=== PATIENT | female | born 1955 | race Caucasian/White ===

== ENCOUNTER 2019-07-09 18:27 | Emergency (ER) | payer MEDICAID, SELFPAY ==
[2019-07-09 18:42] VITALS: BP 171/84; PULSE 63; RESP 18; TEMP 36.3; O2SAT 99; BMI 20.7
[2019-07-09 19:16] LABS: Basophils % 0.7 %; Eosinophils # 0.1 10^3/uL (0.0-0.8); Eosinophils % 2.4 %; Hematocrit 43.3 % (37.0-47.0); Hemoglobin 14.3 g/dL (11.5-15.3); Lymphocytes # 2.4 10^3/uL (0.8-4.8); Lymphocytes % 40.4 %; Mean Corpuscular Hemoglobin 29.6 pg (28.0-34.0); Mean Corpuscular Volume 89.6 fL (81-99); Mean Platelet Volume 9.9 fL (7.4-10.4); Monocytes # 0.6 10^3/uL (0.2-0.9); Monocytes % 9.5 %; Neutrophils # 2.8 10^3/uL (1.8-7.7); Neutrophils % 46.8 %; Nucleated Red Blood Cells % 0 %; Platelet Count 208 10^3/cmm (130-400); Red Blood Count 4.83 10^6/uL (4.1-5.3); Red Cell Distribution Width 12.7 % (12.1-15.1); White Blood Count 5.9 10^3/uL (4.0-10.0)
[2019-07-09 19:55] LABS: Alanine Aminotransferase 28 U/L (0-33); Albumin Level 4.6 g/dL (3.5-5.2); Alkaline Phosphatase 59 IU/L (35-105); Anion Gap 16.7 (5-19); Aspartate Amino Transferase 35 U/L (0-32); Blood Urea Nitrogen 7 mg/dL (8-23); Carbon Dioxide 23 mmol/L (22-29); Chloride 100 mmol/L (98-107); Globulin 2.3 g/dL (1.3-4.6); Glomerular Filtration Rate 123.4 mL/min (90-130); Glucose 131 mg/dL (74-106); Lipase 36 U/L (13-60); Potassium 3.7 mmol/L (3.5-5.1); Sodium 136 mmol/L (136-145); Total Bilirubin 0.3 mg/dL (0.15-1.2); Total Protein 6.9 g/dL (6.6-8.7)
--- NOTE | 2019-07-09 23:20 | ED_ITS ---
Entered by Yoli Banerjee, acting as scribe for Godwin Fitch MD Jul 09, 2019 18:27 HPI - Abdominal Pain General: Chief Complaint: Abdominal Pain Stated Complaint: gallbladder attack Time Seen by Provider: 07/09/19 23:18 History of Present Illness: HPI narrative: 64 yo f came to the er for gallstones and abd pain. Onset was 1 year ago. Pt states that the pain has been really bad today but right now the pain is gone. Pt states that she is having rlq pain. Pt states that she has only been to see her pcp [facility] and has not been to see a surgeon. Pt states that she is also nauseated. MD elicited complaint: abdominal pain Pertinent past history: other (gallstones) Onset (ago): day(s) (1 year go it started, but pain is worse today) Pain Consistency: constant Location: RLQ Quality: dull Radiation: none Migration to: no migration Exacerbating factors: nothing Relieving factors: nothing Associated Symptoms: Reports nausea; Denies chills and fever(s) Related Data: Patient : No Review of Systems Const: Denies: fever or chills Eyes: Denies: change in vision ENMT: Denies: throat pain or mouth pain Card: Denies: chest pain Resp: Denies: shortness of breath GI: Reports: abdominal pain and nausea : Denies: difficulty urinating Musc: Denies: back pain or joint pain Skin/Breast: Denies: rash Neuro: Denies: headache or behavioral changes Psych: Denies: depression Endo: Denies: excessive urination Vinod/Lymph: Denies: easy bruising All/Imm: Denies: hives PFSH ED PFSH: Statuses (acute, chronic, etc) shown below reflect problem list status as previously entered and may not be historically accurate Social History Smoking and tobacco status: never smoked Physical Exam Const: COMMON NORMALS: no apparent distress and healthy appearing HENMT: COMMON NORMALS: normocephalic and external nose normal HEAD & SCALP: normocephalic NOSE: external nose normal and no nasal discharge (nasal dischage) Eye: COMMON NORMALS: PERRL PUPIL: Yes PERRL Neck/C-Spine: COMMON NORMALS: full ROM and no lymphadenopathy Chest: COMMONS NORMALS: inspection of chest normal Resp: COMMON NORMALS: normal respiratory effort and clear to auscultation bilaterally AUSCULTATION: clear to auscultation bilaterally Cardio: COMMON NORMALS: regular rate and regular rhythm RATE: regular rate RHYTHM: regular rhythm GI: COMMON NORMALS: soft to palpation PALPATION: Yes soft Extremity: COMMON NORMALS: normal to inspection, full ROM and normal capillary refill Psych: COMMON NORMALS: mental status grossly normal and cooperative Skin: COMMON NORMALS: no rashes or lesions noted GENERAL SKIN EXAM: no rashes or lesions noted Procedures Intubation Mg Given: 20 Mg Given: 200 Course Vital Signs: Vital signs: Vital Signs Temperature 98.2 F 07/10/19 00:26 Pulse Rate 74 07/10/19 00:26 Respiratory Rate 15 07/10/19 00:26 Blood Pressure 124/71 07/10/19 00:26 Pulse Oximetry 97 07/10/19 00:26 MDM - Abdominal Pain MDM Narrative: Medical decision making narrative: Patient presents here with abdominal pain that is since resolved and she has 0 pain here. Patient's lab work and CT scan is normal. Will place patient on Zofran and patient is to return if worsening. She is to follow-up with primary care doctor in 2 to 4 days. Lab Data: Labs: Lab Results 07/09/19 07/09/19 Range/Units 19:04 19:04 WBC 5.9 (4.0-10.0) 10^3/ uL RBC 4.83 (4.1-5.3) 10^6/u L Hgb 14.3 (11.5-15.3) g/dL Hct 43.3 (37.0-47.0) % MCV 89.6 (81-99) fL MCH 29.6 (28.0-34.0) pg MCHC 33.0 (30.0-36.0) g/dL RDW 12.7 (12.1-15.1) % Plt Count 208 (130-400) 10^3/c mm MPV 9.9 (7.4-10.4) fL Neut % (Auto) 46.8 % Lymph % (Auto) 40.4 % [place] % (Auto) 9.5 % Eos % (Auto) 2.4 % Baso % (Auto) 0.7 % Neut # (Auto) 2.8 (1.8-7.7) 10^3/u L Lymph # (Auto) 2.4 (0.8-4.8) 10^3/u L [place] # (Auto) 0.6 (0.2-0.9) 10^3/u L Eos # (Auto) 0.1 (0.0-0.8) 10^3/u L Baso # (Auto) 0.0 (0.0-0.1) 10^3/u L Nucleated RBC % (a uto) 0 % Nucleated RBCs # 0.0 /100WBC Sodium 136 (136-145) mmol/L Potassium 3.7 (3.5-5.1) mmol/L Chloride 100 (98-107) mmol/L Carbon Dioxide 23 (22-29) mmol/L Anion Gap 16.7 (5-19) BUN 7 L (8-23) mg/dL Creatinine 0.5 (0.5-0.9) mg/dL GFR Calculation 123.4 (90-130) mL/min Glucose 131 H (74-106) mg/dL Calcium 11.0 H (8.8-10.2) mg/Dl Total Bilirubin 0.3 (0.15-1.2) mg/dL AST 35 H (0-32) U/L ALT 28 (0-33) U/L Alkaline Phosphata se 59 (35-105) IU/L Total Protein 6.9 (6.6-8.7) g/dL Albumin 4.6 (3.5-5.2) g/dL Globulin 2.3 (1.3-4.6) g/dL Lipase 36 (13-60) U/L Imaging Data ^: CT Abd/Pel: Radiologist's impression: Ordering Provider/Ordering MD: Godwin Fitch MD Date of Service: 07/09/19 Procedure(s): CT abdomen pelvis w con* [id number] Accession Number(s): [id number] Report Number: [id number] PROCEDURE INFORMATION: Exam: CT Abdomen And Pelvis With Contrast Exam date and time: 07/09/2019 11:27 PM Age: 64 years old Clinical indication: Abdominal pain; Localized; Right upper quadrant (ruq) TECHNIQUE: Imaging protocol: Computed tomography of the abdomen and pelvis with intravenous contrast. Total DLP: 458.97 mGy-cm Radiation optimization: All CT scans at this facility use at least one of these dose optimization techniques: automated exposure control; mA and/or kV adjustment per patient size (includes targeted exams where dose is matched to clinical indication); or iterative reconstruction. Contrast material: OMNI 300; Contrast volume: 95 ml; Contrast route: IV; COMPARISON: CT abdomen pelvis wo con [id number] 10/28/2017 1:13 PM FINDINGS: Lungs: Bronchiectasis with patchy mucous plugging and volume loss in the lung bases is unchanged. Liver: Unremarkable.No mass. Gallbladder and bile ducts: Gallbladder wall appears slightly thickened but is also partially collapsed. Pancreas: Normal. No ductal dilation. Spleen: Normal. No splenomegaly. Adrenals: Normal. No mass. Kidneys and ureters: There are multiple renal hypodensities that cannot be further characterized on the current examination. There is no evidence of hydronephrosis. There is no evidence of renal calcifications. Stomach and bowel: The gastric wall appears thickened but is also almost completely collapsed in the appearance is similar to the prior exam. The duodenum is mildly distended with fluid. The duodenal wall is mildly thickened and enhancing concerning for mild duodenitis. There is mild wall thickening of the descending and sigmoid colon concerning for mild colitis. The remaining loops of bowel have an appropriate appearance. Appendix: No evidence of appendicitis. Intraperitoneal space: Unremarkable. No free air. No significant fluid collection. Vasculature: Unremarkable.No abdominal aortic aneurysm. Lymph nodes: Unremarkable.No enlarged lymph nodes. Bladder: Unremarkable as visualized. Reproductive: Unremarkable as visualized. Bones/joints: There is scoliosis with moderate degenerative changes in the spine. Soft tissues: Unremarkable. CT/CT abdomen pelvis w con* [id number] IMPRESSION: 1. There is mild wall thickening of the descending and sigmoid colon concerning for mild colitis. 2. The duodenal wall is mildly thickened and enhancing concerning for mild duodenitis. Discharge Plan Discharge Patient Disposition: Home, Self-Care Clinical Impression: Abdominal pain Qualifiers: Abdominal location: generalized Qualified Code(s): R10.84 - Generalized abdominal pain Condition: Stable Prescriptions: New Zofran 4 mg tablet 4 mg PO QID PRN (Reason: nausea and vomiting) Qty: 14 RF: 0 Discharge Orders: Discharge Order (Routine); Ordered 07/10/19 Ordered By: Godwin Fitch Referrals: Michael Phillips MD [Primary Care Provider] - 4-7 days Discharge Diet: Advance as tolerated Discharge Activity: Resume usual activity Patient Instructions: Abdominal Pain (ED) Discharge Date/Time: 07/10/19 00:27 Coding Level of Care Code ED Criminal Intelligence Specialist for Chg Fwd The documentation recorded by the Chriss villarreal Stephanie Lyn, accurately reflects the service I personally performed and the decisions made by Constantine martin Korby, MD Jul 09, 2019 18:27
[2019-07-09] MEDS: ondansetron 2 mg/ML SDV 2 mL 4 MG IVP (23:30)
[2019-07-09] MEDS: iohexol 300 mg/mL 100 mL Btl IV (23:30)
[2019-07-10 00:26] VITALS: BP 124/71; PULSE 74; RESP 15; TEMP 36.8; O2SAT 97
== END 2019-07-10 00:27 | disposition home or self-care (01) ==
PROVIDERS: Emergency Provider Emergency Medicine; Family Provider Family Medicine; PCP Family Medicine
DX: R10.84 Generalized abdominal pain (principal)
CPT/HCPCS: 36415; 74177; 80053; 83690; 85025; 96374; 96375; 99281; J2405; Q9967

== ENCOUNTER 2020-01-06 12:30 | Emergency (ER) | payer MEDICAID, SELFPAY ==
[2020-01-06 12:22] VITALS: BP 170/73; PULSE 67; RESP 18; TEMP 36.5; O2SAT 98; BMI 20.5
--- NOTE | 2020-01-06 12:38 | ED_ITS ---
HPI - Female Genitourinary General: Chief complaint: Urogenital-Female Stated complaint: ABD PAIN History of Present Illness: HPI Narrative: Patient complains of bilateral lower abdominal pain for the past few days. She also complains of frequency, hesitancy, and urgency of urination. MD elicited complaint: dysuria, UTI , back pain and flank pain Pertinent past history: hysterectomy Severity: moderate Female Urogenital Radiation: Non-Radiating Quality of pain: sharp and burning Consistency: constant and progressively worsening Review of Systems General: Reports: 10 or more systems reviewed and unremarkable except in HPI and below PFSH ED PFSH: Social History Smoking and tobacco status: never smoked Physical Exam Const: COMMON NORMALS: no acute distress, patient oriented x3, no limitations and alert HENMT: COMMON NORMALS: normocephalic, atraumatic, external ears normal and Normal external nose present HEAD & SCALP: normocephalic and atraumatic FACE & SINUS: normal facial exam NOSE: Normal external nose present EXTERNAL EAR: Yes external ears normal MOUTH: Normal oral and palatal mucosa present Neck/C-Spine: COMMON NORMALS: full ROM, no lymphadenopathy, supple, no meningeal signs and no JVD GENERAL: Yes normal visual inspection Resp: COMMON NORMALS: normal respiratory effort, No retractions, No use of acc essory muscles and clear to auscultation bilaterally AUSCULTATION: clear to auscultation bilaterally Cardio: COMMON NORMALS: no JVD, regular rate and regular rhythm RATE: regular rate RHYTHM: regular rhythm GI: COMMON NORMALS: Normal to inspection, nondistended, normoactive bowel sounds present, Soft to palpation, non-tender, No hepatosplenomegaly present and no masses INSPECTION: Yes normal to inspection AUSCULTATION: Yes normoactive bowel sounds PALPATION: Yes Soft to palpation and Yes No hepatosplenomegaly present PERCUSSION: normal to percussion : COMMON NORMALS: Yes no CVA tenderness and Yes normal external appearance BLADDER/KIDNEY EXAM: Yes no CVA tenderness Back/Pelvis: COMMON NORMALS: no CVA tenderness, thoracic and lumbar spine normal to inspection, no thoracic nor lumbar tenderness, thoraco-lumbar ROM normal and straight leg raise negative bilaterally Extremity: COMMON NORMALS: normal to inspection, full ROM, capillary refill normal, no joint enlargement, no clubbing, cyanosis or edema, no calf tenderness and no pedal edema Neuro: COMMON NORMALS: patient oriented x3, moves all extremities, no focal motor deficits and no sensory deficits noted SENSORIUM/ORIENTATION: Yes alert MENINGEAL SIGNS: Yes no meningeal signs Psych: COMMON NORMALS: mental status grossly normal, Normal thought process present, cooperative, normal affect and speech normal SPEECH: Yes normal speech THOUGHT PROCESS: Normal thought process present Skin: COMMON NORMALS: no rashes or lesions noted, no wounds, turgor normal, no jaundice, no petechiae and no mottling GENERAL SKIN EXAM: no rashes or lesions noted and turgor normal Course Vital Signs: Vital signs: Vital Signs Temperature 97.7 F 01/06/20 12:22 Pulse Rate 67 01/06/20 12:22 Respiratory Rate 18 01/06/20 12:22 Blood Pressure 170/73 01/06/20 12:22 Pulse Oximetry 98 01/06/20 12:22 MDM - Female Lab Data: Labs: Lab Results 01/06/20 01/06/20 01/06/20 Range/Units 12:45 12:45 12:45 WBC 5.9 (4.0-10.0) 10^3/ uL RBC 4.63 (4.1-5.3) 10^6/u L Hgb 13.3 (11.5-15.3) g/dL Hct 40.9 (37.0-47.0) % MCV 88.3 (81-99) fL MCH 28.7 (28.0-34.0) pg MCHC 32.5 (30.0-36.0) g/dL RDW 13.2 (12.1-15.1) % Plt Count 186 (130-400) 10^3/c mm MPV 10.6 H (7.4-10.4) fL Neut % (Auto) 69.0 % Lymph % (Auto) 21.9 % [place] % (Auto) 6.3 % Eos % (Auto) 1.9 % Baso % (Auto) 0.7 % Neut # (Auto) 4.08 (1.8-7.7) 10^3/u L Lymph # (Auto) 1.3 (0.8-4.8) 10^3/u L [place] # (Auto) 0.4 (0.2-0.9) 10^3/u L Eos # (Auto) 0.1 (0.0-0.8) 10^3/u L Baso # (Auto) 0.0 (0.0-0.1) 10^3/u L Nucleated RBC % (a uto) 0 % Nucleated RBCs # 0.0 /100WBC Sodium 137 (136-145) mmol/L Potassium 3.6 (3.5-5.1) mmol/L Chloride 101 (98-107) mmol/L Carbon Dioxide 25 (22-29) mmol/L Anion Gap 14.6 (5-19) BUN 6 L (8-23) mg/dL Creatinine 0.5 (0.5-0.9) mg/dL GFR Calculation 123.4 (90-130) mL/min Glucose 111 (65-115) mg/dL Calculated Osmolal ity 280 L (285-295) mOsm/k g Lactate 1.0 (0.5-2.2) mmol/L Calcium 10.7 H (8.5-10.5) mg/dL Total Bilirubin 0.5 (0.15-1.2) mg/dL AST 23 (0-32) U/L ALT 18 (0-33) U/L Alkaline Phosphata se 60 (35-105) IU/L Total Protein 6.7 (6.6-8.7) g/dL Albumin 4.4 (3.5-5.2) g/dL Globulin 2.3 (1.3-4.6) g/dL Urine Color (Yellow) Urine Appearance (CLEAR) Urine pH (5-7) Ur Specific Gravit y (1.005-1.030) Urine Protein (Negative) Urine Glucose (UA) (Normal) Urine Ketones (Negative) Urine Blood (Negative) Urine Nitrate (Negative) Urine Bilirubin (NEGATIVE) Urine Urobilinogen (Negative) mg/dL Ur Leukocyte Jane ase (Negative) 01/06/20 Range/Units 13:28 WBC (4.0-10.0) 10^3/ uL RBC (4.1-5.3) 10^6/u L Hgb (11.5-15.3) g/dL Hct (37.0-47.0) % MCV (81-99) fL MCH (28.0-34.0) pg MCHC (30.0-36.0) g/dL RDW (12.1-15.1) % Plt Count (130-400) 10^3/c mm MPV (7.4-10.4) fL Neut % (Auto) % Lymph % (Auto) % [place] % (Auto) % Eos % (Auto) % Baso % (Auto) % Neut # (Auto) (1.8-7.7) 10^3/u L Lymph # (Auto) (0.8-4.8) 10^3/u L [place] # (Auto) (0.2-0.9) 10^3/u L Eos # (Auto) (0.0-0.8) 10^3/u L Baso # (Auto) (0.0-0.1) 10^3/u L Nucleated RBC % (a uto) % Nucleated RBCs # /100WBC Sodium (136-145) mmol/L Potassium (3.5-5.1) mmol/L Chloride (98-107) mmol/L Carbon Dioxide (22-29) mmol/L Anion Gap (5-19) BUN (8-23) mg/dL Creatinine (0.5-0.9) mg/dL GFR Calculation (90-130) mL/min Glucose (65-115) mg/dL Calculated Osmolal ity (285-295) mOsm/k g Lactate (0.5-2.2) mmol/L Calcium (8.5-10.5) mg/dL Total Bilirubin (0.15-1.2) mg/dL AST (0-32) U/L ALT (0-33) U/L Alkaline Phosphata se (35-105) IU/L Total Protein (6.6-8.7) g/dL Albumin (3.5-5.2) g/dL Globulin (1.3-4.6) g/dL Urine Color Yellow (Yellow) Urine Appearance Clear (CLEAR) Urine pH 7 (5-7) Ur Specific Gravit y 1.010 (1.005-1.030) Urine Protein Neg (Negative) Urine Glucose (UA) Norm (Normal) Urine Ketones Negative (Negative) Urine Blood Neg (Negative) Urine Nitrate Negative (Negative) Urine Bilirubin Neg (NEGATIVE) Urine Urobilinogen Norm (Negative) mg/dL Ur Leukocyte Jane a[place] Negative (Negative) Discharge Plan Discharge Patient Disposition: Home, Self-Care Clinical Impression: Abdominal pain Qualifiers: Abdominal location: lower abdomen, unspecified Qualified Code(s): R10.30 - Lower abdominal pain, unspecified Condition: Stable Prescriptions: New dicyclomine 10 mg capsule 10 mg PO QID PRN (Reason: abdominal pain) Qty: 20 RF: 0 No Action acetaminophen 325 mg Tablet 325 mg PO QID PRN (Reason: Pain) RF: 0 metoprolol succinate 50 mg tablet extended release 24 hr 50 mg PO DAILY RF: 0 alendronate 70 mg tablet 70 mg PO Q7D RF: 0 simvastatin 20 mg tablet 20 mg PO DAILY RF: 0 nitroglycerin 0.4 mg tablet, sublingual 0.4 mg sublingual Q5M PRN (Reason: chest pains) RF: 0 ProAir HFA 90 mcg/actuation HFA aerosol inhaler 1 - 2 puff INHALATION Q4H PRN (Reason: Shortness Of Breath) RF: 0 fluticasone propionate 50 mcg/actuation spray,suspension 50 mcg INTRANASAL BID RF: 0 Discharge Orders: Discharge Order (Routine); Ordered 01/06/20 Ordered By: João Swanson Referrals: Michael Phillips MD [Primary Care Provider] - Patient Instructions: Cholecystitis (ED), Abdominal Pain (ED) Coding Level of Care Code ED Project/Production Manager Imaging for Chg Fwd Exam Comprehensive
[2020-01-06 12:53] LABS: Basophils % 0.7 %; Eosinophils # 0.1 10^3/uL (0.0-0.8); Eosinophils % 1.9 %; Hematocrit 40.9 % (37.0-47.0); Hemoglobin 13.3 g/dL (11.5-15.3); Lymphocytes # 1.3 10^3/uL (0.8-4.8); Lymphocytes % 21.9 %; Mean Corpuscular HGB Conc 32.5 g/dL (30.0-36.0); Mean Corpuscular Hemoglobin 28.7 pg (28.0-34.0); Mean Corpuscular Volume 88.3 fL (81-99); Mean Platelet Volume 10.6 fL (7.4-10.4); Monocytes # 0.4 10^3/uL (0.2-0.9); Monocytes % 6.3 %; Neutrophils # 4.08 10^3/uL (1.8-7.7); Nucleated Red Blood Cells % 0 %; Platelet Count 186 10^3/cmm (130-400); Red Blood Count 4.63 10^6/uL (4.1-5.3); Red Cell Distribution Width 13.2 % (12.1-15.1); White Blood Count 5.9 10^3/uL (4.0-10.0)
[2020-01-06 13:06] LABS: Alanine Aminotransferase 18 U/L (0-33); Albumin Level 4.4 g/dL (3.5-5.2); Alkaline Phosphatase 60 IU/L (35-105); Anion Gap 14.6 (5-19); Aspartate Amino Transferase 23 U/L (0-32); Blood Urea Nitrogen 6 mg/dL (8-23); Calcium 10.7 mg/dL (8.5-10.5); Carbon Dioxide 25 mmol/L (22-29); Chloride 101 mmol/L (98-107); Globulin 2.3 g/dL (1.3-4.6); Glomerular Filtration Rate 123.4 mL/min (90-130); Glucose 111 mg/dL (65-115); Osmolality Calculated 280 mOsm/kg (285-295); Potassium 3.6 mmol/L (3.5-5.1); Sodium 137 mmol/L (136-145); Total Bilirubin 0.5 mg/dL (0.15-1.2); Total Protein 6.7 g/dL (6.6-8.7)
[2020-01-06] MEDS: sodium chloride 0.9% 500 ML IV (13:15)
[2020-01-06 13:57] LABS: Add Urine Microscopic? NO
[2020-01-06 14:11] LABS: Bilirubin Urine Neg (NEGATIVE); Blood Urine Neg (Negative); Glucose Urine UA Norm (Normal); Ketones Urine Negative (Negative); Leukocyte Esterase Urine Negative (Negative); Nitrate Urine Negative (Negative); Protein Urine Neg (Negative); Urine Appearance Clear (CLEAR); Urine Color Yellow (Yellow); Urobilinogen Urine Norm (Negative); pH Urine 7 (5-7)
--- NOTE | 2020-01-06 14:23 | CTR_ITS ---
PROCEDURE INFORMATION: Exam: CT Abdomen And Pelvis With Contrast Exam date and time: 01/06/2020 2:27 PM Age: 64 years old Clinical indication: Abdominal pain; Localized; Lower; Additional info: Abd pain TECHNIQUE: Imaging protocol: Computed tomography of the abdomen and pelvis with intravenous contrast. Axial, coronal and sagittal reformatted images were created and reviewed. Radiation optimization: All CT scans at this facility use at least one of these dose optimization techniques: automated exposure control; mA and/or kV adjustment per patient size (includes targeted exams where dose is matched to clinical indication); or iterative reconstruction. Contrast material: OMNI 300; Contrast volume: 75 ml; Contrast route: INTRAVENOUS (IV); COMPARISON: CT abdomen pelvis w con* [id number] 07/09/2019 11:53 PM RADIATION DOSE METRICS: Total DLP (mGy-cm): 476.08 FINDINGS: Lungs: Right basilar bronchiectasis with associated peribronchial thickening and mucous plugging, similar to prior. Left lower lobe volume loss. Mediastinal space: Small hiatal hernia. Liver: Unremarkable. Gallbladder and bile ducts: No radiodense gallstones. No biliary ductal dilatation. Pancreas: Unremarkable. Spleen: Unremarkable. Adrenals: Unremarkable. Kidneys and ureters: Subcentimeter low-density right renal lesions, measuring up to 8 mm, similar to prior and too small to characterize. No radiodense calculi. No hydronephrosis. Stomach and bowel: No bowel wall thickening. No obstruction. No pneumatosis. Appendix: Normal. Intraperitoneal space: Leftward mediastinal shift. Vasculature: Mild atherosclerotic disease. No aneurysm or dissection. Lymph nodes: No pathologically enlarged lymph nodes. Bladder: Unremarkable. Reproductive: Status post hysterectomy. Bones/joints: No acute osseous abnormality. Osteopenia. Mild degenerative changes. Soft tissues: Unremarkable. CT/CT abdomen pelvis w con* [id number]: 1[address] No CT evidence of acute intra-abdominal or pelvic pathology. 2. Additional findings, as above. Radiation Dose CTDIVOL = (mGy): DLP = 476.08 (mGy-cm)
[2020-01-06] MEDS: iohexol 300 mg/mL 100 mL Btl IV (14:47)
[2020-01-06 15:45] VITALS: BP 169/99; PULSE 70; RESP 16; O2SAT 98
== END 2020-01-06 15:46 | disposition home or self-care (01) ==
PROVIDERS: Emergency Provider Family Medicine; Family Provider Family Medicine; PCP Family Medicine
DX: R10.30 Lower abdominal pain, unspecified (principal)
CPT/HCPCS: 12345; 36415; 74177; 80053; 81003; 83605; 85025; 87040; 96360; 99283; J7040; Q9967

== ENCOUNTER 2020-03-21 09:46 | Outpatient (CLI) | payer MEDICAID, SELFPAY ==
[2020-03-21 10:47] LABS: Total Volume Urine 1900 ml
[2020-03-21 10:53] LABS: Urine Creatinine 41 mg/dL (28-217)
[2020-03-21 10:56] LABS: 25 Hydroxy Vitamin D 24 ng/mL (30-100)
[2020-03-21 11:10] LABS: Calcium 24 Hour Urine 289 mg/24hr (100-300); Urine Calcium Result 15.2 mg/dL
== END 2020-03-21 09:47 | disposition home or self-care (01) ==
LOC: LAB 09:46
PROVIDERS: Family Provider Family Medicine; PCP Family Medicine; Visit Provider Internal Medicine
DX: E21.3 Hyperparathyroidism, unspecified (principal); E55.9 Vitamin D deficiency, unspecified; M81.0 Age-related osteoporosis without current pathological fracture
CPT/HCPCS: 82306; 82340; 82570; 99204

== ENCOUNTER → 2020-04-02 12:52 | Outpatient (BNVA) | payer MEDICAID, SELFPAY | PROVIDERS: Family Provider Family Medicine; PCP Family Medicine; Visit Provider Internal Medicine | DX: E21.3 Hyperparathyroidism, unspecified (principal); E55.9 Vitamin D deficiency, unspecified; M81.0 Age-related osteoporosis without current pathological fracture | CPT/HCPCS: 99213 ==

== ENCOUNTER 2020-06-24 12:43 | Outpatient (CLI) | payer MEDICAID, SELFPAY ==
[2020-06-24 14:01] LABS: 25 Hydroxy Vitamin D 21 ng/mL (30-100); Magnesium 2.1 mg/dL (1.7-2.3); Phosphorus 2.8 mg/dL (2.5-4.5)
[2020-06-24 14:13] LABS: Calcium 10.7 mg/dL (8.5-10.5); Parathyroid Hormone 107.4 pg/mL (15-65)
== END 2020-06-24 12:44 | disposition home or self-care (01) ==
LOC: LAB 12:45
PROVIDERS: PCP Family Medicine; Visit Provider Internal Medicine
DX: E21.3 Hyperparathyroidism, unspecified (principal); E55.9 Vitamin D deficiency, unspecified; M81.0 Age-related osteoporosis without current pathological fracture
CPT/HCPCS: 36415; 82306; 82310; 83735; 83970; 84100

== ENCOUNTER 2020-06-29 17:29 | Emergency (ER) | payer MEDICAID, SELFPAY ==
[2020-06-29 17:33] VITALS: BP 148/71; PULSE 67; RESP 16; TEMP 36.6; O2SAT 95; BMI 19.7
[2020-06-29 19:00] VITALS: BP 153/81; PULSE 67; RESP 19; O2SAT 99
--- NOTE | 2020-06-29 19:18 | ECG_ITS ---
[facility] Test Date: 2020-06-29 Pat Name: Amy Nguyen Department: Room: Gender: Female Management Psychologist: : 1955 Requested By: Palmira Haas I Order Number: [id number] Reading MD: Fausto Hannon M.D. Measurements Intervals [place] Rate: 60 P: 64 ME: 149 QRS: 76 QRSD: 77 T: 42 QT: 385 QTc: 387 Interpretive Statements SINUS RHYTHM POSSIBLE LEFT ATRIAL ENLARGEMENT [-0.1mV P WAVE IN V1/V2] NONSPECIFIC T-WAVE ABNORMALITY Compared to ECG 02/27/2019 23:27:39 No significant changes Electronically Signed On 06-30-2020 19:00:48 [employer] by Fausto Hannon M.D. [id number]
--- NOTE | 2020-06-29 19:18 | XRR_ITS ---
PROCEDURE INFORMATION: Exam: XR Chest, 1 View Exam date and time: 06/29/2020 8:08 PM Age: 65 years old Clinical indication: Chest pain; Radiating; Prior surgery; Surgery type: Hyst; Additional info: Cp radiating to back 2 days TECHNIQUE: Imaging protocol: XR of the chest Views: 1 view. COMPARISON: CR Chest 1 [place] [id number] 02/27/2019 4:32 PM FINDINGS: Lungs: Emphysema Airspace consolidation left lung base/retrocardiac region. Correlate regarding known history. Volume loss. Atelectasis suspected. Small pleural effusion versus pleural thickening. Apical pleural thickening on the left. Findings are stable. Pleural space: See Lungs finding. Heart/Mediastinum: Unremarkable. No cardiomegaly. Bones/joints: Unremarkable. XR/XR chest 1V portable [id number] IMPRESSION: Airspace consolidation left lung base/retrocardiac region. Correlate regarding known history. Volume loss. Atelectasis suspected. Small pleural effusion versus pleural thickening. Apical pleural thickening on the left. Findings are stable.
[2020-06-29] MEDS: nitroglycerin 1 gm/inch oint Pkt 1 INCH TOPICAL (19:30)
[2020-06-29 19:56] LABS: Basophils # 0.1 10^3/uL (0.0-0.1); Basophils % 0.8 %; Eosinophils # 0.1 10^3/uL (0.0-0.8); Eosinophils % 0.9 %; Hematocrit 42.9 % (37.0-47.0); Lymphocytes # 1.9 10^3/uL (0.8-4.8); Lymphocytes % 23.9 %; Mean Corpuscular HGB Conc 32.6 g/dL (30.0-36.0); Mean Corpuscular Hemoglobin 28.2 pg (28.0-34.0); Mean Corpuscular Volume 86.5 fL (81-99); Mean Platelet Volume 10.4 fL (7.4-10.4); Monocytes # 0.7 10^3/uL (0.2-0.9); Monocytes % 8.4 %; Neutrophils # 5.08 10^3/uL (1.8-7.7); Neutrophils % 65.7 %; Nucleated Red Blood Cells % 0 %; Platelet Count 221 10^3/cmm (130-400); Red Blood Count 4.96 10^6/uL (4.1-5.3); Red Cell Distribution Width 12.7 % (12.1-15.1); White Blood Count 7.7 10^3/uL (4.0-10.0)
[2020-06-29 20:10] VITALS: BP 140/66; PULSE 61; RESP 21; O2SAT 98
[2020-06-29 20:14] LABS: D Dimer 0.49 ug/mIFEU (0-0.59)
[2020-06-29 20:21] LABS: Troponin(5th) Baseline 6 ng/L (0-10)
[2020-06-29 20:30] LABS: Alanine Aminotransferase 17 U/L (0-33); Albumin Level 4.4 g/dL (3.5-5.2); Alkaline Phosphatase 68 IU/L (35-105); Anion Gap 13.1 (5-19); Aspartate Amino Transferase 17 U/L (0-32); Blood Urea Nitrogen 8 mg/dL (8-23); Calcium 10.9 mg/dL (8.5-10.5); Carbon Dioxide 29 mmol/L (22-29); Chloride 102 mmol/L (98-107); Creatinine Clr Calc Pharmacy 57.8328; Globulin 2.3 g/dL (1.3-4.6); Glomerular Filtration Rate 99.7 mL/min (90-130); Glucose 105 mg/dL (65-115); Lipase 31 U/L (13-60); NT Pro B Type Natriuretic Pept 122 pg/mL (0-125); Osmolality Calculated 289 mOsm/kg (285-295); Potassium 4.1 mmol/L (3.5-5.1); Sodium 140 mmol/L (136-145); Total Bilirubin 0.3 mg/dL (0.15-1.2); Total Protein 6.7 g/dL (6.6-8.7)
--- NOTE | 2020-06-29 21:15 | ED_ITS ---
HPI - Chest Pain General: Chief Complaint: Chest Pain Stated Complaint: CHEST PAIN Time Seen by Provider: 06/29/20 18:47 Source: patient Mode of arrival: ambulatory Limitations: no limitations History of Present Illness: HPI narrative: 65-year-old female patient who presents to the emergency department with substernal chest pain that started 2 days ago, has been continuous and is therefore here to be evaluated. No known aggravating or relieving factors. She has a prior history of pleurisy. She has taken aspirin and nitroglycerin but no improvement. MD complaint: chest pain Onset (ago): day(s) (2) Timing of current episode: constant Onset: during rest and during exertion Pain location: substernal Pain radiation: none Severity: moderate Quality: sharp Relieving factors: nothing Exacerbating factors: nothing Associated symptoms: Deny abdominal pain, diaphoresis, dyspnea, fever(s), leg edema, nausea, palpitations, sense of impending doom, syncope or vomiting Treatment prior to arrival: aspirin and nitroglycerin Review of Systems General: Reports: 10 or more systems reviewed and unremarkable except in HPI and below Const: Denies: fever(s) or diaphoresis Eyes: Denies: change in vision or blurry vision ENMT: Denies: throat pain, enlarged tonsils, odynophagia, hoarseness, mouth pain or swelling of lips/tongue Card: Denies: palpitations or syncope Resp: Denies: dyspnea GI: Denies: abdominal pain, nausea or vomiting : Denies: flank pain, difficulty voiding, dysuria, urinary frequency, urinary urgency or urinary hesitancy Musc: Denies: neck pain, back pain or extremity swelling Skin/Breast: Denies: rash, pruritus or erythema Neuro: Denies: headache(s), numbness in extremities or weakness in extremities Endo: Denies: polyuria, polydipsia or tired all the time PFSH ED PFSH: Medical History Chronic bronchitis Irritable bowel syndrome Myocardial infarction Surgical History H/O: hysterectomy History of lung surgery History of tonsillectomy History of tracheostomy Family History Father CAD (coronary artery disease) Mother CAD (coronary artery disease) Social History Smoking and tobacco status: never smoked Alcohol intake: never Physical Exam Const: COMMON NORMALS: no acute distress, average body habitus, patient oriented x3, no limitations, healthy appearing, alert and well nourished HENMT: COMMON NORMALS: normocephalic, atraumatic and moist oral mucous membranes HEAD & SCALP: normocephalic and atraumatic Neck/C-Spine: COMMON NORMALS: no meningeal signs and no JVD Chest: COMMONS NORMALS: normal inspection of the chest and normal palpation of entire chest wall Resp: COMMON NORMALS: normal respiratory effort, No retractions, No use of accessory muscles, clear to auscultation bilaterally and percussion normal AUSCULTATION: clear to auscultation bilaterally PERCUSSION: percussion normal Cardio: COMMON NORMALS: no JVD, regular rate, regular rhythm, S1 normal heart sound present, S2 normal heart sound present, No gallops present (Cardio), No clicks present (Cardio), No murmurs present (Cardio), No rub (Cardio) and Peripheral pulses 2+ throughout RATE: regular rate RHYTHM: regular rhythm HEART SOUNDS: S1 normal heart sound present and S2 normal heart sound present PERIPHERAL PULSES: Peripheral pulses 2+ throughout GI: COMMON NORMALS: Normal to inspection, nondistended, normoactive bowel sounds present, Soft to palpation, non-tender, No hepatosplenomegaly present, no masses and no bruits PALPATION: Yes Soft to palpation and Yes No hepatosplenomegaly present Extremity: COMMON NORMALS: normal to inspection, full ROM, capillary refill normal, no calf tenderness and no pedal edema Neuro: COMMON NORMALS: patient oriented x3 SENSORIUM/ORIENTATION: Yes alert MENINGEAL SIGNS: Yes no meningeal signs Skin: COMMON NORMALS: no rashes or lesions noted, no wounds, turgor normal, no jaundice, no petechiae and no mottling GENERAL SKIN EXAM: no rashes or lesions noted and turgor normal Course Reevaluation(s): Reevaluation #1: Discussed her lab and imaging findings with him. No acute findings. Normal high-sensitivity troponin, BNP, D-dimer. Since her symptoms have been going on for 2 days and all his labs are normal we will discharge her home with no new orders. She voiced understanding and is in agreement with the plan. Time: 21:18 Vital Signs: Vital signs: Vital Signs Temperature 97.9 F 06/29/20 17:33 Pulse Rate 68 06/29/20 21:31 Respiratory Rate 22 H 06/29/20 21:31 Blood Pressure 138/71 06/29/20 21:31 Pulse Oximetry 97 06/29/20 21:31 MDM - Chest Pain MDM Narrative: Medical decision making narrative: 65-year-old female patient with chest pain that is unlikely to be cardiac in origin. She has had constant pain for 2 days. Heart score is 4 for age and risk factors. She has a 17% risk of an adverse cardiac event in the next 6 weeks. Discussed this with her and she would like to be discharged home. She will follow-up with her primary care provider. Medical Records: Attestation: I reviewed the patient's medical records. Lab Data: Attestation: I reviewed the patient's lab results. Labs: Lab Results 06/29/20 06/29/20 06/29/20 Range/Units 19:49 19:49 19:49 WBC 7.7 (4.0-10.0) 10^3/ uL RBC 4.96 (4.1-5.3) 10^6/u L Hgb 14.0 (11.5-15.3) g/dL Hct 42.9 (37.0-47.0) % MCV 86.5 (81-99) fL MCH 28.2 (28.0-34.0) pg MCHC 32.6 (30.0-36.0) g/dL RDW 12.7 (12.1-15.1) % Plt Count 221 (130-400) 10^3/c mm MPV 10.4 (7.4-10.4) fL Neut % (Auto) 65.7 % Lymph % (Auto) 23.9 % [place] % (Auto) 8.4 % Eos % (Auto) 0.9 % Baso % (Auto) 0.8 % Neut # (Auto) 5.08 (1.8-7.7) 10^3/u L Lymph # (Auto) 1.9 (0.8-4.8) 10^3/u L [place] # (Auto) 0.7 (0.2-0.9) 10^3/u L Eos # (Auto) 0.1 (0.0-0.8) 10^3/u L Baso # (Auto) 0.1 (0.0-0.1) 10^3/u L Nucleated RBC % (a uto) 0 % Nucleated RBCs # 0.0 /100WBC D-Dimer 0.49 (0-0.59) ug/mIFE U Sodium 140 (136-145) mmol/L Potassium 4.1 (3.5-5.1) mmol/L Chloride 102 (98-107) mmol/L Carbon Dioxide 29 (22-29) mmol/L Anion Gap 13.1 (5-19) BUN 8 (8-23) mg/dL Creatinine 0.6 (0.5-0.9) mg/dL GFR Calculation 99.7 (90-130) mL/min Glucose 105 (65-115) mg/dL Calculated Osmolal ity 289 (285-295) mOsm/k g Calcium 10.9 H (8.5-10.5) mg/dL Total Bilirubin 0.3 (0.15-1.2) mg/dL AST 17 (0-32) U/L ALT 17 (0-33) U/L Alkaline Phosphata se 68 (35-105) IU/L Troponin T Baselin e (0-10) ng/L NT-Pro-B Natriuret Pep 122 (0-125) pg/mL Total Protein 6.7 (6.6-8.7) g/dL Albumin 4.4 (3.5-5.2) g/dL Globulin 2.3 (1.3-4.6) g/dL Lipase 31 (13-60) U/L 06/29/20 Range/Units 19:49 WBC (4.0-10.0) 10^3/ uL RBC (4.1-5.3) 10^6/u L Hgb (11.5-15.3) g/dL Hct (37.0-47.0) % MCV (81-99) fL MCH (28.0-34.0) pg MCHC (30.0-36.0) g/dL RDW (12.1-15.1) % Plt Count (130-400) 10^3/c mm MPV (7.4-10.4) fL Neut % (Auto) % Lymph % (Auto) % [place] % (Auto) % Eos % (Auto) % Baso % (Auto) % Neut # (Auto) (1.8-7.7) 10^3/u L Lymph # (Auto) (0.8-4.8) 10^3/u L [place] # (Auto) (0.2-0.9) 10^3/u L Eos # (Auto) (0.0-0.8) 10^3/u L Baso # (Auto) (0.0-0.1) 10^3/u L Nucleated RBC % (a uto) % Nucleated RBCs # /100WBC D-Dimer (0-0.59) ug/mIFE U Sodium (136-145) mmol/L Potassium (3.5-5.1) mmol/L Chloride (98-107) mmol/L Carbon Dioxide (22-29) mmol/L Anion Gap (5-19) BUN (8-23) mg/dL Creatinine (0.5-0.9) mg/dL GFR Calculation (90-130) mL/min Glucose (65-115) mg/dL Calculated Osmolal ity (285-295) mOsm/k g Calcium (8.5-10.5) mg/dL Total Bilirubin (0.15-1.2) mg/dL AST (0-32) U/L ALT (0-33) U/L Alkaline Phosphata se (35-105) IU/L Troponin T Baselin e 6 (0-10) ng/L NT-Pro-B Natriuret Pep (0-125) pg/mL Total Protein (6.6-8.7) g/dL Albumin (3.5-5.2) g/dL Globulin (1.3-4.6) g/dL Lipase (13-60) U/L Imaging Data^: CXR: Attestation: I personally reviewed and interpreted this imaging study as follows: My impression: Emphysematous change. No infiltrates noted. EKG Data^: EKG 1: Attestation: I personally reviewed and interpreted this EKG as follows: EKG interpretation date: 06/29/20 EKG interpretation time: 19:43 Prior EKG tracings: not available for review Interpretation: Normal sinus rhythm. Heart rate [address] changes. Normal axis. Discharge Plan Discharge Patient Disposition: Home Clinical Impression: Chest pain, non-cardiac Condition: Stable Prescriptions: Continued acetaminophen 325 mg Tablet 325 mg PO QID PRN (Reason: Pain) RF: 0 metoprolol succinate 50 mg tablet extended release 24 hr 50 mg PO DAILY RF: 0 alendronate 70 mg tablet 70 mg PO Q7D RF: 0 simvastatin 20 mg tablet 20 mg PO DAILY RF: 0 nitroglycerin 0.4 mg tablet, sublingual 0.4 mg sublingual Q5M PRN (Reason: chest pains) RF: 0 ProAir HFA 90 mcg/actuation HFA aerosol inhaler 1 - 2 puff INHALATION Q4H PRN (Reason: Shortness Of Breath) RF: 0 fluticasone propionate 50 mcg/actuation spray,suspension 50 mcg INTRANASAL BID RF: 0 dicyclomine 10 mg capsule 10 mg PO QID PRN (Reason: abdominal pain) Qty: 20 RF: 0 Discharge Orders: Discharge ED (Routine); Ordered 06/29/20 Ordered By: Palmira Haas Referrals: Michael Phillips MD [Primary Care Provider] - 1-3 days Discharge Diet: Usual diet Discharge Activity: Resume usual activity Patient Instructions: Noncardiac Chest Pain (ED) Activity Restrictions/Additional Instructions: Return for any new or worsening symptoms. Follow-up with your primary care provider within 3 days. Take Tylenol or ibuprofen as needed for pain. Continue your home medications. Coding Level of Care Code ED Director Loan for Chg Fwd Exam Comprehensive
[2020-06-29 21:31] VITALS: BP 138/71; PULSE 68; RESP 22; O2SAT 97
== END 2020-06-29 21:31 | disposition home or self-care (01) ==
PROVIDERS: Emergency Provider Family Medicine; PCP Family Medicine
DX: R07.89 Other chest pain (principal); I25.2 Old myocardial infarction
CPT/HCPCS: 12345; 71045; 80053; 83690; 83880; 84484; 85025; 85378; 93005; 99282; 99283

== ENCOUNTER → 2020-07-09 14:33 | Outpatient (BNVA) | payer MEDICAID, SELFPAY | PROVIDERS: PCP Family Medicine; Visit Provider Internal Medicine | DX: E21.3 Hyperparathyroidism, unspecified (principal); E55.9 Vitamin D deficiency, unspecified; M81.0 Age-related osteoporosis without current pathological fracture | CPT/HCPCS: 99215 ==

== ENCOUNTER 2020-07-21 08:13 | Outpatient (CLI) | payer MEDICAID, SELFPAY ==
--- NOTE | 2020-07-21 08:20 | NM_ITS ---
WS: [id number] INDICATION: Hyperparathyroidism TECHNIQUE: Nuclear medicine parathyroid sestamibi with 19.2 mCi technetium 99m FINDINGS: Normal symmetric thyroid uptake and normal salivary gland uptake. Normal thyroid washout. A symmetric focus of persistent activity involving the left inferior thyroid suspicious for parathyroid adenoma. This can be further evaluated with ultrasound and/or contrast-enhanced neck CT. NM/NM parathyroid [id number] IMPRESSION: Suspected left inferior parathyroid adenoma at the inferior aspect of the left thyroid gland. Recommend further evaluation with contrast-enhanced neck CT for better anatomic detail
== END 2020-07-21 08:14 | disposition home or self-care (01) ==
LOC: NM 08:15
PROVIDERS: PCP Family Medicine; Visit Provider Internal Medicine
DX: E21.3 Hyperparathyroidism, unspecified (principal); D36.7 Benign neoplasm of other specified sites
CPT/HCPCS: 78070; A9500

== ENCOUNTER 2020-10-02 10:03 | Outpatient (CLI) | payer MEDICAID, SELFPAY ==
[2020-10-02 10:58] LABS: 25 Hydroxy Vitamin D 28 ng/mL (30-100)
[2020-10-02 11:55] LABS: Calcium 10.8 mg/dL (8.5-10.5); Parathyroid Hormone 74.5 pg/mL (15-65)
== END 2020-10-02 10:04 | disposition home or self-care (01) ==
LOC: LAB 10:05
PROVIDERS: PCP Family Medicine; Visit Provider Internal Medicine
DX: E21.3 Hyperparathyroidism, unspecified (principal); E55.9 Vitamin D deficiency, unspecified; M81.0 Age-related osteoporosis without current pathological fracture
CPT/HCPCS: 36415; 82306; 82310; 83970

== ENCOUNTER 2020-11-18 08:54 | Emergency (ER) | payer MEDICAID, SELFPAY ==
--- NOTE | 2020-11-18 08:59 | ECG_ITS ---
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 Measurements Intervals [place] Rate: 69 P: 83 MN: 139 QRS: 87 QRSD: 86 T: 75 QT: 362 QTc: 389 Interpretive Statements SINUS RHYTHM NONSPECIFIC T-WAVE ABNORMALITY Compared to ECG 06/29/2020 19:43:45 No significant changes Electronically Signed On 11-18-2020 18:37:47 CDT by Sandy Maldonado M.D. [id number] f
--- NOTE | 2020-11-18 08:59 | XR_ITS ---
WS: [id number] Exam: XR chest 1V portable [id number] Date/Time of Exam: 11/18/2020 8:59 AM Reason For Exam: Cough Comparison 02/19/2019. There is chronic left lower lobe atelectasis. Heart size is normal. There is pulmonary hyperinflation which may indicate COPD. Left apical pleural thickening is stable. There is dextroscoliosis of the t horacic spine. Lumbar levoscoliosis noted. The mediastinum is not widened. XR/XR chest 1V portable [id number] IMPRESSION: 1. No acute cardiopulmonary finding. No change. 2. Pulmonary hyperinflation which may indicate COPD. 3. Chronic atelectasis and/or pleural thickening in the left base. Bilateral ap ical pleural thickening most marked on the left.
--- NOTE | 2020-11-18 08:59 | W.ED.CHESTPA ---
HPI - Chest Pain General: Chief Complaint: Chest Pain Stated Complaint: CHEST PAIN Time Seen by Provider: 11/18/20 08:56 Source: patient and EMS Mode of arrival: EMS History of Present Illness: HPI narrative: This patient is a 65-year-old female who presents to the emergency department with left chest pain left flank area. Patient has previous resection of lungs due to infections back when she was 6 years old and does have times musculoskeletal type chest pain. Patient with was seen last time for chest pain was told to be noncardiac. Patient states for the past 2 days she has been having this pain states when it first started she was having difficulty even rolling over in bed because of the pain in the area of the flank. At the scar site. Patient states she does take medications at home including nitro due to history of cardiac disease but has not really taken anything she does not ever really like to take Tylenol. Patient denies any shortness of breath. Will do medical evaluation treat as needed. MD complaint: chest pain Pertinent past history: coronary artery disease Onset (ago): day(s) Timing of current episode: episodic and now resolved Pain location: left chest Severity: similar to previous episodes Associated symptoms: Deny abdominal pain, dyspnea, fever(s), nausea, palpitations or vomiting Review of Systems General: Reports: 10 or more systems reviewed and unremarkable except in HPI and below Const: Denies: fever(s), chills, body aches or fatigue Eyes: Denies: change in vision or blurry vision ENMT: Denies: throat pain, hoarseness or mouth pain Card: Reports: chest pain; Denies: palpitations, irregular heart rhythm, edema, swelling of feet/ankles or lightheadedness Resp: Denies: dyspnea, productive cough, non-productive cough, wheezing or pain on inspiration GI: Denies: abdominal pain, nausea or vomiting : Denies: flank pain, difficulty voiding, dysuria, urinary frequency, urinary urgency or urinary hesitancy Musc: Reports: back pain; Denies: neck pain, extremity pain, extremity swelling, joint pain, joint swelling, joint redness, joint warmth or limited range of motion Skin/Breast: Denies: rash, pruritus, erythema or skin tenderness Neuro: Denies: headache(s), numbness in extremities or weakness in extremities Psych: Denies: anxiety or depression PFS ED PFSH: Medical History (Updated 11/18/20 @ 11:58 by Gabe Thompson MD) Chronic bronchitis Irritable bowel syndrome Myocardial infarction Surgical History H/O: hysterectomy History of lung surgery History of tonsillectomy History of tracheostomy Family History Father CAD (coronary artery disease) Mother CAD (coronary artery disease) Social History Smoking and tobacco status: never smoked Alcohol intake: never Physical Exam Const: COMMON NORMALS: no acute distress, average body habitus, patient oriented x3, no limitations, healthy appearing, alert and well nourished HENMT: COMMON NORMALS: normocephalic, atraumatic, hearing grossly normal bilaterally, external ears normal, EAC's normal, TM's normal bilaterally, Normal external nose present, Normal nasal mucous membranes and turbinates present, moist oral mucous membranes, oropharynx normal, dentition normal and gingiva normal HEAD & SCALP: normocephalic and atraumatic NOSE: Normal external nose present and Normal nasal mucous membranes and turbinates present EXTERNAL EAR: Yes external ears normal EXTERNAL AUDITORY CANAL: EAC's normal TYMPANIC MEMBRANE: TM's normal bilaterally Neck/C-Spine: COMMON NORMALS: full ROM, no lymphadenopathy, supple, no meningeal signs, no JVD, Thyroid normal and No carotid bruits THYROID: Thyroid normal Chest: COMMONS NORMALS: normal inspection of the chest, normal palpation of entire chest wall, normal inspection of the breasts and normal palpation of the breasts Breast/axilla inspection: Yes normal inspection of the breasts BREAST/AXILLA PALPATION: Yes normal palpation of the breasts Resp: COMMON NORMALS: normal respiratory effort, No retractions, No use of accessory muscles, clear to auscultation bilaterally and percussion normal AUSCULTATION: clear to auscultation bilaterally PERCUSSION: percussion normal Cardio: COMMON NORMALS: no JVD, regular rate, regular rhythm, S1 normal heart sound present, S2 normal heart sound present, No gallops present (Cardio), No clicks present (Cardio), No murmurs present (Cardio), No rub (Cardio) and Peripheral pulses 2+ throughout RATE: regular rate RHYTHM: regular rhythm HEART SOUNDS: S1 normal heart sound present and S2 normal heart sound present PERIPHERAL PULSES: Peripheral pulses 2+ throughout GI: COMMON NORMALS: Normal to inspection, nondistended, normoactive bowel sounds present, Soft to palpation, non-tender, No hepatosplenomegaly present, no masses and no bruits PALPATION: Yes Soft to palpation and Yes No hepatosplenomegaly present : COMMON NORMALS: Yes no CVA tenderness, Yes normal external appearance, Yes normal appearance of the vagina, Yes normal appearance of the cervix, Yes normal bimanual exam, Yes No adnexal tenderness and Yes no masses BLADDER/KIDNEY EXAM: Yes no CVA tenderness BIMANUAL EXAM - VAGINA & UTERUS: Yes normal bimanual exam Back/Pelvis: COMMON NORMALS: no CVA tenderness, thoracic and lumbar spine normal to inspection, no thoracic nor lumbar tenderness, thoraco-lumbar ROM normal and straight leg raise negative bilaterally Extremity: COMMON NORMALS: normal to inspection, full ROM, capillary refill normal, no joint enlargement, no clubbing, cyanosis or edema, no calf tenderness and no pedal edema Neuro: COMMON NORMALS: patient oriented x3 SENSORIUM/ORIENTATION: Yes alert MENINGEAL SIGNS: Yes no meningeal signs Course Reevaluation(s): Reevaluation #1: This patient 65-year-old female presents to the emergency department atypical chest pain. Patient has a history of the same. Patient negative evaluation in the emergency department be discharged home on Tessalon Perles for atypical chest pain. Patient is to follow-up with primary care physician in 2 to 3 days Time: 11:58 Vital Signs: Vital signs: Vital Signs Temperature 98.7 F 11/18/20 09:11 Pulse Rate 64 11/18/20 11:12 Respiratory Rate 18 11/18/20 11:12 Blood Pressure 116/56 11/18/20 11:12 Pulse Oximetry 97 11/18/20 11:12 MDM - Chest Pain MDM Narrative: Medical decision making narrative: Negative evaluation in the emergency department for any acute cardiac symptoms. Patient does have a history of low removal as a child at 6 years old and has chronic scarring. Patient has a history of atypical type chest pain in the same area of her scar. Which is where she presents today pain was presented with twisting and bending. Lab Data: Labs: Lab Results 11/18/20 11/18/20 11/18/20 Range/Units 09:20 09:20 09:20 WBC 5.7 (4.0-10.0) 10^3/ uL RBC 4.90 (4.1-5.3) 10^6/u L Hgb 14.1 (11.5-15.3) g/dL Hct 42.8 (37.0-47.0) % MCV 87.3 (81-99) fL MCH 28.8 (28.0-34.0) pg MCHC 32.9 (30.0-36.0) g/dL RDW 13.0 (12.1-15.1) % Plt Count 203 (130-400) 10^3/c mm MPV 10.1 (7.4-10.4) fL Neut % (Auto) 55.8 % Lymph % (Auto) 31.9 % [place] % (Auto) 9.3 % Eos % (Auto) 1.9 % Baso % (Auto) 0.9 % Neut # (Auto) 3.18 (1.8-7.7) 10^3/u L Lymph # (Auto) 1.8 (0.8-4.8) 10^3/u L [place] # (Auto) 0.5 (0.2-0.9) 10^3/u L Eos # (Auto) 0.1 (0.0-0.8) 10^3/u L Baso # (Auto) 0.1 (0.0-0.1) 10^3/u L Nucleated RBC % (a uto) 0 % Nucleated RBCs # 0.0 /100WBC PT 12.70 (12.1-14.9) SECO NDS INR 0.92 (0.8-1.2) APTT 25.4 (23.9-36.7) SECO NDS Sodium 138 (136-145) mmol/L Potassium 4.0 (3.5-5.1) mmol/L Chloride 103 (98-107) mmol/L Carbon Dioxide 26 (22-29) mmol/L Anion Gap 13.0 (5-19) BUN 10 (8-23) mg/dL Creatinine 0.5 (0.5-0.9) mg/dL GFR Calculation 123.1 (90-130) mL/min Glucose 113 (65-115) mg/dL Calculated Osmolal ity 286 (285-295) mOsm/k g Calcium 10.1 (8.5-10.5) mg/dL Troponin T Baselin e (0-10) ng/L Troponin T 120 Min [place] (0-10) ng/L Delta Troponin T (0-10) ABS# NT-Pro-B Natriuret Pep 144 H (0-125) pg/mL Urine Color (Yellow) Urine Appearance (CLEAR) Urine pH (5-7) Ur Specific Gravit y (1.005-1.030) Urine Protein (Negative) Urine Glucose (UA) (Normal) Urine Ketones (Negative) Urine Blood (Negative) Urine Nitrate (Negative) Urine Bilirubin (Negative) Urine Urobilinogen (Negative) mg/dL Ur Leukocyte [place] (Negative) 11/18/20 11/18/20 11/18/20 Range/Units 09:20 10:06 11:16 WBC (4.0-10.0) 10^3/ uL RBC (4.1-5.3) 10^6/u L Hgb (11.5-15.3) g/dL Hct (37.0-47.0) % MCV (81-99) fL MCH (28.0-34.0) pg MCHC (30.0-36.0) g/dL RDW (12.1-15.1) % Plt Count (130-400) 10^3/c mm MPV (7.4-10.4) fL Neut % (Auto) % Lymph % (Auto) % [place] % (Auto) % Eos % (Auto) % Baso % (Auto) % Neut # (Auto) (1.8-7.7) 10^3/u L Lymph # (Auto) (0.8-4.8) 10^3/u L [place] # (Auto) (0.2-0.9) 10^3/u L Eos # (Auto) (0.0-0.8) 10^3/u L Baso # (Auto) (0.0-0.1) 10^3/u L Nucleated RBC % (a uto) % Nucleated RBCs # /100WBC PT (12.1-14.9) SECO NDS INR (0.8-1.2) APTT (23.9-36.7) SECO NDS Sodium (136-145) mmol/L Potassium (3.5-5.1) mmol/L Chloride (98-107) mmol/L Carbon Dioxide (22-29) mmol/L Anion Gap (5-19) BUN (8-23) mg/dL Creatinine (0.5-0.9) mg/dL GFR Calculation (90-130) mL/min Glucose (65-115) mg/dL Calculated Osmolal ity (285-295) mOsm/k g Calcium (8.5-10.5) mg/dL Troponin T Baselin e 6 (0-10) ng/L Troponin T 120 Min [place] 6.00 (0-10) ng/L Delta Troponin T 0 (0-10) ABS# NT-Pro-B Natriuret Pep (0-125) pg/mL Urine Color Yellow (Yellow) Urine Appearance Clear (CLEAR) Urine pH 6 (5-7) Ur Specific Gravit y 1.015 (1.005-1.030) Urine Protein Neg (Negative) Urine Glucose (UA) Norm (Normal) Urine Ketones Negative (Negative) Urine Blood Neg (Negative) Urine Nitrate Negative (Negative) Urine Bilirubin Neg (Negative) Urine Urobilinogen Norm (Negative) mg/dL Ur Leukocyte [place] Negative (Negative) Imaging Data^: CXR: Attestation: I personally reviewed and interpreted this imaging study as follows: Radiologist's impression: There is chronic left lower lobe atelectasis. Heart size is normal. There is pulmonary hyperinflation which may indicate COPD. Left apical pleural thickening is stable. There is dextroscoliosis of the thoracic spine. Lumbar levoscoliosis noted. The mediastinum is not widened. XR/XR chest 1V portable [id number] IMPRESSION: 1. No acute cardiopulmonary finding. No change. 2. Pulmonary hyperinflation which may indicate COPD. 3. Chronic atelectasis and/or pleural thickening in the left base. Bilateral apical pleural thickening most marked on the left. EKG Data^: EKG 1: Attestation: I personally reviewed and interpreted this EKG as follows: EKG interpretation date: 11/18/20 EKG interpretation time: 09:11 Prior EKG tracings: available for review Interpretation: Sinus rhythm with nonspecific T wave changes heart rate 69 otherwise normal EKG EKG 2: Attestation: I personally reviewed and interpreted this EKG as follows: EKG interpretation date: 11/18/20 Discharge Plan Discharge Patient Disposition: Home Clinical Impression: Atypical chest pain Condition: Stable Prescriptions: New benzonatate [Tessalon Perles] 100 mg capsule 100 mg PO BID PRN (Reason: cough) Qty: 20 RF: 0 No Action acetaminophen 325 mg Tablet 325 mg PO QID PRN (Reason: Pain) RF: 0 alendronate 70 mg tablet 70 mg PO Q7D RF: 0 simvastatin 20 mg tablet 20 mg PO DAILY RF: 0 nitroglycerin 0.4 mg tablet, sublingual 0.4 mg sublingual Q5M PRN (Reason: chest pains) RF: 0 albuterol sulfate [ProAir HFA] 90 mcg/actuation HFA aerosol inhaler 1 - 2 puff INHALATION Q4H PRN (Reason: Shortness Of Breath) RF: 0 fluticasone propionate 50 mcg/actuation spray,suspension 50 mcg INTRANASAL BID RF: 0 metoprolol succinate 100 mg tablet extended release 24 hr 100 mg PO DAILY RF: 0 aspirin 81 mg Tablet,Chewable 81 mg PO DAILY RF: 0 Discharge Orders: Discharge ED (Routine); Ordered 11/18/20 Ordered By: Gabe Thompson Referrals: Michael Phillips MD [Primary Care Provider] - Discharge Diet: Usual diet Discharge Activity: Resume usual activity and Increase activity as tolerated Patient Instructions: Opioid Safety Activity Restrictions/Additional Instructions: Take medication as instructed. Encourage p.o. fluids. Continue all home medications. Follow-up with PCP in 2 to 3 days. Coding Level of Care Code ED Non Destructive Evaluation Manager for Chg Fwd Exam Comprehensive
[2020-11-18 09:00] VITALS: BP 157/71; PULSE 74; RESP 18; TEMP 37.1; O2SAT 98; BMI 20.5
[2020-11-18 09:11] VITALS: BP 157/71; PULSE 70; RESP 17; TEMP 37.1; O2SAT 98
[2020-11-18] MEDS: sodium chloride 0.9% 500 ML IV (09:25)
[2020-11-18 09:28] LABS: Basophils # 0.1 10^3/uL (0.0-0.1); Basophils % 0.9 %; Eosinophils # 0.1 10^3/uL (0.0-0.8); Eosinophils % 1.9 %; Hematocrit 42.8 % (37.0-47.0); Hemoglobin 14.1 g/dL (11.5-15.3); Lymphocytes # 1.8 10^3/uL (0.8-4.8); Lymphocytes % 31.9 %; Mean Corpuscular HGB Conc 32.9 g/dL (30.0-36.0); Mean Corpuscular Hemoglobin 28.8 pg (28.0-34.0); Mean Corpuscular Volume 87.3 fL (81-99); Mean Platelet Volume 10.1 fL (7.4-10.4); Monocytes # 0.5 10^3/uL (0.2-0.9); Monocytes % 9.3 %; Neutrophils # 3.18 10^3/uL (1.8-7.7); Neutrophils % 55.8 %; Nucleated Red Blood Cells % 0 %; Platelet Count 203 10^3/cmm (130-400); White Blood Count 5.7 10^3/uL (4.0-10.0)
[2020-11-18 09:48] LABS: INR 0.92 (0.8-1.2); Troponin(5th) Baseline 6 ng/L (0-10)
[2020-11-18 09:49] LABS: Partial Thromboplastin Time 25.4 SECONDS (23.9-36.7)
[2020-11-18 09:57] LABS: Blood Urea Nitrogen 10 mg/dL (8-23); Calcium 10.1 mg/dL (8.5-10.5); Carbon Dioxide 26 mmol/L (22-29); Chloride 103 mmol/L (98-107); Glomerular Filtration Rate 123.1 mL/min (90-130); Glucose 113 mg/dL (65-115); NT Pro B Type Natriuretic Pept 144 pg/mL (0-125); Osmolality Calculated 286 mOsm/kg (285-295); Sodium 138 mmol/L (136-145)
[2020-11-18 10:05] VITALS: BP 127/64; PULSE 74; RESP 18; O2SAT 97
[2020-11-18 10:08] LABS: Add Urine Microscopic? NO; Charge for UA Resulting for Rev
[2020-11-18 10:16] LABS: Bilirubin Urine Neg (Negative); Blood Urine Neg (Negative); Glucose Urine UA Norm (Normal); Ketones Urine Negative (Negative); Leukocyte Esterase Urine Negative (Negative); Nitrate Urine Negative (Negative); Protein Urine Neg (Negative); Specific Gravity, Urine 1.015 (1.005-1.030); Urine Appearance Clear (CLEAR); Urine Color Yellow (Yellow); Urobilinogen Urine Norm (Negative); pH Urine 6 (5-7)
--- NOTE | 2020-11-18 10:59 | ECG_ITS ---
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 Measurements Intervals [place] Rate: 61 P: 81 OR: 148 QRS: 85 QRSD: 78 T: 74 QT: 393 QTc: 396 Interpretive Statements SINUS RHYTHM NONSPECIFIC T-WAVE ABNORMALITY Compared to ECG 11/18/2020 09:11:31 No significant changes Electronically Signed On 11-18-2020 18:41:14 CDT by Sandy Maldonado M.D. [email or web address] [email or web address]/[id number] f
[2020-11-18 11:12] VITALS: BP 116/56; PULSE 64; RESP 18; O2SAT 97
[2020-11-18 11:48] LABS: Troponin 5 2HR Delta 0 ABS# (0-10)
[2020-11-18 12:31] VITALS: BP 119/65; PULSE 72; RESP 20; TEMP 36.6; O2SAT 97
[2020-11-18] MEDS: benzonatate 100 mg Capsule PO (12:34)
== END 2020-11-18 12:38 | disposition home or self-care (01) ==
PROVIDERS: Emergency Provider Emergency Medicine; PCP Family Medicine
DX: R07.89 Other chest pain (principal); Z79.82 Long term (current) use of aspirin; I25.2 Old myocardial infarction
CPT/HCPCS: 36415; 71045; 80048; 81003; 83880; 84484; 85025; 85610; 85730; 93005; 96360; 99284; J7040

== ENCOUNTER 2021-01-14 19:16 | Emergency (ER) | payer MEDICARE, MEDICAID, SELFPAY ==
[2021-01-14] VITALS (7 sets, daily range): BP systolic 134–203; BP diastolic 67–91; PULSE 19–64; RESP 16–21; TEMP 36.3–36.9; O2SAT 96–100; BMI 21.2
--- NOTE | 2021-01-14 20:34 | ECG_ITS ---
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 Measurements Intervals [place] Rate: 58 P: 80 OK: 141 QRS: 88 QRSD: 78 T: 78 QT: 391 QTc: 386 Interpretive Statements SINUS BRADYCARDIA POSSIBLE LEFT ATRIAL ENLARGEMENT [-0.1mV P WAVE IN V1/V2] Compared to ECG 11/18/2020 11:32:21 Sinus rhythm no longer present T-wave abnormality no longer present Electronically Signed On 01-16-2021 14:46:12 CDT by Kyaw Del Cid M.D. [email or web address] Local/store/[id number]
--- NOTE | 2021-01-14 20:34 | XRR_ITS ---
PROCEDURE INFORMATION: Exam: XR Chest Exam date and time: 01/14/2021 8:34 PM Age: 65 years old Clinical indication: Chest wall pain; Prior surgery; Surgery date: 6+ months; Surgery type: RT. Lung; Additional info: HTN TECHNIQUE: Imaging protocol: XR of the chest. Views: 1 view. COMPARISON: CR XR chest 1V portable [id number] 11/18/2020 8:58 AM FINDINGS: Lungs: Hyperinflated lungs. A triangular opacity along the medial left lung base. Biapical scarring again noted, most pronounced on the left. Pleural spaces: Unremarkable. No pleural effusion. No pneumothorax. Heart/Mediastinum: Unremarkable. No cardiomegaly. Bones/joints: Mild lateral curvature of the thoracolumbar spine. XR/XR chest 1V portable [id number] IMPRESSION: Triangular opacity along the medial left lung base, similar to previous exam, may relate to scarring or atelectasis. Hyperinflated lungs. No interval change from prior study.
--- NOTE | 2021-01-14 20:35 | W.ED.GENADLT ---
HPI - General Adult General: Chief complaint: General Medical Stated complaint: high bp/swelling in both legs Time Seen by Provider: 01/14/21 20:29 History of Present Illness: HPI narrative: This patient is a 65-year-old female who presents to the emergency department with complaint of that she can get her blood pressure going down. Patient does take metoprolol 100 mg daily. States her blood pressures are usually around 130 systolic. Patient states she has been consistently in the 170s today. Patient denies any other significant symptoms. Patient's blood pressure at this time is 172/80. Heart rate 67. Will do medical evaluation treat as needed Onset (ago): day(s) Radiation: non-radiation Severity: mild Pain Consistency: constant Relieving factors: none Exacerbating factors: none Associated symptoms: Deny chest pain, dyspnea, headache(s), nausea, rash, palpitations or vomiting Review of Systems General: Reports: 10 or more systems reviewed and unremarkable except in HPI and below Const: Denies: fever(s), chills, body aches or fatigue Eyes: Denies: change in vision or blurry vision ENMT: Denies: throat pain, hoarseness or mouth pain Card: Denies: chest pain, palpitations, irregular heart rhythm, edema, swelling of feet/ankles or lightheadedness Resp: Denies: dyspnea, productive cough, non-productive cough, wheezing or pain on inspiration GI: Denies: abdominal pain, nausea or vomiting : Denies: flank pain, difficulty voiding, dysuria, urinary frequency, urinary urgency or urinary hesitancy Musc: Denies: neck pain, back pain, extremity pain, extremity swelling, joint pain, joint swelling, joint redness, joint warmth or limited range of motion Skin/Breast: Denies: rash, pruritus, erythema or skin tenderness Neuro: Denies: headache(s), numbness in extremities or weakness in extremities Psych: Denies: anxiety or depression PFSH ED PFSH: Medical History (Updated 01/14/21 @ 23:34 by Gabe Thompson MD) Chronic bronchitis Irritable bowel syndrome Myocardial infarction Surgical History H/O: hysterectomy History of lung surgery History of tonsillectomy History of tracheostomy Family History Father CAD (coronary artery disease) Mother CAD (coronary artery disease) Social History Smoking and tobacco status: never smoked Alcohol intake: never Physical Exam Const: COMMON NORMALS: no acute distress, average body habitus, patient oriented x3, no limitations, healthy appearing, alert and well nourished HENMT: COMMON NORMALS: normocephalic, atraumatic, hearing grossly normal bilaterally, external ears normal, EAC's normal, TM's normal bilaterally, Normal external nose present, Normal nasal mucous membranes and turbinates present, moist oral mucous membranes, oropharynx normal, dentition normal and gingiva normal HEAD & SCALP: normocephalic and atraumatic NOSE: Normal external nose present and Normal nasal mucous membranes and turbinates present EXTERNAL EAR: Yes external ears normal EXTERNAL AUDITORY CANAL: EAC's normal TYMPANIC MEMBRANE: TM's normal bilaterally Neck/C-Spine: COMMON NORMALS: full ROM, no lymphadenopathy, supple, no meningeal signs, no JVD, Thyroid normal and No carotid bruits THYROID: Thyroid normal Chest: COMMONS NORMALS: normal inspection of the chest, normal palpation of entire chest wall, normal inspection of the breasts and normal palpation of the breasts Breast/axilla inspection: Yes normal inspection of the breasts BREAST/AXILLA PALPATION: Yes normal palpation of the breasts Resp: COMMON NORMALS: normal respiratory effort, No retractions, No use of accessory muscles, clear to auscultation bilaterally and percussion normal AUSCULTATION: clear to auscultation bilaterally PERCUSSION: percussion normal Cardio: COMMON NORMALS: no JVD, regular rate, regular rhythm, S1 normal heart sound present, S2 normal heart sound present, No gallops present (Cardio), No clicks present (Cardio), No murmurs present (Cardio), No rub (Cardio) and Peripheral pulses 2+ throughout RATE: regular rate RHYTHM: regular rhythm HEART SOUNDS: S1 normal heart sound present and S2 normal heart sound present PERIPHERAL PULSES: Peripheral pulses 2+ throughout GI: COMMON NORMALS: Normal to inspection, nondistended, normoactive bowel sounds present, Soft to palpation, non-tender, No hepatosplenomegaly present, no masses and no bruits PALPATION: Yes Soft to palpation and Yes No hepatosplenomegaly present Back/Pelvis: COMMON NORMALS: thoracic and lumbar spine normal to inspection, no thoracic nor lumbar tenderness, thoraco-lumbar ROM normal and straight leg raise negative bilaterally Extremity: COMMON NORMALS: normal to inspection, full ROM, capillary refill normal, no joint enlargement, no clubbing, cyanosis or edema, no calf tenderness and no pedal edema Neuro: COMMON NORMALS: patient oriented x3 SENSORIUM/ORIENTATION: Yes alert MENINGEAL SIGNS: Yes no meningeal signs Course Reevaluation(s): Reevaluation #1: Negative evaluation thus far in the emergency department. Blood pressure is much improved after Vasotec blood pressure 119/64 patient is resting heart rate 51. We will plan to place the patient on lisinopril 20 mg daily. To continue with her metoprolol. Patient is to follow-up with primary care physician and keep a blood pressure log. Patient is discharged home Time: 23:33 Vital Signs: Vital signs: Vital Signs Temperature 97.3 F L 01/14/21 19:35 Pulse Rate 52 L 01/14/21 22:47 Respiratory Rate 18 01/14/21 22:47 Blood Pressure 156/74 01/14/21 22:47 Pulse Oximetry 98 01/14/21 22:47 MDM - General Adult MDM Narrative: Medical decision making narrative: This patient is a 65-year-old female who presents to the emergency department with complaint of that she can get her blood pressure going down. Patient does take metoprolol 100 mg daily. States her blood pressures are usually around 130 systolic. Patient states she has been consistently in the 170s today. Patient denies any other significant symptoms. Patient's blood pressure at this time is 172/80. Heart rate 67. Negative evaluation thus far in the emergency department. Blood pressure is much improved after Vasotec blood pressure 119/64 patient is resting heart rate 51. We will plan to place the patient on lisinopril 20 mg daily. To continue with her metoprolol. Patient is to follow-up with primary care physician and keep a blood pressure log. Patient is discharged home Lab Data: Labs: Lab Results 01/14/21 01/14/21 01/14/21 Range/Units 20:52 21:10 21:10 WBC 7.4 (4.0-10.0) 10^3/ uL RBC 4.79 (4.1-5.3) 10^6/u L Hgb 14.0 (11.5-15.3) g/dL Hct 41.8 (37.0-47.0) % MCV 87.3 (81-99) fL MCH 29.2 (28.0-34.0) pg MCHC 33.5 (30.0-36.0) g/dL RDW 13.0 (12.1-15.1) % Plt Count 194 (130-400) 10^3/c mm MPV 11.0 H (7.4-10.4) fL Neut % (Auto) 58.3 % Lymph % (Auto) 29.2 % [place] % (Auto) 9.8 % Eos % (Auto) 1.6 % Baso % (Auto) 0.8 % Neut # (Auto) 4.32 (1.8-7.7) 10^3/u L Lymph # (Auto) 2.2 (0.8-4.8) 10^3/u L [place] # (Auto) 0.7 (0.2-0.9) 10^3/u L Eos # (Auto) 0.1 (0.0-0.8) 10^3/u L Baso # (Auto) 0.1 (0.0-0.1) 10^3/u L Nucleated RBC % (a uto) 0 % Nucleated RBCs # 0.0 /100WBC PT 12.60 (12.1-14.9) SECO NDS INR 0.91 (0.8-1.2) APTT 25.7 (23.9-36.7) SECO NDS Sodium (136-145) mmol/L Potassium (3.5-5.1) mmol/L Chloride (98-107) mmol/L Carbon Dioxide (22-29) mmol/L Anion Gap (5-19) BUN (8-23) mg/dL Creatinine (0.5-0.9) mg/dL GFR Calculation (90-130) mL/min Glucose (65-115) mg/dL Calculated Osmolal ity (285-295) mOsm/k g Calcium (8.5-10.5) mg/dL Total Bilirubin (0.15-1.2) mg/dL AST (0-32) U/L ALT (0-33) U/L Alkaline Phosphata se (35-105) IU/L Troponin T Gen 5 n g/L (0-10) ng/L NT-Pro-B Natriuret Pep (0-125) pg/mL Total Protein (6.6-8.7) g/dL Albumin (3.5-5.2) g/dL Globulin (1.3-4.6) g/dL Urine Color Colorless (Yellow) Urine Appearance Clear (CLEAR) Urine pH 7 (5-7) Ur Specific Gravit y 1.000 L (1.005-1.030) Urine Protein Neg (Negative) Urine Glucose (UA) Norm (Normal) Urine Ketones Negative (Negative) Urine Blood Neg (Negative) Urine Nitrate Negative (Negative) Urine Bilirubin Neg (Negative) Urine Urobilinogen Norm (Negative) mg/dL Ur Leukocyte [place] Negative (Negative) 01/14/21 01/14/21 Range/Units 21:10 21:10 WBC (4.0-10.0) 10^3/ uL RBC (4.1-5.3) 10^6/u L Hgb (11.5-15.3) g/dL Hct (37.0-47.0) % MCV (81-99) fL MCH (28.0-34.0) pg MCHC (30.0-36.0) g/dL RDW (12.1-15.1) % Plt Count (130-400) 10^3/c mm MPV (7.4-10.4) fL Neut % (Auto) % Lymph % (Auto) % [place] % (Auto) % Eos % (Auto) % Baso % (Auto) % Neut # (Auto) (1.8-7.7) 10^3/u L Lymph # (Auto) (0.8-4.8) 10^3/u L [place] # (Auto) (0.2-0.9) 10^3/u L Eos # (Auto) (0.0-0.8) 10^3/u L Baso # (Auto) (0.0-0.1) 10^3/u L Nucleated RBC % (a uto) % Nucleated RBCs # /100WBC PT (12.1-14.9) SECO NDS INR (0.8-1.2) APTT (23.9-36.7) SECO NDS Sodium 137 (136-145) mmol/L Potassium 4.0 (3.5-5.1) mmol/L Chloride 103 (98-107) mmol/L Carbon Dioxide 27 (22-29) mmol/L Anion Gap 11.0 (5-19) BUN 13 (8-23) mg/dL Creatinine 0.7 (0.5-0.9) mg/dL GFR Calculation 83.5 L (90-130) mL/min Glucose 94 (65-115) mg/dL Calculated Osmolal ity 284 L (285-295) mOsm/k g Calcium 10.1 (8.5-10.5) mg/dL Total Bilirubin 0.2 (0.15-1.2) mg/dL AST 21 (0-32) U/L ALT 20 (0-33) U/L Alkaline Phosphata se 62 (35-105) IU/L Troponin T Gen 5 n g/L 6 (0-10) ng/L NT-Pro-B Natriuret Pep 228 H (0-125) pg/mL Total Protein 6.4 L (6.6-8.7) g/dL Albumin 4.4 (3.5-5.2) g/dL Globulin 2.0 (1.3-4.6) g/dL Urine Color (Yellow) Urine Appearance (CLEAR) Urine pH (5-7) Ur Specific Gravit y (1.005-1.030) Urine Protein (Negative) Urine Glucose (UA) (Normal) Urine Ketones (Negative) Urine Blood (Negative) Urine Nitrate (Negative) Urine Bilirubin (Negative) Urine Urobilinogen (Negative) mg/dL Ur Leukocyte [place] a[place] (Negative) Imaging Data^: CXR: Attestation: I personally reviewed and interpreted this imaging study as follows: Radiologist's impression: IMPRESSION: Triangular opacity along the medial left lung base, similar to previous exam, may relate to scarring or atelectasis. Hyperinflated lungs. No interval change from prior study. EKG Data^: EKG 1: Attestation: I personally reviewed and interpreted this EKG as follows: EKG interpretation date: 01/14/21 EKG interpretation time: 20:57 Prior EKG tracings: not available for review Interpretation: Sinus bradycardia borderline left atrial enlargement. Heart rate 58. Computer generated interpretation: Chest X-Ray 01/14/21 20:34 IMPRESSION: Triangular opacity along the medial left lung base, similar to previous exam, may relate to scarring or atelectasis. Hyperinflated lungs. No interval change from prior study. Discharge Plan Discharge Patient Disposition: Home Clinical Impression: Benign essential HTN Condition: Stable Prescriptions: New lisinopril 20 mg tablet 10 mg PO DAILY Qty: 30 RF: 0 No Action acetaminophen 325 mg Tablet 325 mg PO QID PRN (Reason: Pain) RF: 0 alendronate 70 mg tablet 70 mg PO Q7D RF: 0 simvastatin 20 mg tablet 20 mg PO DAILY RF: 0 nitroglycerin 0.4 mg tablet, sublingual 0.4 mg sublingual Q5M PRN (Reason: chest pains) RF: 0 albuterol sulfate [ProAir HFA] 90 mcg/actuation HFA aerosol inhaler 1 - 2 puff INHALATION Q4H PRN (Reason: Shortness Of Breath) RF: 0 fluticasone propionate 50 mcg/actuation spray,suspension 50 mcg INTRANASAL BID RF: 0 metoprolol succinate 100 mg tablet extended release 24 hr 100 mg PO DAILY RF: 0 aspirin 81 mg Tablet,Chewable 81 mg PO DAILY RF: 0 Tessalon Perles 100 mg capsule 100 mg PO BID PRN (Reason: cough) Qty: 20 RF: 0 Discharge Orders: Discharge ED (Routine); Ordered 01/14/21 Ordered By: Gabe Thompson Referrals: Michael Phillips MD [Primary Care Provider] - Discharge Diet: Advance as tolerated Discharge Activity: Resume usual activity Patient Instructions: Opioid Safety Activity Restrictions/Additional Instructions: Take medications as instructed. Follow-up with primary care physician in discuss a blood pressure log. Coding Level of Care Code ED Step Down Specialist for Chg Fwd Exam Comprehensive
[2021-01-14 20:56] LABS: Add Urine Microscopic? NO; Charge for UA Resulting for Rev
[2021-01-14 21:04] LABS: Bilirubin Urine Neg (Negative); Blood Urine Neg (Negative); Glucose Urine UA Norm (Normal); Ketones Urine Negative (Negative); Leukocyte Esterase Urine Negative (Negative); Nitrate Urine Negative (Negative); Protein Urine Neg (Negative); Urine Appearance Clear (CLEAR); Urine Color Colorless (Yellow); Urobilinogen Urine Norm (Negative); pH Urine 7 (5-7)
[2021-01-14 21:23] LABS: Basophils # 0.1 10^3/uL (0.0-0.1); Basophils % 0.8 %; Eosinophils # 0.1 10^3/uL (0.0-0.8); Eosinophils % 1.6 %; Hematocrit 41.8 % (37.0-47.0); Lymphocytes # 2.2 10^3/uL (0.8-4.8); Lymphocytes % 29.2 %; Mean Corpuscular HGB Conc 33.5 g/dL (30.0-36.0); Mean Corpuscular Hemoglobin 29.2 pg (28.0-34.0); Mean Corpuscular Volume 87.3 fL (81-99); Monocytes # 0.7 10^3/uL (0.2-0.9); Monocytes % 9.8 %; Neutrophils # 4.32 10^3/uL (1.8-7.7); Neutrophils % 58.3 %; Nucleated Red Blood Cells % 0 %; Platelet Count 194 10^3/cmm (130-400); Red Blood Count 4.79 10^6/uL (4.1-5.3); White Blood Count 7.4 10^3/uL (4.0-10.0)
[2021-01-14 21:47] LABS: Alanine Aminotransferase 20 U/L (0-33); Albumin Level 4.4 g/dL (3.5-5.2); Alkaline Phosphatase 62 IU/L (35-105); Aspartate Amino Transferase 21 U/L (0-32); Blood Urea Nitrogen 13 mg/dL (8-23); Calcium 10.1 mg/dL (8.5-10.5); Carbon Dioxide 27 mmol/L (22-29); Chloride 103 mmol/L (98-107); Glomerular Filtration Rate 83.5 mL/min (90-130); Glucose 94 mg/dL (65-115); NT Pro B Type Natriuretic Pept 228 pg/mL (0-125); Osmolality Calculated 284 mOsm/kg (285-295); Sodium 137 mmol/L (136-145); Total Bilirubin 0.2 mg/dL (0.15-1.2); Total Protein 6.4 g/dL (6.6-8.7)
[2021-01-14 21:49] LABS: Troponin T (5th) Once 6 ng/L (0-10)
[2021-01-14 21:54] LABS: INR 0.91 (0.8-1.2)
[2021-01-14 21:55] LABS: Partial Thromboplastin Time 25.7 SECONDS (23.9-36.7)
[2021-01-14] MEDS: enalaprilat 1.25 mg/mL Inj IVP (21:58)
== END 2021-01-14 23:52 | disposition home or self-care (01) ==
PROVIDERS: Emergency Provider Emergency Medicine; PCP Family Medicine
DX: I10 Essential (primary) hypertension (principal); I25.2 Old myocardial infarction
CPT/HCPCS: 36415; 71045; 80053; 81003; 83880; 84484; 85025; 85610; 85730; 93005; 96374; 99284; J3490

== ENCOUNTER 2021-02-20 17:03 | Emergency (ER) | payer MEDICARE, MEDICAID, SELFPAY ==
--- NOTE | 2021-02-20 17:04 | XRR_ITS ---
PROCEDURE INFORMATION: Exam: XR Chest Exam date and time: 02/20/2021 5:04 PM Age: 65 years old Clinical indication: Chest wall pain; Additional info: R sided chest pain TECHNIQUE: Imaging protocol: XR of the chest. Views: 1 view. COMPARISON: CR (CHEST, ) 01/14/2021 8:34 PM FINDINGS: Lungs: Emphysematous changes. Pleural spaces: Trace left pleural effusion versus pleural scarring. Heart/Mediastinum: Unremarkable. No cardiomegaly. Bones/joints: Unremarkable. XR/XR chest 1V portable [id number] IMPRESSION: 1. Negative for infiltrate 2. Emphysematous changes. 3. Trace left pleural effusion versus pleural scarring.
--- NOTE | 2021-02-20 17:05 | ECG_ITS ---
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 Measurements Intervals [place] Rate: 56 P: 70 [place]: 147 QRS: 72 QRSD: 82 T: 53 QT: 394 QTc: 381 Interpretive Statements SINUS BRADYCARDIA Compared to ECG 01/14/2021 20:57:34 No significant changes Electronically Signed On 02-20-2021 18:56:42 CDT by Fausto Hannon M.D. [id number] f
[2021-02-20 17:13] VITALS: BP 152/72; PULSE 61; RESP 18; TEMP 36.9; O2SAT 94; BMI 20.1
[2021-02-20 18:01] LABS: Basophils # 0.1 10^3/uL (0.0-0.1); Basophils % 0.6 %; Eosinophils # 0.2 10^3/uL (0.0-0.8); Hematocrit 43.8 % (37.0-47.0); Hemoglobin 14.5 g/dL (11.5-15.3); Lymphocytes # 3.1 10^3/uL (0.8-4.8); Lymphocytes % 37.4 %; Mean Corpuscular HGB Conc 33.1 g/dL (30.0-36.0); Mean Corpuscular Hemoglobin 28.5 pg (28.0-34.0); Mean Corpuscular Volume 86.2 fl (81-99); Monocytes # 0.7 10^3/uL (0.2-0.9); Monocytes % 8.9 %; Neutrophils # 4.22 10^3/uL (1.8-7.7); Neutrophils % 50.9 %; Nucleated Red Blood Cells % 0 %; Platelet Count 252 10^3/cmm (130-400); Red Blood Count 5.08 10^6/uL (4.1-5.3); Red Cell Distribution Width 12.8 % (12.1-15.1); White Blood Count 8.3 10^3/uL (4.0-10.0)
[2021-02-20 18:33] LABS: Troponin(5th) Baseline 12 ng/L (0-10)
[2021-02-20 18:41] LABS: Anion Gap 14.1 (5-19); Blood Urea Nitrogen 6 mg/dL (8-23); Calcium 9.9 mg/dL (8.5-10.5); Carbon Dioxide 26 mmol/L (22-29); Chloride 96 mmol/L (98-107); Creatinine Clr Calc Pharmacy 62.7606; Glomerular Filtration Rate 123.1 mL/min (90-130); Glucose 90 mg/dL (65-115); NT Pro B Type Natriuretic Pept 289 pg/mL (0-125); Osmolality Calculated 271 mOsm/kg (285-295); Potassium 4.1 mmol/L (3.5-5.1); Sodium 132 mmol/L (136-145)
--- NOTE | 2021-02-20 20:37 | W.ED.CHESTPA ---
HPI - Chest Pain General: Chief Complaint: Chest Pain Stated Complaint: CP, R SIDED Time Seen by Provider: 02/20/21 20:21 History of Present Illness: HPI narrative: 65-year-old female with history of pericarditis, emphysema. She reports chest pain on and off for the last 2 weeks. Seems to be worse with cough. She has not cough with phlegm production. No fever. No headache, no GI symptoms. She says she has been wheezing some. MD complaint: chest pain Pertinent past history: other Onset (ago): week(s) (2) Timing of current episode: episodic Onset: awoke with symptoms Pain location: substernal Pain radiation: none Quality: aching and sharp Relieving factors: nothing Exacerbating factors: movement Associated symptoms: Reports dyspnea; Deny abdominal pain, diaphoresis, fever(s), leg edema, nausea, palpitations or vomiting Review of Systems Const: Denies: fever(s) or diaphoresis Card: Denies: palpitations Resp: Reports: dyspnea GI: Denies: abdominal pain, nausea or vomiting PFS ED PFSH: Medical History (Updated 02/20/21 @ 20:48 by Jaya Barton DO) Chronic bronchitis Irritable bowel syndrome Myocardial infarction Surgical History H/O: hysterectomy History of lung surgery History of tonsillectomy History of tracheostomy Family History Father CAD (coronary artery disease) Mother CAD (coronary artery disease) Social History Smoking and tobacco status: never smoked Alcohol intake: never Physical Exam Const: COMMON NORMALS: no acute distress HENMT: COMMON NORMALS: normocephalic HEAD & SCALP: normocephalic Eye: COMMON NORMALS: Equal, round and reactive pupils present and EOMs intact bilaterally PUPIL: Yes Equal, round and reactive pupils present Chest: COMMONS NORMALS: normal inspection of the chest CHEST: No tenderness Resp: COMMON NORMALS: normal respiratory effort and No use of accessory muscles EFFORT & INSPECTION: No respiratory distress and No labored AUSCULTATION: rhonchi right lower Cardio: COMMON NORMALS: regular rate and regular rhythm RATE: regular rate RHYTHM: regular rhythm GI: COMMON NORMALS: Normal to inspection, nondistended, normoactive bowel sounds present and Soft to palpation PALPATION: Yes Soft to palpation Skin: COMMON NORMALS: no rashes or lesions noted GENERAL SKIN EXAM: no rashes or lesions noted Course Vital Signs: Vital signs: Vital Signs Temperature 98.2 F 02/20/21 22:21 Pulse Rate 66 02/20/21 22:21 Respiratory Rate 20 H 02/20/21 22:21 Blood Pressure 159/77 02/20/21 22:21 Pulse Oximetry 99 02/20/21 22:21 MDM - Chest Pain MDM Narrative: Medical decision making narrative: 65-year-old lady with chest discomfort, worse with movement, and coughing. She has had some phlegm production. She has a history of emphysema. Her troponin fell by 6 at hours. And is in the normal range. Her chest x-ray shows some chronic left lung basilar scarring, no acute infiltrate. Lab Data: Labs: Lab Results 02/20/21 02/20/21 02/20/21 Range/Units 17:00 17:00 17:00 WBC 8.3 (4.0-10.0) 10^3/ uL RBC 5.08 (4.1-5.3) 10^6/u L Hgb 14.5 (11.5-15.3) g/dL Hct 43.8 (37.0-47.0) % MCV 86.2 (81-99) fl MCH 28.5 (28.0-34.0) pg MCHC 33.1 (30.0-36.0) g/dL RDW 12.8 (12.1-15.1) % Plt Count 252 (130-400) 10^3/c mm MPV 11.0 H (7.4-10.4) fL Neut % (Auto) 50.9 % Lymph % (Auto) 37.4 % [place] % (Auto) 8.9 % Eos % (Auto) 2.0 % Baso % (Auto) 0.6 % Neut # (Auto) 4.22 (1.8-7.7) 10^3/u L Lymph # (Auto) 3.1 (0.8-4.8) 10^3/u L [place] # (Auto) 0.7 (0.2-0.9) 10^3/u L Eos # (Auto) 0.2 (0.0-0.8) 10^3/u L Baso # (Auto) 0.1 (0.0-0.1) 10^3/u L Nucleated RBC % (a uto) 0 % Nucleated RBCs # 0.0 /100WBC Sodium 132 L (136-145) mmol/L Potassium 4.1 (3.5-5.1) mmol/L Chloride 96 L (98-107) mmol/L Carbon Dioxide 26 (22-29) mmol/L Anion Gap 14.1 (5-19) BUN 6 L (8-23) mg/dL Creatinine 0.5 (0.5-0.9) mg/dL GFR Calculation 123.1 (90-130) mL/min Glucose 90 (65-115) mg/dL Calculated Osmolal ity 271 L (285-295) mOsm/k g Calcium 9.9 (8.5-10.5) mg/dL Troponin T Baselin e 12 H (0-10) ng/L Troponin T 120 Min [place] (0-10) ng/L Delta Troponin T (0-10) ABS# NT-Pro-B Natriuret Pep 289 H (0-125) pg/mL SARS-CoV-2 Ag (Rap id) (Negative) 02/20/21 02/20/21 Range/Units 19:15 21:26 WBC (4.0-10.0) 10^3/ uL RBC (4.1-5.3) 10^6/u L Hgb (11.5-15.3) g/dL Hct (37.0-47.0) % MCV (81-99) fl MCH (28.0-34.0) pg MCHC (30.0-36.0) g/dL RDW (12.1-15.1) % Plt Count (130-400) 10^3/c mm MPV (7.4-10.4) fL Neut % (Auto) % Lymph % (Auto) % [place] % (Auto) % Eos % (Auto) % Baso % (Auto) % Neut # (Auto) (1.8-7.7) 10^3/u L Lymph # (Auto) (0.8-4.8) 10^3/u L [place] # (Auto) (0.2-0.9) 10^3/u L Eos # (Auto) (0.0-0.8) 10^3/u L Baso # (Auto) (0.0-0.1) 10^3/u L Nucleated RBC % (a uto) % Nucleated RBCs # /100WBC Sodium (136-145) mmol/L Potassium (3.5-5.1) mmol/L Chloride (98-107) mmol/L Carbon Dioxide (22-29) mmol/L Anion Gap (5-19) BUN (8-23) mg/dL Creatinine (0.5-0.9) mg/dL GFR Calculation (90-130) mL/min Glucose (65-115) mg/dL Calculated Osmolal ity (285-295) mOsm/k g Calcium (8.5-10.5) mg/dL Troponin T Baselin e (0-10) ng/L Troponin T 120 Min [place] 6.00 (0-10) ng/L Delta Troponin T -6.00 L (0-10) ABS# NT-Pro-B Natriuret Pep (0-125) pg/mL SARS-CoV-2 Ag (Rap id) Negative (Negative) Discharge Plan Discharge Patient Disposition: Home Clinical Impression: Atypical chest pain, Acute exacerbation of chronic bronchitis Condition: Stable Prescriptions: New dexamethasone 6 mg tablet 6 mg PO DAILY Qty: 5 RF: 0 Zithromax 250 mg tablet See Rx Instructions .ROUTE .COMPLEX Qty: 6 RF: 0 No Action acetaminophen 325 mg Tablet 325 mg PO QID PRN (Reason: Pain) RF: 0 alendronate 70 mg tablet 70 mg PO Q7D RF: 0 simvastatin 20 mg tablet 20 mg PO DAILY RF: 0 nitroglycerin 0.4 mg tablet, sublingual 0.4 mg sublingual Q5M PRN (Reason: chest pains) RF: 0 albuterol sulfate [ProAir HFA] 90 mcg/actuation HFA aerosol inhaler 1 - 2 puff INHALATION Q4H PRN (Reason: Shortness Of Breath) RF: 0 fluticasone propionate 50 mcg/actuation spray,suspension 50 mcg INTRANASAL BID RF: 0 metoprolol succinate 100 mg tablet extended release 24 hr 100 mg PO DAILY RF: 0 aspirin 81 mg Tablet,Chewable 81 mg PO DAILY RF: 0 Tessalon Perles 100 mg capsule 100 mg PO BID PRN (Reason: cough) Qty: 20 RF: 0 lisinopril 20 mg tablet 10 mg PO DAILY Qty: 30 RF: 0 Discharge Orders: Discharge ED (Routine); Ordered 02/20/21 Ordered By: Jaya Barton Referrals: Michael Phillips MD [Primary Care Provider] - 1-3 days Patient Instructions: Acute Bronchitis (ED) Activity Restrictions/Additional Instructions: Return for worsening breathing, worsening chest pain despite treatment, fever greater than 100 despite 2 doses of antibiotics, other concerning symptoms. Coding Level of Care Code ED Multi Spindle Operator for Chg Fwd Exam Comprehensive
[2021-02-20] MEDS: azithromycin 250 mg Tablet 500 MG PO (21:07)
[2021-02-20] MEDS: ketorolac 30 mg/mL INJ 15 MG IVP (21:08)
[2021-02-20] MEDS: dexamethasone 4 mg/mL INJ 8 MG IVP (21:09)
[2021-02-20 21:33] VITALS: BP 176/82; PULSE 68; RESP 18; TEMP 36.8; O2SAT 100
[2021-02-20 21:49] LABS: SARS Covid-2 Antigen Negative (Negative)
[2021-02-20 22:21] VITALS: BP 159/77; PULSE 66; RESP 20; TEMP 36.8; O2SAT 99
[2021-02-23 02:17] LABS: Quest SARS-CoV-2 RNA NOT DETECTED (NOT DETECTED)
== END 2021-02-20 22:10 | disposition home or self-care (01) ==
PROVIDERS: Emergency Medicine; Emergency Provider Emergency Medicine; PCP Family Medicine
DX: J20.9 Acute bronchitis, unspecified (principal); J42 Unspecified chronic bronchitis; J43.9 Emphysema, unspecified; I25.2 Old myocardial infarction
CPT/HCPCS: 36415; 71045; 80048; 83880; 84484; 85025; 87426; 87635; 93005; 96374; 96375; 99284; J1100; J1885; Q0144

== ENCOUNTER 2021-04-17 11:21 | Outpatient (CLI) | payer MEDICARE, MEDICAID, SELFPAY ==
[2021-04-17 12:34] LABS: 25 Hydroxy Vitamin D 35 ng/mL (30-100)
== END 2021-04-17 11:22 | disposition home or self-care (01) ==
LOC: LAB 11:27
PROVIDERS: PCP Family Medicine; Visit Provider Internal Medicine
DX: E21.3 Hyperparathyroidism, unspecified (principal); E55.9 Vitamin D deficiency, unspecified; M81.0 Age-related osteoporosis without current pathological fracture
CPT/HCPCS: 36415; 82306; 82310; 83970

== ENCOUNTER → 2021-04-28 13:45 | Outpatient (BNVA) | payer MEDICARE, MEDICAID, SELFPAY | PROVIDERS: PCP Family Medicine; Visit Provider Internal Medicine | DX: E21.3 Hyperparathyroidism, unspecified (principal); M81.0 Age-related osteoporosis without current pathological fracture; E55.9 Vitamin D deficiency, unspecified | CPT/HCPCS: 99214 ==

== ENCOUNTER 2021-08-24 13:30 | Emergency (ER) | payer MEDICARE, MEDICAID, SELFPAY ==
[2021-08-24 13:58] VITALS: BP 193/75; PULSE 61; RESP 16; TEMP 36.5; O2SAT 95; BMI 19.3
--- NOTE | 2021-08-24 14:56 | CT_ITS ---
WS: [id number] CT ABDOMEN PELVIS TECHNIQUE: Contrast-enhanced CT of the abdomen and pelvis with coronal and sagittal reformatted image s. CLINICAL INFORMATION: abd pain COMPARISON: CT January 06, 2020 DLP: 801.[address] scans at [facility] use at least one of these dose optimization techniques: automated e xposure control; mA and/or kV adjustment per patient size (includes targeted exams where dose is matc hed to clinical indication); or iterative reconstruction. FINDINGS: Mild hepatomegaly. Diffuse fatty infiltration of the liver. Enlarged RIGHT hepatic lobe. Normal tayler l vein and splenic vein. Cholelithiasis. Mild fluid distention of the gallbladder. This can be furthe r evaluated with ultrasound. Normal GE junction. Mild thickening of the duodenum with mucosal enhance ment can be seen with duodenitis. Mild gastric wall thickening with mucosal enhancement can be seen w ith gastritis. No evidence of high-grade small or large bowel obstruction. Normal spleen. Adrenal glands are normal. Normal renal parenchymal enhancement. No hydronephrosis. Small bilateral renal cysts. Proximal trent c and SMA are patent. 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 Mild stenosis at the celiac origin. Normal caliber abdominal aorta. Aortic calcification. No periaortic or traversing lymphadenopathy. No rmal sigmoid colon. Normal appendix in the RIGHT lower quadrant. Lung bases are well aerated. Bronchi ectasis RIGHT lower lobe. CT/CT abdomen pelvis w con* [id number] IMPRESSION: 1. Cholelithiasis with fluid distended gallbladder. This can be further evalua jhonny with ultrasound. 2. Diffuse fatty infiltration of the liver. No intrahepatic biliary ductal dil atation. Mild hepatomegaly. 3. No hydronephrosis in either kidney. Incidental renal cysts. 4. Normal caliber abdominal aorta. Aortic calcification. 5. Evidence of mild gastritis and duodenitis described above.
--- NOTE | 2021-08-24 15:01 | ED_ITS ---
HPI - General Adult General: Chief complaint: Abdominal Pain Stated complaint: Gallbladder, generalized area pain Time Seen by Provider: 08/24/21 14:37 History of Present Illness: Patient is a 66-year-old female with a history of gallbladder disease, renal colic, prior pneumonectomy presenting to the emergency room for evaluation of acute on chronic RUQ pain worsening in the last 3 days and RLQ pain x 3 days.Patient went to see her primary care provider was told to come to the emergency room to get her gallbladder checked. In addition, patient reports 2 to 3 days of right lower quadrant abdominal pain. No associated nausea/vomiting, fever/chills, melena hematochezia or diarrhea. Patient denies any chest pain, shortness breath, palpitation, lightheadedness, nausea/vomiting fever/chills cough, runny nose, sore throat. Onset: abdominal pain x 3 days, dysuria x 2 days Duration:ongoing Location:home Severity:moderate Associated symptoms: Deny chest pain, dyspnea, nausea, rash, palpitations or vomiting Review of Systems Const: Denies: fever(s) or chills Eyes: Denies: change in vision ENMT: Denies: mouth pain Card: Denies: chest pain or palpitations Resp: Denies: dyspnea or non-productive cough GI: Reports: abdominal pain; Denies: nausea, vomiting or diarrhea : Denies: dysuria Musc: Denies: extremity pain Skin/Breast: Denies: rash or new lesions Neuro: Denies: weakness in extremities Psych: Reports: other (Normal mood) Vinod/Lymph: Denies: easy bruising PFSH ED PFSH: Medical History Chronic bronchitis Irritable bowel syndrome Myocardial infarction Surgical History H/O: hysterectomy History of lung surgery History of tonsillectomy History of tracheostomy Family History Father CAD (coronary artery disease) Mother CAD (coronary artery disease) Social History Smoking and tobacco status: never smoked Alcohol intake: never Physical Exam Const: COMMON NORMALS: alert HENMT: COMMON NORMALS: atraumatic HEAD & SCALP: atraumatic MOUTH: moist mucous membranes not abnormal Eye: COMMON NORMALS: EOMs intact bilaterally and conjunctivae normal CONJUNCTIVA: Yes conjunctivae normal Neck/C-Spine: COMMON NORMALS: full ROM and supple Resp: COMMON NORMALS: normal respiratory effort and clear to auscultation bilaterally AUSCULTATION: clear to auscultation bilaterally Cardio: COMMON NORMALS: regular rate RATE: regular rate GI: COMMON NORMALS: Soft to palpation PALPATION: Yes Soft to palpation OTHER: +RLQ and RUQ focal TTP. No Jha's sign/ No guarding rebound, guarding, rigidity. +b/l CVA tenderness to percussion. Neg Jha/Neg McBurney's point tenderness, no suprabupic tenderness to palpation. Extremity: COMMON NORMALS: full ROM Neuro: SENSORIUM/ORIENTATION: Yes alert MOTOR EXAM: No Abnormal motor strength present and Other motor observations present (no focal motor deficits) Psych: COMMON NORMALS: speech normal SPEECH: Yes normal speech MOOD & AFFECT: Yes euthymic mood Course Vital Signs: Vital signs: Vital Signs Temperature 97.7 F 08/24/21 13:58 Pulse Rate 58 L 08/24/21 18:09 Respiratory Rate 16 08/24/21 18:09 Blood Pressure 149/87 08/24/21 18:09 Pulse Oximetry 99 08/24/21 18:09 [facility] - General Adult Medical Decision Making 66-year-old female with a history of gallbladder disease, renal colic, prior pneumonectomy presenting to the emergency room with complaints of acute on chronic right upper quadrant pain with new right lower quadrant pain x3 days. Plus dysuria x2 days. On exam, patient has no Jha sign 5+ right upper quadrant and right lower quadrant tenderness to palpation plus bilateral CVA tenderness palpation It is entirely unclear whether patient is having gallbladder disease at the present time or anther intraabdominal pathologies as patient had RUQ and RLQ abd pain. Will evaluate for other intra-abdominal pathologies. Work-up: CBC, CMP, lipase, UA, CT abdomen pelvis Ct consistent with duodenitis with gastritis. Gallbladder appears to be distended on CT. Ultrasound showed biliary stone with gallbladder diameter less than 3 mm w/p pericholecystic fluids. Patient is afebrile, no leukocytosis with reassuring findings on ultrasound, do not suspect acute cholecystitis. Patient is given close follow-up with general surgery for biliary colic. I have given patient follow up with our rehabilitation case coordinator to be seen by our outpatient general surgery for worsening biliary colic. Patient aware of a call from our rehabilitation case coordinator to schedule for appointment(s) and verbalizes understanding of the importance of following up. Rx tylenol PRN abd pain, maalox/pepcid PRN dyspepsia, and zofran PRN nausea/vomiting, cephalexin BID for UTI symptoms Disposition: Discharge. Patient counseled regarding diagnostic impression, treatment plan. Patient given ED strict return precautions to return for continuation, worsening, or development of new symptoms. Instructed to f/u w/ PCP and general surgery regarding symptoms today. Patient verbalized understa nding. Lab Data : 08/24/21 15:12 08/24/21 15:12 Radiology Impressions Abdomen/Pelvis CT 08/24/21 14:56 IMPRESSION: 1. Cholelithiasis with fluid distended gallbladder. This can be further evaluated with ultrasound. 2. Diffuse fatty infiltration of the liver. No intrahepatic biliary ductal dilatation. Mild hepatomegaly. 3. No hydronephrosis in either kidney. Incidental renal cysts. 4. Normal caliber abdominal aorta. Aortic calcification. 5. Evidence of mild gastritis and duodenitis described above. Gallbladder Ultrasound 08/24/21 16:43 IMPRESSION: Cholelithiasis, negative for cholecystitis. Laboratory Results WBC 7.9 10^3/uL (4.0-10.0) 08/24/21 15:12 RBC 5.01 10^6/uL (4.1-5.3) 08/24/21 15:12 Hgb 14.3 g/dL (11.5-15.3) 08/24/21 15:12 Hct 43.8 % (37.0-47.0) 08/24/21 15:12 MCV 87.4 fl (81-99) 08/24/21 15:12 MCH 28.5 pg (28.0-34.0) 08/24/21 15:12 MCHC 32.6 g/dL (30.0-36.0) 08/24/21 15:12 RDW 12.9 % (12.1-15.1) 08/24/21 15:12 Plt Count 221 10^3/cmm (130-400) 08/24/21 15:12 MPV 10.9 fL (7.4-10.4) H 08/24/21 15:12 Neut % (Auto) 63.5 % 08/24/21 15:12 Lymph % (Auto) 26.2 % 08/24/21 15:12 [place] % (Auto) 8.3 % 08/24/21 15:12 Eos % (Auto) 1.1 % 08/24/21 15:12 Baso % (Auto) 0.6 % 08/24/21 15:12 Neut # (Auto) 4.98 10^3/uL (1.8-7.7) 08/24/21 15:12 Lymph # (Auto) 2.1 10^3/uL (0.8-4.8) 08/24/21 15:12 [place] # (Auto) 0.7 10^3/uL (0.2-0.9) 08/24/21 15:12 Eos # (Auto) 0.1 10^3/uL (0.0-0.8) 08/24/21 15:12 Baso # (Auto) 0.1 10^3/uL (0.0-0.1) 08/24/21 15:12 Nucleated RBC % (auto) 0 % 08/24/21 15:12 Nucleated RBCs # 0.0 /100WBC 08/24/21 15:12 Sodium 139 mmol/L (136-145) 08/24/21 15:12 Potassium 5.1 mmol/L (3.5-5.1) 08/24/21 15:12 Chloride 101 mmol/L (98-107) 08/24/21 15:12 Carbon Dioxide 27 mmol/L (22-29) 08/24/21 15:12 Anion Gap 16.1 (5-19) 08/24/21 15:12 BUN 9 mg/dL (8-23) 08/24/21 15:12 Creatinine 0.6 mg/dL (0.5-0.9) 08/24/21 15:12 GFR Calculation 99.4 mL/min (90-130) 08/24/21 15:12 Glucose 105 mg/dL (65-115) 08/24/21 15:12 Calculated Osmolality 287 mOsm/kg (285-295) 08/24/21 15:12 Calcium 11.4 mg/dL (8.5-10.5) H 08/24/21 15:12 Total Bilirubin 0.5 mg/dL (0.15-1.2) 08/24/21 15:12 AST 29 U/L (0-32) 08/24/21 15:12 ALT 23 U/L (0-33) 08/24/21 15:12 Alkaline Phosphatase 64 IU/L (35-105) 08/24/21 15:12 Total Protein 7.3 g/dL (6.6-8.7) 08/24/21 15:12 Albumin 4.9 g/dL (3.5-5.2) 08/24/21 15:12 Globulin 2.4 g/dL (1.3-4.6) 08/24/21 15:12 Lipase 27 U/L (13-60) 08/24/21 15:12 Urine Color Yellow (Yellow) 08/24/21 18:12 Urine Appearance Clear (CLEAR) 08/24/21 18:12 Urine pH 5 (5-7) 08/24/21 18:12 Ur Specific Plato 1.005 (1.005-1.030) 08/24/21 18:12 Urine Protein Neg (Negative) 08/24/21 18:12 Urine Glucose (UA) Norm (Normal) 08/24/21 18:12 Urine Ketones Negative (Negative) 08/24/21 18:12 Urine Blood Neg (Negative) 08/24/21 18:12 Urine Nitrate Negative (Negative) 08/24/21 18:12 Urine Bilirubin Neg (Negative) 08/24/21 18:12 Urine Urobilinogen Norm mg/dL (Negative) 08/24/21 18:12 Ur Leukocyte Esterase Negative (Negative) 08/24/21 18:12 Imaging Data Other Imaging: Radiologist's impression: [address] [place] [address] Ultrasound Report Signed Patient: Amy Nguyen Unit #: [id number] : 1955 Age/Sex: 66 / F ADM Date: 08/24/21 Loc: ER Room/Bed: Attending Dr: Ordering Provider/Ordering MD: Nichole Denton MD Date of Service: 08/24/21 Procedure(s): US gall bladder [id number] Accession Number(s): [id number] Report Number: [id number] PROCEDURE INFORMATION: Exam: US Abdomen, Limited; Right Upper Quadrant Exam date and time: 08/24/2021 4:43 PM Age: 66 years old Clinical indication: Abnormal findings; Abnormal radiologic finding of the abdomen; Radiologic exam and body structure: CT; Additional info: Gall bladder distension TECHNIQUE: Imaging protocol: US abdomen. Real time ultrasound with image documentation. Limited exam focused on the right upper quadrant. COMPARISON: CT abdomen pelvis w con* [id number] 08/24/2021 4:14 PM FINDINGS: Liver: Normal. No masses. Gallbladder: Cholelithiasis. Common bile duct: Normal. No stones. No dilation. Pancreas: Visualized pancreas is unremarkable. Right kidney: Normal. No mass. No hydronephrosis. US/US gall bladder [id number] IMPRESSION: Cholelithiasis, negative for cholecystitis. ? Dictated By: Ricky Negrete MD Signed By: Ricky Negrete MD Signed Date/Time: 08/24/211741 DD/ [address] [place] [address] CT Scan Report Signed Patient: Amy Nguyen Unit #: [id number] : 1955 Age/Sex: 66 / F ADM Date: 08/24/21 Loc: ER Room/Bed: Attending Dr: Ordering Provider/Ordering MD: Nichole Denton MD Date of Service: 08/24/21 Procedure(s): CT abdomen pelvis w con* [id number] Accession Number(s): [id number] Report Number: [id number] WS: [id number] CT ABDOMEN PELVIS TECHNIQUE: Contrast-enhanced CT of the abdomen and pelvis with coronal and sagittal reformatted images. CLINICAL INFORMATION: abd pain COMPARISON: CT January 06, 2020 DLP: 801.[address] scans at [facility] use at least one of these dose optimization techniques: automated exposure control; mA and/or kV adjustment per patient size (includes targeted exams where dose is matched to clinical indication); or iterative reconstruction. FINDINGS: Mild hepatomegaly. Diffuse fatty infiltration of the liver. Enlarged RIGHT hepatic lobe. Normal portal vein and splenic vein. Cholelithiasis. Mild fluid distention of the gallbladder. This can be further evaluated with ultrasound. Normal GE junction. Mild thickening of the duodenum with mucosal enhancement can be seen with duodenitis. Mild gastric wall thickening with mucosal enhancement can be seen with gastritis. No evidence of high-grade small or large bowel obstruction. Normal spleen. Adrenal glands are normal. Normal renal parenchymal enhancement. No hydronephrosis. Small bilateral renal cysts. Proximal celiac and SMA are patent. 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 Mild stenosis at the celiac origin. Normal caliber abdominal aorta. Aortic calcification. No periaortic or traversing lymphadenopathy. Normal sigmoid colon. Normal appendix in the RIGHT lower quadrant. Lung bases are well aerated. Bronchiectasis RIGHT lower lobe. CT/CT abdomen pelvis w con* [id number] IMPRESSION: ? 1.? Cholelithiasis with fluid distended gallbladder. This can be further evaluated with ultrasound. 2.? Diffuse fatty infiltration of the liver. No intrahepatic biliary ductal dilatation. Mild hepatomegaly. 3.? No hydronephrosis in either kidney. Incidental renal cysts. 4.? Normal caliber abdominal aorta. Aortic calcification. 5.? Evidence of mild gastritis and duodenitis described above. ? ? Dictated By: Armand Amezcua MD Signed By: Armand Amezcua MD Signed Date/Time: 08/24/211637 DD/ 25 Discharge Plan Discharge Patient Disposition: Home Clinical Impression: Abdominal pain, Biliary colic Condition: Stable Prescriptions: New Zofran 4 mg tablet 4 mg PO TID PRN (Reason: nausea and vomiting) 4 Days Qty: 12 0RF acetaminophen 500 mg tablet 500 mg PO Q6H PRN (Reason: pain) 5 Days Qty: 20 0RF Pepcid 20 mg tablet 20 mg PO BID PRN (Reason: abdominal pain) 10 Days Qty: 20 0RF Maalox Advanced 1,000-60 mg tablet,chewable 1 tab PO TID PRN (Reason: abdominal pain) 7 Days Qty: 21 0RF No Action cholecalciferol (vitamin D3) 25 mcg (1,000 unit) capsule 25 mcg PO DAILY 0RF alendronate 70 mg tablet 70 mg PO Q7D 0RF Rx Instructions: on Tuesdays simvastatin 20 mg tablet 20 mg PO DAILY 0RF nitroglycerin 0.4 mg tablet, sublingual 0.4 mg sublingual Q5M PRN (Reason: chest pains) 0RF albuterol sulfate [ProAir HFA] 90 mcg/actuation HFA aerosol inhaler 1 - 2 puff INHALATION Q4H PRN (Reason: Shortness Of Breath) 0RF fluticasone propionate 50 mcg/actuation spray,suspension 50 mcg INTRANASAL BID 0RF Rx Instructions: spray 1 spray into each nostril bid metoprolol succinate 100 mg tablet extended release 24 hr 100 mg PO DAILY 0RF aspirin 81 mg Tablet,Chewable 81 mg PO BID 0RF lisinopril 20 mg tablet 10 mg PO DAILY Qty: 30 0RF Discharge Orders: Discharge ED (Routine); Ordered 08/24/21 Ordered By: Nichole Denton Referrals: Michael Phillips MD [Primary Care Provider] - Discharge Diet: Advance as tolerated Discharge Activity: Increase activity as tolerated Activity Restrictions/Additional Instructions: Our rehabilitation case coordinator will have you follow-up with a general surgeon in the next few days. You would be expected to have a phone call with our rehabilitation case coordinator who will put you on the schedule. You can expect a call from us in the next 2-3 days. If you don't hear from us, call us back in the emergency room at [phone]. Please come back if you have any worsening abdominal pain, fever or chills, nausea or vomiting, diarrhea, blood in the stool, inability hold down liquid or solids, or any new concerning complaints. Coding Level of Care Code ED Director Of Sustainability Programs for [facility] Exam Comprehensive
[2021-08-24 15:10] VITALS: BP 184/72; PULSE 61; RESP 16; O2SAT 98
[2021-08-24 15:23] LABS: Basophils # 0.1 10^3/uL (0.0-0.1); Basophils % 0.6 %; Eosinophils # 0.1 10^3/uL (0.0-0.8); Eosinophils % 1.1 %; Hematocrit 43.8 % (37.0-47.0); Hemoglobin 14.3 g/dL (11.5-15.3); Lymphocytes # 2.1 10^3/uL (0.8-4.8); Lymphocytes % 26.2 %; Mean Corpuscular HGB Conc 32.6 g/dL (30.0-36.0); Mean Corpuscular Hemoglobin 28.5 pg (28.0-34.0); Mean Corpuscular Volume 87.4 fl (81-99); Mean Platelet Volume 10.9 fL (7.4-10.4); Monocytes # 0.7 10^3/uL (0.2-0.9); Monocytes % 8.3 %; Neutrophils # 4.98 10^3/uL (1.8-7.7); Neutrophils % 63.5 %; Nucleated Red Blood Cells % 0 %; Platelet Count 221 10^3/cmm (130-400); Red Blood Count 5.01 10^6/uL (4.1-5.3); Red Cell Distribution Width 12.9 % (12.1-15.1); White Blood Count 7.9 10^3/uL (4.0-10.0)
[2021-08-24 15:51] LABS: Alanine Aminotransferase 23 U/L (0-33); Albumin Level 4.9 g/dL (3.5-5.2); Alkaline Phosphatase 64 IU/L (35-105); Anion Gap 16.1 (5-19); Aspartate Amino Transferase 29 U/L (0-32); Blood Urea Nitrogen 9 mg/dL (8-23); Calcium 11.4 mg/dL (8.5-10.5); Carbon Dioxide 27 mmol/L (22-29); Chloride 101 mmol/L (98-107); Globulin 2.4 g/dL (1.3-4.6); Glomerular Filtration Rate 99.4 mL/min (90-130); Glucose 105 mg/dL (65-115); Lipase 27 U/L (13-60); Osmolality Calculated 287 mOsm/kg (285-295); Potassium 5.1 mmol/L (3.5-5.1); Sodium 139 mmol/L (136-145); Total Bilirubin 0.5 mg/dL (0.15-1.2); Total Protein 7.3 g/dL (6.6-8.7)
[2021-08-24 16:01] VITALS: BP 156/70; PULSE 57; RESP 16; O2SAT 99
[2021-08-24] MEDS: iohexol 300 mg/mL 100 mL Btl IV (16:15)
--- NOTE | 2021-08-24 16:43 | USR_ITS ---
PROCEDURE INFORMATION: Exam: US Abdomen, Limited; Right Upper Quadrant Exam date and time: 08/24/2021 4:43 PM Age: 66 years old Clinical indication: Abnormal findings; Abnormal radiologic finding of the abdomen; Radiologic exam and body structure: CT; Additional info: Gall bladder distension TECHNIQUE: Imaging protocol: US abdomen. Real time ultrasound with image documentation. Limited exam focused on the right upper quadrant. COMPARISON: CT abdomen pelvis w con* [id number] 08/24/2021 4:14 PM FINDINGS: Liver: Normal. No masses. Gallbladder: Cholelithiasis. Common bile duct: Normal. No stones. No dilation. Pancreas: Visualized pancreas is unremarkable. Right kidney: Normal. No mass. No hydronephrosis. US/US gall bladder [id number] IMPRESSION: Cholelithiasis, negative for cholecystitis.
[2021-08-24] MEDS: ketorolac 30 mg/mL INJ IVP (17:56)
[2021-08-24] MEDS: lidocaine 2% viscous 15 ML, aluminum-mag hydrox-simethicon 30 ML, sucralfate oral liq 1 GM PO (17:56)
[2021-08-24 18:09] VITALS: BP 149/87; PULSE 58; RESP 16; O2SAT 99
[2021-08-24 18:25] LABS: Add Urine Microscopic? NO; Charge for UA Resulting for Rev
[2021-08-24 18:27] LABS: Bilirubin Urine Neg (Negative); Blood Urine Neg (Negative); Glucose Urine UA Norm (Normal); Ketones Urine Negative (Negative); Leukocyte Esterase Urine Negative (Negative); Nitrate Urine Negative (Negative); Protein Urine Neg (Negative); Specific Gravity, Urine 1.005 (1.005-1.030); Urine Appearance Clear (CLEAR); Urine Color Yellow (Yellow); Urobilinogen Urine Norm (Negative); pH Urine 5 (5-7)
--- NOTE | 2021-08-25 09:24 | DCPLANNER ---
Addendum entered by Aysha Lazcano 08/28/21 12:26: Patient had a follow up appointment scheduled for 08.27.21 with general surgery - patient did attend appointment. Original Note: software development project manager had message to schedule a follow up appointment for patient with general surgery. software development project manager emailed patients information to Marcia Cannon and Faviola at [facility] General Surgery / ENT clinic. Patients information will be printed and reviewed. Clinic will call patient with appointment information.
== END 2021-08-24 18:13 | disposition home or self-care (01) ==
PROVIDERS: Emergency Provider Emergency Medicine; PCP Family Medicine
DX: R10.9 Unspecified abdominal pain (principal); K80.50 Calculus of bile duct without cholangitis or cholecystitis without obstruction; Z79.82 Long term (current) use of aspirin; I25.2 Old myocardial infarction
CPT/HCPCS: 74177; 76705; 80053; 81003; 83690; 85025; 96374; 96375; 99284; J1885; Q9967

== ENCOUNTER 2021-09-06 09:22 | Emergency (ER) | payer MEDICARE, MEDICAID, SELFPAY ==
[2021-09-06 09:19] VITALS: BP 148/76; PULSE 77; RESP 16; TEMP 36.4; O2SAT 98; BMI 19.3
--- NOTE | 2021-09-06 09:19 | ECG_ITS ---
[facility] Test Date: 2021-09-06 Pat Name: Amy Nguyen Department: Room: Gender: Female [employer]: : 1955 Requested By: Godwin Fitch Order Number: [id number] Alejandra MD: Fausto Hannon M.D. Measurements Intervals [place] Rate: P: SC: QRS: QRSD: T: QT: QTc: Interpretive Statements SINUS RHYTHM NON SPECIFIC ST-T WAVE CHANGES Compared to ECG 02/20/2021 17:25:38 Sinus bradycardia no longer present Electronically Signed On 09-06-2021 15:40:35 CDT by Fausto Hannon M.D. [id number]
--- NOTE | 2021-09-06 09:19 | XRR_ITS ---
PROCEDURE INFORMATION: Exam: XR Chest Exam date and time: 09/06/2021 9:19 AM Age: 66 years old Clinical indication: Other: Near syncope TECHNIQUE: Imaging protocol: XR of the chest. Views: 1 view. COMPARISON: CR XR chest 1V portable [id number] 01/14/2021 8:34 PM FINDINGS: Lungs: Background of emphysema. No focal airspace consolidation. Pleural spaces: Similar pleural thickening at the left apex. No pneumothorax. Heart/Mediastinum: Unremarkable. No cardiomegaly. Bones/joints: Unremarkable. XR/XR chest 1V portable [id number] IMPRESSION: No acute cardiopulmonary abnormality.
--- NOTE | 2021-09-06 09:27 | W.ED.DIZZY ---
HPI - Dizziness General: Chief Complaint: Weakness Stated Complaint: near syncope Source: patient and EMS Mode of arrival: EMS Limitations: no limitations History of Present Illness: HPI Narrative: 66-year-old female states that this morning when she got up she felt like she was going to pass out. Should she did stood up and felt lightheaded and sat back down. States she has had a decrease in diet as she is getting her gallbladder taken out in a little over a week. She denies any chest pain or headache or abdominal pain. She denies any worsening proving factors she states her symptoms have improved currently. Associated symptoms: Denies chills, headache(s), nausea or vomiting Review of Systems Const: Denies: fever(s), chills, body aches or change in appetite Eyes: Denies: blurry vision or eye discomfort ENMT: Denies: throat pain or dental pain Card: Reports: pre-syncope Resp: Denies: dyspnea GI: Denies: abdominal pain, nausea, vomiting or diarrhea : Denies: dysuria Musc: Denies: neck pain or back pain Skin/Breast: Denies: rash Neuro: Denies: headache(s) Psych: Denies: depression Vinod/Lymph: Denies: easy bruising All/Imm: Denies: urticaria PFSH ED PFSH: Medical History Chronic bronchitis Irritable bowel syndrome Myocardial infarction Surgical History H/O: hysterectomy History of lung surgery History of tonsillectomy History of tracheostomy Family History Father CAD (coronary artery disease) Mother CAD (coronary artery disease) Social History Smoking and tobacco status: never smoked Alcohol intake: never Physical Exam Const: COMMON NORMALS: no acute distress, patient oriented x3 and healthy appearing HENMT: COMMON NORMALS: normocephalic and atraumatic HEAD & SCALP: normocephalic and atraumatic Eye: COMMON NORMALS: Equal, round and reactive pupils present and EOMs intact bilaterally PUPIL: Yes Equal, round and reactive pupils present Neck/C-Spine: COMMON NORMALS: full ROM and supple Chest: COMMONS NORMALS: normal inspection of the chest and normal palpation of entire chest wall Resp: COMMON NORMALS: normal respiratory effort, No retractions, No use of accessory muscles and clear to auscultation bilaterally AUSCULTATION: clear to auscultation bilaterally Cardio: COMMON NORMALS: regular rate, regular rhythm and No murmurs present (Cardio) RATE: regular rate RHYTHM: regular rhythm GI: COMMON NORMALS: Normal to inspection, nondistended, normoactive bowel sounds present, Soft to palpation, non-tender and no masses PALPATION: Yes Soft to palpation Extremity: COMMON NORMALS: normal to inspection and full ROM Neuro: COMMON NORMALS: patient oriented x3, moves all extremities and no focal motor deficits Psych: COMMON NORMALS: mental status grossly normal, Normal thought process present and cooperative THOUGHT PROCESS: Normal thought process present Skin: COMMON NORMALS: no rashes or lesions noted and no wounds GENERAL SKIN EXAM: no rashes or lesions noted Course Vital Signs: Vital signs: Vital Signs Temperature 97.6 F 09/06/21 09:19 Pulse Rate 87 09/06/21 10:56 Respiratory Rate 18 09/06/21 10:56 Blood Pressure 108/67 09/06/21 10:56 Pulse Oximetry 99 09/06/21 10:56 MDM - Dizziness Medical Decision Making Patient presents here with a near syncopal event she is well-appearing here blood pressures here been normal blood work is all normal and she had no chest pain or headache she is stable for discharge is to follow-up PCP and return if worsening. Lab Data : 09/06/21 09:38 09/06/21 09:38 Radiology Impressions Chest X-Ray 09/06/21 09:19 IMPRESSION: No acute cardiopulmonary abnormality. Laboratory Results WBC 8.1 10^3/uL (4.0-10.0) 09/06/21 09:38 RBC 5.21 10^6/uL (4.1-5.3) 09/06/21 09:38 Hgb 14.8 g/dL (11.5-15.3) 09/06/21 09:38 Hct 44.3 % (37.0-47.0) 09/06/21 09:38 MCV 85.0 fl (81-99) 09/06/21 09:38 MCH 28.4 pg (28.0-34.0) 09/06/21 09:38 MCHC 33.4 g/dL (30.0-36.0) 09/06/21 09:38 RDW 13.0 % (12.1-15.1) 09/06/21 09:38 Plt Count 240 10^3/cmm (130-400) 09/06/21 09:38 MPV 10.6 fL (7.4-10.4) H 09/06/21 09:38 Neut % (Auto) 60.3 % 09/06/21 09:38 Lymph % (Auto) 26.9 % 09/06/21 09:38 [place] % (Auto) 10.3 % 09/06/21 09:38 Eos % (Auto) 1.4 % 09/06/21 09:38 Baso % (Auto) 0.7 % 09/06/21 09:38 Neut # (Auto) 4.86 10^3/uL (1.8-7.7) 09/06/21 09:38 Lymph # (Auto) 2.2 10^3/uL (0.8-4.8) 09/06/21 09:38 [place] # (Auto) 0.8 10^3/uL (0.2-0.9) 09/06/21 09:38 Eos # (Auto) 0.1 10^3/uL (0.0-0.8) 09/06/21 09:38 Baso # (Auto) 0.1 10^3/uL (0.0-0.1) 09/06/21 09:38 Nucleated RBC % (auto) 0 % 09/06/21 09: Nucleated RBCs # 0.0 /100WBC 09/06/21 09:38 Sodium 132 mmol/L (136-145) L 09/06/21 09:38 Potassium 4.8 mmol/L (3.5-5.1) 09/06/21 09:38 Chloride 95 mmol/L (98-107) L 09/06/21 09:38 Carbon Dioxide 24 mmol/L (22-29) 09/06/21 09:38 Anion Gap 17.8 (5-19) 09/06/21 09:38 BUN 16 mg/dL (8-23) 09/06/21 09:38 Creatinine 0.6 mg/dL (0.5-0.9) 09/06/21 09:38 GFR Calculation 99.4 mL/min (90-130) 09/06/21 09:38 Glucose 123 mg/dL (65-115) H 09/06/21 09:38 Calculated Osmolality 277 mOsm/kg (285-295) L 09/06/21 09:38 Calcium 10.9 mg/dL (8.5-10.5) H 09/06/21 09:38 Total Bilirubin 0.6 mg/dL (0.15-1.2) 09/06/21 09:38 AST 33 U/L (0-32) H 09/06/21 09:38 ALT 35 U/L (0-33) H 09/06/21 09:38 Alkaline Phosphatase 53 IU/L (35-105) 09/06/21 09:38 Troponin T Baseline 6 ng/L (0-10) 09/06/21 09:38 Total Protein 7.2 g/dL (6.6-8.7) 09/06/21 09:38 Albumin 4.7 g/dL (3.5-5.2) 09/06/21 09:38 Globulin 2.5 g/dL (1.3-4.6) 09/06/21 09:38 Discharge Plan Discharge Patient Disposition: Home Clinical Impression: Near syncope Condition: Stable Prescriptions: No Action cholecalciferol (vitamin D3) 25 mcg (1,000 unit) capsule 25 mcg PO DAILY 0RF alendronate 70 mg tablet 70 mg PO Q7D 0RF Rx Instructions: on Tuesdays simvastatin 20 mg tablet 20 mg PO DAILY 0RF nitroglycerin 0.4 mg tablet, sublingual 0.4 mg sublingual Q5M PRN (Reason: chest pains) 0RF albuterol sulfate [ProAir HFA] 90 mcg/actuation HFA aerosol inhaler 1 - 2 puff INHALATION Q4H PRN (Reason: Shortness Of Breath) 0RF fluticasone propionate 50 mcg/actuation spray,suspension 50 mcg INTRANASAL BID 0RF Rx Instructions: spray 1 spray into each nostril bid metoprolol succinate 100 mg tablet extended release 24 hr 100 mg PO DAILY 0RF aspirin 81 mg Tablet,Chewable 81 mg PO BID 0RF lisinopril 20 mg tablet 10 mg PO DAILY Qty: 30 0RF Discharge Orders: Discharge ED (Routine); Ordered 09/06/21 Ordered By: Godwin Fitch Referrals: Michael Phillips MD [Primary Care Provider] - 1-3 days Discharge Diet: Advance as tolerated Discharge Activity: Resume usual activity Patient Instructions: Near Syncope (ED) Coding Level of Care Code ED Safe And Vault Installer for Chg Fwd Exam Comprehensive
[2021-09-06] MEDS: sodium chloride 0.9% 1,000 ML 999 ML IV (09:31)
[2021-09-06 09:42] VITALS: BP 117/61; PULSE 86; RESP 18; O2SAT 94
--- NOTE | 2021-09-06 09:45 | PC.NURSE ---
PT PLACED ON CONTINUOUS BEDSIDE [employer]OCIATE.
[2021-09-06 09:55] LABS: Basophils # 0.1 10^3/uL (0.0-0.1); Basophils % 0.7 %; Eosinophils # 0.1 10^3/uL (0.0-0.8); Eosinophils % 1.4 %; Hematocrit 44.3 % (37.0-47.0); Hemoglobin 14.8 g/dL (11.5-15.3); Lymphocytes # 2.2 10^3/uL (0.8-4.8); Lymphocytes % 26.9 %; Mean Corpuscular HGB Conc 33.4 g/dL (30.0-36.0); Mean Corpuscular Hemoglobin 28.4 pg (28.0-34.0); Mean Platelet Volume 10.6 fL (7.4-10.4); Monocytes # 0.8 10^3/uL (0.2-0.9); Monocytes % 10.3 %; Neutrophils # 4.86 10^3/uL (1.8-7.7); Neutrophils % 60.3 %; Nucleated Red Blood Cells % 0 %; Platelet Count 240 10^3/cmm (130-400); Red Blood Count 5.21 10^6/uL (4.1-5.3); White Blood Count 8.1 10^3/uL (4.0-10.0)
[2021-09-06 10:11] LABS: Alanine Aminotransferase 35 U/L (0-33); Albumin Level 4.7 g/dL (3.5-5.2); Alkaline Phosphatase 53 IU/L (35-105); Blood Urea Nitrogen 16 mg/dL (8-23); Calcium 10.9 mg/dL (8.5-10.5); Carbon Dioxide 24 mmol/L (22-29); Chloride 95 mmol/L (98-107); Globulin 2.5 g/dL (1.3-4.6); Glomerular Filtration Rate 99.4 mL/min (90-130); Glucose 123 mg/dL (65-115); Osmolality Calculated 277 mOsm/kg (285-295); Sodium 132 mmol/L (136-145); Total Bilirubin 0.6 mg/dL (0.15-1.2); Total Protein 7.2 g/dL (6.6-8.7)
[2021-09-06 10:12] LABS: Troponin(5th) Baseline 6 ng/L (0-10)
[2021-09-06 10:36] LABS: Anion Gap 17.8 (5-19); Aspartate Amino Transferase 33 U/L (0-32); Potassium 4.8 mmol/L (3.5-5.1)
[2021-09-06 10:47] VITALS: BP 108/68; PULSE 86; RESP 18; O2SAT 98
--- NOTE | 2021-09-06 10:48 | PC.NURSE ---
PT AMBULATROY TO RESTROOM WITH NO SYMPTOMS OR COMPLAINTS.
[2021-09-06 10:56] VITALS: BP 108/67; PULSE 87; RESP 18; O2SAT 99
== END 2021-09-06 10:57 | disposition home or self-care (01) ==
PROVIDERS: Emergency Provider Emergency Medicine; PCP Family Medicine
DX: R55 Syncope and collapse (principal); Z79.82 Long term (current) use of aspirin; I25.2 Old myocardial infarction
CPT/HCPCS: 71045; 80053; 84484; 85025; 93005; 96360; 99283; J7030

== ENCOUNTER → 2021-09-10 12:43 | Outpatient (BNVA) | payer MEDICARE, MEDICAID, SELFPAY | PROVIDERS: PCP Family Medicine; Visit Provider Surgery | DX: Z20.822 Contact with and (suspected) exposure to COVID-19 (principal); Z11.52 Encounter for screening for COVID-19 | CPT/HCPCS: 87635 ==

== ENCOUNTER 2021-09-15 05:36 | Day surgery (SDC) | payer MEDICARE, MEDICAID, SELFPAY ==
[2021-09-11 12:59] VITALS: BMI 19.3
[2021-09-15] VITALS (7 sets, daily range): BP systolic 148–179; BP diastolic 75–91; PULSE 67–81; RESP 16–21; TEMP 36.1–36.8; O2SAT 96–98
--- NOTE | 2021-09-15 06:14 | W.PM.OPSUD ---
Surgery/Procedure H&P Update DATE OF PROCEDURE: September 15, 2021 DATE H&P PERFORMED: 08/27/21 PREOP DIAGNOSIS: Symptomatic cholelithiasis PRIMARY INDICATION FOR PROCEDURE: The same PLANNED PROCEDURE: Operation Date: 09/15/21 07:00 Proposed Procedures p Laparoscopic Cholecystectomy 41586/k80.50(Not Applicable) - Mariano Paredes MD
[2021-09-15] MEDS: sodium chloride 0.9% 1,000 ML 30 ML IV (06:18)
[2021-09-15] MEDS: acetaminophen 1,000 MG/100 ML PIGGYBACK 400 MG IV (06:19)
--- NOTE | 2021-09-15 06:46 | ANES.PREANE2 ---
Pre-Anesthetic Assessment Height/Weight: Height 1.68 m Weight 54.431 kg Temp Pulse Resp BP Pulse Ox 97 F L 70 16 165/87 98 09/15/21 05:59 09/15/21 05:59 09/15/21 05:59 09/15/21 05:59 09/15/21 05:59 Preop Diagnosis: Symptomatic cholelithiasis Operation Date: 09/15/21 07:00 Proposed Procedures p Laparoscopic Cholecystectomy 06801/k80.50(Not Applicable) - Mariano Paredes MD Familial anesthetic complications: NOne Was Beta Wu taken within 24 hours: Yes Was Clonidine taken within 24 hours: N/A Last intake: Intake Last Liquid Date 09/14/21 Last Liquid Time 00:00 Last Solid Date 09/01/21 Last Solid Time 00:00 Social No alcohol and No tobacco Exam alert, oriented x 3, clear to auscultation bilaterally and regular rate & rhythm Airway Mallampati: Class I Dentition: other (missing) Comments: Comments: hyx tracheostomy as child 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 No functional limitations since. Was told she couldn't have gas anesthesia though. Informed patient general anesthesia would be required for this procedure. Hx tracheostomy CV/HEM Myocardial Infarction Anesthetic Plan ASA status: 3 Anesthesia: General Risk of > 500 ml blood loss (7ml/kg in children): No Medications/Allergies Home Medications Medication Instructions Recorded Confirmed Last Taken Type albuterol sulfate 90 mcg/actuation 1 - 2 puff INHALATION Q4H PRN 01/06/20 09/15/21 09/15/21 History aerosol inhaler (ProAir HFA) alendronate 70 mg tablet 70 mg PO Q7D 01/06/20 09/15/21 09/01/21 History fluticasone propionate 50 50 mcg INTRANASAL BID 01/06/20 09/15/21 09/15/21 History mcg/actuation nasal spray,suspension nitroglycerin 0.4 mg sublingual 0.4 mg SUBLINGUAL Q5M PRN 01/06/20 09/15/21 08/24/21 History tablet simvastatin 20 mg tablet 20 mg PO DAILY 01/06/20 09/15/21 09/01/21 History aspirin 81 mg chewable tablet 81 mg PO BID 11/18/20 09/15/21 09/01/21 History metoprolol succinate 100 mg 100 mg PO DAILY 11/18/20 09/15/21 09/15/21 History tablet,extended release 24 hr lisinopril 20 mg tablet 10 mg PO DAILY #30 tab 01/14/21 09/15/21 09/01/21 Rx cholecalciferol (vitamin D3) 25 25 mcg PO DAILY 04/28/21 09/15/21 09/01/21 History mcg (1,000 unit) capsule Allergies Allergy/AdvReac Type Severity Reaction Status Date / Time doxycycline Allergy Unknown Unknown Verified 08/28/21 16:35 Current Medications Generic Name Dose Route Start Last Admin Trade Name Freq PRN Reason Stop Dose Admin Sodium Chloride 1,000 mls @ 30 mls/hr 09/15/21 06:00 09/15/21 06:18 Sodium Chloride 0.9% IV 09/16/21 05:59 30 mls/hr .Q24H MORIS Administration PFSH Anesthesia Medical History Chronic bronchitis Irritable bowel syndrome Myocardial infarction Surgical History H/O: hysterectomy History of lung surgery History of tonsillectomy History of tracheostomy Family History Father CAD (coronary artery disease) Mother CAD (coronary artery disease) Social History Smoking and tobacco status: never smoked Alcohol intake: never Data Anesthesia Cardiac Studies: No Data to Display
[2021-09-15] MEDS: ampicillin-sulbactam 3 GM in sodium chloride 0.9% (plus) 50 ML IV (06:57)
[2021-09-15] MEDS: lidocaine 2% INJ 20 mL INJECTION (07:20)
--- NOTE | 2021-09-15 08:10 | PM.OP ---
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 Time-out was done verifying the patient's name/date of /planned procedure and destination after the procedure, all were in agreement. SCDs confirmed to be functioning, preoperative antibiotics administered per protocol, and beta marlon protocol was confirmed. Patient was appropriately secured to the table, footboard was applied to the OR table, before prep and drape anesthesia was asked to tilt the table back and forth to make sure that the patient is appropriately secured and she was. Prep and drape of the abdomen was done under the usual sterile technique, followed by that supraumbilical skin incision,skin incision was done by a 15 blade knife, and stay sutures were applied to the fascia and Rubio trocar technique was used to enter the abdominal without injuring any abdominal viscera, started by low flow gas insufflation followed by a high flow, started with a 10 mm laparoscope and under direct vision there was no evidence of any injuries, the scope then switched to a 30? ,10 millimeter scope and under direct visualization 5 millimeter trocar was inserted in the epigastric region followed by two 5 mm trocars were inserted in the right upper quadrant that was done after injection of local lidocaine 2% at all incision sites. Gallbladder showed chronic calculus cholecystitis and ptosis of the liver, stomach was pretty distended so I asked anesthesia to drop an OG tube to decompress the stomach and that was done. Patient was then positioned in the head up and tilted to the left. Ratcheted forceps were introduced into the lateral most 5mm port and was applied unto the fundus of the gallbladder cephalad and using Bullet forceps the infundibulum of the gallbladder was retracted laterally. Using [place] forceps then L-hook cautery to dissect the peritoneum overlying the Calot's triangle which was then opened medially and laterally until the cystic duct and the cystic artery were skeletonized. Dissection was carried along the body of the gallbladder and after ensuring critical view of safety was identfied. Cystic duct and cystic artery where seen connected to the gallbladder. Clips were applied on the cystic duct towards the common bile duct 1 towards the gallbladder then divided is in sharp scissors, 2 clips were then applied onto the cystic artery and 1 towards the gallbladder and divided by sharp scissors. Additional traversing vessel was identified and clips were applied and divided. Dissection was then carried along of the gallbladder from the gallbladder fossa using cautery as well as sharp dissection with heat energy. The gallbladder then was dissected out from the gallbladder fossa totally , cholecystectomy was then achieved and was placed in an Endo Catch bag and then retrieved from the Rubio trocar site under direct visualization using a 5 mm 30? scope through the epigastric trocar, specimen was then passed to the circulating nurse to go for permanent pathology,irrigation and hemostasis was done to the gallbladder fossa after hemostasis was secured, final survey laparoscopy was done that showed no injuries. Suction irrigation was obtained. The supraumbilical fascial defect was then closed using interrupted number one PDS sutures using a fascial closure device ;Niraj Islas under direct visualization following that Gas was allowed to deflate,Trocars were then taken out under direct vision there was no evidence of bleeding. Specimen was passed to the circulating nurse for permanent pathology. No drains were placed and the supraumbilical incision as well as all trocar sites were closed by 3/0 Vicryl followed by 4-0 Monocryl to approximate the skin edges of the incisions , dressing was applied in the form of surical glue and the patient patient got extubated and was taken to recovery area in a stable condition. Count of sponges,needles and instruments were completed at the end of the procedure I was present for the whole entire procedure.
[2021-09-15] MEDS: ondansetron 2 mg/ML SDV 2 mL 4 MG IVP (08:38)
[2021-09-15] MEDS: HYDROcodone-acetaminophen 5-325 mg Tablet 1 TAB PO (09:06)
[2021-09-15] MEDS: ibuprofen 200 mg Tablet PO (09:50)
--- NOTE | 2021-09-15 13:52 | ANE.PACU2 ---
Inpatient post-anesthesia follow up: Airway intact: Yes Vital signs: Temperature 97.3 F Pulse Rate 67 Respiratory Rate 16 Blood Pressure 148/77 Pulse Oximetry 96 Oxygen Delivery Me thod Room Air Oxygen Flow Rate Fraction of Inspir ed Oxygen Hydration adequate: Yes Nausea and vomiting: No Pain level: 2 Mental status: Baseline
== END 2021-09-15 10:27 | disposition home or self-care (01) ==
PROVIDERS: PCP Family Medicine; Visit Provider Surgery
PROC: 0FT44ZZ Resection of Gallbladder, Percutaneous Endoscopic Approach (ICD-10-PCS; CPT 47562; principal; 2021-09-15 07:00)
DX: K80.10 Calculus of gallbladder with chronic cholecystitis without obstruction (principal); I25.2 Old myocardial infarction; Z79.82 Long term (current) use of aspirin
CPT/HCPCS: 47562; 88304; J0295; J1100; J1200; J2405; J2704; J2710; J3010; J3490; J7030

== ENCOUNTER 2021-09-21 15:27 | Emergency (ER) | payer MEDICARE, MEDICAID, SELFPAY ==
[2021-09-21] VITALS (7 sets, daily range): BP systolic 121–166; BP diastolic 64–77; PULSE 68–92; RESP 14–18; TEMP 36.7; O2SAT 95–96; BMI 19.3
--- NOTE | 2021-09-21 15:42 | XR_ITS ---
WS: [id number] Exam: XR chest 1V portable [id number] Date/Time of Exam: 09/21/2021 3:42 PM Reason For Exam: chest pain Comparison 09/06/2021. The lungs are fully expanded. Chronic atelectatic change in the left lower lobe. Pulmonary hyperinfla tion which may indicate COPD. Bilateral apical pleural thickening most marked on the left. Heart size is normal. The mediastinum is normal in contour for technique. Bony structures are intact. S-shaped thoracolumbar scoliosis. No change. XR/XR chest 1V portable [id number] IMPRESSION: 1. No acute cardiopulmonary finding. 2. Chronic left lower lobe atelectasis and probable COPD. Additional chronic fi ndings as above.
--- NOTE | 2021-09-21 15:43 | ECG_ITS ---
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 Measurements Intervals [place] Rate: 67 P: 69 OR: 127 QRS: 89 QRSD: 85 T: 62 QT: 368 QTc: 390 Interpretive Statements SINUS RHYTHM NONSPECIFIC T-WAVE ABNORMALITY Compared to ECG 09/06/2021 08:32:33 T-wave abnormality now present Electronically Signed On 09-21-2021 22:01:07 CDT by Fausto Hannon M.D. [email or web address]
--- NOTE | 2021-09-21 15:52 | PC.PHAR ---
PT STATES SHE HAS STOPPED TAKING LISINOPRIL AND IS ONLY TAKING METOPROLOL AT THIS TIME.
[2021-09-21 15:55] LABS: Basophils % 0.4 %; Eosinophils # 0.2 10^3/uL (0.0-0.8); Hematocrit 40.4 % (37.0-47.0); Hemoglobin 13.4 g/dL (11.5-15.3); Lymphocytes # 1.1 10^3/uL (0.8-4.8); Lymphocytes % 15.1 %; Mean Corpuscular HGB Conc 33.2 g/dL (30.0-36.0); Mean Corpuscular Hemoglobin 28.6 pg (28.0-34.0); Mean Corpuscular Volume 86.1 fl (81-99); Mean Platelet Volume 11.3 fL (7.4-10.4); Monocytes # 0.9 10^3/uL (0.2-0.9); Monocytes % 11.7 %; Neutrophils # 5.17 10^3/uL (1.8-7.7); Neutrophils % 70.4 %; Nucleated Red Blood Cells % 0 %; Platelet Count 232 10^3/cmm (130-400); Red Blood Count 4.69 10^6/uL (4.1-5.3); Red Cell Distribution Width 13.8 % (12.1-15.1); White Blood Count 7.4 10^3/uL (4.0-10.0)
[2021-09-21] MEDS: aspirin 81 mg Chew Tablet 324 MG PO (16:09)
[2021-09-21] MEDS: ondansetron 2 mg/ML SDV 2 mL 4 MG IVP (16:09)
[2021-09-21 16:19] LABS: Troponin(5th) Baseline 7 ng/L (0-10)
--- NOTE | 2021-09-21 16:19 | W.ED.CHESTPA ---
Documented by User: Aman Stevenson DO 09/22/21 09:25 HPI - Chest Pain General: Chief Complaint: Chest Pain Stated Complaint: CHEST PAIN RADIATING TO R/L SHOULDER Time Seen by Provider: 09/21/21 15:42 Source: patient Mode of arrival: EMS Limitations: no limitations History of Present Illness: 66-year-old female presents emergency room complaining of left-sided chest pain. States she has a history of previous ID although reviewing her records there is pretty significant question is whether or not she does she said in 2007 she had pericarditis and was told she had an ID but she had no angiography and no bypass no other sort of procedures. 6 days ago she had a laparoscopic cholecystectomy now she is having left-sided chest discomfort minimally productive cough low-grade subjective fever denies dysuria urgency or frequency no medication melena hematemesis coffee-ground emesis. No radiation of pain. She has not noticed anything that exacerbates or relieves it. MD complaint: chest pain Onset (ago): day(s) Timing of current episode: episodic Onset: during rest Pain location: left chest Pain radiation: none Severity: mild Quality: sharp Relieving factors: nothing Exacerbating factors: nothing Context: recent surgery Associated symptoms: Reports dyspnea; Deny abdominal pain, diaphoresis, fever(s), leg edema, nausea, palpitations, sense of impending doom, syncope or vomiting Treatment prior to arrival: none Review of Systems Const: Denies: fever(s) or diaphoresis ENMT: Denies: throat pain, ear or mastoid pain, nasal discharge or nasal congestion Card: Reports: chest pain; Denies: palpitations, edema, swelling of feet/ankles or syncope Resp: Reports: dyspnea and productive cough GI: Denies: abdominal pain, nausea or vomiting : Denies: flank pain, difficulty voiding, dysuria, urinary frequency or urinary urgency Skin/Breast: Denies: rash or pruritus PFSH ED PFSH: Medical History Chronic bronchitis Chronic cholecystitis with calculus Irritable bowel syndrome Myocardial infarction Surgical History H/O: hysterectomy History of lung surgery History of tonsillectomy History of tracheostomy Family History Father CAD (coronary artery disease) Mother CAD (coronary artery disease) Social History Smoking and tobacco status: never smoked Alcohol intake: never Physical Exam Const: GENERAL APPEARANCE: cooperative and comfortable ORIENTATION/CONSCIOUSNESS: Yes awake, Yes oriented to person, Yes oriented to place and Yes oriented to time HENMT: COMMON NORMALS: normocephalic, atraumatic and hearing grossly normal bilaterally HEAD & SCALP: normocephalic and atraumatic Neck/C-Spine: COMMON NORMALS: no JVD Resp: COMMON NORMALS: normal respiratory effort, No retractions, No use of accessory muscles and clear to auscultation bilaterally AUSCULTATION: clear to auscultation bilaterally Cardio: COMMON NORMALS: no JVD, regular rate, regular rhythm and No murmurs present (Cardio) RATE: regular rate RHYTHM: regular rhythm GI: COMMON NORMALS: No hepatosplenomegaly present AUSCULTATION: Yes normoactive bowel sounds PALPATION: Yes Tenderness to palpation present (GI) (Right upper quadrant tenderness), No Guarding due to palpation present (GI) and Yes No hepatosplenomegaly present Extremity: COMMON NORMALS: normal to inspection, capillary refill normal, no clubbing, cyanosis or edema, no calf tenderness and no pedal edema Neuro: SENSORIUM/ORIENTATION: Yes oriented to person, Yes oriented to place and Yes oriented to time Skin: COMMON NORMALS: no rashes or lesions noted GENERAL SKIN EXAM: no rashes or lesions noted Course Vital Signs: Vital signs: Vital Signs Temperature 98.1 F 09/21/21 15:28 Pulse Rate 68 09/21/21 23:49 Respiratory Rate 16 09/21/21 23:49 Blood Pressure 121/76 09/21/21 23:49 Pulse Oximetry 96 09/21/21 19:43 MDM - Chest Pain Medical Decision Making Care signed out to Dr. Fitch at change of shift. See final notes for diagnosis and disposition. Patient presents here with elevated liver enzymes along with some abdominal pain and elevated bilirubin CT shows elevated common bile duct patient likely has a stone in her common bile duct spoke to GI at [facility] will transfer there for higher level of care for ERCP patient has been stable while here. Medical Records I reviewed the patient's medical records. Lab Data I reviewed the patient's lab results. : 09/21/21 15:15 09/21/21 19:15 Radiology Impressions Chest X-Ray 09/21/21 15:42 IMPRESSION: 1. No acute cardiopulmonary finding. 2. Chronic left lower lobe atelectasis and probable COPD. Additional chronic findings as above. Abdomen/Pelvis CT 09/21/21 17:20 IMPRESSION: 1. Negative for acute inflammatory process in the abdomen or pelvis. 2. Cardiomegaly. 3. Emphysematous changes. 4. Intrahepatic biliary dilation with dilation of the common bile duct to 8.9 mm without focal obstructing lesion, MRCP could further evaluate this. 5. Cholecystectomy. 6. Bilateral renal cysts, negative for follow-up advised. 7. Small amount of nonspecific fluid in the pelvis. 8. Left abdominal subcutaneous emphysema likely postsurgical in nature. Laboratory Results WBC 7.4 10^3/uL (4.0-10.0) 09/21/21 15:15 RBC 4.69 10^6/uL (4.1-5.3) 09/21/21 15:15 Hgb 13.4 g/dL (11.5-15.3) 09/21/21 15:15 Hct 40.4 % (37.0-47.0) 09/21/21 15:15 MCV 86.1 fl (81-99) 09/21/21 15:15 MCH 28.6 pg (28.0-34.0) 09/21/21 15:15 MCHC 33.2 g/dL (30.0-36.0) 09/21/21 15:15 RDW 13.8 % (12.1-15.1) 09/21/21 15:15 Plt Count 232 10^3/cmm (130-400) 09/21/21 15:15 MPV 11.3 fL (7.4-10.4) H 09/21/21 15:15 Neut % (Auto) 70.4 % 09/21/21 15:15 Lymph % (Auto) 15.1 % 09/21/21 15:15 [place] % (Auto) 11.7 % 09/21/21 15:15 Eos % (Auto) 2.0 % 09/21/21 15:15 Baso % (Auto) 0.4 % 09/21/21 15:15 Neut # (Auto) 5.17 10^3/uL (1.8-7.7) 09/21/21 15:15 Lymph # (Auto) 1.1 10^3/uL (0.8-4.8) 09/21/21 15:15 [place] # (Auto) 0.9 10^3/uL (0.2-0.9) 09/21/21 15:15 Eos # (Auto) 0.2 10^3/uL (0.0-0.8) 09/21/21 15:15 Baso # (Auto) 0.0 10^3/uL (0.0-0.1) 09/21/21 15:15 Nucleated RBC % (auto) 0 % 09/21/21 15:15 Nucleated RBCs # 0.0 /100WBC 09/21/21 15:15 Sodium 136 mmol/L (136-145) 09/21/21 19:15 Potassium 3.9 mmol/L (3.5-5.1) 09/21/21 19:15 Chloride 103 mmol/L (98-107) 09/21/21 19:15 Carbon Dioxide 23 mmol/L (22-29) 09/21/21 19:15 Anion Gap 13.9 (5-19) 09/21/21 19:15 BUN 6 mg/dL (8-23) L 09/21/21 19:15 Creatinine 0.4 mg/dL (0.5-0.9) L 09/21/21 19:15 GFR Calculation 158.7 mL/min (90-130) H 09/21/21 19:15 Glucose 107 mg/dL (65-115) 09/21/21 19:15 Calculated Osmolality 280 mOsm/kg (285-295) L 09/21/21 19:15 Calcium 10.1 mg/dL (8.5-10.5) 09/21/21 19:15 Total Bilirubin 4.1 mg/dL (0.15-1.2) H 09/21/21 19:15 AST 425 U/L (0-32) H 09/21/21 19:15 ALT 607 U/L (0-33) H 09/21/21 19:15 Alkaline Phosphatase 441 IU/L (35-105) H 09/21/21 19:15 Troponin T Baseline 7 ng/L (0-10) 09/21/21 15:15 Troponin T 120 Minute 7.15 ng/L (0-10) 09/21/21 17:15 Delta Troponin T 0.15 ABS# (0-10) 09/21/21 17:15 Total Protein 6.4 g/dL (6.6-8.7) L 09/21/21 19:15 Albumin 3.4 g/dL (3.5-5.2) L 09/21/21 19:15 Globulin 3.0 g/dL (1.3-4.6) 09/21/21 19:15 Urine Color Yellow (Yellow) 09/21/21 16:25 Urine Appearance Clear (CLEAR) 09/21/21 16:25 Urine pH 6 (5-7) 09/21/21 16:25 Ur Specific [place] 1.015 (1.005-1.030) 09/21/21 16:25 Urine Protein Neg (Negative) 09/21/21 16:25 Urine Glucose (UA) Norm (Normal) 09/21/21 16:25 Urine Ketones 1+ (Negative) H 09/21/21 16:25 Urine Blood Neg (Negative) 09/21/21 16:25 Urine Nitrate Negative (Negative) 09/21/21 16:25 Urine Bilirubin 1+ (Negative) H 09/21/21 16:25 Urine Urobilinogen Norm mg/dL (Negative) 09/21/21 16:25 Ur Leukocyte Esterase Negative (Negative) 09/21/21 16:25 Discharge Plan Discharge Patient Disposition: Xfer Short-Term Hosp Clinical Impression: Choledocholithiasis Condition: Stable Referrals: Michael Phillips MD [Primary Care Provider] - Coding Level of Care Code ED Estate Planning Paralegal for Chg Fwd Exam Comprehensive Documented by User: Godwin Fitch MD 09/21/21 20:43 HPI - Chest Pain General: Chief Complaint: Chest Pain Stated Complaint: CHEST PAIN RADIATING TO R/L SHOULDER Time Seen by Provider: 09/21/21 15:42 [facility] ED PFSH: Medical History Chronic bronchitis Chronic cholecystitis with calculus Irritable bowel syndrome Myocardial infarction Surgical History H/O: hysterectomy History of lung surgery History of tonsillectomy History of tracheostomy Family History Father CAD (coronary artery disease) Mother CAD (coronary artery disease) Social History Smoking and tobacco status: never smoked Alcohol intake: never Course Vital Signs: Vital signs: Vital Signs Temperature 98.1 F 09/21/21 15:28 Pulse Rate 68 09/21/21 23:49 Respiratory Rate 16 09/21/21 23:49 Blood Pressure 121/76 09/21/21 23:49 Pulse Oximetry 96 09/21/21 19:43 MDM - Chest Pain Medical Decision Making Patient presents here with elevated liver enzymes along with some abdominal pain and elevated bilirubin CT shows elevated common bile duct patient likely has a stone in her common bile duct spoke to GI at [facility] will transfer there for higher level of care for ERCP patient has been stable while here. Lab Data : 09/21/21 15:15 09/21/21 19:15 Radiology Impressions Chest X-Ray 09/21/21 15:42 IMPRESSION: 1. No acute cardiopulmonary finding. 2. Chronic left lower lobe atelectasis and probable COPD. Additional chronic findings as above. Abdomen/Pelvis CT 09/21/21 17:20 IMPRESSION: 1. Negative for acute inflammatory process in the abdomen or pelvis. 2. Cardiomegaly. 3. Emphysematous changes. 4. Intrahepatic biliary dilation with dilation of the common bile duct to 8.9 mm without focal obstructing lesion, MRCP could further evaluate this. 5. Cholecystectomy. 6. Bilateral renal cysts, negative for follow-up advised. 7. Small amount of nonspecific fluid in the pelvis. 8. Left abdominal subcutaneous emphysema likely postsurgical in nature. Laboratory Results WBC 7.4 10^3/uL (4.0-10.0) 09/21/21 15:15 RBC 4.69 10^6/uL (4.1-5.3) 09/21/21 15:15 Hgb 13.4 g/dL (11.5-15.3) 09/21/21 15:15 Hct 40.4 % (37.0-47.0) 09/21/21 15:15 MCV 86.1 fl (81-99) 09/21/21 15:15 MCH 28.6 pg (28.0-34.0) 09/21/21 15:15 MCHC 33.2 g/dL (30.0-36.0) 09/21/21 15:15 RDW 13.8 % (12.1-15.1) 09/21/21 15:15 Plt Count 232 10^3/cmm (130-400) 09/21/21 15:15 MPV 11.3 fL (7.4-10.4) H 09/21/21 15:15 Neut % (Auto) 70.4 % 09/21/21 15:15 Lymph % (Auto) 15.1 % 09/21/21 15:15 [place] % (Auto) 11.7 % 09/21/21 15:15 Eos % (Auto) 2.0 % 09/21/21 15:15 Baso % (Auto) 0.4 % 09/21/21 15:15 Neut # (Auto) 5.17 10^3/uL (1.8-7.7) 09/21/21 15:15 Lymph # (Auto) 1.1 10^3/uL (0.8-4.8) 09/21/21 15:15 [place] # (Auto) 0.9 10^3/uL (0.2-0.9) 09/21/21 15:15 Eos # (Auto) 0.2 10^3/uL (0.0-0.8) 09/21/21 15:15 Baso # (Auto) 0.0 10^3/uL (0.0-0.1) 09/21/21 15:15 Nucleated RBC % (auto) 0 % 09/21/21 15:15 Nucleated RBCs # 0.0 /100WBC 09/21/21 15:15 Sodium 136 mmol/L (136-145) 09/21/21 19:15 Potassium 3.9 mmol/L (3.5-5.1) 09/21/21 19:15 Chloride 103 mmol/L (98-107) 09/21/21 19:15 Carbon Dioxide 23 mmol/L (22-29) 09/21/21 19:15 Anion Gap 13.9 (5-19) 09/21/21 19:15 BUN 6 mg/dL (8-23) L 09/21/21 19:15 Creatinine 0.4 mg/dL (0.5-0.9) L 09/21/21 19:15 GFR Calculation 158.7 mL/min (90-130) H 09/21/21 19:15 Glucose 107 mg/dL (65-115) 09/21/21 19:15 Calculated Osmolality 280 mOsm/kg (285-295) L 09/21/21 19:15 Calcium 10.1 mg/dL (8.5-10.5) 09/21/21 19:15 Total Bilirubin 4.1 mg/dL (0.15-1.2) H 09/21/21 19:15 AST 425 U/L (0-32) H 09/21/21 19:15 ALT 607 U/L (0-33) H 09/21/21 19:15 Alkaline Phosphatase 441 IU/L (35-105) H 09/21/21 19:15 Troponin T Baseline 7 ng/L (0-10) 09/21/21 15:15 Troponin T 120 Minute 7.15 ng/L (0-10) 09/21/21 17:15 Delta Troponin T 0.15 ABS# (0-10) 09/21/21 17:15 Total Protein 6.4 g/dL (6.6-8.7) L 09/21/21 19:15 Albumin 3.4 g/dL (3.5-5.2) L 09/21/21 19:15 Globulin 3.0 g/dL (1.3-4.6) 09/21/21 19:15 Urine Color Yellow (Yellow) 09/21/21 16:25 Urine Appearance Clear (CLEAR) 09/21/21 16:25 Urine pH 6 (5-7) 09/21/21 16:25 Ur Specific [place] 1.015 (1.005-1.030) 09/21/21 16:25 Urine Protein Neg (Negative) 09/21/21 16:25 Urine Glucose (UA) Norm (Normal) 09/21/21 16:25 Urine Ketones 1+ (Negative) H 09/21/21 16:25 Urine Blood Neg (Negative) 09/21/21 16:25 Urine Nitrate Negative (Negative) 09/21/21 16:25 Urine Bilirubin 1+ (Negative) H 09/21/21 16:25 Urine Urobilinogen Norm mg/dL (Negative) 09/21/21 16:25 Ur Leukocyte Esterase Negative (Negative) 09/21/21 16:25 Critical Care Time Critical Care Time: Critical Care Time: Yes Total Critical Care Time: 40 Attestation: The high probability of a clinically significant, sudden or life threatening deterioration of the patient's gi system(s) required my full and direct attention, intervention and personal management. The critical care time is as shown. This time is in addition to time spent performing any reported procedures but includes the following: [x] Data and vital sign review and interpretation [x] Patient assessment, examination and intervention [x] Documentation [x] Medication orders and management Discharge Plan Discharge Patient Disposition: Xfer Short-Term Hosp Clinical Impression: Choledocholithiasis Condition: Stable Referrals: Michael Phillips MD [Primary Care Provider] - Coding Level of Care Code ED Estate Planning Paralegal for Chg Fwd Exam Comprehensive
[2021-09-21 16:20] LABS: Albumin Level 4.2 g/dL (3.5-5.2); Alkaline Phosphatase 483 IU/L (35-105); Anion Gap 15.7 (5-19); Aspartate Amino Transferase 567 U/L (0-32); Blood Urea Nitrogen 6 mg/dL (8-23); Calcium 10.8 mg/dL (8.5-10.5); Carbon Dioxide 24 mmol/L (22-29); Chloride 100 mmol/L (98-107); Globulin 1.9 g/dL (1.3-4.6); Glomerular Filtration Rate 122.7 mL/min (90-130); Glucose 116 mg/dL (65-115); Osmolality Calculated 281 mOsm/kg (285-295); Potassium 3.7 mmol/L (3.5-5.1); Sodium 136 mmol/L (136-145); Total Bilirubin 4.8 mg/dL (0.15-1.2); Total Protein 6.1 g/dL (6.6-8.7)
[2021-09-21 16:33] LABS: Alanine Aminotransferase 781 U/L (0-33)
[2021-09-21 16:36] LABS: Add Urine Microscopic? NO; Charge for UA Resulting for Rev
[2021-09-21 16:57] LABS: Bilirubin Urine 1+ (Negative); Blood Urine Neg (Negative); Glucose Urine UA Norm (Normal); Ketones Urine 1+ (Negative); Nitrate Urine Negative (Negative); Protein Urine Neg (Negative); Specific Gravity, Urine 1.015 (1.005-1.030); Urine Appearance Clear (CLEAR); Urine Color Yellow (Yellow); pH Urine 6 (5-7)
[2021-09-21 16:58] LABS: Leukocyte Esterase Urine Negative (Negative); Urobilinogen Urine Norm (Negative)
--- NOTE | 2021-09-21 17:20 | CTR_ITS ---
PROCEDURE INFORMATION: Exam: CT Abdomen And Pelvis With Contrast Exam date and time: 09/21/2021 6:34 PM Age: 66 years old Clinical indication: Abdominal pain; Epigastric; Prior surgery; Surgery date: 3-7 days post-operative; Surgery type: Gb surgery 6 days ago. Pain in upper abdomen; Additional info: Abd pain TECHNIQUE: Imaging protocol: Computed tomography of the abdomen and pelvis with contrast. Radiation optimization: All CT scans at this facility use at least one of these dose optimization techniques: automated exposure control; mA and/or kV adjustment per patient size (includes targeted exams where dose is matched to clinical indication); or iterative reconstruction. Contrast material: OMNI 300; Contrast volume: 95 ml; Contrast route: INTRAVENOUS (IV); COMPARISON: CT abdomen pelvis w con* [id number] 08/24/2021 4:14 PM RADIATION DOSE METRICS: Total DLP (mGy-cm): 705.8 FINDINGS: Lungs: Emphysematous changes. Heart: Cardiomegaly. Liver: Normal. No mass. Gallbladder and bile ducts: Intrahepatic biliary dilation with dilation of the common bile duct to 8.9 mm without focal obstructing lesion, MRCP could further evaluate this. Cholecystectomy. Pancreas: Normal. No ductal dilation. Spleen: Normal. No splenomegaly. Adrenal glands: Normal. No mass. Kidneys and ureters: Bilateral renal cysts, negative for follow-up advised. Stomach and bowel: Unremarkable. No obstruction. No mucosal thickening. Appendix: No evidence of appendicitis. Intraperitoneal space: Unremarkable. No free air. No significant fluid collection. Vasculature: Unremarkable. No abdominal aortic aneurysm. Lymph nodes: Unremarkable. No enlarged lymph nodes. Urinary bladder: Unremarkable as visualized. Reproductive: Unremarkable as visualized. Bones/joints: Unremarkable. No acute fracture. Soft tissues: Left abdominal subcutaneous emphysema likely postsurgical in nature. Other findings: Small amount of nonspecific fluid in the pelvis. CT/CT abdomen pelvis w con* [id number] IMPRESSION: 1. Negative for acute inflammatory process in the abdomen or pelvis. 2. Cardiomegaly. 3. Emphysematous changes. 4. Intrahepatic biliary dilation with dilation of the common bile duct to 8.9 mm without focal obstructing lesion, MRCP could further evaluate this. 5. Cholecystectomy. 6. Bilateral renal cysts, negative for follow-up advised. 7. Small amount of nonspecific fluid in the pelvis. 8. Left abdominal subcutaneous emphysema likely postsurgical in nature.
--- NOTE | 2021-09-21 17:43 | ECG_ITS ---
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 Measurements Intervals [place] Rate: 68 P: 57 VT: 109 QRS: 88 QRSD: 84 T: 62 QT: 360 QTc: 384 Interpretive Statements SINUS RHYTHM WITH SHORT VT INTERVAL NONSPECIFIC T-WAVE ABNORMALITY Compared to ECG 09/21/2021 16:00:54 Short VT interval now present T-wave abnormality still present Electronically Signed On 09-21-2021 22:04:23 CDT by Fausto Hannon M.D. [id number]
[2021-09-21 18:07] LABS: Troponin 5 2HR 7.15 ng/L (0-10)
[2021-09-21] MEDS: iohexol 300 mg/mL 100 mL Btl IV (18:38)
[2021-09-21 18:50] LABS: Troponin 5 2HR Delta 0.15 ABS# (0-10)
[2021-09-21] MEDS: piperacillin-tazobactam 3.375 GM in sodium chloride 0.9% (plus) 50 ML IV (19:23)
[2021-09-21 19:39] LABS: Alanine Aminotransferase 607 U/L (0-33); Albumin Level 3.4 g/dL (3.5-5.2); Alkaline Phosphatase 441 IU/L (35-105); Anion Gap 13.9 (5-19); Aspartate Amino Transferase 425 U/L (0-32); Blood Urea Nitrogen 6 mg/dL (8-23); Calcium 10.1 mg/dL (8.5-10.5); Carbon Dioxide 23 mmol/L (22-29); Chloride 103 mmol/L (98-107); Glomerular Filtration Rate 158.7 mL/min (90-130); Glucose 107 mg/dL (65-115); Osmolality Calculated 280 mOsm/kg (285-295); Potassium 3.9 mmol/L (3.5-5.1); Sodium 136 mmol/L (136-145); Total Bilirubin 4.1 mg/dL (0.15-1.2); Total Protein 6.4 g/dL (6.6-8.7)
[2021-09-21] MEDS: HYDROmorphone 1 mg/mL INJ 1 mL IVP ×2 (20:31→23:46)
== END 2021-09-21 23:52 | disposition short-term general hospital (02) ==
PROVIDERS: Family Medicine; Emergency Provider Emergency Medicine; PCP Family Medicine
DX: K80.50 Calculus of bile duct without cholangitis or cholecystitis without obstruction (principal); Z98.890 Other specified postprocedural states
CPT/HCPCS: 71045; 74177; 80053; 81003; 84484; 85025; 93005; 96365; 96375; 96376; 99285; J1170; J2405; J2543; Q9967

== ENCOUNTER → 2021-09-30 10:15 | Outpatient (BNVA) | payer MEDICARE, MEDICAID, SELFPAY | PROVIDERS: PCP Family Medicine; Visit Provider Surgery | DX: Z98.890 Other specified postprocedural states (principal); K80.50 Calculus of bile duct without cholangitis or cholecystitis without obstruction; I10 Essential (primary) hypertension ==

== ENCOUNTER 2021-10-03 18:11 | Emergency (ER) | payer MEDICARE, MEDICAID, SELFPAY ==
--- NOTE | 2021-10-03 18:13 | XRR_ITS ---
PROCEDURE INFORMATION: Exam: XR Chest Exam date and time: 10/03/2021 6:42 PM Age: 66 years old Clinical indication: Sternal or substernal pain; Additional info: Cp TECHNIQUE: Imaging protocol: XR of the chest. Views: 1 view. COMPARISON: CR XR chest 1V portable [id number] 09/21/2021 3:54 PM, CT abdomen pelvis dated September 21, 2021. FINDINGS: Lungs: Stable COPD . Pleural spaces: Unremarkable. No pleural effusion. No pneumothorax. Heart/Mediastinum: Stable loss of volume in the left hemithorax with shift of the heart to the left. Bones/joints: Idiopathic S-shaped scoliosis. XR/XR chest 1V portable [id number] IMPRESSION: 1. Idiopathic S-shaped scoliosis. 2. Stable COPD . 3. Stable loss of volume in the left hemithorax with shift of the heart to the left.
--- NOTE | 2021-10-03 18:14 | ECG_ITS ---
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 Measurements Intervals [place] Rate: 66 P: 65 LA: 126 QRS: 93 QRSD: 82 T: 42 QT: 373 QTc: 391 Interpretive Statements SINUS RHYTHM BORDERLINE RIGHT AXIS DEVIATION [QRS AXIS > 90] NONSPECIFIC T-WAVE ABNORMALITY Compared to ECG 09/21/2021 17:36:38 Short LA interval no longer present T-wave abnormality still present Electronically Signed On 10-03-2021 19:07:15 CDT by Kyaw Del Cid M.D. [id number]
[2021-10-03 18:22] VITALS: BP 174/98; PULSE 66; RESP 15; O2SAT 97
--- NOTE | 2021-10-03 18:30 | ED_ITS ---
HPI - Chest Pain General: Chief Complaint: Chest Pain Stated Complaint: cp Time Seen by Provider: 10/03/21 18:21 Source: patient Mode of arrival: ambulatory Limitations: no limitations History of Present Illness: Patient presents here with chest pain states been going off and on for last 2 days. States she has had a slight cough and gets pleuritic pain and this feels the same as that but went to make sure her heart was okay. States that sharp pain that is worse with her cough. She denies any shortness of breath she did have a cholecystectomy done recently and then had a stone in her gallbladder duct and had a stent placed roughly 2 weeks ago. She denies any abdominal pain no nausea or vomiting. She denies any fevers. Associated symptoms: Deny abdominal pain, fever(s), nausea or vomiting Review of Systems Const: Denies: fever(s), chills, body aches or change in appetite Eyes: Denies: blurry vision or eye discomfort ENMT: Denies: throat pain or dental pain Card: Reports: chest pain Resp: Reports: non-productive cough GI: Denies: abdominal pain, nausea, vomiting or diarrhea : Denies: dysuria Musc: Denies: neck pain or back pain Skin/Breast: Denies: rash Neuro: Denies: headache(s) Psych: Denies: depression Vinod/Lymph: Denies: easy bruising All/Imm: Denies: urticaria PFSH ED PFSH: Medical History Chronic bronchitis Chronic cholecystitis with calculus Irritable bowel syndrome Myocardial infarction Surgical History H/O: hysterectomy History of lung surgery History of tonsillectomy History of tracheostomy Family History Father CAD (coronary artery disease) Mother CAD (coronary artery disease) Social History Smoking and tobacco status: never smoked Alcohol intake: never Physical Exam Const: COMMON NORMALS: no acute distress, patient oriented x3 and healthy appearing HENMT: COMMON NORMALS: normocephalic and atraumatic HEAD & SCALP: normocephalic and atraumatic Eye: COMMON NORMALS: Equal, round and reactive pupils present and EOMs intact bilaterally PUPIL: Yes Equal, round and reactive pupils present Neck/C-Spine: COMMON NORMALS: full ROM and supple Chest: COMMONS NORMALS: normal inspection of the chest and normal palpation of entire chest wall Resp: COMMON NORMALS: normal respiratory effort, No retractions, No use of accessory muscles and clear to auscultation bilaterally AUSCULTATION: clear to auscultation bilaterally Cardio: COMMON NORMALS: regular rate, regular rhythm and No murmurs present (Cardio) RATE: regular rate RHYTHM: regular rhythm GI: COMMON NORMALS: Normal to inspection, nondistended, normoactive bowel sounds present, Soft to palpation, non-tender and no masses PALPATION: Yes Soft to palpation Extremity: COMMON NORMALS: normal to inspection and full ROM Neuro: COMMON NORMALS: patient oriented x3, moves all extremities and no focal motor deficits Psych: COMMON NORMALS: mental status grossly normal, Normal thought process present and cooperative THOUGHT PROCESS: Normal thought process present Skin: COMMON NORMALS: no rashes or lesions noted and no wounds GENERAL SKIN EXAM: no rashes or lesions noted Course Vital Signs: Vital signs: Vital Signs Pulse Rate 80 10/03/21 20:42 Respiratory Rate 18 10/03/21 20:42 Blood Pressure 125/60 10/03/21 20:42 Pulse Oximetry 96 10/03/21 20:42 MDM - Chest Pain Medical Decision Making Patient presents here with chest pain is atypical in nature initial repeat troponins are negative she has no signs of acute coronary syndrome she has no signs of pulmonary embolism. Her abdominal exam here is benign as well. She is stable for discharge is to follow-up with her PCP and return if worsening she understands agrees to plan. Lab Data : 10/03/21 18:40 10/03/21 18:40 Radiology Impressions Chest X-Ray 10/03/21 18:13 IMPRESSION: 1. Idiopathic S-shaped scoliosis. 2. Stable COPD . 3. Stable loss of volume in the left hemithorax with shift of the heart to the left. Laboratory Results WBC 6.8 10^3/uL (4.0-10.0) 10/03/21 18:40 RBC 4.39 10^6/uL (4.1-5.3) 10/03/21 18:40 Hgb 12.9 g/dL (11.5-15.3) 10/03/21 18:40 Hct 39.6 % (37.0-47.0) 10/03/21 18:40 MCV 90.2 fl (81-99) 10/03/21 18:40 MCH 29.4 pg (28.0-34.0) 10/03/21 18:40 MCHC 32.6 g/dL (30.0-36.0) 10/03/21 18:40 RDW 14.6 % (12.1-15.1) 10/03/21 18:40 Plt Count 364 10^3/cmm (130-400) 10/03/21 18:40 MPV 10.2 fL (7.4-10.4) 10/03/21 18:40 Neut % (Auto) 57.4 % 10/03/21 18:40 Lymph % (Auto) 29.6 % 10/03/21 18:40 [place] % (Auto) 10.1 % 10/03/21 18:40 Eos % (Auto) 1.8 % 10/03/21 18:40 Baso % (Auto) 0.7 % 10/03/21 18:40 Neut # (Auto) 3.88 10^3/uL (1.8-7.7) 10/03/21 18:40 Lymph # (Auto) 2.0 10^3/uL (0.8-4.8) 10/03/21 18:40 [place] # (Auto) 0.7 10^3/uL (0.2-0.9) 10/03/21 18:40 Eos # (Auto) 0.1 10^3/uL (0.0-0.8) 10/03/21 18:40 Baso # (Auto) 0.1 10^3/uL (0.0-0.1) 10/03/21 18:40 Nucleated RBC % (auto) 0 % 10/03/21 18: Nucleated RBCs # 0.0 /100WBC 10/03/21 18:40 Sodium 136 mmol/L (136-145) 10/03/21 18:40 Potassium 3.8 mmol/L (3.5-5.1) 10/03/21 18:40 Chloride 100 mmol/L (98-107) 10/03/21 18:40 Carbon Dioxide 25 mmol/L (22-29) 10/03/21 18:40 Anion Gap 14.8 (5-19) 10/03/21 18:40 BUN 7 mg/dL (8-23) L 10/03/21 18:40 Creatinine 0.5 mg/dL (0.5-0.9) 10/03/21 18:40 GFR Calculation 122.7 mL/min (90-130) 10/03/21 18:40 Glucose 112 mg/dL (65-115) 10/03/21 18:40 Calculated Osmolality 281 mOsm/kg (285-295) L 10/03/21 18:40 Calcium 11.4 mg/dL (8.5-10.5) H 10/03/21 18:40 Total Bilirubin 0.8 mg/dL (0.15-1.2) 10/03/21 18:40 AST 25 U/L (0-32) 10/03/21 18:40 ALT 49 U/L (0-33) H 10/03/21 18:40 Alkaline Phosphatase 182 IU/L (35-105) H 10/03/21 18:40 Troponin T Baseline 6 ng/L (0-10) 10/03/21 18:40 Troponin T 120 Minute 6.00 ng/L (0-10) 10/03/21 20:15 Delta Troponin T Not Reportable 10/03/21 20:15 Total Protein 7.7 g/dL (6.6-8.7) 10/03/21 18:40 Albumin 4.5 g/dL (3.5-5.2) 10/03/21 18:40 Globulin 3.2 g/dL (1.3-4.6) 10/03/21 18:40 Lipase 98 U/L (13-60) H 10/03/21 18:40 EKG Data EKG 1: I personally reviewed and interpreted this EKG as follows: EKG interpretation date: 10/03/21 EKG interpretation time: 18:25 Interpretation: nsr hr [address] or t wave abnormalities qrs 82 qtc 386 EKG 2: I personally reviewed and interpreted this EKG as follows: EKG interpretation date: 10/03/21 EKG interpretation time: 20:14 Interpretation: sinus amanda hr [address] or t wave abnormalities qrs 78 qtc 398 Discharge Plan Discharge Patient Disposition: Home Clinical Impression: Chest pain Qualifiers: Chest pain type: unspecified Qualified Code(s): R07.9 - Chest pain, unspecified Condition: Stable Prescriptions: No Action cholecalciferol (vitamin D3) 25 mcg (1,000 unit) capsule 25 mcg PO DAILY 0RF alendronate 70 mg tablet 70 mg PO Q7D 0RF Rx Instructions: on Tuesdays simvastatin 20 mg tablet 20 mg PO DAILY 0RF nitroglycerin 0.4 mg tablet, sublingual 0.4 mg sublingual Q5M PRN (Reason: chest pains) 0RF albuterol sulfate [ProAir HFA] 90 mcg/actuation HFA aerosol inhaler 1 - 2 puff INHALATION Q4H PRN (Reason: Shortness Of Breath) 0RF fluticasone propionate 50 mcg/actuation spray,suspension 50 mcg INTRANASAL BID 0RF Rx Instructions: spray 1 spray into each nostril bid metoprolol succinate 100 mg tablet extended release 24 hr 100 mg PO DAILY 0RF aspirin 81 mg Tablet,Chewable 81 mg PO BID 0RF Hold Instructions: Resume on 09/19/21. hydrocodone-acetaminophen 5-325 mg tablet 1 tab PO Q6H PRN (Reason: pain) Qty: 28 0RF montelukast 10 mg tablet 10 mg PO DAILY PRN (Reason: Allergy Symptoms) 0RF Discharge Orders: Discharge ED (Routine); Ordered 10/03/21 Ordered By: Godwin Fitch Referrals: Michael Phillips MD [Primary Care Provider] - Discharge Diet: Advance as tolerated Discharge Activity: Resume usual activity Patient Instructions: Chest Pain (ED) Coding Level of Care Code ED Staffing Recruiter for Chg Fwd Exam Comprehensive
[2021-10-03] MEDS: ondansetron 2 mg/ML SDV 2 mL 4 MG IVP (18:44)
[2021-10-03 18:46] LABS: Basophils # 0.1 10^3/uL (0.0-0.1); Basophils % 0.7 %; Eosinophils # 0.1 10^3/uL (0.0-0.8); Eosinophils % 1.8 %; Hematocrit 39.6 % (37.0-47.0); Hemoglobin 12.9 g/dL (11.5-15.3); Lymphocytes % 29.6 %; Mean Corpuscular HGB Conc 32.6 g/dL (30.0-36.0); Mean Corpuscular Hemoglobin 29.4 pg (28.0-34.0); Mean Corpuscular Volume 90.2 fl (81-99); Mean Platelet Volume 10.2 fL (7.4-10.4); Monocytes # 0.7 10^3/uL (0.2-0.9); Monocytes % 10.1 %; Neutrophils # 3.88 10^3/uL (1.8-7.7); Neutrophils % 57.4 %; Nucleated Red Blood Cells % 0 %; Platelet Count 364 10^3/cmm (130-400); Red Blood Count 4.39 10^6/uL (4.1-5.3); Red Cell Distribution Width 14.6 % (12.1-15.1); White Blood Count 6.8 10^3/uL (4.0-10.0)
[2021-10-03 19:11] VITALS: BP 125/60; PULSE 59; RESP 16; O2SAT 97
[2021-10-03 19:12] LABS: Alanine Aminotransferase 49 U/L (0-33); Albumin Level 4.5 g/dL (3.5-5.2); Alkaline Phosphatase 182 IU/L (35-105); Anion Gap 14.8 (5-19); Aspartate Amino Transferase 25 U/L (0-32); Blood Urea Nitrogen 7 mg/dL (8-23); Calcium 11.4 mg/dL (8.5-10.5); Carbon Dioxide 25 mmol/L (22-29); Chloride 100 mmol/L (98-107); Globulin 3.2 g/dL (1.3-4.6); Glomerular Filtration Rate 122.7 mL/min (90-130); Glucose 112 mg/dL (65-115); Lipase 98 U/L (13-60); Osmolality Calculated 281 mOsm/kg (285-295); Potassium 3.8 mmol/L (3.5-5.1); Sodium 136 mmol/L (136-145); Total Bilirubin 0.8 mg/dL (0.15-1.2); Total Protein 7.7 g/dL (6.6-8.7)
[2021-10-03 19:13] LABS: Troponin(5th) Baseline 6 ng/L (0-10)
[2021-10-03] MEDS: ketorolac 30 mg/mL INJ 15 MG IVP (19:18)
--- NOTE | 2021-10-03 20:14 | ECG_ITS ---
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 Measurements Intervals [place] Rate: 56 P: 71 MS: 141 QRS: 79 QRSD: 78 T: 33 QT: 407 QTc: 394 Interpretive Statements SINUS BRADYCARDIA Compared to ECG 10/03/2021 18:25:35 Sinus rhythm no longer present T-wave abnormality no longer present Electronically Signed On 10-04-2021 22:02:13 CDT by Kyaw Del Cid M.D. [id number]
[2021-10-03 20:42] VITALS: BP 125/60; PULSE 80; RESP 18; O2SAT 96
[2021-10-03 21:07] VITALS: BP 125/60; PULSE 82; RESP 20; O2SAT 96
== END 2021-10-03 21:11 | disposition home or self-care (01) ==
PROVIDERS: Emergency Provider Emergency Medicine; PCP Family Medicine
DX: R07.9 Chest pain, unspecified (principal); Z79.82 Long term (current) use of aspirin; Z79.891 Long term (current) use of opiate analgesic; Z82.49 Family history of ischemic heart disease and other diseases of the circulatory system
CPT/HCPCS: 71045; 80053; 83690; 84484; 85025; 93005; 96374; 96375; 99284; J1885; J2405

== ENCOUNTER → 2021-12-14 10:39 | Outpatient (BNVA) | payer MEDICARE, MEDICAID, SELFPAY | PROVIDERS: PCP Family Medicine; Visit Provider Surgery | DX: Z09 Encounter for follow-up examination after completed treatment for conditions other than malignant neoplasm (principal) | CPT/HCPCS: 99024 ==

== ENCOUNTER 2022-03-25 20:09 | Emergency (ER) | payer MEDICARE, MEDICAID, SELFPAY ==
[2022-03-25 20:10] VITALS: BP 193/96; PULSE 71; RESP 18; TEMP 36.2; O2SAT 99; BMI 17.7
--- NOTE | 2022-03-25 20:18 | ED_ITS ---
HPI - General Adult General: Chief complaint: General Medical Stated complaint: HIGH BLOOD PRESSURE Time Seen by Provider: 03/25/22 20:16 History of Present Illness: Patient is a 67-year-old female with a history of hypertension, prior SD, prior left-sided pneumonectomy, prior pericar ditis/pleural effusion presenting to the emergency room for concerns of left- sided chest pain and elevated blood pressure. Patient tells me that earlier today she has noticed elevated blood pressure despite taking her lisinopril. In addition for the last week, patient has noted left-sided lateral chest pain. Patient is concerned that there may be pneumonia in her lungs. Patient having that the pain is worse with positions and sometimes worse when she exerts herself. Patient describes an achy pressure-like pain. Patient denies any pleuritic chest pain, or stabbing chest pain with radiation to the back. Patient denies any history of aneurysms. Patient had a prior heart attack in 2017. Patient denies any fever/chills, cough, runny nose, sore throat, palpitation, abdominal complaints, diarrhea melena hematochezia. Patient denies any recent immobilization or surgery, or prior history of VTE. Onset:1 week of chest pain, 1 day of uncontrolled blood pressure Duration:ongoing Location:home Severity:moderate Associated symptoms: Reports chest pain (+L sided chest pain); Deny dyspnea, nausea, rash, palpitations or vomiting Review of Systems Const: Denies: fever(s) or chills Eyes: Denies: change in vision ENMT: Denies: mouth pain Card: Reports: chest pain (+L sided chest pain); Denies: palpitations Resp: Denies: dyspnea or non-productive cough GI: Denies: abdominal pain, nausea, vomiting or diarrhea : Denies: dysuria Musc: Denies: extremity pain Skin/Breast: Denies: rash or new lesions Neuro: Denies: weakness in extremities Psych: Reports: other (Normal mood) Vinod/Lymph: Denies: easy bruising PFSH ED PFSH: Medical History Choledocholithiasis Chronic bronchitis Chronic cholecystitis with calculus Irritable bowel syndrome Myocardial infarction Surgical History H/O: hysterectomy History of lung surgery History of tonsillectomy History of tracheostomy Family History Father CAD (coronary artery disease) Mother CAD (coronary artery disease) Social History Smoking and tobacco status: never smoked Alcohol intake: never Physical Exam Const: COMMON NORMALS: alert HENMT: COMMON NORMALS: atraumatic HEAD & SCALP: atraumatic MOUTH: moist mucous membranes not abnormal Eye: COMMON NORMALS: EOMs intact bilaterally and conjunctivae normal CONJUNCTIVA: Yes conjunctivae normal Neck/C-Spine: COMMON NORMALS: full ROM and supple Resp: COMMON NORMALS: normal respiratory effort and clear to auscultation bilaterally AUSCULTATION: clear to auscultation bilaterally Cardio: COMMON NORMALS: regular rate RATE: regular rate OTHER: 2+ radial pulses b/l GI: COMMON NORMALS: Soft to palpation and non-tender PALPATION: Yes Soft to palpation OTHER: No focal TTP. NO guarding rebound, guarding, rigidity. No CVA tenderness to percussion. Neg Jha/Neg McBurney's point tenderness, no suprabupic tenderness to palpation. Extremity: COMMON NORMALS: full ROM Neuro: SENSORIUM/ORIENTATION: Yes alert MOTOR EXAM: No Abnormal motor strength present and Other motor observations present (no focal motor deficits) Psych: COMMON NORMALS: speech normal SPEECH: Yes normal speech MOOD & AFFECT: Yes euthymic mood Course Vital Signs: Vital signs: Vital Signs Temperature 97.2 F L 03/25/22 20:10 Pulse Rate 62 03/25/22 21:00 Respiratory Rate 16 03/25/22 21:00 Blood Pressure 152/75 03/25/22 21:00 Pulse Oximetry 99 03/25/22 21:00 Oxygen Delivery Me thod 03/25/22 20:42 MDM - General Adult Medical Decision Making Patient is a 67-year-old female with a history of hypertension, prior SD, prior left-sided pneumonectomy, prior pericarditis/pleural effusion presenting to the emergency room for concerns of left-sided chest pain and elevated blood pressure. Troponin x1 within normal. EKG showed LVH with strain pattern. X- ray chest did not show any focal pathology. This point time, I have offered her patient admission given hx of prior SD and heart strain. However patient declined the admission today. Patient states that she would like to go home at this time. Patient understands the risk of leaving the hospital today which include sudden decompensation, heart failure and possibly . Patient reass ures me she will follow-up closely with her tailer off. In addition, patient tells me that if she has any significant chest pain in the next few days that she is to come back to the emergency room for further evaluation. Patient is given strict return precaution for any signs of chest pain, shortness breath, palpitation, nausea/vomiting, diaphoresis, arm pain, back pain or jaw pain. Patient's blood pressure improved without any intervention in the ER. I have instructed patient to double the dose of her usual lisinopril should she have any uncontrolled blood pressure. Disposition: Discharge. Patient counseled regarding diagnostic impression, treatment plan. Patient given ED strict return precautions to return for continuation, worsening, or development of new symptoms. Instructed to f/u w/ PCP regarding symptoms today. Patient verbalized understanding. Lab Data : 03/25/22 20:38 03/25/22 20:38 Laboratory Results WBC 6.5 10^3/uL (4.0-10.0) 03/25/22 20:38 RBC 4.94 10^6/uL (4.1-5.3) 03/25/22 20:38 Hgb 14.3 g/dL (11.5-15.3) 03/25/22 20:38 Hct 43.1 % (37.0-47.0) 03/25/22 20:38 MCV 87.2 fl (81-99) 03/25/22 20:38 MCH 28.9 pg (28.0-34.0) 03/25/22 20:38 MCHC 33.2 g/dL (30.0-36.0) 03/25/22 20:38 RDW 13.3 % (12.1-15.1) 03/25/22 20:38 Plt Count 182 10^3/cmm (130-400) 03/25/22 20:38 MPV 10.7 fL (7.4-10.4) H 03/25/22 20:38 Neut % (Auto) 53.9 % 03/25/22 20:38 Lymph % (Auto) 33.1 % 03/25/22 20:38 [place] % (Auto) 10.2 % 03/25/22 20:38 Eos % (Auto) 2.0 % 03/25/22 20:38 Baso % (Auto) 0.6 % 03/25/22 20:38 Neut # (Auto) 3.49 10^3/uL (1.8-7.7) 03/25/22 20:38 Lymph # (Auto) 2.1 10^3/uL (0.8-4.8) 03/25/22 20:38 [place] # (Auto) 0.7 10^3/uL (0.2-0.9) 03/25/22 20:38 Eos # (Auto) 0.1 10^3/uL (0.0-0.8) 03/25/22 20:38 Baso # (Auto) 0.0 10^3/uL (0.0-0.1) 03/25/22 20:38 Nucleated RBC % (auto) 0 % 03/25/22 20:38 Nucleated RBCs # 0.0 /100WBC 03/25/22 20:38 Sodium 135 mmol/L (136-145) L 03/25/22 20:38 Potassium 3.8 mmol/L (3.5-5.1) 03/25/22 20:38 Chloride 99 mmol/L (98-107) 03/25/22 20:38 Carbon Dioxide 26 mmol/L (22-29) 03/25/22 20:38 Anion Gap 13.8 (5-19) 03/25/22 20:38 BUN 12 mg/dL (8-23) 03/25/22 20:38 Creatinine 0.6 mg/dL (0.5-0.9) 03/25/22 20:38 GFR Calculation 99.1 mL/min (90-130) 03/25/22 20:38 Glucose 106 mg/dL (65-115) 03/25/22 20:38 Calculated Osmolality 280 mOsm/kg (285-295) L 03/25/22 20:38 Calcium 11.2 mg/dL (8.5-10.5) H 03/25/22 20:38 Total Bilirubin 0.4 mg/dL (0.15-1.2) 03/25/22 20:38 AST 26 U/L (0-32) 03/25/22 20:38 ALT 32 U/L (0-33) 03/25/22 20:38 Alkaline Phosphatase 82 U/L (35-105) 03/25/22 20:38 Troponin T Baseline 6 ng/L (0-10) 03/25/22 20:38 Total Protein 7.3 g/dL (6.6-8.7) 03/25/22 20:38 Albumin 4.2 g/dL (3.5-5.2) 03/25/22 20:38 Globulin 3.1 g/dL (1.3-4.6) 03/25/22 20:38 Lipase 72 U/L (13-60) H 03/25/22 20:38 Discharge Plan Discharge Patient Disposition: Home Clinical Impression: Hypertension, Chest pain Condition: Stable Prescriptions: No Action cholecalciferol (vitamin D3) 25 mcg (1,000 unit) capsule 25 mcg PO DAILY alendronate 70 mg tablet 70 mg PO Q7D Rx Instructions: on Tuesdays simvastatin 20 mg tablet 20 mg PO DAILY nitroglycerin 0.4 mg tablet, sublingual 0.4 mg sublingual Q5M PRN (Reason: chest pains) albuterol sulfate [ProAir HFA] 90 mcg/actuation HFA aerosol inhaler 1 - 2 puff INHALATION Q4H PRN (Reason: Shortness Of Breath) fluticasone propionate 50 mcg/actuation spray,suspension 50 mcg INTRANASAL BID Rx Instructions: spray 1 spray into each nostril bid metoprolol succinate 100 mg tablet extended release 24 hr 100 mg PO DAILY aspirin 81 mg Tablet,Chewable 81 mg PO BID Hold Instructions: Resume on 09/19/21. hydrocodone-acetaminophen 5-325 mg tablet 1 tab PO Q6H PRN (Reason: pain) Qty: 28 0RF montelukast 10 mg tablet 10 mg PO DAILY PRN (Reason: Allergy Symptoms) Discharge Orders: Discharge ED (Routine); Ordered 03/25/22 Ordered By: Nichole Denton Referrals: Michael Phillips MD [Primary Care Provider] - Discharge Diet: Advance as tolerated Discharge Activity: Increase activity as tolerated Patient Instructions: Hypertension (ED) Activity Restrictions/Additional Instructions: You need to follow-up with your primary care provider for further adjustment of your blood pressure. Your blood pressure puts you at risk for developing strokes and heart attack. Therefore it is very important for you to follow-up with this number to see if the numbers improve gradually. Please double your lisinopril doses if your blood pressure is not controlled. Our disease case manager rn will have you follow-up with Dr. Maldonado for your heart in the next few days. You would be expected to have a phone call with our disease case manager rn who will put you on the schedule. You can expect a call from us in the next 2-3 days. If you don't hear from us, call us back in the emergency room at [phone]. Come back to the emergency room if your chest pain worsens, have any fever or chills, worsening shortness of breath, worsening exertional lightheadedness, or any new or concerning complaints. Coding Level of Care Code ED Control Systems Designer for Julian Andrews Exam Comprehensive
--- NOTE | 2022-03-25 20:20 | ECG_ITS ---
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 Measurements Intervals [place] Rate: 70 P: 42 CT: 123 QRS: 78 QRSD: 89 T: -20 QT: 371 QTc: 401 Interpretive Statements SINUS RHYTHM ST DEVIATION AND MODERATE T-WAVE ABNORMALITY, CONSIDER INFERIOR ISCHEMIA [-0.1+ mV T-WAVE IN II/aVF] Compared to ECG 10/03/2021 20:14:35 T-wave abnormality now present Possible ischemia now present Sinus bradycardia no longer present Electronically Signed On 03-25-2022 20:39:29 CDT by Kyaw Del Cid M.D. [email or web address]store/[id number] f
[2022-03-25 20:42] VITALS: BP 183/102; PULSE 64; RESP 16; O2SAT 99
[2022-03-25 20:43] LABS: Basophils % 0.6 %; Eosinophils # 0.1 10^3/uL (0.0-0.8); Hematocrit 43.1 % (37.0-47.0); Hemoglobin 14.3 g/dL (11.5-15.3); Lymphocytes # 2.1 10^3/uL (0.8-4.8); Lymphocytes % 33.1 %; Mean Corpuscular HGB Conc 33.2 g/dL (30.0-36.0); Mean Corpuscular Hemoglobin 28.9 pg (28.0-34.0); Mean Corpuscular Volume 87.2 fl (81-99); Mean Platelet Volume 10.7 fL (7.4-10.4); Monocytes # 0.7 10^3/uL (0.2-0.9); Monocytes % 10.2 %; Neutrophils # 3.49 10^3/uL (1.8-7.7); Neutrophils % 53.9 %; Nucleated Red Blood Cells % 0 %; Platelet Count 182 10^3/cmm (130-400); Red Blood Count 4.94 10^6/uL (4.1-5.3); Red Cell Distribution Width 13.3 % (12.1-15.1); White Blood Count 6.5 10^3/uL (4.0-10.0)
[2022-03-25 21:00] VITALS: BP 152/75; PULSE 62; RESP 16; O2SAT 99
[2022-03-25 21:22] LABS: Alanine Aminotransferase 32 U/L (0-33); Albumin Level 4.2 g/dL (3.5-5.2); Alkaline Phosphatase 82 U/L (35-105); Anion Gap 13.8 (5-19); Aspartate Amino Transferase 26 U/L (0-32); Blood Urea Nitrogen 12 mg/dL (8-23); Calcium 11.2 mg/dL (8.5-10.5); Carbon Dioxide 26 mmol/L (22-29); Chloride 99 mmol/L (98-107); Globulin 3.1 g/dL (1.3-4.6); Glomerular Filtration Rate 99.1 mL/min (90-130); Glucose 106 mg/dL (65-115); Lipase 72 U/L (13-60); Osmolality Calculated 280 mOsm/kg (285-295); Potassium 3.8 mmol/L (3.5-5.1); Sodium 135 mmol/L (136-145); Total Bilirubin 0.4 mg/dL (0.15-1.2); Total Protein 7.3 g/dL (6.6-8.7)
[2022-03-25 21:23] LABS: Troponin(5th) Baseline 6 ng/L (0-10)
--- NOTE | 2022-03-25 21:29 | XRR_ITS ---
PROCEDURE INFORMATION: Exam: XR Chest Exam date and time: 03/25/2022 9:41 PM Age: 67 years old Clinical indication: Chest pressure and chest wall pain; Prior surgery; Surgery date: 6+ months; Surgery type: Lung surgery; Additional info: Chest pain TECHNIQUE: Imaging protocol: Radiologic exam of the chest. Views: 1 view. COMPARISON: CR XR chest 1V portable [id number] 10/03/2021 6:42 PM FINDINGS: Lungs: Hyperinflated lungs. No consolidation. Pleural spaces: No pleural effusion. No pneumothorax. Heart/Mediastinum: No cardiomegaly. Bones/joints: Visualized osseous structures are intact. XR/XR chest 1V portable [id number] IMPRESSION: Sequela of COPD. No acute findings.
[2022-03-25 21:53] VITALS: BP 152/76; PULSE 70; RESP 16; O2SAT 99
--- NOTE | 2022-03-26 12:23 | DCPLANNER ---
Addendum entered by Aysha Lazcano 03/30/22 06:15: youth manager received the following message from heart care regarding follow up appointment: Patient stated this is nothing to do with her heart and needs no more stress tests and does not want to see a 3rd mate she said she will see her PCP Dr. Phillips Original Note: youth manager had message to schedule an outpatient stress test for patient. Case manger faxed signed order to centralized scheduling, who will call patient with appointment information. youth manager also sent patients primary care physician notification that that a test was ordered by the ER physician and that the order was sent to centralized scheduling to be scheduled with results going to the primary care physician.
--- NOTE | 2022-03-26 12:30 | DCPLANNER ---
Addendum entered by Aysha Lazcano 03/30/22 06:14: intake manager received the following message from heart [facility] regarding follow up appointment: Patient stated this is nothing to do with her heart and needs no more stress tests and does not want to see a watch leader she said she will see her PCP Dr. Phillips Original Note: intake manager had message to schedule a follow up appointment for patient with cardiology. intake manager sent patients information to the front office staff at [facility]. Patients information will be printed and reviewed. Clinic will call patient with appointment information.
== END 2022-03-25 22:08 | disposition home or self-care (01) ==
PROVIDERS: Emergency Provider Emergency Medicine; PCP Family Medicine
DX: I10 Essential (primary) hypertension (principal); R07.9 Chest pain, unspecified; Z79.82 Long term (current) use of aspirin; I25.2 Old myocardial infarction
CPT/HCPCS: 71045; 80053; 83690; 84484; 85025; 93005; 99285

== ENCOUNTER 2022-05-21 15:20 | Emergency (ER) | payer MEDICARE, MEDICAID, SELFPAY ==
[2022-05-21 15:26] VITALS: BP 157/115; PULSE 74; RESP 14; TEMP 36.6; O2SAT 96; BMI 18.1
--- NOTE | 2022-05-21 15:29 | ECG_ITS ---
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 Measurements Intervals [place] Rate: 66 P: 82 [place]: 140 QRS: 86 QRSD: 89 T: 63 QT: 354 QTc: 373 Interpretive Statements SINUS RHYTHM POSSIBLE LEFT ATRIAL ENLARGEMENT [-0.1mV P-WAVE IN V1/V2] Compared to ECG 03/25/2022 20:14:32 T-wave abnormality no longer present Possible ischemia no longer present Electronically Signed On 05-22-2022 11:01:55 PROPELLER MECHANIC by Fausto Hannon M.D. [email or web address].[employer]/store/[id number] f
--- NOTE | 2022-05-21 15:29 | XR_ITS ---
WS: [id number] PORTABLE CHEST HISTORY: cp COMPARISON: 03/25/2022, 08/11/2018 and 10/03/2021 Hyperinflated lungs. Blunting of the LEFT costophrenic angle secondary to elevated diaphragm. Asymmet judy LEFT apical thickening is stable over multiple prior studies. No consolidation or pneumonia. No p leural effusion or pneumothorax. Cardiac size: Normal. Mediastinum/Aorta: Mild atherosclerosis aorta. Osteopenia. XR/XR chest 1V portable [id number] IMPRESSION: Chronic emphysema. No pneumonia. LEFT apical capping is stable over several prior examinations.
--- NOTE | 2022-05-21 15:35 | ED_ITS ---
HPI - Chest Pain General: Chief Complaint: Chest Pain Stated Complaint: Irregular heart rate Time Seen by Provider: 05/21/22 15:21 Source: patient and EMS Mode of arrival: EMS Limitations: no limitations History of Present Illness: 67-year-old female states that roughly an hour ago she started to have some palpitation she felt like her heart was skipping. States she has no history of SVT or A. fib states she currently feels much improved she is asymptomatic her heart rate here is normal. She denies any chest pain denies any shortness of breath denies any worsening improving factors. Associated symptoms: Reports palpitations; Deny abdominal pain, dyspnea, fever(s), nausea or vomiting Review of Systems Const: Denies: fever(s), chills, body aches or change in appetite Eyes: Denies: blurry vision or eye discomfort ENMT: Denies: throat pain or dental pain Card: Reports: palpitations Resp: Denies: dyspnea GI: Denies: abdominal pain, nausea, vomiting or diarrhea : Denies: dysuria Musc: Denies: neck pain or back pain Skin/Breast: Denies: rash Neuro: Denies: headache(s) Psych: Denies: depression Vinod/Lymph: Denies: easy bruising All/Imm: Denies: urticaria PFSH ED PFSH: Medical History Choledocholithiasis Chronic bronchitis Chronic cholecystitis with calculus Irritable bowel syndrome Myocardial infarction Surgical History H/O: hysterectomy History of lung surgery History of tonsillectomy History of tracheostomy Family History Father CAD (coronary artery disease) Mother CAD (coronary artery disease) Social History Smoking and tobacco status: never smoked Alcohol intake: never Physical Exam Const: COMMON NORMALS: no acute distress, patient oriented x3 and healthy ap pearing HENMT: COMMON NORMALS: normocephalic and atraumatic HEAD & SCALP: normocephalic and atraumatic Eye: COMMON NORMALS: Equal, round and reactive pupils present and EOMs intact bilaterally PUPIL: Yes Equal, round and reactive pupils present Neck/C-Spine: COMMON NORMALS: full ROM and supple Chest: COMMONS NORMALS: normal inspection of the chest and normal palpation of entire chest wall Resp: COMMON NORMALS: normal respiratory effort, No retractions, No use of accessory muscles and clear to auscultation bilaterally AUSCULTATION: clear to auscultation bilaterally Cardio: COMMON NORMALS: regular rate, regular rhythm and No murmurs present (Cardio) RATE: regular rate RHYTHM: regular rhythm GI: COMMON NORMALS: Normal to inspection, nondistended, normoactive bowel sounds present, Soft to palpation, non-tender and no masses PALPATION: Yes Soft to palpation Extremity: COMMON NORMALS: normal to inspection and full ROM Neuro: COMMON NORMALS: patient oriented x3, moves all extremities and no focal motor deficits Psych: COMMON NORMALS: mental status grossly normal, Normal thought process pr esent and cooperative THOUGHT PROCESS: Normal thought process present Skin: COMMON NORMALS: no rashes or lesions noted and no wounds GENERAL SKIN EXAM: no rashes or lesions noted Course Vital Signs: Vital signs: Vital Signs Temperature 97.8 F 05/21/22 15:26 Pulse Rate 60 05/21/22 17:57 Respiratory Rate 14 05/21/22 17:57 Blood Pressure 128/75 05/21/22 17:57 Pulse Oximetry 100 05/21/22 17:57 Oxygen Delivery Me thod 05/21/22 17:57 MDM - Chest Pain Medical Decision Making Patient presents here with palpitations her symptoms are resolved here troponin EKG are normal she stable for discharge she is to follow-up with her PCP in 2 to 4 days and return if worsening. Lab Data 05/21/22 16:34 05/21/22 16:34 Radiology Impressions Chest X-Ray 05/21/22 15:29 IMPRESSION: Chronic emphysema. No pneumonia. LEFT apical capping is stable over several prior examinations. Laboratory Results WBC 5.8 10^3/uL (4.0-10.0) 05/21/22 16:34 RBC 4.67 10^6/uL (4.1-5.3) 05/21/22 16:34 Hgb 13.4 g/dL (11.5-15.3) 05/21/22 16:34 Hct 41.0 % (37.0-47.0) 05/21/22 16:34 MCV 87.8 fl (81-99) 05/21/22 16:34 MCH 28.7 pg (28.0-34.0) 05/21/22 16:34 MCHC 32.7 g/dL (30.0-36.0) 05/21/22 16:34 RDW 13.0 % (12.1-15.1) 05/21/22 16:34 Plt Count 182 10^3/cmm (130-400) 05/21/22 16:34 MPV 10.3 fL (7.4-10.4) 05/21/22 16:34 Neut % (Auto) 67.7 % 05/21/22 16:34 Lymph % (Auto) 21.7 % 05/21/22 16:34 [place] % (Auto) 8.9 % 05/21/22 16:34 Eos % (Auto) 1.2 % 05/21/22 16:34 Baso % (Auto) 0.3 % 05/21/22 16:34 Neut # (Auto) 3.90 10^3/uL (1.8-7.7) 05/21/22 16:34 Lymph # (Auto) 1.3 10^3/uL (0.8-4.8) 05/21/22 16:34 [place] # (Auto) 0.5 10^3/uL (0.2-0.9) 05/21/22 16:34 Eos # (Auto) 0.1 10^3/uL (0.0-0.8) 05/21/22 16:34 Baso # (Auto) 0.0 10^3/uL (0.0-0.1) 05/21/22 16:34 Nucleated RBC % (auto) 0 % 05/21/22 16:34 Nucleated RBCs # 0.0 /100WBC 05/21/22 16:34 Sodium 138 mmol/L (136-145) 05/21/22 16:34 Potassium 3.9 mmol/L (3.5-5.1) 05/21/22 16:34 Chloride 103 mmol/L (98-107) 05/21/22 16:34 Carbon Dioxide 24 mmol/L (22-29) 05/21/22 16:34 Anion Gap 14.9 (5-19) 05/21/22 16:34 BUN 9 mg/dL (8-23) 05/21/22 16:34 Creatinine 0.5 mg/dL (0.5-0.9) 05/21/22 16:34 GFR Calculation 122.3 mL/min (90-130) 05/21/22 16:34 Glucose 103 mg/dL (65-115) 05/21/22 16:34 Calculated Osmolality 285 mOsm/kg (285-295) 05/21/22 16:34 Calcium 10.2 mg/dL (8.5-10.5) 05/21/22 16:34 Total Bilirubin 0.2 mg/dL (0.15-1.2) 05/21/22 16:34 AST 23 U/L (0-32) 05/21/22 16:34 ALT 18 U/L (0-33) 05/21/22 16:34 Alkaline Phosphatase 58 U/L (35-105) 05/21/22 16:34 Troponin T Baseline 6 ng/L (0-10) 05/21/22 16:34 Total Protein 6.0 g/dL (6.6-8.7) L 05/21/22 16:34 Albumin 3.9 g/dL (3.5-5.2) 05/21/22 16:34 Globulin 2.1 g/dL (1.3-4.6) 05/21/22 16:34 EKG Data EKG 1: I personally reviewed and interpreted this EKG as follows: EKG interpretation date: 05/21/22 EKG interpretation time: 15:27 Interpretation: NSR HR [address] OR T WAVE ABNORMALITIES QRS 89 QTC 368 Discharge Plan Discharge Patient Disposition: Home Clinical Impression: Palpitations Condition: Stable Prescriptions: No Action cholecalciferol (vitamin D3) 25 mcg (1,000 unit) capsule 25 mcg PO DAILY alendronate 70 mg tablet 70 mg PO Q7D Rx Instructions: on Tuesdays nitroglycerin 0.4 mg tablet, sublingual 0.4 mg sublingual Q5M PRN (Reason: chest pains) albuterol sulfate [ProAir HFA] 90 mcg/actuation HFA aerosol inhaler 1 - 2 puff INHALATION Q4H PRN (Reason: Shortness Of Breath) fluticasone propionate 50 mcg/actuation spray,suspension 50 mcg INTRANASAL BID Rx Instructions: spray 1 spray into each nostril bid metoprolol succinate 100 mg tablet extended release 24 hr 100 mg PO DAILY celecoxib 200 mg capsule 200 mg PO DAILY atorvastatin 20 mg tablet 20 mg PO QPM lisinopril 20 mg tablet 20 mg PO DAILY gabapentin 100 mg capsule 100 mg PO TID Discharge Orders: Discharge ED (Routine); Ordered 05/21/22 Ordered By: Godwin Fitch Referrals: Michael Phillips MD [Primary Care Provider] - 1-3 days Discharge Diet: Advance as tolerated Discharge Activity: Resume usual activity Patient Instructions: Heart Palpitations (ED) Coding Level of Care Code ED Director Industrial Nursing for Chg Fwd Exam Comprehensive
[2022-05-21 16:40] LABS: Basophils % 0.3 %; Eosinophils # 0.1 10^3/uL (0.0-0.8); Eosinophils % 1.2 %; Hemoglobin 13.4 g/dL (11.5-15.3); Lymphocytes # 1.3 10^3/uL (0.8-4.8); Lymphocytes % 21.7 %; Mean Corpuscular HGB Conc 32.7 g/dL (30.0-36.0); Mean Corpuscular Hemoglobin 28.7 pg (28.0-34.0); Mean Corpuscular Volume 87.8 fl (81-99); Mean Platelet Volume 10.3 fL (7.4-10.4); Monocytes # 0.5 10^3/uL (0.2-0.9); Monocytes % 8.9 %; Neutrophils % 67.7 %; Nucleated Red Blood Cells % 0 %; Platelet Count 182 10^3/cmm (130-400); Red Blood Count 4.67 10^6/uL (4.1-5.3); White Blood Count 5.8 10^3/uL (4.0-10.0)
[2022-05-21 16:55] VITALS: BP 134/109; PULSE 61; RESP 16; O2SAT 100
[2022-05-21 16:59] LABS: Alanine Aminotransferase 18 U/L (0-33); Albumin Level 3.9 g/dL (3.5-5.2); Alkaline Phosphatase 58 U/L (35-105); Aspartate Amino Transferase 23 U/L (0-32); Blood Urea Nitrogen 9 mg/dL (8-23); Calcium 10.2 mg/dL (8.5-10.5); Carbon Dioxide 24 mmol/L (22-29); Chloride 103 mmol/L (98-107); Globulin 2.1 g/dL (1.3-4.6); Glomerular Filtration Rate 122.3 mL/min (90-130); Glucose 103 mg/dL (65-115); Osmolality Calculated 285 mOsm/kg (285-295); Sodium 138 mmol/L (136-145); Total Bilirubin 0.2 mg/dL (0.15-1.2)
[2022-05-21 17:00] LABS: Troponin(5th) Baseline 6 ng/L (0-10)
[2022-05-21 17:02] LABS: Anion Gap 14.9 (5-19); Potassium 3.9 mmol/L (3.5-5.1)
--- NOTE | 2022-05-21 17:39 | ECG_ITS ---
[facility] Test Date: 2022-05-21 Pat Name: Amy Nguyen Department: Room: Gender: Female International Guest Coordinator: : 1955 Requested By: Godwin Fitch Order Number: [id number] Alejandra MD: Fausto Hannon M.D. Measurements Intervals [place] Rate: 59 P: 84 [place]: 148 QRS: 87 QRSD: 89 T: 66 QT: 383 QTc: 380 Interpretive Statements SINUS BRADYCARDIA POSSIBLE LEFT ATRIAL ENLARGEMENT [-0.1mV P-WAVE IN V1/V2] Compared to ECG 05/21/2022 15:27:52 Sinus rhythm no longer present Electronically Signed On 05-22-2022 11:10:06 LABORATORY INSPECTOR by Fausto Hannon M.D. [id number]
[2022-05-21 17:57] VITALS: BP 128/75; PULSE 60; RESP 14; O2SAT 100
== END 2022-05-21 18:06 | disposition home or self-care (01) ==
PROVIDERS: Emergency Provider Emergency Medicine; PCP Family Medicine
DX: R00.2 Palpitations (principal); J43.9 Emphysema, unspecified; I25.2 Old myocardial infarction
CPT/HCPCS: 71045; 80053; 84484; 85025; 93005; 99285

== ENCOUNTER 2022-06-03 09:25 | Emergency (ER) | payer MEDICARE, MEDICAID, SELFPAY ==
[2022-06-03] VITALS (44 sets, daily range): BP systolic 93–169; BP diastolic 35–82; PULSE 52–85; RESP 12–26; O2SAT 83–100; BMI 18.1
--- NOTE | 2022-06-03 09:29 | ECG_ITS ---
[facility] Test Date: 2022-06-03 Pat Name: Amy Nguyen Department: Room: Gender: Female Electrical Engineering Teacher: : 1955 Requested By: Aman Leal Order Number: [id number] Alejandra MD: Fausto Hannon M.D. Measurements Intervals [place] Rate: 59 P: 79 [place]: 147 QRS: 85 QRSD: 90 T: 48 QT: 380 QTc: 377 Interpretive Statements SINUS BRADYCARDIA POSSIBLE LEFT ATRIAL ENLARGEMENT [-0.1mV P-WAVE IN V1/V2] Compared to ECG 05/21/2022 17:39:28 No significant changes Electronically Signed On 06-03-2022 10:14:56 DENTAL SERVICE CHIEF by Fausto Hannon M.D. [email or web address] [id number]
--- NOTE | 2022-06-03 09:29 | XR_ITS ---
WS: [id number] EXAMINATION: XR chest 1V portable [id number] REASON FOR EXAM: chest pain COMPARISON: 05/21/2022 and 02/20/2021 ORDER DATE: 06/03/2022 9:33 AM TECHNIQUE: A single, portable frontal chest x-ray was obtained. X-RAY FINDINGS: There are diffuse changes of COPD with hyperinflation. Biapical pleural thickening, greater on the le ft. Wedge-shaped area of left lower lobe opacity suggesting chronic left lower lobe collapse and/or p ossible coexisting small left effusion or chronic pleural thickening. Prominent generalized dextrosco liosis of the dorsal spine. XR/XR chest 1V portable [id number] IMPRESSION: Asymmetrically increased left apical pleural changes stable since 02/20/2021. Stable left lower lobe opacity as noted above.
--- NOTE | 2022-06-03 09:42 | ED_ITS ---
HPI - Chest Pain General: Chief Complaint: Chest Pain Stated Complaint: cp Time Seen by Provider: 06/03/22 09:27 Source: patient Mode of arrival: ambulatory History of Present Illness: 67-year-old female who presents to the emergency room with complaints of chest pains been going on for a week. She had left- sided chest pain that radiates up into her back and into the right shoulder. Has a child that she had some sort of lung resection feels shaky with the pneumonia she cannot really tell me exactly what happened sounds like she may have had an empyema. No recent lung surgery she does not smoke. She has no known history of coronary artery disease. Chronic baseline productive cough that remains unchanged subjective low-grade fever. MD complaint: chest pain Onset (ago): week(s) Timing of current episode: episodic Onset: during rest Pain location: left chest Pain radiation: back and other (Right chest) Severity: mild Quality: aching and heaviness Relieving factors: nothing Exacerbating factors: nothing Associated symptoms: Deny abdominal pain, diaphoresis, dyspnea, fever(s), leg edema, nausea, palpitations, sense of impending doom, syncope or vomiting Review of Systems Const: Denies: fever(s) or diaphoresis ENMT: Denies: throat pain, ear or mastoid pain, nasal discharge or nasal congestion Card: Denies: palpitations or syncope Resp: Denies: dyspnea GI: Denies: abdominal pain, nausea or vomiting : Denies: flank pain, difficulty voiding, dysuria, urinary frequency or urinary urgency Skin/Breast: Denies: rash or pruritus PFSH ED PFSH: Medical History Choledocholithiasis Chronic bronchitis Chronic cholecystitis with calculus Irritable bowel syndrome Myocardial infarction Surgical History H/O: hysterectomy History of lung surgery History of tonsillectomy History of tracheostomy Family History Father CAD (coronary artery disease) Mother CAD (coronary artery disease) Social History Smoking and tobacco status: never smoked Alcohol intake: never Physical Exam Const: GENERAL APPEARANCE: cooperative and comfortable ORIENTATION/CONSCIOUSNESS: Yes awake, Yes oriented to person, Yes oriented to place and Yes oriented to time HENMT: COMMON NORMALS: normocephalic, atraumatic and hearing grossly normal bilaterally HEAD & SCALP: normocephalic and atraumatic Resp: COMMON NORMALS: normal respiratory effort, No retractions, No use of accessory muscles and clear to auscultation bilaterally AUSCULTATION: clear to auscultation bilaterally Cardio: COMMON NORMALS: regular rate, regular rhythm and No murmurs present (Cardio) RATE: regular rate RHYTHM: regular rhythm GI: COMMON NORMALS: Soft to palpation and No hepatosplenomegaly present AUSCULTATION: Yes normoactive bowel sounds PALPATION: Yes Soft to palpation, No Tenderness to palpation present (GI), No Guarding due to palpation present (GI) and Yes No hepatosplenomegaly present Extremity: COMMON NORMALS: normal to inspection, capillary refill normal, no clubbing, cyanosis or edema, no calf tenderness and no pedal edema Neuro: SENSORIUM/ORIENTATION: Yes oriented to person, Yes oriented to place and Yes oriented to time Skin: COMMON NORMALS: no rashes or lesions noted GENERAL SKIN EXAM: no rashes or lesions noted Course Vital Signs: Vital signs: Vital Signs Pulse Rate 60 06/03/22 16:30 Respiratory Rate 12 06/03/22 16:30 Blood Pressure 104/46 06/03/22 16:30 Pulse Oximetry 98 06/03/22 16:30 Oxygen Delivery Me thod 06/03/22 13:15 MDM - Chest Pain Medical Decision Making Pneumonia with mucous plugging. Discussed with on-call pulmonology at [facility]. They do not recommend hospitalization or immediate bronchoscopy to recommend CT follow-up to resolution if not resolving may need bronchoscopy but can be done as an outpatient. Patient started on oral antibiotics recheck with your primary care doctor within the next 2 weeks Medical Records I reviewed the patient's medical records. Lab Data I reviewed the patient's lab results. 06/03/22 09:56 06/03/22 09:56 Radiology Impressions Chest X-Ray 06/03/22 09:29 IMPRESSION: Asymmetrically increased left apical pleural changes stable since 02/20/2021. Stable left lower lobe opacity as noted above. Chest CTA 06/03/22 13:32 IMPRESSION: 1. No pulmonary emboli. 2. RIGHT lower lobe bronchial secretions obstructing the airway. 3. New scattered bilateral opacities probably due to pneumonitis. 4. Mild volume loss LEFT thorax. 5. Cardiomegaly. Laboratory Results WBC 7.4 10^3/uL (4.0-10.0) 06/03/22 09:56 RBC 5.31 10^6/uL (4.1-5.3) H 06/03/22 09:56 Hgb 15.1 g/dL (11.5-15.3) 06/03/22 09:56 Hct 46.2 % (37.0-47.0) 06/03/22 09:56 MCV 87.0 fl (81-99) 06/03/22 09:56 MCH 28.4 pg (28.0-34.0) 06/03/22 09:56 MCHC 32.7 g/dL (30.0-36.0) 06/03/22 09:56 RDW 13.2 % (12.1-15.1) 06/03/22 09:56 Plt Count 242 10^3/cmm (130-400) 06/03/22 09:56 MPV 11.2 fL (7.4-10.4) H 06/03/22 09:56 Neut % (Auto) 58.7 % 06/03/22 09:56 Lymph % (Auto) 29.7 % 06/03/22 09:56 [place] % (Auto) 8.8 % 06/03/22 09:56 Eos % (Auto) 1.8 % 06/03/22 09:56 Baso % (Auto) 0.7 % 06/03/22 09:56 Neut # (Auto) 4.32 10^3/uL (1.8-7.7) 06/03/22 09:56 Lymph # (Auto) 2.2 10^3/uL (0.8-4.8) 06/03/22 09:56 [place] # (Auto) 0.7 10^3/uL (0.2-0.9) 06/03/22 09:56 Eos # (Auto) 0.1 10^3/uL (0.0-0.8) 06/03/22 09:56 Baso # (Auto) 0.1 10^3/uL (0.0-0.1) 06/03/22 09:56 Nucleated RBC % (auto) 0 % 06/03/22 09:56 Nucleated RBCs # 0.0 /100WBC 06/03/22 09:56 Sodium 136 mmol/L (136-145) 06/03/22 09:56 Potassium 4.4 mmol/L (3.5-5.1) 06/03/22 09:56 Chloride 98 mmol/L (98-107) 06/03/22 09:56 Carbon Dioxide 28 mmol/L (22-29) 06/03/22 09:56 Anion Gap 14.4 (5-19) 06/03/22 09:56 BUN 8 mg/dL (8-23) 06/03/22 09:56 Creatinine 0.6 mg/dL (0.5-0.9) 06/03/22 09:56 GFR Calculation 99.1 mL/min (90-130) 06/03/22 09:56 Glucose 105 mg/dL (65-115) 06/03/22 09:56 Calculated Osmolality 281 mOsm/kg (285-295) L 06/03/22 09:56 Calcium 11.1 mg/dL (8.5-10.5) H 06/03/22 09:56 Total Bilirubin 0.8 mg/dL (0.15-1.2) 06/03/22 09:56 AST 31 U/L (0-32) 06/03/22 09:56 ALT 24 U/L (0-33) 06/03/22 09:56 Alkaline Phosphatase 71 U/L (35-105) 06/03/22 09:56 Troponin T Baseline 6 ng/L (0-10) 06/03/22 09:56 Troponin T 120 Minute 6.00 ng/L (0-10) 06/03/22 11:22 Delta Troponin T 0 ABS# (0-10) 06/03/22 11:22 Total Protein 7.1 g/dL (6.6-8.7) 06/03/22 09:56 Albumin 4.7 g/dL (3.5-5.2) 06/03/22 09:56 Globulin 2.4 g/dL (1.3-4.6) 06/03/22 09:56 Nasal Influ A H1 2008 PCR Not detected (NOT DETECT) 06/03/22 16:18 Coronavirus 229E (PCR) Not detected (NOT DETECT) 06/03/22 16:18 Influenza A (H1) PCR Not detected (NOT DETECT) 06/03/22 16:18 Influenza A (H3) PCR Not detected (NOT DETECT) 06/03/22 16:18 Influenza Type A (PCR) Not detected (NOT DETECT) 06/03/22 16:18 Influenza Type B (PCR) Not detected (NOT DETECT) 06/03/22 16:18 SARS-CoV-2 (PCR) Not detected (NOT DETECT) 06/03/22 16:18 Discharge Plan Discharge Patient Disposition: Home Clinical Impression: Pneumonia, Mucus plugging of bronchi Condition: Stable Prescriptions: New albuterol sulfate 90 mcg/actuation HFA aerosol inhaler 2 inh INHALATION Q4H PRN (Reason: shortness of breath or wheezing) Qty: 18 0RF prednisone 20 mg tablet 20 mg PO TID Qty: 15 0RF Rx Instructions: 1 p.o. 3 times daily x3 days, 1 p.o. twice daily x2 days, 1 p.o. daily x2 days No Action cholecalciferol (vitamin D3) 25 mcg (1,000 unit) capsule 25 mcg PO DAILY PRN (Reason: unknown) alendronate 70 mg tablet 70 mg PO Q7D Rx Instructions: on Tuesdays albuterol sulfate [ProAir HFA] 90 mcg/actuation HFA aerosol inhaler 1 - 2 puff INHALATION Q4H PRN (Reason: Shortness Of Breath) fluticasone propionate 50 mcg/actuation spray,suspension 1 spray INTRANASAL BID PRN (Reason: Allergy Symptoms) metoprolol succinate 100 mg tablet extended release 24 hr 50 mg PO BID Nitrostat 0.4 mg Tablet, Sublingual 0.4 mg SUBLINGUAL Q5M PRN (Reason: Chest Pain) Rx Instructions: do not exceed 3 doses per episode celecoxib 200 mg capsule 200 mg PO DAILY PRN (Reason: Pain) atorvastatin 20 mg tablet 20 mg PO QPM lisinopril 20 mg tablet 10 mg PO QAM gabapentin 100 mg capsule 100 mg PO TID Discharge Orders: Discharge ED (Routine); Ordered 06/03/22 Ordered By: Aman Stevenson Referrals: Michael Phillips MD [Primary Care Provider] - Discharge Diet: Usual diet Discharge Activity: Increase activity as tolerated Patient Instructions: Opioid Safety, Pain Management Activity Restrictions/Additional Instructions: You were seen today for frenetic like chest pain and shortness of breath. CTA of your chest was normal but did show some mucous plugging in the right lower lobe we contacted one of the academic department chair they recommended that you have a repeat CT in 1 month. He also had slight changes of pneumonia on the CT we recommend that you start Levaquin 750 daily for 1 week. Use albuterol as needed we will also have you on a steroid taper follow-up with your primary care doctor to set up a repeat CT of the chest in 4 weeks. Coding Level of Care Code ED Frame Runner for Julian Fwd Exam Detailed
[2022-06-03 10:12] LABS: Basophils # 0.1 10^3/uL (0.0-0.1); Basophils % 0.7 %; Eosinophils # 0.1 10^3/uL (0.0-0.8); Eosinophils % 1.8 %; Hematocrit 46.2 % (37.0-47.0); Hemoglobin 15.1 g/dL (11.5-15.3); Lymphocytes # 2.2 10^3/uL (0.8-4.8); Lymphocytes % 29.7 %; Mean Corpuscular HGB Conc 32.7 g/dL (30.0-36.0); Mean Corpuscular Hemoglobin 28.4 pg (28.0-34.0); Mean Platelet Volume 11.2 fL (7.4-10.4); Monocytes # 0.7 10^3/uL (0.2-0.9); Monocytes % 8.8 %; Neutrophils # 4.32 10^3/uL (1.8-7.7); Neutrophils % 58.7 %; Nucleated Red Blood Cells % 0 %; Platelet Count 242 10^3/cmm (130-400); Red Blood Count 5.31 10^6/uL (4.1-5.3); Red Cell Distribution Width 13.2 % (12.1-15.1); White Blood Count 7.4 10^3/uL (4.0-10.0)
[2022-06-03 10:30] LABS: Troponin(5th) Baseline 6 ng/L (0-10)
[2022-06-03 10:34] LABS: Alanine Aminotransferase 24 U/L (0-33); Albumin Level 4.7 g/dL (3.5-5.2); Alkaline Phosphatase 71 U/L (35-105); Aspartate Amino Transferase 31 U/L (0-32); Blood Urea Nitrogen 8 mg/dL (8-23); Calcium 11.1 mg/dL (8.5-10.5); Carbon Dioxide 28 mmol/L (22-29); Chloride 98 mmol/L (98-107); Globulin 2.4 g/dL (1.3-4.6); Glomerular Filtration Rate 99.1 mL/min (90-130); Glucose 105 mg/dL (65-115); Osmolality Calculated 281 mOsm/kg (285-295); Sodium 136 mmol/L (136-145); Total Bilirubin 0.8 mg/dL (0.15-1.2); Total Protein 7.1 g/dL (6.6-8.7)
[2022-06-03 10:35] LABS: Anion Gap 14.4 (5-19); Potassium 4.4 mmol/L (3.5-5.1)
--- NOTE | 2022-06-03 10:35 | PC.PHAR ---
pt states she takes care of her own medications-pt states she takes metoprolol succinate er 50mg bid rx filled 05/25/22 45d/s for 100mg bid-pt states she takes lisinopril 20mg qam states sometimes she will take more if her bp is high-notes are made in the pharmacy comments
--- NOTE | 2022-06-03 11:29 | ECG_ITS ---
[facility] Test Date: 2022-06-03 Pat Name: Amy Nguyen Department: Room: Gender: Female Snaker: : 1955 Requested By: Aman Leal Order Number: [id number] Alejandra MD: Fausto Hannon M.D. Measurements Intervals [place] Rate: 56 P: 74 [place]: 144 QRS: 75 QRSD: 81 T: 56 QT: 408 QTc: 396 Interpretive Statements SINUS BRADYCARDIA POSSIBLE RIGHT VENTRICULAR CONDUCTION DELAY [RSR (QR) IN V1/V2] Compared to ECG 06/03/2022 09:38:25 No significant changes Electronically Signed On 06-03-2022 13:47:39 COUNTER SUPERVISOR by Fausto Hannon M.D. [id number]
[2022-06-03 12:13] LABS: Troponin 5 2HR Delta 0 ABS# (0-10)
[2022-06-03] MEDS: ondansetron 2 mg/ML SDV 2 mL 4 MG IVP (13:11)
[2022-06-03] MEDS: morphine 4 mg/mL SDV 1 mL IVP (13:11)
--- NOTE | 2022-06-03 13:32 | CT_ITS ---
WS: [id number] CT CHEST ANGIOGRAPHY WITH REFORMATS HISTORY: Chest pain TECHNIQUE: Contiguous axial images are obtained through the chest during arterial injection of intrav enous contrast. Images are reconstructed to evaluate the pulmonary arteries. MIP imaging also reviewe d. All CT scans at [facility] use at least one of these dose optimization techniques: automat ed exposure control; mA and/or kV adjustment per patient size (includes targeted exams where dose is matched to clinical indication); or iterative reconstruction. CONTRAST: Omnipaque 350; 65 mL IV. DLP: 193.98 mGy.cm COMPARISON: 02/28/2019 Good opacification of the pulmonary arteries. No filling defects are identified. No large central pul monary embolism. Paucity of vessels in the LEFT lower lobe. Mild volume loss in the LEFT thorax with shift of the mediastinal structures to the LEFT. Partial atelectasis LEFT lower lobe. Scattered opaci fications predominantly throughout the RIGHT lung probably due to areas of pneumonitis. Some of these are new since the prior study. No pericardial or pleural effusion. Heart is moderately enlarged. No mediastinal or hilar adenopathy. Prior cholecystectomy. Atherosclerosis aorta. Lower lobe bronchial obstruction due to secretions which are new since the prior study. CT/CT angio chest PE protcl [id number] IMPRESSION: 1. No pulmonary emboli. 2. RIGHT lower lobe bronchial secretions obstructing the airway. 3. New scattered bilateral opacities probably due to pneumonitis. 4. Mild volume loss LEFT thorax. 5. Cardiomegaly.
[2022-06-03] MEDS: iohexol 350 mg/mL 500 mL Btl (per mL) IV (14:28)
--- NOTE | 2022-06-03 15:29 | ECG_ITS ---
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 Measurements Intervals [place] Rate: 51 P: 75 [place]: 150 QRS: 78 QRSD: 81 T: 38 QT: 424 QTc: 392 Interpretive Statements SINUS BRADYCARDIA POSSIBLE RIGHT VENTRICULAR CONDUCTION DELAY [RSR (QR) IN V1/V2] Compared to ECG 06/03/2022 11:29:28 No significant changes Electronically Signed On 06-04-2022 13:16:08 INCIDENT RESPONSE ENGINEER by Sandy Maldonado M.D. [id number]
[2022-06-03 18:12] LABS: Adenovirus Not Detected (NOT DETECT); Chlamydia Pneumoniae Not Detected (NOT DETECT); Coronavirus 229E,HKU1,NL63,OC4 Not Detected (NOT DETECT); Human Metapneumovirus Not Detected (NOT DETECT); Human Rhinovirus/Enterovirus Not Detected (NOT DETECT); Influenza A Not Detected (NOT DETECT); Influenza A H1 Not Detected (NOT DETECT); Influenza A H1-2009 Not Detected (NOT DETECT); Influenza A H3 Not Detected (NOT DETECT); Influenza B Not Detected (NOT DETECT); Mycoplasma Pneumoniae Not Detected (NOT DETECT); Parainfluenza Virus Type 1 Not Detected (NOT DETECT); Parainfluenza Virus Type 2 Not Detected (NOT DETECT); Parainfluenza Virus Type 3 Not Detected (NOT DETECT); Parainfluenza Virus Type 4 Not Detected (NOT DETECT); Respiratory Syncytial Virus A Not Detected (NOT DETECT); Respiratory Syncytial Virus B Not Detected (NOT DETECT); SARS-COV-2 Not Detected (NOT DETECT)
[2022-06-03 18:14] LABS: Results from GENMARK
== END 2022-06-03 16:32 | disposition home or self-care (01) ==
PROVIDERS: Emergency Provider Family Medicine; PCP Family Medicine
DX: J18.9 Pneumonia, unspecified organism (principal); T17.590A Other foreign object in bronchus causing asphyxiation, initial encounter; X58.XXXA Exposure to other specified factors, initial encounter; Z20.822 Contact with and (suspected) exposure to COVID-19; I25.2 Old myocardial infarction
CPT/HCPCS: 36415; 71045; 71275; 80053; 84484; 85025; 87631; 87635; 93005; 96374; 96375; 99285; J2270; J2405; Q9967

== ENCOUNTER 2022-07-25 16:43 | Emergency (ER) | payer MEDICARE, MEDICAID, SELFPAY ==
[2022-07-25 16:48] VITALS: BP 144/68; PULSE 59; RESP 13; TEMP 37.1; O2SAT 98; BMI 19.1
--- NOTE | 2022-07-25 17:00 | ECG_ITS ---
[facility] Test Date: 2022-07-25 Pat Name: Amy Nguyen Department: Room: Gender: Female Park Guide: : 1955 Requested By: José Miguel Ferguson Order Number: [id number] Alejandra MD: Fausto Hannon M.D. Measurements Intervals [place] Rate: 58 P: 72 [place]: 147 QRS: 86 QRSD: 82 T: 61 QT: 393 QTc: 389 Interpretive Statements SINUS BRADYCARDIA MODERATE ST DEPRESSION [0.05+ mV ST DEPRESSION] Compared to ECG 06/03/2022 15:42:09 ST (T wave) deviation now present Electronically Signed On 07-25-2022 21:41:16 PLATE FILLER by Fausto Hannon M.D. [id number]
--- NOTE | 2022-07-25 17:18 | XRR_ITS ---
PROCEDURE INFORMATION: Exam: XR Chest Exam date and time: 07/25/2022 5:31 PM Age: 67 years old Clinical indication: Pain; Chest pressure; Prior surgery; Surgery date: 6+ months; Surgery type: Lung; Additional info: Chest pain TECHNIQUE: Imaging protocol: Radiologic exam of the chest. Views: 1 view. COMPARISON: CR XR chest 1V portable [id number] 06/03/2022 9:40 AM FINDINGS: Lungs: Lungs are clear. Pleural spaces: There is no pleural effusion or pneumothorax. Heart/Mediastinum: Cardiomediastinal contours are unremarkable. Bones/joints: Bones are unremarkable. XR/XR chest 1V portable [id number] IMPRESSION: No acute findings.
--- NOTE | 2022-07-25 17:20 | ED_ITS ---
Documented by User: ASHLEY Reyes 07/25/22 18:47 HPI - Chest Pain General: Chief Complaint: Chest Pain Stated Complaint: CHEST PAIN Time Seen by Provider: 07/25/22 17:18 History of Present Illness: 67-year-old female comes in today with complaints of left anterior chest wall pain at the clavicle radiating up into her neck. Patient reports that the pain is recurrent but was worse today causing her to come in to be seen in the emergency department. Patient appears nontoxic. Patient reports that she is to have a CT scan done tomorrow to evaluate abnormalities in her chest. Patient does have a history of pericarditis, hypertension, osteoporosis, and hyperparathyroidism. Associated symptoms: Deny fever(s) Review of Systems Const: Denies: fever(s) Card: Reports: chest pain [facility] ED PFSH: Medical History Choledocholithiasis Chronic bronchitis Chronic cholecystitis with calculus Irritable bowel syndrome Myocardial infarction Surgical History H/O: hysterectomy History of lung surgery History of tonsillectomy History of tracheostomy Family History Father CAD (coronary artery disease) Mother CAD (coronary artery disease) Social History Smoking and tobacco status: never smoked Alcohol intake: never Physical Exam Const: COMMON NORMALS: alert HENMT: COMMON NORMALS: normocephalic HEAD & SCALP: normocephalic Neck/C-Spine: CERVICAL SPINE: Yes Paracervical muscle tenderness left Chest: CHEST: Yes tenderness (Sternoclavicular border left side) Resp: COMMON NORMALS: normal respiratory effort and clear to auscultation bilaterally AUSCULTATION: clear to auscultation bilaterally Cardio: COMMON NORMALS: regular rate and regular rhythm RATE: regular rate RHYTHM: regular rhythm GI: PALPATION: No Tenderness to palpation present (GI) Back/Pelvis: COMMON NORMALS: thoracic and lumbar spine normal to inspection Extremity: COMMON NORMALS: full ROM Neuro: SENSORIUM/ORIENTATION: Yes alert Skin: COMMON NORMALS: turgor normal GENERAL SKIN EXAM: turgor normal Course Vital Signs: Vital signs: Vital Signs Temperature 98.7 F 07/25/22 16:48 Pulse Rate 55 L 07/25/22 18:58 Respiratory Rate 16 07/25/22 18:58 Blood Pressure 143/75 07/25/22 18:58 Pulse Oximetry 99 07/25/22 18:58 Oxygen Delivery Me thod 07/25/22 16:48 MDM - Chest Pain Medical Decision Making 67-year-old female comes in today with complaints of recurrent chest wall pain and neck pain that was worse today. Patient's routine medications of gabapentin and Celebrex did not control her pain. Respirations were even lungs were clear to auscultation. Abdomen soft nontender. No edema was noted in the extremities. Patient had some tenderness along the sternoclavicular border. Differential diagnosis includes but not limited to arthritis, angina, ACS, intervertebral disc disease, facet arthropathy. EKG showed a sinus rhythm with no ectopy or ST elevation. Laboratory values noted a troponin in normal range, CBC was unremarkable, CRP was normal, and CMP was unremarkable. Patient had reproducible chest wall pain on palpation. Patient also had some tenderness in the neck. Believe patient's pain is related to musculoskeletal issues. Patient had improvement in pain after 1 hydrocodone. Recommended patient continue for routine medications. Patient was given a short prescription for tramadol to use as needed for severe pain. Patient reported understanding of care plan and need for follow-up with primary care or return to ER for worsening symptoms. Lab Data 07/25/22 17:30 07/25/22 17:30 Radiology Impressions Chest X-Ray 07/25/22 17:18 IMPRESSION: No acute findings. Laboratory Results WBC 6.4 10^3/uL (4.0-10.0) 07/25/22 17:30 RBC 4.79 10^6/uL (4.1-5.3) 07/25/22 17:30 Hgb 13.6 g/dL (11.5-15.3) 07/25/22 17:30 Hct 41.8 % (37.0-47.0) 07/25/22 17:30 MCV 87.3 fl (81-99) 07/25/22 17: MCH 28.4 pg (28.0-34.0) 07/25/22 17:30 MCHC 32.5 g/dL (30.0-36.0) 07/25/22 17: RDW 13.2 % (12.1-15.1) 07/25/22 17: Plt Count 181 10^3/cmm (130-400) 07/25/22 17:30 MPV 10.5 fL (7.4-10.4) H 07/25/22 17:30 Neut % (Auto) 56.6 % 07/25/22 17:30 Lymph % (Auto) 32.6 % 07/25/22 17:30 [place] % (Auto) 8.6 % 07/25/22 17:30 Eos % (Auto) 1.4 % 07/25/22 17:30 Baso % (Auto) 0.6 % 07/25/22 17:30 Neut # (Auto) 3.63 10^3/uL (1.8-7.7) 07/25/22 17:30 Lymph # (Auto) 2.1 10^3/uL (0.8-4.8) 07/25/22 17:30 [place] # (Auto) 0.6 10^3/uL (0.2-0.9) 07/25/22 17:30 Eos # (Auto) 0.1 10^3/uL (0.0-0.8) 07/25/22 17:30 Baso # (Auto) 0.0 10^3/uL (0.0-0.1) 07/25/22 17: Nucleated RBC % (auto) 0 % 07/25/22 17: Nucleated RBCs # 0.0 /100WBC 07/25/22 17:30 PT 12.70 SECONDS (12.1-14.9) 07/25/22 17:30 INR 0.92 (0.8-1.2) 07/25/22 17: APTT 23.6 SECONDS (23.9-36.7) L 07/25/22 17:30 Sodium 135 mmol/L (136-145) L 07/25/22 17:30 Potassium 3.9 mmol/L (3.5-5.1) 07/25/22 17: Chloride 99 mmol/L (98-107) 07/25/22 17:30 Carbon Dioxide 26 mmol/L (22-29) 07/25/22 17:30 Anion Gap 13.9 (5-19) 07/25/22 17:30 BUN 7 mg/dL (8-23) L 07/25/22 17:30 Creatinine 0.6 mg/dL (0.5-0.9) 07/25/22 17:30 GFR Calculation 99.1 mL/min (90-130) 07/25/22 17: Glucose 109 mg/dL (65-115) 07/25/22 17:30 Calculated Osmolality 279 mOsm/kg (285-295) L 07/25/22 17:30 Calcium 10.3 mg/dL (8.5-10.5) 07/25/22 17:30 Total Bilirubin 0.4 mg/dL (0.15-1.2) 07/25/22 17:30 AST 21 U/L (0-32) 07/25/22 17:30 ALT 15 U/L (0-33) 07/25/22 17:30 Alkaline Phosphatase 60 U/L (35-105) 07/25/22 17:30 Troponin T Baseline 6 ng/L (0-10) 07/25/22 17:30 C-Reactive Protein 3.0 mg/L (0.0-4.9) 07/25/22 17:30 NT-Pro-B Natriuret Pep 338 pg/mL (0-125) H 07/25/22 17:30 Total Protein 6.7 g/dL (6.6-8.7) 07/25/22 17:30 Albumin 4.4 g/dL (3.5-5.2) 07/25/22 17:30 Globulin 2.3 g/dL (1.3-4.6) 07/25/22 17:30 Imaging Data CXR: My impression: No acute abnormality was noted on x-ray. EKG Data EKG 1: EKG interpretation date: 07/25/22 EKG interpretation time: 17:18 Interpretation: EKG shows a sinus rhythm with a regular rate at [address] elevation or ectopy was noted. No prior exam was available for comparison. Discharge Plan Discharge Patient Disposition: Home Clinical Impression: Anterior chest wall pain Condition: Stable Prescriptions: New tramadol 50 mg tablet 50 mg PO BID PRN (Reason: pain (scale score 7-10)) Qty: 14 0RF No Action cholecalciferol (vitamin D3) 25 mcg (1,000 unit) capsule 25 mcg PO DAILY PRN (Reason: unknown) alendronate 70 mg tablet 70 mg PO Q7D Rx Instructions: on Tuesdays albuterol sulfate [ProAir HFA] 90 mcg/actuation HFA aerosol inhaler 1 - 2 puff INHALATION Q4H PRN (Reason: Shortness Of Breath) fluticasone propionate 50 mcg/actuation spray,suspension 1 spray INTRANASAL BID PRN (Reason: Allergy Symptoms) metoprolol succinate 100 mg tablet extended release 24 hr 50 mg PO BID Nitrostat 0.4 mg Tablet, Sublingual 0.4 mg SUBLINGUAL Q5M PRN (Reason: Chest Pain) Rx Instructions: do not exceed 3 doses per episode albuterol sulfate 90 mcg/actuation HFA aerosol inhaler 2 inh INHALATION Q4H PRN (Reason: shortness of breath or wheezing) Qty: 18 0RF prednisone 20 mg tablet 20 mg PO TID Qty: 15 0RF Rx Instructions: 1 p.o. 3 times daily x3 days, 1 p.o. twice daily x2 days, 1 p.o. daily x2 days celecoxib 200 mg capsule 200 mg PO DAILY PRN (Reason: Pain) atorvastatin 20 mg tablet 20 mg PO QPM lisinopril 20 mg tablet 10 mg PO QAM gabapentin 100 mg capsule 100 mg PO TID Discharge Orders: Discharge ED (Routine); Ordered 07/25/22 Ordered By: José Miguel Sol Referrals: Michael Phillips MD [Primary Care Provider] - Discharge Diet: Usual diet Discharge Activity: Increase activity as tolerated Patient Instructions: Musculoskeletal Pain (ED) Activity Restrictions/Additional Instructions: Drink plenty of water with medications. Continue with routine medications as directed. Use [id number] acetaminophen as needed for pain. Use tramadol 50 mg 1 tablet 2 times a day as needed for severe pain. Follow-up with primary care in 1 week for recheck. Return to ED for new concerns or worsening symptoms. Coding Level of Care Code ED Inspector Final Assembly Conveyor Line for Chg Fwd Exam Comprehensive Documented by User: Jaya Barton DO 07/25/22 19:36 HPI - Chest Pain General: Chief Complaint: Chest Pain Stated Complaint: CHEST PAIN Time Seen by Provider: 07/25/22 17:18 PFSH ED PFSH: Medical History Choledocholithiasis Chronic bronchitis Chronic cholecystitis with calculus Irritable bowel syndrome Myocardial infarction Surgical History H/O: hysterectomy History of lung surgery History of tonsillectomy History of tracheostomy Family History Father CAD (coronary artery disease) Mother CAD (coronary artery disease) Social History Smoking and tobacco status: never smoked Alcohol intake: never Course Vital Signs: Vital signs: Vital Signs Temperature 98.7 F 07/25/22 16:48 Pulse Rate 55 L 07/25/22 18:58 Respiratory Rate 16 07/25/22 18:58 Blood Pressure 143/75 07/25/22 18:58 Pulse Oximetry 99 07/25/22 18:58 Oxygen Delivery Me thod 07/25/22 16:48 MDM - Chest Pain Medical Decision Making 67-year-old female comes in today with complaints of recurrent chest wall pain and neck pain that was worse today. Patient's routine medications of gabapentin and Celebrex did not control her pain. Respirations were even lungs were clear to auscultation. Abdomen soft nontender. No edema was noted in the extremities. Patient had some tenderness along the sternoclavicular border. Differential diagnosis includes but not limited to arthritis, angina, ACS, intervertebral disc disease, facet arthropathy. EKG showed a sinus rhythm with no ectopy or ST elevation. Laboratory values noted a troponin in normal range, CBC was unremarkable, CRP was normal, and CMP was unremarkable. Patient had reproducible chest wall pain on palpation. Patient also had some tenderness in the neck. Believe patient's pain is related to musculoskeletal issues. Patient had improvement in pain after 1 hydrocodone. Recommended patient continue for routine medications. Patient was given a short prescription for tramadol to use as needed for severe pain. Patient reported understanding of care plan and need for follow-up with primary care or return to ER for worsening symptoms. This patient was originally seen by ASHLEY Li.? I agree with his history, evaluation, and treatment. Lab Data 07/25/22 17:30 07/25/22 17:30 Radiology Impressions Chest X-Ray 07/25/22 17:18 IMPRESSION: No acute findings. Laboratory Results WBC 6.4 10^3/uL (4.0-10.0) 07/25/22 17: RBC 4.79 10^6/uL (4.1-5.3) 07/25/22 17: Hgb 13.6 g/dL (11.5-15.3) 07/25/22 17: Hct 41.8 % (37.0-47.0) 07/25/22 17: MCV 87.3 fl (81-99) 07/25/22 17: MCH 28.4 pg (28.0-34.0) 07/25/22 17: MCHC 32.5 g/dL (30.0-36.0) 07/25/22 17: RDW 13.2 % (12.1-15.1) 07/25/22 17: Plt Count 181 10^3/cmm (130-400) 07/25/22 17: MPV 10.5 fL (7.4-10.4) H 07/25/22 17:30 Neut % (Auto) 56.6 % 07/25/22 17:30 Lymph % (Auto) 32.6 % 07/25/22 17:30 [place] % (Auto) 8.6 % 07/25/22 17:30 Eos % (Auto) 1.4 % 07/25/22 17: Baso % (Auto) 0.6 % 07/25/22 17:30 Neut # (Auto) 3.63 10^3/uL (1.8-7.7) 07/25/22 17:30 Lymph # (Auto) 2.1 10^3/uL (0.8-4.8) 07/25/22 17:30 [place] # (Auto) 0.6 10^3/uL (0.2-0.9) 07/25/22 17:30 Eos # (Auto) 0.1 10^3/uL (0.0-0.8) 07/25/22 17:30 Baso # (Auto) 0.0 10^3/uL (0.0-0.1) 07/25/22 17:30 Nucleated RBC % (auto) 0 % 07/25/22 17: Nucleated RBCs # 0.0 /100WBC 07/25/22 17:30 PT 12.70 SECONDS (12.1-14.9) 07/25/22 17: INR 0.92 (0.8-1.2) 07/25/22 17: APTT 23.6 SECONDS (23.9-36.7) L 07/25/22 17:30 Sodium 135 mmol/L (136-145) L 07/25/22 17:30 Potassium 3.9 mmol/L (3.5-5.1) 07/25/22 17: Chloride 99 mmol/L (98-107) 07/25/22 17: Carbon Dioxide 26 mmol/L (22-29) 07/25/22 17:30 Anion Gap 13.9 (5-19) 07/25/22 17:30 BUN 7 mg/dL (8-23) L 07/25/22 17:30 Creatinine 0.6 mg/dL (0.5-0.9) 07/25/22 17:30 GFR Calculation 99.1 mL/min (90-130) 07/25/22 17: Glucose 109 mg/dL (65-115) 07/25/22 17:30 Calculated Osmolality 279 mOsm/kg (285-295) L 07/25/22 17:30 Calcium 10.3 mg/dL (8.5-10.5) 07/25/22 17:30 Total Bilirubin 0.4 mg/dL (0.15-1.2) 07/25/22 17:30 AST 21 U/L (0-32) 07/25/22 17:30 ALT 15 U/L (0-33) 07/25/22 17:30 Alkaline Phosphatase 60 U/L (35-105) 07/25/22 17:30 Troponin T Baseline 6 ng/L (0-10) 07/25/22 17:30 C-Reactive Protein 3.0 mg/L (0.0-4.9) 07/25/22 17:30 NT-Pro-B Natriuret Pep 338 pg/mL (0-125) H 07/25/22 17:30 Total Protein 6.7 g/dL (6.6-8.7) 07/25/22 17:30 Albumin 4.4 g/dL (3.5-5.2) 07/25/22 17:30 Globulin 2.3 g/dL (1.3-4.6) 07/25/22 17:30 Discharge Plan Discharge Patient Disposition: Home Clinical Impression: Anterior chest wall pain Condition: Stable Prescriptions: New tramadol 50 mg tablet 50 mg PO BID PRN (Reason: pain (scale score 7-10)) Qty: 14 0RF No Action cholecalciferol (vitamin D3) 25 mcg (1,000 unit) capsule 25 mcg PO DAILY PRN (Reason: unknown) alendronate 70 mg tablet 70 mg PO Q7D Rx Instructions: on Tuesdays albuterol sulfate [ProAir HFA] 90 mcg/actuation HFA aerosol inhaler 1 - 2 puff INHALATION Q4H PRN (Reason: Shortness Of Breath) fluticasone propionate 50 mcg/actuation spray,suspension 1 spray INTRANASAL BID PRN (Reason: Allergy Symptoms) metoprolol succinate 100 mg tablet extended release 24 hr 50 mg PO BID Nitrostat 0.4 mg Tablet, Sublingual 0.4 mg SUBLINGUAL Q5M PRN (Reason: Chest Pain) Rx Instructions: do not exceed 3 doses per episode albuterol sulfate 90 mcg/actuation HFA aerosol inhaler 2 inh INHALATION Q4H PRN (Reason: shortness of breath or wheezing) Qty: 18 0RF prednisone 20 mg tablet 20 mg PO TID Qty: 15 0RF Rx Instructions: 1 p.o. 3 times daily x3 days, 1 p.o. twice daily x2 days, 1 p.o. daily x2 days celecoxib 200 mg capsule 200 mg PO DAILY PRN (Reason: Pain) atorvastatin 20 mg tablet 20 mg PO QPM lisinopril 20 mg tablet 10 mg PO QAM gabapentin 100 mg capsule 100 mg PO TID Discharge Orders: Discharge ED (Routine); Ordered 07/25/22 Ordered By: José Miguel Sol Referrals: Michael Phillips MD [Primary Care Provider] - Discharge Diet: Usual diet Discharge Activity: Increase activity as tolerated Patient Instructions: Musculoskeletal Pain (ED) Activity Restrictions/Additional Instructions: Drink plenty of water with medications. Continue with routine medications as directed. Use [id number] acetaminophen as needed for pain. Use tramadol 50 mg 1 tablet 2 times a day as needed for severe pain. Follow-up with primary care in 1 week for recheck. Return to ED for new concerns or worsening symptoms. Coding Level of Care Code ED Inspector Final Assembly Conveyor Line for Chg Fwd Exam Comprehensive
[2022-07-25] MEDS: HYDROcodone-acetaminophen 5-325 mg Tablet 1 TAB PO (17:39)
[2022-07-25 17:41] LABS: Basophils % 0.6 %; Eosinophils # 0.1 10^3/uL (0.0-0.8); Eosinophils % 1.4 %; Hematocrit 41.8 % (37.0-47.0); Hemoglobin 13.6 g/dL (11.5-15.3); Lymphocytes # 2.1 10^3/uL (0.8-4.8); Lymphocytes % 32.6 %; Mean Corpuscular HGB Conc 32.5 g/dL (30.0-36.0); Mean Corpuscular Hemoglobin 28.4 pg (28.0-34.0); Mean Corpuscular Volume 87.3 fl (81-99); Mean Platelet Volume 10.5 fL (7.4-10.4); Monocytes # 0.6 10^3/uL (0.2-0.9); Monocytes % 8.6 %; Neutrophils # 3.63 10^3/uL (1.8-7.7); Neutrophils % 56.6 %; Nucleated Red Blood Cells % 0 %; Platelet Count 181 10^3/cmm (130-400); Red Blood Count 4.79 10^6/uL (4.1-5.3); Red Cell Distribution Width 13.2 % (12.1-15.1); White Blood Count 6.4 10^3/uL (4.0-10.0)
[2022-07-25 17:57] LABS: INR 0.92 (0.8-1.2)
[2022-07-25 17:58] LABS: Partial Thromboplastin Time 23.6 SECONDS (23.9-36.7)
[2022-07-25 18:11] LABS: Troponin(5th) Baseline 6 ng/L (0-10)
[2022-07-25 18:14] LABS: Alanine Aminotransferase 15 U/L (0-33); Albumin Level 4.4 g/dL (3.5-5.2); Alkaline Phosphatase 60 U/L (35-105); Anion Gap 13.9 (5-19); Aspartate Amino Transferase 21 U/L (0-32); Blood Urea Nitrogen 7 mg/dL (8-23); Calcium 10.3 mg/dL (8.5-10.5); Carbon Dioxide 26 mmol/L (22-29); Chloride 99 mmol/L (98-107); Globulin 2.3 g/dL (1.3-4.6); Glomerular Filtration Rate 99.1 mL/min (90-130); Glucose 109 mg/dL (65-115); NT Pro B Type Natriuretic Pept 338 pg/mL (0-125); Osmolality Calculated 279 mOsm/kg (285-295); Potassium 3.9 mmol/L (3.5-5.1); Sodium 135 mmol/L (136-145); Total Bilirubin 0.4 mg/dL (0.15-1.2); Total Protein 6.7 g/dL (6.6-8.7)
[2022-07-25 18:58] VITALS: BP 143/75; PULSE 55; RESP 16; O2SAT 99
== END 2022-07-25 18:59 | disposition home or self-care (01) ==
PROVIDERS: Emergency Provider Nurse Practitioner Family; PCP Family Medicine
DX: R07.89 Other chest pain (principal); I25.2 Old myocardial infarction
CPT/HCPCS: 36415; 71045; 80053; 83880; 84484; 85025; 85610; 85730; 86140; 93005; 99285

== ENCOUNTER 2022-08-11 07:43 | Outpatient (CLI) | payer MEDICARE, MEDICAID, SELFPAY ==
--- NOTE | 2022-08-11 | CT_ITS ---
WS: [id number] CT CHEST WITH INTRAVENOUS CONTRAST HISTORY: Abnormal chest radiograph. TECHNIQUE: Contiguous 5 mm axial imaging performed on the thorax. Coronal and sagittal reformats are submitted. All CT scans at [facility] use at least one of these dose optimization techniques: automated exposure control; mA and/or kV adjustment per patient size (includes targeted exams where dose is matched to clinical indication); or iterative reconstruction. CONTRAST: Omnipaque 350; 100 mL IV. DLP: 222.68 mGy.cm COMPARISON: 07/25/2022, 06/03/2022, CT 06/03/2022 Lungs and central airway: Volume loss in the LEFT thorax due to LEFT lower lobectomy. LEFT apical ple ural thickening with fibrosis and scarring is unchanged. Nodularity in the central LEFT remaining elliot g similar to prior studies dating back to 02/28/2019 and probably chronic atelectasis or fibrotic tissu e. No recurrent mass is identified. RIGHT lung is hyperexpanded. RIGHT lower lobe bronchial wall thic kening. Endobronchial mucus in the RIGHT lower lobe. Similar to prior studies. Mild endobronchial thi ckening in the RIGHT lower lobe. Pleura: Normal. No pleural effusion. Heart and pericardium: Heart is markedly enlarged and shifted to the LEFT due to volume loss. Mediastinum and roderick: No mediastinum or hilar adenopathy. Vessels: Mildly ectatic thoracic aorta. Normal size pulmonary artery. Chest wall and lower neck: No soft tissue masses. Upper abdomen: No adrenal mass. Visualized liver is negative. Osseous structures: Osteopenia with thoracolumbar scoliosis. CT/CT chest w con* [id number] IMPRESSION: 1. Status post LEFT lower lobectomy. 2. Fibrotic scar tissue at the LEFT lung apex. 3. LEFT lung is very similar in appearance to prior studies dating back to . 4. Enlarged heart. 5. Mild endobronchial mucus RIGHT lower lobe. Similar to prior study from 06/03. Very minimal endobronchial thickening in the RIGHT lower lobe is unchang ed.
== END 2022-08-11 07:44 | disposition home or self-care (01) ==
LOC: RAD 07:44
PROVIDERS: PCP Family Medicine; Visit Provider Family Medicine
DX: R93.89 Abnormal findings on diagnostic imaging of other specified body structures (principal)
CPT/HCPCS: 71260; Q9967

== ENCOUNTER 2022-10-04 12:49 | Emergency (ER) | payer MEDICARE, MEDICAID, SELFPAY ==
--- NOTE | 2022-10-04 12:55 | XR_ITS ---
WS: [id number] EXAMINATION: XR chest 1V portable [id number] REASON FOR EXAM: dyspnea/cough COMPARISON: 07/25/2022 ORDER DATE: 10/04/2022 12:55 PM TECHNIQUE: A single, portable frontal chest x-ray was obtained. FINDINGS: Lungs: Triangular-shaped opacity in the medial left lung base contributing to opacification of the le ft costophrenic angle. Possible atelectasis and/or pleural effusion. There is left apical pleural thi ckening. Pleural spaces: No pneumothorax. Heart/Mediastinum: Cardiomediastinal contours are unremarkable. Bones/joints: Prominent dextroscoliosis midthoracic region with compensatory curvature in the lumbar area. XR/XR chest 1V portable [id number] IMPRESSION: Left lower lobe consolidation or partial collapse perhaps slightly more promine nt compared with the previous study. A lateral view would be beneficial to further evaluate the opacity
[2022-10-04 12:58] VITALS: PULSE 57; RESP 27; BMI 18.6
--- NOTE | 2022-10-04 13:04 | ECG_ITS ---
[facility] Test Date: 2022-10-04 Pat Name: Amy Nguyen Department: Room: Gender: Female Check Weigher: : 1955 Requested By: Aman Leal Order Number: [id number] Alejandra MD: Kyaw Del Cid M.D. Measurements Intervals [place] Rate: 49 P: 75 HI: 145 QRS: 79 QRSD: 85 T: 60 QT: 414 QTc: 375 Interpretive Statements SINUS BRADYCARDIA LEFT ATRIAL ENLARGEMENT [-0.15mV P-WAVE IN V1/V2] POSSIBLE RIGHT VENTRICULAR CONDUCTION DELAY [RSR (QR) IN V1/V2] Compared to ECG 07/25/2022 17:00:30 Atrial abnormality now present ST (T wave) deviation no longer present Electronically Signed On 10-04-2022 23:41:08 CDT by Kyaw Del Cid M.D. [email or web address]
--- NOTE | 2022-10-04 13:12 | ED_ITS ---
HPI - Chest Pain General: Chief Complaint: Chest Pain Stated Complaint: CHEST PAIN Time Seen by Provider: 10/04/22 12:54 Source: patient Mode of arrival: ambulatory History of Present Illness: 67-year-old female presents emergency room planing of chest pain intermittently for the last week. At times it will radiate to the left arm. She states she has been taking nitro daily for the last month. She increased her metoprolol on her own over the last month. She was given aspirin in route. She has a history of pericarditis. She tells me that several decades ago she had a heart attack when I delve further into what this was told her after bronchoscopy and questioning if it may have not been an EKG change she has not had bypass or angiogram in the past. MD complaint: chest pain Pertinent past history: coronary artery disease Onset (ago): minute(s) Timing of current episode: episodic Prior episodes: Yes Onset: during rest Pain location: substernal Pain radiation: none Relieving factors: nothing Exacerbating factors: nothing Associated symptoms: Deny abdominal pain, diaphoresis, dyspnea, fever(s), leg edema, nausea, palpitations, sense of impending doom, syncope or vomiting Treatment prior to arrival: none Review of Systems Const: Denies: fever(s), chills, fatigue, malaise or diaphoresis ENMT: Denies: throat pain, ear or mastoid pain, nasal discharge or nasal congestion Card: Reports: chest pain; Denies: palpitations, irregular heart rhythm, edema, swelling of feet/ankles or syncope Resp: Denies: dyspnea or productive cough GI: Denies: abdominal pain, nausea or vomiting : Denies: flank pain, difficulty voiding, dysuria, urinary frequency or urinary urgency Musc: Reports: neck pain Skin/Breast: Denies: rash or pruritus PFSH ED PFSH: Medical History Choledocholithiasis Chronic bronchitis Chronic cholecystitis with calculus Irritable bowel syndrome Myocardial infarction Surgical History H/O: hysterectomy History of lung surgery History of tonsillectomy History of tracheostomy Family History Father CAD (coronary artery disease) Mother CAD (coronary artery disease) Social History Smoking and tobacco status: never smoked Alcohol intake: never Physical Exam Const: GENERAL APPEARANCE: cooperative and comfortable ORIENTATION/CONSCIOUSNESS: Yes awake, Yes oriented to person, Yes oriented to place and Yes oriented to time HENMT: COMMON NORMALS: normocephalic, atraumatic and hearing grossly normal bilaterally HEAD & SCALP: normocephalic and atraumatic Resp: COMMON NORMALS: normal respiratory effort, No retractions, No use of accessory muscles and clear to auscultation bilaterally AUSCULTATION: clear to auscultation bilaterally Cardio: COMMON NORMALS: regular rate, regular rhythm and No murmurs present (Cardio) RATE: regular rate RHYTHM: regular rhythm GI: COMMON NORMALS: Soft to palpation and No hepatosplenomegaly present AUSCULTATION: Yes normoactive bowel sounds PALPATION: Yes Soft to palpation, No Tenderness to palpation present (GI), No Guarding due to palpation present (GI) and Yes No hepatosplenomegaly present Extremity: COMMON NORMALS: normal to inspection, capillary refill normal, no clubbing, cyanosis or edema, no calf tenderness and no pedal edema Neuro: SENSORIUM/ORIENTATION: Yes oriented to person, Yes oriented to place and Yes oriented to time Skin: COMMON NORMALS: no rashes or lesions noted GENERAL SKIN EXAM: no rashes or lesions noted Course Vital Signs: Vital signs: Vital Signs Pulse Rate 46 L 10/04/22 14:58 Respiratory Rate 18 10/04/22 14:58 Blood Pressure 154/67 10/04/22 14:58 MDM - Chest Pain Medical Decision Making Labs imaging and EKG reviewed. White count normal. Patient has a left lower lobe pneumonia. She had a previous injury to her left arm and has some chronic pain there I think that may be part of it as well. We will discharge patient home on oral antibiotics there is no pneumothorax no acute coronary syndrome at this time. Have her return to the emergency room she has any further problems. Reviewing her old records she had problems with mucous plugging in her bronchi in the past as well. She should follow-up with pulmonology to her primary care doctor. Medical Records I reviewed the patient's medical records. Lab Data I reviewed the patient's lab results. 10/04/22 13:10 10/04/22 13:10 Radiology Impressions Chest X-Ray 10/04/22 12:55 IMPRESSION: Left lower lobe consolidation or partial collapse perhaps slightly more prominent compared with the previous study. A lateral view would be beneficial to further evaluate the opacity Laboratory Results WBC 8.0 10^3/uL (4.0-10.0) 10/04/22 13:10 RBC 4.68 10^6/uL (4.1-5.3) 10/04/22 13:10 Hgb 13.2 g/dL (11.5-15.3) 10/04/22 13:10 Hct 40.8 % (37.0-47.0) 10/04/22 13:10 MCV 87.2 fl (81-99) 10/04/22 13:10 MCH 28.2 pg (28.0-34.0) 10/04/22 13:10 MCHC 32.4 g/dL (30.0-36.0) 10/04/22 13:10 RDW 13.2 % (12.1-15.1) 10/04/22 13:10 Plt Count 176 10^3/cmm (130-400) 10/04/22 13:10 MPV 10.4 fL (7.4-10.4) 10/04/22 13:10 Neut % (Auto) 62.1 % 10/04/22 13:10 Lymph % (Auto) 26.9 % 10/04/22 13:10 [place] % (Auto) 8.0 % 10/04/22 13:10 Eos % (Auto) 2.1 % 10/04/22 13:10 Baso % (Auto) 0.6 % 10/04/22 13:10 Neut # (Auto) 4.94 10^3/uL (1.8-7.7) 10/04/22 13:10 Lymph # (Auto) 2.1 10^3/uL (0.8-4.8) 10/04/22 13:10 [place] # (Auto) 0.6 10^3/uL (0.2-0.9) 10/04/22 13:10 Eos # (Auto) 0.2 10^3/uL (0.0-0.8) 10/04/22 13:10 Baso # (Auto) 0.1 10^3/uL (0.0-0.1) 10/04/22 13:10 Nucleated RBC % (auto) 0 % 10/04/22 13:10 Nucleated RBCs # 0.0 /100WBC 10/04/22 13:10 Sodium 133 mmol/L (136-145) L 10/04/22 13:10 Potassium 5.0 mmol/L (3.5-5.1) 10/04/22 13:10 Chloride 98 mmol/L (98-107) 10/04/22 13:10 Carbon Dioxide 26 mmol/L (22-29) 10/04/22 13:10 Anion Gap 14.0 (5-19) 10/04/22 13:10 BUN 8 mg/dL (8-23) 10/04/22 13:10 Creatinine 0.6 mg/dL (0.5-0.9) 10/04/22 13:10 GFR Calculation 99.1 mL/min (90-130) 10/04/22 13:10 Glucose 88 mg/dL (65-115) 10/04/22 13:10 Calculated Osmolality 274 mOsm/kg (285-295) L 10/04/22 13:10 Calcium 10.3 mg/dL (8.5-10.5) 10/04/22 13:10 Total Bilirubin 0.4 mg/dL (0.15-1.2) 10/04/22 13:10 AST 23 U/L (0-32) 10/04/22 13:10 ALT 17 U/L (0-33) 10/04/22 13:10 Alkaline Phosphatase 59 U/L (35-105) 10/04/22 13:10 Troponin T Baseline 6 ng/L (0-10) 10/04/22 13:10 Troponin T 120 Minute 6.00 ng/L (0-10) 10/04/22 15:06 Delta Troponin T 0 ABS# (0-10) 10/04/22 15:06 Total Protein 6.4 g/dL (6.6-8.7) L 10/04/22 13:10 Albumin 4.0 g/dL (3.5-5.2) 10/04/22 13:10 Globulin 2.4 g/dL (1.3-4.6) 10/04/22 13:10 Discharge Plan Discharge Patient Disposition: Home Clinical Impression: Pneumonia Condition: Stable Prescriptions: New levofloxacin 750 mg tablet 750 mg PO DAILY 7 Days Qty: 7 0RF No Action cholecalciferol (vitamin D3) 25 mcg (1,000 unit) capsule 25 mcg PO DAILY PRN (Reason: unknown) alendronate 70 mg tablet 70 mg PO Q7D Rx Instructions: on Tuesdays albuterol sulfate [ProAir HFA] 90 mcg/actuation HFA aerosol inhaler 1 - 2 puff INHALATION Q4H PRN (Reason: Shortness Of Breath) fluticasone propionate 50 mcg/actuation spray,suspension 1 spray INTRANASAL BID PRN (Reason: Allergy Symptoms) metoprolol succinate 100 mg tablet extended release 24 hr 50 mg PO BID Nitrostat 0.4 mg Tablet, Sublingual 0.4 mg SUBLINGUAL Q5M PRN (Reason: Chest Pain) Rx Instructions: do not exceed 3 doses per episode albuterol sulfate 90 mcg/actuation HFA aerosol inhaler 2 inh INHALATION Q4H PRN (Reason: shortness of breath or wheezing) Qty: 18 0RF prednisone 20 mg tablet 20 mg PO TID Qty: 15 0RF Rx Instructions: 1 p.o. 3 times daily x3 days, 1 p.o. twice daily x2 days, 1 p.o. daily x2 days tramadol 50 mg tablet 50 mg PO BID PRN (Reason: pain (scale score 7-10)) Qty: 14 0RF celecoxib 200 mg capsule 200 mg PO DAILY PRN (Reason: Pain) atorvastatin 20 mg tablet 20 mg PO QPM lisinopril 20 mg tablet 10 mg PO QAM gabapentin 100 mg capsule 100 mg PO TID Discharge Orders: Discharge ED (Routine); Ordered 10/04/22 Ordered By: Aman Stevenson Referrals: Michael Phillips MD [Primary Care Provider] - Discharge Diet: Usual diet Discharge Activity: Increase activity as tolerated Patient Instructions: Opioid Safety, Pain Management Activity Restrictions/Additional Instructions: You were seen today with complaints of chest discomfort. Your EKG and cardiac enzymes were negative your chest x-ray showed a potential lower lobe pneumonia recommend that you take a course of antibiotics and follow-up with your primary care doctor if symptoms are persisting you may need further evaluation. Coding Level of Care Code ED Telephone Switchboard Operator for Julian Andrews
[2022-10-04 13:20] LABS: Basophils # 0.1 10^3/uL (0.0-0.1); Basophils % 0.6 %; Eosinophils # 0.2 10^3/uL (0.0-0.8); Eosinophils % 2.1 %; Hematocrit 40.8 % (37.0-47.0); Hemoglobin 13.2 g/dL (11.5-15.3); Lymphocytes # 2.1 10^3/uL (0.8-4.8); Lymphocytes % 26.9 %; Mean Corpuscular HGB Conc 32.4 g/dL (30.0-36.0); Mean Corpuscular Hemoglobin 28.2 pg (28.0-34.0); Mean Corpuscular Volume 87.2 fl (81-99); Mean Platelet Volume 10.4 fL (7.4-10.4); Monocytes # 0.6 10^3/uL (0.2-0.9); Neutrophils # 4.94 10^3/uL (1.8-7.7); Neutrophils % 62.1 %; Nucleated Red Blood Cells % 0 %; Platelet Count 176 10^3/cmm (130-400); Red Blood Count 4.68 10^6/uL (4.1-5.3); Red Cell Distribution Width 13.2 % (12.1-15.1)
[2022-10-04 13:37] LABS: Troponin(5th) Baseline 6 ng/L (0-10)
[2022-10-04 13:38] LABS: Alanine Aminotransferase 17 U/L (0-33); Alkaline Phosphatase 59 U/L (35-105); Aspartate Amino Transferase 23 U/L (0-32); Blood Urea Nitrogen 8 mg/dL (8-23); Calcium 10.3 mg/dL (8.5-10.5); Carbon Dioxide 26 mmol/L (22-29); Chloride 98 mmol/L (98-107); Globulin 2.4 g/dL (1.3-4.6); Glomerular Filtration Rate 99.1 mL/min (90-130); Glucose 88 mg/dL (65-115); Osmolality Calculated 274 mOsm/kg (285-295); Sodium 133 mmol/L (136-145); Total Bilirubin 0.4 mg/dL (0.15-1.2); Total Protein 6.4 g/dL (6.6-8.7)
--- NOTE | 2022-10-04 14:57 | ECG_ITS ---
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 Measurements Intervals [place] Rate: 48 P: 59 NC: 147 QRS: 85 QRSD: 87 T: 47 QT: 440 QTc: 394 Interpretive Statements SINUS BRADYCARDIA POSSIBLE LEFT ATRIAL ENLARGEMENT [-0.1mV P-WAVE IN V1/V2] Compared to ECG 10/04/2022 13:04:29 No significant changes Electronically Signed On 10-04-2022 23:50:17 CDT by Kyaw Del Cid M.D. [id number]
[2022-10-04 14:58] VITALS: BP 154/67; PULSE 46; RESP 18
[2022-10-04 15:36] LABS: Troponin 5 2HR Delta 0 ABS# (0-10)
== END 2022-10-04 17:02 | disposition home or self-care (01) ==
PROVIDERS: Emergency Provider Family Medicine; PCP Family Medicine
DX: J18.9 Pneumonia, unspecified organism (principal); I25.2 Old myocardial infarction
CPT/HCPCS: 36415; 71045; 80053; 84484; 85025; 93005; 99285

== ENCOUNTER 2022-12-08 10:06 | Emergency (ER) | payer MEDICARE, MEDICAID, SELFPAY ==
[2022-12-08] VITALS (7 sets, daily range): BP systolic 99–126; BP diastolic 53–96; PULSE 47–57; RESP 17–18; TEMP 36.6; O2SAT 97–100; BMI 20.5
--- NOTE | 2022-12-08 | CT_ITS ---
WS: [id number] CT ABDOMEN AND PELVIS WITH CONTRAST HISTORY: R Side abdominal pain, nausea TECHNIQUE: Imaging performed of the abdomen and pelvis with IV contrast. Single phase imaging of the abdomen. Coronal and sagittal reformats are submitted. All CT scans at [facility] use at [address] one of these dose optimization techniques: automated exposure control; mA and/or kV adjustment per patient size (includes targeted exams where dose is matched to clinical indication); or iterative re construction. IV CONTRAST: Omnipaque 350; 100 mL IV. Oral contrast: No DLP: 329.08 mGy.cm COMPARISON: 09/21/2021 and 08/11/2022 Lower thorax: Low-attenuation in the RIGHT lower lobe. Favor this is fluid within the bronchial tree as also seen on 08/11/2022. Moderate cardiac enlargement. No hiatal hernia. Liver/biliary system: Normal size liver. Very mild central bile duct dilatation is probably related t o postcholecystectomy state. Gallbladder: Status post cholecystectomy. Pancreas: Atrophied. Spleen: Normal size spleen. No mass or infarct. Adrenal glands: Normal. Right kidney: Normal size kidney. Too small to characterize hypodensities in the cortex. No obstructi on. Left kidney: Normal size kidney. No solid mass. Several too small to characterize hypodensities in th e cortex. Aorta: Moderate atherosclerotic plaque within the aorta. Calcified plaque at the origins of the trent c axis and SMA. Lymphadenopathy: None. Free fluid: None. GI tract: Stomach is moderately distended with fluid. No small bowel obstruction. Increase fluid in t he cecum and RIGHT colon. Distal small bowel loops are also very mildly distended with fluid. There i s no obstructive pattern at this time. The appendix is normal. Abdominal wall: Unremarkable abdominal wall. No hernia. Pelvis: No free fluid or adenopathy within the pelvis. Bones: Unremarkable. CT/CT abdomen pelvis w con* [id number] IMPRESSION: 1. No acute abdominal or pelvic abnormalities are identified. 2. Mild increase fluid in the ascending colon and distal small bowel. Probably gastroenteritis. Very early small bowel obstruction may appear similar. At thi s time no significantly dilated loops of GI tract. 3. Normal appendix. 4. Prior cholecystectomy.
--- NOTE | 2022-12-08 10:31 | W.ED.ABDPA2 ---
HPI - Abdominal Pain General: Chief Complaint: Abdominal Pain Stated Complaint: abd pain Time Seen by Provider: 12/08/22 10:14 History of Present Illness: Pt is a 67 y/o female that comes to the ED with Abdominal pain and nausea. Pt has been having these symptoms for the past 3 weeks. Last night the abdominal pain got worse and woke her up from sleep. she rates her abdominal pain a 8 out of 10. She states the pain is constant aching and sharp pain in the right side of her abdomen that occasionally radiates to the left side of her abdomen. Eating food seems to improve pain for a couple hours. Denies any other worsening or improving factors.Deines any fevers, chest pain, sob, bladder or bowel symptoms. Past surgical history of left lung lobectomy and cholecystectomy. Associated Symptoms: Reports nausea; Denies chills, constipation, diarrhea, dysuria, fever(s), hematochezia, hematuria and vomiting Review of Systems Const: Denies: fever(s), chills or fatigue Eyes: Denies: change in vision or eye discomfort ENMT: Denies: throat pain, odynophagia, nasal discharge or nasal congestion Card: Denies: chest pain, palpitations, edema, swelling of feet/ankles, dyspnea on exertion or orthopnea Resp: Denies: dyspnea, productive cough or non-productive cough GI: Reports: abdominal pain and nausea; Denies: vomiting, diarrhea, constipation or hematochezia : Denies: flank pain, dysuria or hematuria Musc: Denies: neck pain, back pain or extremity swelling Skin/Breast: Denies: rash or new lesions Neuro: Denies: headache(s), numbness in extremities or weakness in extremities PFSH ED PFSH: Medical History Choledocholithiasis Chronic bronchitis Chronic cholecystitis with calculus Irritable bowel syndrome Myocardial infarction Surgical History H/O: hysterectomy History of lung surgery History of tonsillectomy History of tracheostomy Family History Father CAD (coronary artery disease) Mother CAD (coronary artery disease) Social History (Reviewed 10/04/22 @ 13:33 by FIFI Roger Smoking and tobacco status: never smoked Alcohol intake: never Substance/Drug Use: never Physical Exam Const: COMMON NORMALS: no acute distress, patient oriented x3, healthy appearing and alert GENERAL APPEARANCE: cooperative and comfortable HENMT: COMMON NORMALS: normocephalic HEAD & SCALP: normocephalic MOUTH: Normal oral and palatal mucosa present THROAT: posterior oropharynx normal and uvula midline Neck/C-Spine: COMMON NORMALS: supple GENERAL: Yes normal visual inspection Resp: COMMON NORMALS: normal respiratory effort, No retractions, No use of accessory muscles and clear to auscultation bilaterally AUSCULTATION: clear to auscultation bilaterally Cardio: COMMON NORMALS: regular rate, regular rhythm, S1 normal heart sound present, S2 normal heart sound present, No gallops present (Cardio), No clicks present (Cardio), No murmurs present (Cardio) and Peripheral pulses 2+ throughout RATE: regular rate RHYTHM: regular rhythm HEART SOUNDS: S1 normal heart sound present and S2 normal heart sound present PERIPHERAL PULSES: Peripheral pulses 2+ throughout GI: COMMON NORMALS: Normal to inspection, nondistended, normoactive bowel sounds present, Soft to palpation and no masses PALPATION: Yes Soft to palpation and Yes Tenderness to palpation present (GI) Details: RLQ and RUQ : COMMON NORMALS: Yes no CVA tenderness BLADDER/KIDNEY EXAM: Yes no CVA tenderness Back/Pelvis: COMMON NORMALS: no CVA tenderness Extremity: COMMON NORMALS: normal to inspection Neuro: COMMON NORMALS: patient oriented x3 SENSORIUM/ORIENTATION: Yes alert GAIT: Yes Normal gait present Skin: GENERAL SKIN EXAM: dry skin Course Vital Signs: Vital signs: Vital Signs Temperature 97.9 F 12/08/22 10:21 Pulse Rate 47 L 12/08/22 14:28 Respiratory Rate 18 12/08/22 14:28 Blood Pressure 125/53 12/08/22 14:28 Pulse Oximetry 99 12/08/22 14:28 Oxygen Delivery Me thod Room Air 12/08/22 14:28 MDM - Abdominal Pain Medical Decision Making Pt is a 67 y/o female that comes to the ED with Abdominal pain and nausea. Pt has been having these symptoms for the past 3 weeks. Last night the abdominal pain got worse and woke her up from sleep. she rates her abdominal pain a 8 out of 10. She states the pain is constant aching and sharp pain in the right side of her abdomen that occasionally radiates to the left side of her abdomen. Eating food seems to improve pain for a couple hours. Denies any other worsening or improving factors.Deines any fevers, chest pain, sob, bladder or bowel symptoms. Past surgical history of left lung lobectomy and cholecystectomy. Vitals are stable. Patient appears nontoxic in no acute distress or pain. Right-sided abdominal tenderness but no localized tenderness noted. Rest of exam is benign. CBC is unremarkable. Patient's potassium was 5.2 and the rest of CMP is unremarkable. Lipase and UA were unremarkable as well. EKG showed no acute findings and no changes to T waves. CT abdomen pelvis shows no acute findings but noted a little bit of small bowel bowel inflammation suggestive of gastroenteritis. Patient was given IV nausea and pain meds and her symptoms resolved. She was stable for discharge home and diagnosed with abdominal pain and hyperkalemia. She was told to follow-up with her PCP in the next 3 to 5 days for reevaluation and to have her potassium levels rechecked. She was sent home with a prescription for pain and nausea meds. Return ED precautions given. Patient understood and agreed with plan. Lab Data I reviewed the patient's lab results. 12/08/22 11:00 12/08/22 12:00 Labs/Radiology: Radiology Impressions Abdomen/Pelvis CT 12/08/22 00:00 IMPRESSION: 1. No acute abdominal or pelvic abnormalities are identified. 2. Mild increase fluid in the ascending colon and distal small bowel. Probably gastroenteritis. Very early small bowel obstruction may appear similar. At this time no significantly dilated loops of GI tract. 3. Normal appendix. 4. Prior cholecystectomy. Laboratory Results WBC 6.0 10^3/uL (4.0-10.0) 12/08/22 11:00 RBC 5.47 10^6/uL (4.1-5.3) H 12/08/22 11:00 Hgb 15.2 g/dL (11.5-15.3) 12/08/22 11:00 Hct 47.5 % (37.0-47.0) H 12/08/22 11:00 MCV 86.8 fl (81-99) 12/08/22 11:00 MCH 27.8 pg (28.0-34.0) L 12/08/22 11:00 MCHC 32.0 g/dL (30.0-36.0) 12/08/22 11:00 RDW 13.2 % (12.1-15.1) 12/08/22 11:00 Plt Count 215 10^3/cmm (130-400) 12/08/22 11:00 MPV 10.5 fL (7.4-10.4) H 12/08/22 11:00 Neut % (Auto) 57.0 % 12/08/22 11:00 Lymph % (Auto) 31.0 % 12/08/22 11:00 [place] % (Auto) 9.3 % 12/08/22 11:00 Eos % (Auto) 1.7 % 12/08/22 11:00 Baso % (Auto) 0.8 % 12/08/22 11:00 Neut # (Auto) 3.42 10^3/uL (1.8-7.7) 12/08/22 11:00 Lymph # (Auto) 1.9 10^3/uL (0.8-4.8) 12/08/22 11:00 [place] # (Auto) 0.6 10^3/uL (0.2-0.9) 12/08/22 11:00 Eos # (Auto) 0.1 10^3/uL (0.0-0.8) 12/08/22 11:00 Baso # (Auto) 0.1 10^3/uL (0.0-0.1) 12/08/22 11:00 Nucleated RBC % (auto) 0 % 12/08/22 11:00 Nucleated RBCs # 0.0 /100WBC 12/08/22 11:00 Sodium 139 mmol/L (136-145) 12/08/22 12:00 Potassium 5.2 mmol/L (3.5-5.1) H 12/08/22 12:00 Chloride 104 mmol/L (98-107) 12/08/22 12:00 Carbon Dioxide 26 mmol/L (22-29) 12/08/22 12:00 Anion Gap 14.2 (5-19) 12/08/22 12:00 BUN 10 mg/dL (8-23) 12/08/22 12:00 Creatinine 0.5 mg/dL (0.5-0.9) 12/08/22 12:00 GFR Calculation 122.3 mL/min (90-130) 12/08/22 12:00 Glucose 89 mg/dL (65-115) 12/08/22 12:00 Calculated Osmolality 287 mOsm/kg (285-295) 12/08/22 12:00 Calcium 10.3 mg/dL (8.5-10.5) 12/08/22 12:00 Total Bilirubin 0.6 mg/dL (0.15-1.2) 12/08/22 12:00 AST 60 U/L (0-32) H 12/08/22 12:00 ALT 27 U/L (0-33) 12/08/22 12:00 Alkaline Phosphatase 66 U/L (35-105) 12/08/22 12:00 Total Protein 6.6 g/dL (6.6-8.7) 12/08/22 12:00 Albumin 4.1 g/dL (3.5-5.2) 12/08/22 12:00 Globulin 2.5 g/dL (1.3-4.6) 12/08/22 12:00 Lipase Cancelled 12/08/22 11:00 Urine Color Light yellow (Yellow) 12/08/22 13:49 Urine Appearance Clear (CLEAR) 12/08/22 13:49 Urine pH 5 (5-7) 12/08/22 13:49 Ur Specific [place] 1.015 (1.005-1.030) 12/08/22 13:49 Urine Protein Neg (Negative) 12/08/22 13:49 Urine Glucose (UA) Norm (Normal) 12/08/22 13:49 Urine Ketones Negative (Negative) 12/08/22 13:49 Urine Blood Neg (Negative) 12/08/22 13:49 Urine Nitrate Negative (Negative) 12/08/22 13:49 Urine Bilirubin Neg (Negative) 12/08/22 13:49 Urine Urobilinogen Norm mg/dL (Negative) 12/08/22 13:49 Ur Leukocyte Esterase Negative (Negative) 12/08/22 13:49 EKG Data EKG 1: EKG interpretation date: 12/09/22 Interpretation: Sinus bradycardia, 48 bpm, no ST segment elevation or depression seen. No spike T waves noted. Discharge Plan Discharge Patient Disposition: Home Clinical Impression: Hyperkalemia Abdominal pain Qualifiers: Abdominal location: unspecified location Qualified Code(s): R10.9 - Unspecified abdominal pain Condition: Stable Prescriptions: New ondansetron 4 mg tablet,disintegrating 4 mg PO Q8H PRN (Reason: nausea and vomiting) Qty: 15 0RF No Action alendronate 70 mg tablet 70 mg PO Q7D Rx Instructions: on Tuesdays fluticasone propionate 50 mcg/actuation spray,suspension 1 spray INTRANASAL BID PRN (Reason: Allergy Symptoms) metoprolol succinate 100 mg tablet extended release 24 hr 100 mg PO BID nitroglycerin [Nitrostat] 0.4 mg Tablet, Sublingual 0.4 mg SUBLINGUAL Q5M PRN (Reason: Chest Pain) Rx Instructions: do not exceed 3 doses per episode albuterol sulfate 90 mcg/actuation HFA aerosol inhaler 2 inh INHALATION Q4H PRN (Reason: shortness of breath or wheezing) Qty: 18 0RF lisinopril 20 mg tablet 10 mg PO QAM gabapentin 100 mg capsule 100 mg PO TID Discharge Orders: Discharge ED (Routine); Ordered 12/08/22 Ordered By: Miles Tellez Referrals: Michael Phillips MD [Primary Care Provider] - Discharge Diet: Advance as tolerated and Clear Liquid Discharge Activity: Increase activity as tolerated Patient Instructions: Abdominal Pain (ED), Opioid Safety Activity Restrictions/Additional Instructions: Follow-up with medical provider as directed in the next 3 to 5 days for reevaluation and have your potassium levels rechecked at primary care's office. Take medications as prescribed. Return to the ER or your medical provider if condition worsens. Please read and understand discharge instructions. Thank you for choosing [facility] for your healthcare needs today. Please realize this is an emergency room and that we are providing you with a medical screening exam and this may not be complete and all inclusive of all the testing and or work up that you may need to determine your ailment or severity of your illness. It is very important that you follow up as instructed or that you return to the Emergency Department should you have concerns or if your condition changes or worsens in any way. Coding Level of Care Code ED Cruller Maker for Julian Andrews
[2022-12-08] MEDS: morphine 4 mg/mL SDV 1 mL IVP (11:05)
[2022-12-08] MEDS: sodium chloride 0.9% 1,000 ML 999 ML IV (11:06)
[2022-12-08] MEDS: ondansetron 2 mg/ML SDV 2 mL 4 MG IVP (11:06)
[2022-12-08 11:12] LABS: Basophils # 0.1 10^3/uL (0.0-0.1); Basophils % 0.8 %; Eosinophils # 0.1 10^3/uL (0.0-0.8); Eosinophils % 1.7 %; Hematocrit 47.5 % (37.0-47.0); Hemoglobin 15.2 g/dL (11.5-15.3); Lymphocytes # 1.9 10^3/uL (0.8-4.8); Mean Corpuscular Hemoglobin 27.8 pg (28.0-34.0); Mean Corpuscular Volume 86.8 fl (81-99); Mean Platelet Volume 10.5 fL (7.4-10.4); Monocytes # 0.6 10^3/uL (0.2-0.9); Monocytes % 9.3 %; Neutrophils # 3.42 10^3/uL (1.8-7.7); Nucleated Red Blood Cells % 0 %; Platelet Count 215 10^3/cmm (130-400); Red Blood Count 5.47 10^6/uL (4.1-5.3); Red Cell Distribution Width 13.2 % (12.1-15.1)
[2022-12-08 12:24] LABS: Alanine Aminotransferase 27 U/L (0-33); Albumin Level 4.1 g/dL (3.5-5.2); Alkaline Phosphatase 66 U/L (35-105); Blood Urea Nitrogen 10 mg/dL (8-23); Calcium 10.3 mg/dL (8.5-10.5); Carbon Dioxide 26 mmol/L (22-29); Chloride 104 mmol/L (98-107); Creatinine Clr Calc Pharmacy 57.1988; Globulin 2.5 g/dL (1.3-4.6); Glomerular Filtration Rate 122.3 mL/min (90-130); Glucose 89 mg/dL (65-115); Osmolality Calculated 287 mOsm/kg (285-295); Sodium 139 mmol/L (136-145); Total Bilirubin 0.6 mg/dL (0.15-1.2); Total Protein 6.6 g/dL (6.6-8.7)
[2022-12-08] MEDS: iohexol 350 mg/mL 500 mL Btl (per mL) IV (12:32)
[2022-12-08 13:12] LABS: Anion Gap 14.2 (5-19); Aspartate Amino Transferase 60 U/L (0-32); Potassium 5.2 mmol/L (3.5-5.1)
--- NOTE | 2022-12-08 13:25 | ECG_ITS ---
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 Measurements Intervals [place] Rate: 48 P: 80 NC: 150 QRS: 89 QRSD: 93 T: 66 QT: 453 QTc: 408 Interpretive Statements SINUS BRADYCARDIA POSSIBLE LEFT ATRIAL ENLARGEMENT [-0.1mV P-WAVE IN V1/V2] Compared to ECG 10/04/2022 15:22:51 No significant changes Electronically Signed On 12-08-2022 13:54:57 CDT by Fausto Hannon M.D. [id number]
--- NOTE | 2022-12-08 13:34 | PC.NURSE ---
bladder scanner showed 270mL in bladder
[2022-12-08 13:57] LABS: Add Urine Microscopic? NO; Charge for UA Resulting for Rev
[2022-12-08 13:59] LABS: Specific Gravity, Urine 1.015 (1.005-1.030); Urine Appearance Clear (CLEAR); Urine Color Light yellow (Yellow); pH Urine 5 (5-7)
[2022-12-08 14:00] LABS: Bilirubin Urine Neg (Negative); Blood Urine Neg (Negative); Glucose Urine UA Norm (Normal); Ketones Urine Negative (Negative); Leukocyte Esterase Urine Negative (Negative); Nitrate Urine Negative (Negative); Protein Urine Neg (Negative); Urobilinogen Urine Norm (Negative)
== END 2022-12-08 15:03 | disposition home or self-care (01) ==
PROVIDERS: Emergency Provider Physician Assistant; PCP Family Medicine
DX: R10.31 Right lower quadrant pain (principal); R10.32 Left lower quadrant pain; E87.5 Hyperkalemia
CPT/HCPCS: 51798; 74177; 80053; 81003; 85025; 93005; 96374; 96375; 99285; J2270; J2405; J7030; Q9967

== ENCOUNTER 2023-02-07 16:43 | Emergency (ER) | payer MEDICARE, MEDICAID, SELFPAY ==
[2023-02-07 16:56] VITALS: BP 168/80; PULSE 67; RESP 16; TEMP 36.7; O2SAT 97; BMI 19.7
--- NOTE | 2023-02-07 17:20 | ECG_ITS ---
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 Measurements Intervals [place] Rate: 69 P: 68 [place]: 152 QRS: 81 QRSD: 87 T: 44 QT: 351 QTc: 378 Interpretive Statements SINUS RHYTHM POSSIBLE LEFT ATRIAL ENLARGEMENT [-0.1mV P-WAVE IN V1/V2] NONSPECIFIC T-WAVE ABNORMALITY Compared to ECG 12/08/2022 13:40:43 T-wave abnormality now present Sinus bradycardia no longer present Electronically Signed On 02-08-2023 3:50:05 CDT by Sandy Maldonado M.D. [id number]
--- NOTE | 2023-02-07 17:20 | XRR_ITS ---
PROCEDURE INFORMATION: Exam: XR Chest Exam date and time: 02/07/2023 5:27 PM Age: 67 years old Clinical indication: Pain; Chest pressure; Prior surgery; Surgery date: 6+ months; Surgery type: Lobectomy; Additional info: Chest pain TECHNIQUE: Imaging protocol: Radiologic exam of the chest. Views: 1 view. COMPARISON: CR XR chest 1V portable [id number] 10/04/2022 1:25 PM FINDINGS: Lungs: The lungs are hyperinflated but free of acute disease. Pleural spaces: Unremarkable. No pleural effusion. No pneumothorax. Heart/Mediastinum: Unremarkable. No cardiomegaly. Bones/joints: Stable dextroscoliosis of the thoracic spine. No acute findings. XR/XR chest 1V portable [id number] IMPRESSION: Stable nonacute findings. COPD.
--- NOTE | 2023-02-07 17:21 | W.ED.CHESTPA ---
HPI - Chest Pain General: Chief Complaint: Chest Pain Stated Complaint: chest pain Time Seen by Provider: 02/07/23 17:02 History of Present Illness: 67-year-old female presents emergency room with a complaint of chest pain within the past 2 days. Patient described the pain as tightness across his chest with severity of 7 out of 10. She also reveals some productive cough denies coughing up blood or vomiting blood. No leg swelling or calf tenderness. Presents emergency room today because of her cardiac history. She denies any history of coronary disease but had pericarditis when she was younger. Associated symptoms: Reports dyspnea; Deny syncope Review of Systems General: Reports: 10 or more systems reviewed and unremarkable except in HPI and below Card: Reports: chest pain; Denies: swelling of feet/ankles, lightheadedness, syncope, dyspnea on exertion, orthopnea, leg pain with exertion or acrocyanosis Resp: Reports: dyspnea, productive cough and chest congestion; Denies: non-productive cough, wheezing, stridor, pain on inspiration or hemoptysis PFSH ED PFSH: Medical History Choledocholithiasis Chronic bronchitis Chronic cholecystitis with calculus Irritable bowel syndrome Myocardial infarction Surgical History H/O: hysterectomy History of lung surgery History of tonsillectomy History of tracheostomy Family History Father CAD (coronary artery disease) Mother CAD (coronary artery disease) Social History Smoking and tobacco status: never smoked Alcohol intake: never Substance/Drug Use: never Physical Exam Const: COMMON NORMALS: no acute distress, average body habitus, patient oriented x3, no limitations, healthy appearing, alert and well nourished Neck/C-Spine: COMMON NORMALS: no JVD Chest: COMMONS NORMALS: normal inspection of the chest, normal palpation of entire chest wall, normal inspection of the breasts and normal palpation of the breasts Breast/axilla inspection: Yes normal inspection of the breasts BREAST/AXILLA PALPATION: Yes normal palpation of the breasts Resp: COMMON NORMALS: normal respiratory effort, No retractions, No use of accessory muscles, clear to auscultation bilaterally and percussion normal AUSCULTATION: clear to auscultation bilaterally PERCUSSION: percussion normal Cardio: COMMON NORMALS: no JVD, regular rate, regular rhythm, S1 normal heart sound present, S2 normal heart sound present, No gallops present (Cardio), No clicks present (Cardio), No murmurs present (Cardio), No rub (Cardio) and Peripheral pulses 2+ throughout RATE: regular rate RHYTHM: regular rhythm HEART SOUNDS: S1 normal heart sound present and S2 normal heart sound present PERIPHERAL PULSES: Peripheral pulses 2+ throughout Extremity: COMMON NORMALS: normal to inspection, full ROM, capillary refill normal, no joint enlargement, no clubbing, cyanosis or edema, no calf tenderness and no pedal edema Neuro: COMMON NORMALS: patient oriented x3 SENSORIUM/ORIENTATION: Yes alert Skin: COMMON NORMALS: no rashes or lesions noted, no wounds, turgor normal, no jaundice, no petechiae and no mottling GENERAL SKIN EXAM: no rashes or lesions noted and turgor normal Course Reevaluation(s): Reevaluation #1: Upon reassessment patient reveals diminished pain at this time I discussed the x-ray, EKG and blood work with the patient. Vital Signs: Vital signs: Vital Signs Temperature 98.1 F 02/07/23 16:56 Pulse Rate 52 L 02/07/23 20:00 Respiratory Rate 16 02/07/23 20:00 Blood Pressure 170/79 02/07/23 20:00 Pulse Oximetry 99 02/07/23 20:00 Oxygen Delivery Me thod Room Air 02/07/23 16:56 MDM - Chest Pain Medical Decision Making Patient was made comfortable emergency room. Patient had extensive work-up done including. I personally reviewed past medical history and medication list. Patient had extensive work-up and serial cardiac enzymes done with EKG. Signs of acute injury to the heart. Given for the patient was coughing and has some congestion patient be treated for bronchitis. Follow-up cardiology recommended. Lab Data 02/07/23 17:29 02/07/23 17:29 Radiology Impressions Chest X-Ray 02/07/23 17:20 IMPRESSION: Stable nonacute findings. COPD. Laboratory Results WBC 6.6 10^3/uL (4.0-10.0) 02/07/23: RBC 5.25 10^6/uL (4.1-5.3) 02/07/23: Hgb 14.8 g/dL (11.5-15.3) 02/07/23: Hct 44.9 % (37.0-47.0) 02/07/23: MCV 85.5 fl (81-99) 02/07/23: MCH 28.2 pg (28.0-34.0) 02/07/23 MCHC 33.0 g/dL (30.0-36.0) 02/07/23 RDW 13.2 % (12.1-15.1) 02/07/23 Plt Count 211 10^3/cmm (130-400) 02/07/23: MPV 11.5 fL (7.4-10.4) H 02/07/23 Neut % (Auto) 53.5 % 02/07/23: Lymph % (Auto) 35.3 % 02/07/23: [place] % (Auto) 8.4 % 02/07/23 Eos % (Auto) 1.7 % 02/07/23 Baso % (Auto) 0.8 % 02/07/23 Neut # (Auto) 3.51 10^3/uL (1.8-7.7) 02/07/23: Lymph # (Auto) 2.3 10^3/uL (0.8-4.8) 02/07/23: [place] # (Auto) 0.6 10^3/uL (0.2-0.9) 02/07/23 Eos # (Auto) 0.1 10^3/uL (0.0-0.8) 02/07/23 Baso # (Auto) 0.1 10^3/uL (0.0-0.1) 02/07/23: Nucleated RBC % (auto) 0 % 02/07/23 Nucleated RBCs # 0.0 /100WBC 08/14/23 17:29 D-Dimer 0.32 ug/mIFEU (0-0.59) 02/07/23 17:29 Sodium 135 mmol/L (136-145) L 02/07/23 17:29 Potassium 4.0 mmol/L (3.5-5.1) 02/07/23 17:29 Chloride 101 mmol/L (98-107) 02/07/23 17:29 Carbon Dioxide 23 mmol/L (22-29) 02/07/23 17:29 Anion Gap 15.0 (5-19) 02/07/23 17:29 BUN 9 mg/dL (8-23) 02/07/23 17:29 Creatinine 0.5 mg/dL (0.5-0.9) 02/07/23 17:29 GFR Calculation 122.3 mL/min (90-130) 02/07/23 17:29 Glucose 107 mg/dL (65-115) 02/07/23 17:29 Calculated Osmolality 279 mOsm/kg (285-295) L 02/07/23 17:29 Calcium 10.4 mg/dL (8.5-10.5) 02/07/23 17:29 Total Bilirubin 0.4 mg/dL (0.15-1.2) 02/07/23 17:29 AST 28 U/L (0-32) 02/07/23 17:29 ALT 20 U/L (0-33) 02/07/23 17:29 Alkaline Phosphatase 62 U/L (35-105) 02/07/23 17:29 Troponin T Baseline 6 ng/L (0-10) 02/07/23 17:29 Troponin T 120 Minute 6.00 ng/L (0-10) 02/07/23 19:15 Delta Troponin T 0 ABS# (0-10) 02/07/23 19:15 NT-Pro-B Natriuret Pep 140 pg/mL (0-125) H 02/07/23 17:29 Total Protein 7.1 g/dL (6.6-8.7) 02/07/23 17:29 Albumin 4.4 g/dL (3.5-5.2) 02/07/23 17:29 Globulin 2.7 g/dL (1.3-4.6) 02/07/23 17:29 EKG Data EKG 1: Computer generated interpretation: Sinus rhythm without any ST elevation ST changes. Rate of 67. OH interval 149 QT interval 396 Discharge Plan Discharge Patient Disposition: Home Clinical Impression: Atypical chest pain, Bronchitis Condition: Stable Prescriptions: New Medrol (Francisco Javier) 4 mg tablets,dose pack 4 mg PO DAILY Qty: 21 0RF Zithromax Z-Francisco Javier 250 mg tablet 250 mg PO DAILY 6 Days Qty: 6 0RF Rx Instructions: start on day 2 of therapy No Action alendronate 70 mg tablet 70 mg PO Q7D Rx Instructions: on Tuesdays fluticasone propionate 50 mcg/actuation spray,suspension 1 spray INTRANASAL BID PRN (Reason: Allergy Symptoms) metoprolol succinate 100 mg tablet extended release 24 hr 100 mg PO BID nitroglycerin [Nitrostat] 0.4 mg Tablet, Sublingual 0.4 mg SUBLINGUAL Q5M PRN (Reason: Chest Pain) Rx Instructions: do not exceed 3 doses per episode albuterol sulfate 90 mcg/actuation HFA aerosol inhaler 2 inh INHALATION Q4H PRN (Reason: shortness of breath or wheezing) Qty: 18 0RF lisinopril 20 mg tablet 10 mg PO QAM gabapentin 100 mg capsule 100 mg PO TID ondansetron 4 mg tablet,disintegrating 4 mg PO Q8H PRN (Reason: nausea and vomiting) Qty: 15 0RF Discharge Orders: Discharge ED (Routine); Ordered 02/07/23 Ordered By: Baltazar Avila Referrals: Michael Phillips MD [Primary Care Provider] - Discharge Diet: Advance as tolerated Discharge Activity: Resume usual activity Patient Instructions: Opioid Safety, Pain Management Coding Level of Care Code ED Produce Weigher for Julian Andrews
[2023-02-07] MEDS: aspirin 81 mg Chew Tablet 324 MG PO (17:30)
[2023-02-07] MEDS: nitroglycerin 1 gm/inch oint Pkt 0.5 INCH TOPICAL (17:31)
[2023-02-07 17:34] VITALS: BP 156/68; PULSE 59; RESP 16; O2SAT 99
[2023-02-07 17:51] LABS: D Dimer 0.32 ug/mIFEU (0-0.59)
[2023-02-07 18:00] VITALS: BP 161/73; PULSE 55; RESP 16; O2SAT 99
[2023-02-07 18:09] LABS: Troponin(5th) Baseline 6 ng/L (0-10)
[2023-02-07 18:16] LABS: Alanine Aminotransferase 20 U/L (0-33); Albumin Level 4.4 g/dL (3.5-5.2); Alkaline Phosphatase 62 U/L (35-105); Blood Urea Nitrogen 9 mg/dL (8-23); Calcium 10.4 mg/dL (8.5-10.5); Carbon Dioxide 23 mmol/L (22-29); Chloride 101 mmol/L (98-107); Creatinine Clr Calc Pharmacy 56.2483; Globulin 2.7 g/dL (1.3-4.6); Glomerular Filtration Rate 122.3 mL/min (90-130); Glucose 107 mg/dL (65-115); NT Pro B Type Natriuretic Pept 140 pg/mL (0-125); Osmolality Calculated 279 mOsm/kg (285-295); Sodium 135 mmol/L (136-145); Total Bilirubin 0.4 mg/dL (0.15-1.2); Total Protein 7.1 g/dL (6.6-8.7)
[2023-02-07 18:18] LABS: Aspartate Amino Transferase 28 U/L (0-32)
[2023-02-07 19:00] VITALS: BP 158/71; PULSE 52; RESP 16; O2SAT 99
--- NOTE | 2023-02-07 19:23 | ECG_ITS ---
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 Measurements Intervals [place] Rate: 56 P: 73 NC: 149 QRS: 81 QRSD: 85 T: 55 QT: 396 QTc: 385 Interpretive Statements SINUS BRADYCARDIA POSSIBLE LEFT ATRIAL ENLARGEMENT [-0.1mV P-WAVE IN V1/V2] Compared to ECG 02/07/2023 17:00:43 Sinus rhythm no longer present T-wave abnormality no longer present Electronically Signed On 02-08-2023 3:51:04 CDT by Sandy Maldonado M.D. [id number]
[2023-02-07 19:44] LABS: Basophils # 0.1 10^3/uL (0.0-0.1); Basophils % 0.8 %; Eosinophils # 0.1 10^3/uL (0.0-0.8); Eosinophils % 1.7 %; Hematocrit 44.9 % (37.0-47.0); Hemoglobin 14.8 g/dL (11.5-15.3); Lymphocytes # 2.3 10^3/uL (0.8-4.8); Lymphocytes % 35.3 %; Mean Corpuscular Hemoglobin 28.2 pg (28.0-34.0); Mean Corpuscular Volume 85.5 fl (81-99); Mean Platelet Volume 11.5 fL (7.4-10.4); Monocytes # 0.6 10^3/uL (0.2-0.9); Monocytes % 8.4 %; Neutrophils # 3.51 10^3/uL (1.8-7.7); Neutrophils % 53.5 %; Nucleated Red Blood Cells % 0 %; Platelet Count 211 10^3/cmm (130-400); Red Blood Count 5.25 10^6/uL (4.1-5.3); Red Cell Distribution Width 13.2 % (12.1-15.1); White Blood Count 6.6 10^3/uL (4.0-10.0)
[2023-02-07 19:50] LABS: Troponin 5 2HR Delta 0 ABS# (0-10)
[2023-02-07 20:00] VITALS: BP 170/79; PULSE 52; RESP 16; O2SAT 99
== END 2023-02-07 20:32 | disposition home or self-care (01) ==
PROVIDERS: Emergency Provider Family Medicine; PCP Family Medicine
DX: R07.89 Other chest pain (principal); J40 Bronchitis, not specified as acute or chronic; I25.2 Old myocardial infarction
CPT/HCPCS: 71045; 80053; 83880; 84484; 85025; 85378; 93005; 99285

== ENCOUNTER 2023-04-22 10:30 | Emergency (ER) | payer MEDICARE, MEDICAID, SELFPAY ==
[2023-04-22 10:32] VITALS: BP 208/84; PULSE 71; RESP 18; TEMP 36.6; O2SAT 97; BMI 19.1
--- NOTE | 2023-04-22 10:32 | ECG_ITS ---
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 Measurements Intervals [place] Rate: 64 P: 72 CO: 143 QRS: 86 QRSD: 81 T: 59 QT: 360 QTc: 373 Interpretive Statements SINUS RHYTHM POSSIBLE LEFT ATRIAL ENLARGEMENT [-0.1mV P-WAVE IN V1/V2] Compared to ECG 02/07/2023 19:23:37 Sinus bradycardia no longer present Electronically Signed On 04-22-2023 16:26:21 CDT by Sandy Maldonado M.D. [id number] f
--- NOTE | 2023-04-22 10:38 | XR_ITS ---
WS: [id number] Exam: XR chest 1V portable [id number] Date/Time of Exam: 04/22/2023 10:48 AM Reason For Exam: chest pain Comparison 02/07/2023. The lungs are hyperinflated. No consolidating infiltrates are noted. Chronic pleural thickening at th e LEFT costophrenic angle. Bilateral apical pleural thickening. Dextroscoliosis of the T-spine. Cardi omediastinal silhouette is unremarkable. Remaining bony structures are intact. IMPRESSION: 1. Pulmonary hyperinflation which may indicate obstructive lung disease. No acute process. 2. Chronic findings as above.
--- NOTE | 2023-04-22 11:07 | ED_ITS ---
Documented by User: Bibiana Farrar PA-C 04/22/23 13:41 HPI - Chest Pain General: Chief Complaint: Chest Pain Stated Complaint: chest pain Time Seen by Provider: 04/22/23 10:38 Source: patient Mode of arrival: ambulatory Limitations: no limitations History of Present Illness: 68 yr old female with a hx of hypertension, chronic bronchitis and prior OR presents to the ER today for chest pain for the last 3-4 days. Pt reports no recent illness. She denies any fever or body aches. Pt reports this pain is intermittent. Usually seems worse in the am and in the evening. Pt reports it is worse with movement but not with exertion or deep breaths. Pain does radiate to the L shoulder. She reports some nausea but no vomiting or increased SOB. Pt reports a hx of atelectasis but does not know any specifics on that diagnosis. She reports she has gabapentin which she takes at home when the chest pain starts. She reports usually with rest and the gabapentin the chest pain improv es. Pt does not see a analytical technician. She reports hypertension and takes Metorpolol. Pt reports she did take that this morning and usually her BP is okay. Review of Systems General: Reports: 10 or more systems reviewed and unremarkable except in HPI and below PFSH ED PFSH: Medical History Choledocholithiasis Chronic bronchitis Chronic cholecystitis with calculus Irritable bowel syndrome Myocardial infarction Surgical History H/O: hysterectomy History of lung surgery History of tonsillectomy History of tracheostomy Family History Father CAD (coronary artery disease) Mother CAD (coronary artery disease) Social History Smoking and tobacco/nicotine status: never used tobacco/nicotine Alcohol intake: never Substance/Drug Use: never Physical Exam Const: COMMON NORMALS: no acute distress, patient oriented x3, no limitations and alert OTHER: thin and cachectic appearing HENMT: COMMON NORMALS: normocephalic, atraumatic, external ears normal, Normal external nose present and moist oral mucous membranes HEAD & SCALP: normocephalic and atraumatic NOSE: Normal external nose present EXTERNAL EAR: Yes external ears normal Eye: COMMON NORMALS: conjunctivae normal CONJUNCTIVA: Yes conjunctivae normal Neck/C-Spine: COMMON NORMALS: full ROM and no lymphadenopathy Chest: COMMONS NORMALS: normal inspection of the chest and normal palpation of entire chest wall Resp: COMMON NORMALS: normal respiratory effort and No retractions OTHER: chronically prolonged expirations Cardio: COMMON NORMALS: regular rate, regular rhythm and No murmurs present (Cardio) RATE: regular rate RHYTHM: regular rhythm GI: COMMON NORMALS: Normal to inspection, nondistended, normoactive bowel soun ds present, Soft to palpation and non-tender PALPATION: Yes Soft to palpation OTHER: thin Extremity: COMMON NORMALS: normal to inspection, full ROM and no pedal edema Neuro: COMMON NORMALS: patient oriented x3 SENSORIUM/ORIENTATION: Yes alert Psych: COMMON NORMALS: mental status grossly normal, Normal thought process present and cooperative THOUGHT PROCESS: Normal thought process present Skin: COMMON NORMALS: no rashes or lesions noted and no wounds GENERAL SKIN EXAM: no rashes or lesions noted Course ED course: Pt presents to the ER for several days of chest pain. Pt in no acute distress at this time. Will do full cardiac work up including chest xray, EKG, labs. No current pain at this time. Vital Signs: Vital signs: Vital Signs Temperature 97.8 F 04/22/23 10:32 Pulse Rate 71 04/22/23 10:32 Respiratory Rate 18 04/22/23 10:32 Blood Pressure 160/74 04/22/23 12:42 Pulse Oximetry 97 04/22/23 10:32 Oxygen Delivery Me thod Room Air 04/22/23 10:32 MDM - Chest Pain Medical Decision Making Patient's lab work is all unremarkable. Her pain did present some in the ER however with Toradol the pain resolved. EKG has some minor ST depression noted. Discussed with patient that she needs to follow-up with her primary care doctor and discuss cardiology referral. Patient reports she does not want any further cardiac testing done given her history of lung surgeries. Patient feels like this pain is associated with the shoulder pain she is experiencing due to muscle weakness from previous surgeries. We discussed a possible muscle relaxer to see if that helps the pain. Will also send pt home with toradol for pain as needed for a few days. Pts BP was elevated in the ER however after some time it did improve. We did give 0.1 of clonidine which helped some. Pt does have BP meds at home to take and denies any hx of elevated BP while on her medications regularly. Return to the ER with any new or worsening symptoms or if chest pain begins and does not improve with medications. Pt verbalized understanding and was in agreement with this treatment plan. Lab Data 04/22/23 11:21 04/22/23 11:21 Laboratory Results WBC 4.47 10^3/uL (3.29-11.43) 04/22/23 11:21 Corrected WBC Cancelled 04/22/23 10:43 RBC 4.55 10^6/uL (3.85-5.65) 04/22/23 11:21 Hgb 13.20 g/dL (11.27-16.99) 04/22/23 11:21 Hct 40.0 % (36-47) 04/22/23 11:21 MCV 87.9 fl (85-98) 04/22/23 11:21 MCH 29.0 pg (27-33) 04/22/23 11:21 MCHC 33.0 g/dL (30-55) 04/22/23 11:21 RDW 13.2 % (12.1-15.1) 04/22/23 11:21 Plt Count 173 10^3/cmm (157-399) 04/22/23 11:21 MPV 10.4 fL (7.4-10.4) 04/22/23 11:21 Gran % Cancelled 04/22/23 10:43 Neut % (Auto) 52.4 % 04/22/23 11:21 Lymph % (Auto) 32.4 % 04/22/23 11:21 [place] % (Auto) 11.4 % 04/22/23 11:21 Eos % (Auto) 2.7 % 04/22/23 11:21 Baso % (Auto) 0.7 % 04/22/23 11:21 Neut # (Auto) 2.34 10^3/uL (1.8-7.7) 04/22/23 11:21 Lymph # (Auto) 1.5 10^3/uL (0.8-4.8) 04/22/23 11:21 [place] # (Auto) 0.5 10^3/uL (0.2-0.9) 04/22/23 11:21 Eos # (Auto) 0.1 10^3/uL (0.0-0.8) 04/22/23 11:21 Baso # (Auto) 0.0 10^3/uL (0.0-0.1) 04/22/23 11:21 Absolute Gran (auto) Cancelled 04/22/23 10:43 Nucleated RBC % (auto) 0 % 04/22/23 11:21 Nucleated RBCs # 0.0 /100WBC 04/22/23 11:21 PT 12.70 SECONDS (12.1-14.9) 04/22/23 11:21 INR 0.93 (0.8-1.2) 04/22/23 11:21 APTT 24.4 SECONDS (23.9-36.7) 04/22/23 11:21 D-Dimer 0.47 ug/mLFEU (0-0.59) 04/22/23 11:21 Sodium 138 mmol/L (136-145) 04/22/23 11:21 Potassium 4.0 mmol/L (3.5-5.1) 04/22/23 11:21 Chloride 103 mmol/L (98-107) 04/22/23 11:21 Carbon Dioxide 27 mmol/L (22-29) 04/22/23 11:21 Anion Gap 12.0 (5-19) 04/22/23 11:21 BUN 8 mg/dL (8-23) 04/22/23 11:21 Creatinine 0.5 mg/dL (0.5-0.9) 04/22/23 11:21 GFR Calculation 122.0 mL/min (90-130) 04/22/23 11:21 Glucose 105 mg/dL (65-115) 04/22/23 11:21 Calculated Osmolality 285 mOsm/kg (285-295) 04/22/23 11:21 Calcium 10.2 mg/dL (8.5-10.5) 04/22/23 11:21 Total Bilirubin 0.5 mg/dL (0.15-1.2) 04/22/23 11:21 AST 20 U/L (0-32) 04/22/23 11:21 ALT 12 U/L (0-33) 04/22/23 11:21 Alkaline Phosphatase 62 U/L (35-105) 04/22/23 11:21 Creatine Kinase 29 U/L (26-192) 04/22/23 11:21 Troponin T Baseline < 6 ng/L (0-10) 04/22/23 11:21 NT-Pro-B Natriuret Pep 244 pg/mL (0-125) H 04/22/23 11:21 Total Protein 5.8 g/dL (6.6-8.7) L 04/22/23 11:21 Albumin 4.2 g/dL (3.5-5.2) 04/22/23 11:21 Globulin 1.6 g/dL (1.3-4.6) 04/22/23 11:21 Lipase 60 U/L (13-60) 04/22/23 11:21 Urine Color Yellow (Yellow) 04/22/23 12:50 Urine Appearance Clear (CLEAR) 04/22/23 12:50 Urine pH 7 (5-7) 04/22/23 12:50 Ur Specific [place] 1.010 (1.005-1.030) 04/22/23 12:50 Urine Protein Neg (Negative) 04/22/23 12:50 Urine Glucose (UA) Norm (Normal) 04/22/23 12:50 Urine Ketones Negative (Negative) 04/22/23 12:50 Urine Blood Neg (Negative) 04/22/23 12:50 Urine Nitrate Negative (Negative) 04/22/23 12:50 Urine Bilirubin Neg (Negative) 04/22/23 12:50 Urine Urobilinogen Norm mg/dL (Negative) 04/22/23 12:50 Ur Leukocyte Esterase Negative (Negative) 04/22/23 12:50 All radiology interpretation(s) finalized by discharge Critical Care Time Critical Care Time: Critical Care Time: No Discharge Plan Discharge Patient Disposition: Home Clinical Impression: Anterior chest wall pain Hypertension Qualifiers: Hypertension type: unspecified Qualified Code(s): I10 - Essential (primary) hypertension Condition: Stable Prescriptions: New methocarbamol 750 mg tablet 750 mg PO Q8H Qty: 21 0RF No Action alendronate 70 mg tablet 70 mg PO Q7D Rx Instructions: on Tuesdays fluticasone propionate 50 mcg/actuation spray,suspension 1 spray INTRANASAL BID PRN (Reason: Allergy Symptoms) metoprolol succinate 100 mg tablet extended release 24 hr 100 mg PO BID nitroglycerin [Nitrostat] 0.4 mg Tablet, Sublingual 0.4 mg SUBLINGUAL Q5M PRN (Reason: Chest Pain) Rx Instructions: do not exceed 3 doses per episode albuterol sulfate 90 mcg/actuation HFA aerosol inhaler 2 inh INHALATION Q4H PRN (Reason: shortness of breath or wheezing) Qty: 18 0RF pravastatin 10 mg tablet 5 mg PO QAM Aspir-81 81 mg Tablet,Delayed Release (Dr/Ec) 81 mg PO DAILY PRN (Reason: CHEST PAIN) lisinopril 20 mg tablet 10 mg PO QAM gabapentin 100 mg capsule 100 mg PO TID Discharge Orders: Discharge ED (Routine); Ordered 04/22/23 Ordered By: Bibiana Farrar Referrals: Michael Phillips MD [Primary Care Provider] - Discharge Diet: Usual diet Discharge Activity: Increase activity as tolerated Patient Instructions: Opioid Safety, Pain Management Activity Restrictions/Additional Instructions: Continue to take home medications. We will try methocarbamol for the left-sided shoulder pain so take as prescribed. Warm, moist heat recommended on the left shoulder. Prescription for ketorolac sent home with patient. She can use this as needed for pain. Recommend follow-up with PCP in 5 to 7 days. Return to the ER with new or worsening symptoms. Coding Level of Care Code ED Operations And Maintenance Specialist for [facility] Documented by User: Aman Stevenson DO 04/26/23 10:35 HPI - Chest Pain General: Chief Complaint: Chest Pain Stated Complaint: chest pain Time Seen by Provider: 04/22/23 10:38 PFSH ED PFSH: Medical History Choledocholithiasis Chronic bronchitis Chronic cholecystitis with calculus Irritable bowel syndrome Myocardial infarction Surgical History H/O: hysterectomy History of lung surgery History of tonsillectomy History of tracheostomy Family History Father CAD (coronary artery disease) Mother CAD (coronary artery disease) Social History Smoking and tobacco/nicotine status: never used tobacco/nicotine Alcohol intake: never Substance/Drug Use: never Course Vital Signs: Vital signs: Vital Signs Temperature 97.8 F 04/22/23 10:32 Pulse Rate 71 04/22/23 10:32 Respiratory Rate 18 04/22/23 10:32 Blood Pressure 160/74 04/22/23 12:42 Pulse Oximetry 97 04/22/23 10:32 Oxygen Delivery Me thod Room Air 04/22/23 10:32 MDM - Chest Pain Medical Decision Making Patient's lab work is all unremarkable. Her pain did present some in the ER however with Toradol the pain resolved. EKG has some minor ST depression noted. Discussed with patient that she needs to follow-up with her primary care doctor and discuss cardiology referral. Patient reports she does not want any further cardiac testing done given her history of lung surgeries. Patient feels like this pain is associated with the shoulder pain she is experiencing due to muscle weakness from previous surgeries. We discussed a possible muscle relaxer to see if that helps the pain. Will also send pt home with toradol for pain as needed for a few days. Pts BP was elevated in the ER however after some time it did improve. We did give 0.1 of clonidine which helped some. Pt does have BP meds at home to take and denies any hx of elevated BP while on her medications regularly. Return to the ER with any new or worsening symptoms or if chest pain begins and does not improve with medications. Pt verbalized understanding and was in agreement with this treatment plan. Chart reviewed and patient discussed with midlevel. Agree with assessment and plan. Lab Data 04/22/23 11:21 04/22/23 11:21 Laboratory Results WBC 4.47 10^3/uL (3.29-11.43) 04/22/23 11:21 Corrected WBC Cancelled 04/22/23 10:43 RBC 4.55 10^6/uL (3.85-5.65) 04/22/23 11:21 Hgb 13.20 g/dL (11.27-16.99) 04/22/23 11:21 Hct 40.0 % (36-47) 04/22/23 11:21 MCV 87.9 fl (85-98) 04/22/23 11:21 MCH 29.0 pg (27-33) 04/22/23 11:21 MCHC 33.0 g/dL (30-55) 04/22/23 11:21 RDW 13.2 % (12.1-15.1) 04/22/23 11:21 Plt Count 173 10^3/cmm (157-399) 04/22/23 11:21 MPV 10.4 fL (7.4-10.4) 04/22/23 11:21 Gran % Cancelled 04/22/23 10:43 Neut % (Auto) 52.4 % 04/22/23 11:21 Lymph % (Auto) 32.4 % 04/22/23 11:21 [place] % (Auto) 11.4 % 04/22/23 11:21 Eos % (Auto) 2.7 % 04/22/23 11:21 Baso % (Auto) 0.7 % 04/22/23 11:21 Neut # (Auto) 2.34 10^3/uL (1.8-7.7) 04/22/23 11:21 Lymph # (Auto) 1.5 10^3/uL (0.8-4.8) 04/22/23 11:21 [place] # (Auto) 0.5 10^3/uL (0.2-0.9) 04/22/23 11:21 Eos # (Auto) 0.1 10^3/uL (0.0-0.8) 04/22/23 11:21 Baso # (Auto) 0.0 10^3/uL (0.0-0.1) 04/22/23 11:21 Absolute Gran (auto) Cancelled 04/22/23 10:43 Nucleated RBC % (auto) 0 % 04/22/23 11:21 Nucleated RBCs # 0.0 /100WBC 04/22/23 11:21 PT 12.70 SECONDS (12.1-14.9) 04/22/23 11:21 INR 0.93 (0.8-1.2) 04/22/23 11:21 APTT 24.4 SECONDS (23.9-36.7) 04/22/23 11:21 D-Dimer 0.47 ug/mLFEU (0-0.59) 04/22/23 11:21 Sodium 138 mmol/L (136-145) 04/22/23 11:21 Potassium 4.0 mmol/L (3.5-5.1) 04/22/23 11:21 Chloride 103 mmol/L (98-107) 04/22/23 11:21 Carbon Dioxide 27 mmol/L (22-29) 04/22/23 11:21 Anion Gap 12.0 (5-19) 04/22/23 11:21 BUN 8 mg/dL (8-23) 04/22/23 11:21 Creatinine 0.5 mg/dL (0.5-0.9) 04/22/23 11:21 GFR Calculation 122.0 mL/min (90-130) 04/22/23 11:21 Glucose 105 mg/dL (65-115) 04/22/23 11:21 Calculated Osmolality 285 mOsm/kg (285-295) 04/22/23 11:21 Calcium 10.2 mg/dL (8.5-10.5) 04/22/23 11:21 Total Bilirubin 0.5 mg/dL (0.15-1.2) 04/22/23 11:21 AST 20 U/L (0-32) 04/22/23 11:21 ALT 12 U/L (0-33) 04/22/23 11:21 Alkaline Phosphatase 62 U/L (35-105) 04/22/23 11:21 Creatine Kinase 29 U/L (26-192) 04/22/23 11:21 Troponin T Baseline < 6 ng/L (0-10) 04/22/23 11:21 NT-Pro-B Natriuret Pep 244 pg/mL (0-125) H 04/22/23 11:21 Total Protein 5.8 g/dL (6.6-8.7) L 04/22/23 11:21 Albumin 4.2 g/dL (3.5-5.2) 04/22/23 11:21 Globulin 1.6 g/dL (1.3-4.6) 04/22/23 11:21 Lipase 60 U/L (13-60) 04/22/23 11:21 Urine Color Yellow (Yellow) 04/22/23 12:50 Urine Appearance Clear (CLEAR) 04/22/23 12:50 Urine pH 7 (5-7) 04/22/23 12:50 Ur Specific [place] 1.010 (1.005-1.030) 04/22/23 12:50 Urine Protein Neg (Negative) 04/22/23 12:50 Urine Glucose (UA) Norm (Normal) 04/22/23 12:50 Urine Ketones Negative (Negative) 04/22/23 12:50 Urine Blood Neg (Negative) 04/22/23 12:50 Urine Nitrate Negative (Negative) 04/22/23 12:50 Urine Bilirubin Neg (Negative) 04/22/23 12:50 Urine Urobilinogen Norm mg/dL (Negative) 04/22/23 12:50 Ur Leukocyte Esterase Negative (Negative) 04/22/23 12:50 Discharge Plan Discharge Patient Disposition: Home Clinical Impression: Anterior chest wall pain Hypertension Qualifiers: Hypertension type: unspecified Qualified Code(s): I10 - Essential (primary) hypertension Condition: Stable Prescriptions: New methocarbamol 750 mg tablet 750 mg PO Q8H Qty: 21 0RF No Action alendronate 70 mg tablet 70 mg PO Q7D Rx Instructions: on Tuesdays fluticasone propionate 50 mcg/actuation spray,suspension 1 spray INTRANASAL BID PRN (Reason: Allergy Symptoms) metoprolol succinate 100 mg tablet extended release 24 hr 100 mg PO BID nitroglycerin [Nitrostat] 0.4 mg Tablet, Sublingual 0.4 mg SUBLINGUAL Q5M PRN (Reason: Chest Pain) Rx Instructions: do not exceed 3 doses per episode albuterol sulfate 90 mcg/actuation HFA aerosol inhaler 2 inh INHALATION Q4H PRN (Reason: shortness of breath or wheezing) Qty: 18 0RF pravastatin 10 mg tablet 5 mg PO QAM Aspir-81 81 mg Tablet,Delayed Release (Dr/Ec) 81 mg PO DAILY PRN (Reason: CHEST PAIN) lisinopril 20 mg tablet 10 mg PO QAM gabapentin 100 mg capsule 100 mg PO TID Discharge Orders: Discharge ED (Routine); Ordered 04/22/23 Ordered By: Bibiana Farrar Referrals: Michael Phillips MD [Primary Care Provider] - Discharge Diet: Usual diet Discharge Activity: Increase activity as tolerated Patient Instructions: Opioid Safety, Pain Management Activity Restrictions/Additional Instructions: Continue to take home medications. We will try methocarbamol for the left-sided shoulder pain so take as prescribed. Warm, moist heat recommended on the left shoulder. Prescription for ketorolac sent home with patient. She can use this as needed for pain. Recommend follow-up with PCP in 5 to 7 days. Return to the ER with new or worsening symptoms. Coding Level of Care Code ED Operations And Maintenance Specialist for [facility] Andrews
[2023-04-22 11:35] LABS: Basophils % 0.7 %; Eosinophils # 0.1 10^3/uL (0.0-0.8); Eosinophils % 2.7 %; Lymphocytes # 1.5 10^3/uL (0.8-4.8); Lymphocytes % 32.4 %; Mean Corpuscular Volume 87.9 fl (85-98); Mean Platelet Volume 10.4 fL (7.4-10.4); Monocytes # 0.5 10^3/uL (0.2-0.9); Monocytes % 11.4 %; Neutrophils # 2.34 10^3/uL (1.8-7.7); Neutrophils % 52.4 %; Nucleated Red Blood Cells % 0 %; Platelet Count 173 10^3/cmm (157-399); Red Blood Count 4.55 10^6/uL (3.85-5.65); Red Cell Distribution Width 13.2 % (12.1-15.1); White Blood Count 4.47 10^3/uL (3.29-11.43)
[2023-04-22 11:50] LABS: INR 0.93 (0.8-1.2)
[2023-04-22 11:51] LABS: Partial Thromboplastin Time 24.4 SECONDS (23.9-36.7)
[2023-04-22 11:53] LABS: D Dimer 0.47 ug/mLFEU (0-0.59)
[2023-04-22 11:59] LABS: Troponin(5th) Baseline < 6 ng/L (0-10)
[2023-04-22 12:06] LABS: Alanine Aminotransferase 12 U/L (0-33); Albumin Level 4.2 g/dL (3.5-5.2); Alkaline Phosphatase 62 U/L (35-105); Aspartate Amino Transferase 20 U/L (0-32); Blood Urea Nitrogen 8 mg/dL (8-23); Calcium 10.2 mg/dL (8.5-10.5); Carbon Dioxide 27 mmol/L (22-29); Chloride 103 mmol/L (98-107); Creatine Phosphokinase 29 U/L (26-192); Globulin 1.6 g/dL (1.3-4.6); Glucose 105 mg/dL (65-115); Lipase 60 U/L (13-60); NT Pro B Type Natriuretic Pept 244 pg/mL (0-125); Osmolality Calculated 285 mOsm/kg (285-295); Sodium 138 mmol/L (136-145); Total Bilirubin 0.5 mg/dL (0.15-1.2); Total Protein 5.8 g/dL (6.6-8.7)
[2023-04-22 12:42] VITALS: BP 160/74
[2023-04-22] MEDS: ketorolac 30 mg/mL INJ 15 MG IVP (12:42)
[2023-04-22] MEDS: cloNIDine 0.1 mg Tablet PO (12:42)
[2023-04-22 12:54] LABS: Add Urine Microscopic? NO; Charge for UA Resulting for Rev
[2023-04-22 13:03] LABS: Bilirubin Urine Neg (Negative); Blood Urine Neg (Negative); Glucose Urine UA Norm (Normal); Ketones Urine Negative (Negative); Leukocyte Esterase Urine Negative (Negative); Nitrate Urine Negative (Negative); Protein Urine Neg (Negative); Urine Appearance Clear (CLEAR); Urine Color Yellow (Yellow); Urobilinogen Urine Norm (Negative); pH Urine 7 (5-7)
== END 2023-04-22 13:37 | disposition home or self-care (01) ==
PROVIDERS: Emergency Provider Physician Assistant; PCP Family Medicine
DX: R07.89 Other chest pain (principal); I10 Essential (primary) hypertension; Z79.82 Long term (current) use of aspirin; I25.2 Old myocardial infarction
CPT/HCPCS: 71045; 80053; 81003; 82550; 83690; 83880; 84484; 85025; 85378; 85610; 85730; 93005; 96374; 99285; J1885

== ENCOUNTER 2023-05-18 09:18 | Emergency (ER) | payer MEDICARE, MEDICAID, SELFPAY ==
--- NOTE | 2023-05-18 09:23 | ED_ITS ---
HPI - Abdominal Pain General: Chief Complaint: Abdominal Pain Stated Complaint: ABD Pain Time Seen by Provider: 05/18/23 09:19 Source: patient Mode of arrival: ambulatory Limitations: no limitations History of Present Illness: 68-year-old female states that she has been having some abdominal pain along with nausea and diarrhea has been going on for last few days. States pain sharp in nature mainly in the right lower quadrant rates the pain a 2 out of 10 currently she denies any fevers denies any worsening improving factors. Associated Symptoms: Reports diarrhea, nausea and vomiting; Denies chills, dysuria and fever(s) Review of Systems Const: Denies: fever(s), chills, body aches or change in appetite Eyes: Denies: blurry vision or eye discomfort ENMT: Denies: throat pain or dental pain Card: Denies: chest pain Resp: Denies: dyspnea GI: Reports: abdominal pain, nausea, vomiting and diarrhea : Denies: dysuria Musc: Denies: neck pain or back pain Skin/Breast: Denies: rash Neuro: Denies: headache(s) PFSH ED PFSH: Medical History Choledocholithiasis Chronic bronchitis Chronic cholecystitis with calculus Irritable bowel syndrome Myocardial infarction Surgical History H/O: hysterectomy History of lung surgery History of tonsillectomy History of tracheostomy Family History Father CAD (coronary artery disease) Mother CAD (coronary artery disease) Social History Smoking and tobacco/nicotine status: never used tobacco/nicotine Alcohol intake: never Substance/Drug Use: never Physical Exam Const: COMMON NORMALS: no acute distress, patient oriented x3 and healthy appearing HENMT: COMMON NORMALS: normocephalic and atraumatic HEAD & SCALP: normocephalic and atraumatic Eye: COMMON NORMALS: Equal, round and reactive pupils present and EOMs intact bilaterally PUPIL: Yes Equal, round and reactive pupils present Neck/C-Spine: COMMON NORMALS: full ROM and supple Chest: COMMONS NORMALS: normal inspection of the chest and normal palpation of entire chest wall Resp: COMMON NORMALS: normal respiratory effort, No retractions, No use of accessory muscles and clear to auscultation bilaterally AUSCULTATION: clear to auscultation bilaterally Cardio: COMMON NORMALS: regular rate, regular rhythm and No murmurs present (Cardio) RATE: regular rate RHYTHM: regular rhythm GI: COMMON NORMALS: Normal to inspection, nondistended, normoactive bowel sounds present, Soft to palpation, non-tender and no masses PALPATION: Yes Soft to palpation Extremity: COMMON NORMALS: normal to inspection and full ROM Neuro: COMMON NORMALS: patient oriented x3, moves all extremities and no focal motor deficits Psych: COMMON NORMALS: mental status grossly normal, Normal thought process present and cooperative THOUGHT PROCESS: Normal thought process present Skin: COMMON NORMALS: no rashes or lesions noted and no wounds GENERAL SKIN EXAM: no rashes or lesions noted Course Vital Signs: Vital signs: Vital Signs Temperature 98.2 F 05/18/23 09:24 Pulse Rate 67 05/18/23 09:24 Respiratory Rate 18 05/18/23 10:54 Blood Pressure 157/79 05/18/23 10:54 Pulse Oximetry 99 05/18/23 10:54 Oxygen Delivery Me thod Room Air 05/18/23 10:54 MDM - Abdominal Pain Medical Decision Making Patient presents here with abdominal pain CT did show some constipation could be causing her pain no other signs on the CT blood works all normal she is resting comfortably here we will prescribe her MiraLAX she is to follow-up with PCP and return if worsening. Medical Records I reviewed the patient's medical records. Lab Data I reviewed the patient's lab results. 05/18/23 09:23 05/18/23 09:57 Labs/Radiology: Laboratory Results WBC 5.03 10^3/uL (3.29-11.43) 05/18/23 09:23 RBC 5.23 10^6/uL (3.85-5.65) 05/18/23 09:23 Hgb 15.00 g/dL (11.27-16.99) 05/18/23 09:23 Hct 45.4 % (36-47) 05/18/23 09:23 MCV 86.8 fl (85-98) 05/18/23 09:23 MCH 28.7 pg (27-33) 05/18/23 09: MCHC 33.0 g/dL (30-55) 05/18/23 09: RDW 13.1 % (12.1-15.1) 05/18/23 09: Plt Count 245 10^3/cmm (157-399) 05/18/23 09: MPV 11.0 fL (7.4-10.4) H 05/18/23 09: Neut % (Auto) 49.1 % 05/18/23 09: Lymph % (Auto) 37.2 % 05/18/23 09: [place] % (Auto) 10.7 % 05/18/23 09: Eos % (Auto) 2.0 % 05/18/23 09: Baso % (Auto) 0.8 % 05/18/23 09: Neut # (Auto) 2.47 10^3/uL (1.8-7.7) 05/18/23 09: Lymph # (Auto) 1.9 10^3/uL (0.8-4.8) 05/18/23 09:23 [place] # (Auto) 0.5 10^3/uL (0.2-0.9) 05/18/23 09: Eos # (Auto) 0.1 10^3/uL (0.0-0.8) 05/18/23 09: Baso # (Auto) 0.0 10^3/uL (0.0-0.1) 05/18/23 09: Nucleated RBC % (auto) 0 % 05/18/23 09: Nucleated RBCs # 0.0 /100WBC 05/18/23 09:23 Sodium 137 mmol/L (136-145) 05/18/23 09:57 Potassium 3.6 mmol/L (3.5-5.1) 05/18/23 09:57 Chloride 101 mmol/L (98-107) 05/18/23 09:57 Carbon Dioxide 24 mmol/L (22-29) 05/18/23 09:57 Anion Gap 15.6 (5-19) 05/18/23 09:57 BUN 3 mg/dL (8-23) L 05/18/23 09:57 Creatinine 0.6 mg/dL (0.5-0.9) 05/18/23 09:57 GFR Calculation 98.8 mL/min (90-130) 05/18/23 09:57 Glucose 86 mg/dL (65-115) 05/18/23 09:57 Calculated Osmolality 280 mOsm/kg (285-295) L 05/18/23 09:57 Calcium 10.7 mg/dL (8.5-10.5) H 05/18/23 09:57 Total Bilirubin 0.5 mg/dL (0.15-1.2) 05/18/23 09:57 AST 21 U/L (0-32) 05/18/23 09:57 ALT 17 U/L (0-33) 05/18/23 09:57 Alkaline Phosphatase 76 U/L (35-105) 05/18/23 09:57 Total Protein 7.4 g/dL (6.6-8.7) 05/18/23 09:57 Albumin 4.6 g/dL (3.5-5.2) 05/18/23 09:57 Globulin 2.8 g/dL (1.3-4.6) 05/18/23 09:57 Lipase 153 U/L (13-60) H 05/18/23 09:57 Urine Color Colorless (Yellow) 05/18/23 10:45 Urine Appearance Clear (CLEAR) 05/18/23 10:45 Urine pH 6 (5-7) 05/18/23 10:45 Ur Specific [place] 1.015 (1.005-1.030) 05/18/23 10:45 Urine Protein Neg (Negative) 05/18/23 10:45 Urine Glucose (UA) Norm (Normal) 05/18/23 10:45 Urine Ketones Negative (Negative) 05/18/23 10:45 Urine Blood Neg (Negative) 05/18/23 10:45 Urine Nitrate Negative (Negative) 05/18/23 10:45 Urine Bilirubin Neg (Negative) 05/18/23 10:45 Urine Urobilinogen Norm mg/dL (Negative) 05/18/23 10:45 Ur Leukocyte Esterase Negative (Negative) 05/18/23 10:45 All radiology interpretation(s) finalized by discharge Discharge Plan Discharge Patient Disposition: Home Clinical Impression: Abdominal pain, Constipation Condition: Stable Prescriptions: New Miralax 17 gram powder in packet 17 g PO DAILY PRN (Reason: constipation) Qty: 14 0RF No Action alendronate 70 mg tablet 70 mg PO Q7D Rx Instructions: on Tuesdays fluticasone propionate 50 mcg/actuation spray,suspension 1 spray INTRANASAL BID PRN (Reason: Allergy Symptoms) metoprolol succinate 100 mg tablet extended release 24 hr 50 mg PO BID nitroglycerin [Nitrostat] 0.4 mg Tablet, Sublingual 0.4 mg SUBLINGUAL Q5M PRN (Reason: Chest Pain) Rx Instructions: do not exceed 3 doses per episode albuterol sulfate 90 mcg/actuation HFA aerosol inhaler 2 inh INHALATION Q4H PRN (Reason: shortness of breath or wheezing) Qty: 18 0RF pravastatin 10 mg tablet 5 mg PO QAM lisinopril 20 mg tablet 10 mg PO QAM gabapentin 100 mg capsule 100 mg PO TID Discharge Orders: Discharge ED (Routine); Ordered 05/18/23 Ordered By: Godwin Fitch Referrals: Michael Phillips MD [Primary Care Provider] - 1-3 days Discharge Diet: Advance as tolerated Discharge Activity: Resume usual activity Patient Instructions: Constipation (ED), Abdominal Pain (ED) Coding Level of Care Code ED Activities Manager for [facility] Andrews
[2023-05-18 09:24] VITALS: BP 159/69; PULSE 67; RESP 18; TEMP 36.8; O2SAT 98; BMI 19.7
--- NOTE | 2023-05-18 09:24 | CT_ITS ---
WS: [id number] CT ABDOMEN AND PELVIS WITH CONTRAST HISTORY: RIGHT lower quadrant pain for 2 days. Nausea and vomiting. TECHNIQUE: Imaging performed of the abdomen and pelvis with IV contrast. Single phase imaging of the abdomen. Coronal and sagittal reformats are submitted. All CT scans at [facility] use at [address] one of these dose optimization techniques: automated exposure control; mA and/or kV adjustment per patient size (includes targeted exams where dose is matched to clinical indication); or iterative re construction. IV CONTRAST: Omnipaque 350; 100 mL IV. Oral contrast: No DLP: 329.36 mGy.cm COMPARISON: 12/08/2022 Lower thorax: Mild deformity of the heart due to scoliosis. Secretions in the RIGHT lower lobe bronch ial tree, unchanged. No dense areas of consolidation. No pneumonia. Heart is normal size. Small hiata l hernia. Liver/biliary system: Normal size with no intrahepatic dilatation. Common bile duct is top normal siz e at 6 mm. Gallbladder: Status post cholecystectomy. Pancreas: Normal size pancreas and pancreatic duct. No adjacent inflammation. Spleen: Normal size spleen. No mass or infarct. Adrenal glands: Normal. Right kidney: No obstruction. Too small to characterize cortical hypodensities. Left kidney: Normal size. LEFT ureter is minimally prominent proximally but no obstruction and no marisela cification in the ureter. Very mild pelviectasis. Aorta: Mild atherosclerosis with no aneurysm. Lymphadenopathy: None. Free fluid: None. GI tract: Stomach is nondistended. No small bowel obstruction. Moderate constipation. The appendix is normal in air-filled. No GI tract obstruction. Abdominal wall: Unremarkable abdominal wall. No hernia. Pelvis: Prior hysterectomy. No free fluid or adenopathy. Bones: LEFT curvature lumbar spine. IMPRESSION: 1. Normal appendix. 2. Mild diffuse constipation. Greatest fecal retention at the cecum and RIGHT lower quadrant. No obs tructive pattern. 3. Prior cholecystectomy. 4. Very minimal fluid distention of the LEFT renal pelvis and proximal ureter. No hydronephrosis. 5. Prior hysterectomy.
[2023-05-18 09:33] LABS: Basophils % 0.8 %; Eosinophils # 0.1 10^3/uL (0.0-0.8); Hematocrit 45.4 % (36-47); Lymphocytes # 1.9 10^3/uL (0.8-4.8); Lymphocytes % 37.2 %; Mean Corpuscular Hemoglobin 28.7 pg (27-33); Mean Corpuscular Volume 86.8 fl (85-98); Monocytes # 0.5 10^3/uL (0.2-0.9); Monocytes % 10.7 %; Neutrophils # 2.47 10^3/uL (1.8-7.7); Neutrophils % 49.1 %; Nucleated Red Blood Cells % 0 %; Platelet Count 245 10^3/cmm (157-399); Red Blood Count 5.23 10^6/uL (3.85-5.65); Red Cell Distribution Width 13.1 % (12.1-15.1); White Blood Count 5.03 10^3/uL (3.29-11.43)
[2023-05-18 09:38] VITALS: BP 159/69; RESP 18
[2023-05-18] MEDS: sodium chloride 0.9% 1,000 ML 999 ML IV (09:48)
[2023-05-18 10:22] LABS: Alanine Aminotransferase 17 U/L (0-33); Albumin Level 4.6 g/dL (3.5-5.2); Alkaline Phosphatase 76 U/L (35-105); Anion Gap 15.6 (5-19); Aspartate Amino Transferase 21 U/L (0-32); Blood Urea Nitrogen 3 mg/dL (8-23); Calcium 10.7 mg/dL (8.5-10.5); Carbon Dioxide 24 mmol/L (22-29); Chloride 101 mmol/L (98-107); Globulin 2.8 g/dL (1.3-4.6); Glomerular Filtration Rate 98.8 mL/min (90-130); Glucose 86 mg/dL (65-115); Lipase 153 U/L (13-60); Osmolality Calculated 280 mOsm/kg (285-295); Potassium 3.6 mmol/L (3.5-5.1); Sodium 137 mmol/L (136-145); Total Bilirubin 0.5 mg/dL (0.15-1.2); Total Protein 7.4 g/dL (6.6-8.7)
[2023-05-18] MEDS: iohexol 350 mg/mL 500 mL Btl (per mL) IV (10:43)
[2023-05-18 10:54] VITALS: BP 157/79; RESP 18; O2SAT 99
[2023-05-18] MEDS: ondansetron 2 mg/ML SDV 2 mL 4 MG IVP (10:55)
[2023-05-18 10:59] LABS: Add Urine Microscopic? NO; Charge for UA Resulting for Rev
[2023-05-18 11:06] LABS: Bilirubin Urine Neg (Negative); Blood Urine Neg (Negative); Glucose Urine UA Norm (Normal); Ketones Urine Negative (Negative); Leukocyte Esterase Urine Negative (Negative); Nitrate Urine Negative (Negative); Protein Urine Neg (Negative); Specific Gravity, Urine 1.015 (1.005-1.030); Urine Appearance Clear (CLEAR); Urine Color Colorless (Yellow); Urobilinogen Urine Norm (Negative); pH Urine 6 (5-7)
== END 2023-05-18 12:09 | disposition home or self-care (01) ==
PROVIDERS: Emergency Provider Emergency Medicine; PCP Family Medicine
DX: K59.00 Constipation, unspecified (principal); I25.2 Old myocardial infarction
CPT/HCPCS: 36415; 74177; 80053; 81003; 83690; 85025; 96361; 96374; 99285; J2405; J7030; Q9967

== ENCOUNTER 2024-02-23 15:37 | Emergency (ER) | payer MEDICARE, MEDICAID, SELFPAY ==
[2024-02-23 15:52] VITALS: BP 153/75; PULSE 68; RESP 16; TEMP 36.7; O2SAT 98; BMI 19.3
[2024-02-23 16:07] VITALS: BP 126/72; PULSE 71; O2SAT 99
--- NOTE | 2024-02-23 16:10 | CTR_ITS ---
PROCEDURE INFORMATION: Exam: CT Abdomen And Pelvis With Contrast Exam date and time: 02/23/2024 4:59 PM Age: 68 years old Clinical indication: Abdominal pain; Additional info: Gen abd pain TECHNIQUE: Imaging protocol: Computed tomography of the abdomen and pelvis with contrast. Radiation optimization: All CT scans at this facility use at least one of these dose optimization techniques: automated exposure control; mA and/or kV adjustment per patient size (includes targeted exams where dose is matched to clinical indication); or iterative reconstruction. Contrast material: OMNI 350; Contrast volume: 100 ml; Contrast route: INTRAVENOUS (IV); COMPARISON: CT abdomen pelvis w con* [id number] 05/18/2023 10:34 AM RADIATION DOSE METRICS: Total DLP (mGy-cm): 332 FINDINGS: Lungs: Images through the visualized lung bases demonstrate mild chronic changes with prior exam 05/18/2023 and without acute infiltrate or effusion. Diaphragm: Very small hiatal hernia as noted with prior exam. Liver: Normal. No mass. Gallbladder and biliary ducts: Previous cholecystectomy. Mild prominence of the common bile duct post cholecystectomy unchanged with prior exam. No significant biliary ductal dilatation. Pancreas: Pancreas shows no focal abnormality or enlargement mild prominence of the proximal pancreatic duct, similar in appearance to previous exam. Spleen: Normal. No splenomegaly. Adrenal glands: Normal. No mass. Kidneys and ureters: A few too small to characterize rounded cortical hypodensities noted within the kidneys, without significant change with prior exam. These likely represent very small or tiny cysts. No hydronephrosis or ureterectasis or obstructive uropathy. No urinary tract calculus is seen. No perinephric stranding. Stomach and bowel: Presence of air and fluid content within a mildly distended stomach. Scattered fluid content within small bowel without dilatation or obstruction. Fluid content is seen in the right and transverse colon predominantly. No significant mucosal thickening. No pericolonic mesenteric stranding. Appendix: The appendix is seen within the lower right pelvis from the cecum, without findings of appendicitis. Intraperitoneal space: No significant free fluid or ascites. No free air. Vasculature: Atherosclerotic vascular disease without aneurysmal dilatation of the abdominal aorta. Lymph nodes: No significant lymphadenopathy is seen. Urinary bladder: Mild urinary bladder wall thickening posterior and inferior aspect of the urinary bladder, nonspecific. Reproductive: Previous hysterectomy. Bones/joints: Bone windows show no acute osseous abnormality. Soft tissues: Unremarkable. CT/CT abdomen pelvis w con* [id number] IMPRESSION: 1. Previous cholecystectomy and hysterectomy. 2. Nonspecific mild urinary bladder wall thickening posteroinferior aspect. Correlate with urinalysis otherwise. 3. Very small renal cortical rounded hypodensities appear unchanged with 2022 exam, and favor small/tiny cysts. No urinary tract stone or obstructive uropathy or perinephric stranding. 4. Presence of fluid in a mildly distended stomach scattered fluid content small bowel and proximal half of the colon. This can be associated with underlying nonspecific enteritis and/or diarrhea. No focal inflammatory changes.
--- NOTE | 2024-02-23 16:10 | W.ED.ABDPA2 ---
HPI - Abdominal Pain General: Chief Complaint: Abdominal Pain Stated Complaint: Right Side Pain Time Seen by Provider: 02/23/24 16:01 History of Present Illness: 68-year-old female comes into the emergency room today for complaints of abdominal pain. Patient was seen on Tuesday and was diagnosed with a urinary tract infection started on amoxicillin for her discomfort. Since then patient has developed diarrhea. Patient returned to the urgent care today and a repeat urine showed clearance of the urinary tract infection. Patient denies any blood in the stool but reports it being yellow and loose. Patient's prior surgeries have included cholecystectomy and bile duct repair. Patient is also had a colonoscopy that showed polyps. Medical history includes atelectasis, coronary artery disease, pericarditis, high blood pressure. Patient takes routine medications gabapentin, metoprolol, pravastatin, lisinopril, Flonase spray, albuterol inhaler, and alendronate sodium. Patient appears in mild pain. Patient appears nontoxic. Urgent care referred patient to the ER for further evaluation and treatment of abdominal pain. Associated Symptoms: Reports diarrhea Related Data Home Medications Medication Instructions Recorded Confirmed alendronate 70 mg tablet 70 mg PO Q7D 01/06/20 05/18/23 fluticasone propionate 50 1 spray intranasal BID PRN Allergy 01/06/20 05/18/23 mcg/actuation nasal Symptoms spray,suspension metoprolol succinate 100 mg 50 mg PO BID 11/18/20 05/18/23 tablet,extended release 24 hr gabapentin 100 mg capsule 100 mg PO TID 05/21/22 05/18/23 lisinopril 20 mg tablet 10 mg PO QAM 05/21/22 05/18/23 nitroglycerin 0.4 mg sublingual 0.4 mg sublingual Q5M PRN Chest 06/03/22 05/18/23 tablet (Nitrostat) Pain pravastatin 10 mg tablet 5 mg PO QAM 04/22/23 05/18/23 Previous Rx's Medication Instructions Recorded albuterol sulfate 90 mcg/actuation 2 inh inhalation Q4H PRN shortness 06/03/22 aerosol inhaler of breath or wheezing #18 grams polyethylene glycol 3350 17 gram 17 g PO DAILY PRN constipation #14 05/18/23 oral powder packet (Miralax) ea dicyclomine 10 mg capsule 10 mg PO QID PRN abdominal pain 02/23/24 #20 caps Allergies Allergy/AdvReac Type Severity Reaction Status Date / Time doxycycline Allergy Unknown Unknown Verified 05/18/23 09:58 Review of Systems General: Reports: 10 or more systems reviewed and unremarkable except in HPI and below GI: Reports: abdominal pain and diarrhea PFSH ED PFSH: Medical History Choledocholithiasis Chronic bronchitis Chronic cholecystitis with calculus Irritable bowel syndrome Myocardial infarction Surgical History H/O: hysterectomy History of lung surgery History of tonsillectomy History of tracheostomy Family History Father CAD (coronary artery disease) Mother CAD (coronary artery disease) Social History Smoking and tobacco/nicotine status: never used tobacco/nicotine Alcohol intake: never Substance/Drug Use: never Physical Exam Const: COMMON NORMALS: alert HENMT: COMMON NORMALS: normocephalic HEAD & SCALP: normocephalic Neck/C-Spine: COMMON NORMALS: full ROM Chest: COMMONS NORMALS: normal inspection of the chest Resp: COMMON NORMALS: normal respiratory effort and clear to auscultation bilaterally AUSCULTATION: clear to auscultation bilaterally Cardio: COMMON NORMALS: regular rate RATE: regular rate GI: COMMON NORMALS: Soft to palpation AUSCULTATION: Yes normoactive bowel sounds PALPATION: Yes Soft to palpation and Yes Tenderness to palpation present (GI) : COMMON NORMALS: Yes no CVA tenderness BLADDER/KIDNEY EXAM: Yes no CVA tenderness Back/Pelvis: COMMON NORMALS: no CVA tenderness Extremity: COMMON NORMALS: no pedal edema Neuro: SENSORIUM/ORIENTATION: Yes alert Skin: COMMON NORMALS: turgor normal GENERAL SKIN EXAM: turgor normal Course Vital Signs: Vital signs: Vital Signs Temperature 98.1 F 02/23/24 15:52 Pulse Rate 59 L 02/23/24 17:30 Respiratory Rate 19 H 02/23/24 16:53 Blood Pressure 163/87 02/23/24 17:30 Pulse Oximetry 99 02/23/24 17:30 Oxygen Delivery Me thod Room Air 02/23/24 17:30 MDM - Abdominal Pain Medical Decision Making Patient comes in today for abdominal pain and diarrhea. Patient appears nontoxic. Patient was recently treated with amoxicillin for a urinary tract infection. Abdomen is soft with some mild tenderness to. Bowel sounds are active. Vital signs are normal. Differential diagnosis includes but not limited to adverse drug effect, antibiotic associated diarrhea, diverticulitis, pancreatitis, gastroenteritis, colitis. CBC and CMP were unremarkable. Patient's lipase was slightly elevated at 117. Urinalysis was normal. CT of the abdomen pelvis noted some mild bladder wall thickening. CT also noted some mild fluid and distention of the small bowel and stomach suggesting may be some enteritis. Reviewed exam with patient believes that most likely she has a case of enteritis. Will start patient on some dicyclomine 10 mg 4 times a day as needed for abdominal pain or diarrhea. Patient reports understanding of care plan and need for follow-up for persistent diarrhea with recommendations for colonoscopy at that time. Lab Data 02/23/24 16:23 02/23/24 16:23 Labs/Radiology: Radiology Impressions Abdomen/Pelvis CT 02/23/24 16:10 IMPRESSION: 1. Previous cholecystectomy and hysterectomy. 2. Nonspecific mild urinary bladder wall thickening posteroinferior aspect. Correlate with urinalysis otherwise. 3. Very small renal cortical rounded hypodensities appear unchanged with 2022 exam, and favor small/tiny cysts. No urinary tract stone or obstructive uropathy or perinephric stranding. 4. Presence of fluid in a mildly distended stomach scattered fluid content small bowel and proximal half of the colon. This can be associated with underlying nonspecific enteritis and/or diarrhea. No focal inflammatory changes. Laboratory Results WBC 5.77 10^3/uL (3.29-11.43) 02/23/24 16:23 RBC 4.95 10^6/uL (3.85-5.65) 02/23/24 16:23 Hgb 14.20 g/dL (11.27-16.99) 02/23/24 16:23 Hct 43.4 % (36-47) 02/23/24 16:23 MCV 87.7 fl (85-98) 02/23/24 16:23 MCH 28.7 pg (27-33) 02/23/24 16:23 MCHC 32.7 g/dL (30-55) 02/23/24 16:23 RDW 13.2 % (12.1-15.1) 02/23/24 16:23 Plt Count 177 10^3/cmm (157-399) 02/23/24 16:23 MPV 10.2 fL (7.4-10.4) 02/23/24 16:23 Neut % (Auto) 56.7 % 02/23/24 16:23 Lymph % (Auto) 30.8 % 02/23/24 16:23 [place] % (Auto) 10.4 % 02/23/24 16:23 Eos % (Auto) 1.4 % 02/23/24 16:23 Baso % (Auto) 0.5 % 02/23/24 16:23 Neut # (Auto) 3.27 10^3/uL (1.8-7.7) 02/23/24 16:23 Lymph # (Auto) 1.8 10^3/uL (0.8-4.8) 02/23/24 16:23 [place] # (Auto) 0.6 10^3/uL (0.2-0.9) 02/23/24 16:23 Eos # (Auto) 0.1 10^3/uL (0.0-0.8) 02/23/24 16:23 Baso # (Auto) 0.0 10^3/uL (0.0-0.1) 02/23/24 16:23 Nucleated RBC % (auto) 0 % 02/23/24 16: Nucleated RBCs # 0.0 /100WBC 02/23/24 16:23 Sodium 139 mmol/L (136-145) 02/23/24 16:23 Potassium 4.9 mmol/L (3.5-5.1) 02/23/24 16:23 Chloride 103 mmol/L (98-107) 02/23/24 16:23 Carbon Dioxide 28 mmol/L (22-29) 02/23/24 16:23 Anion Gap 12.9 (5-19) 02/23/24 16:23 BUN 8 mg/dL (8-23) 02/23/24 16:23 Creatinine 0.5 mg/dL (0.5-0.9) 02/23/24 16:23 GFR Calculation 122.0 mL/min (90-130) 02/23/24 16:23 Glucose 116 mg/dL (65-115) H 02/23/24 16:23 Calculated Osmolality 287 mOsm/kg (285-295) 02/23/24 16:23 Calcium 10.7 mg/dL (8.5-10.5) H 02/23/24 16:23 Total Bilirubin 0.5 mg/dL (0.15-1.2) 02/23/24 16:23 AST 21 U/L (0-32) 02/23/24 16:23 ALT 17 U/L (0-33) 02/23/24 16:23 Alkaline Phosphatase 67 U/L (35-105) 02/23/24 16:23 C-Reactive Protein 3.0 mg/L (0.0-4.9) 02/23/24 16:23 Total Protein 7.1 g/dL (6.6-8.7) 02/23/24 16:23 Albumin 4.6 g/dL (3.5-5.2) 02/23/24 16:23 Globulin 2.5 g/dL (1.3-4.6) 02/23/24 16:23 Lipase 117 U/L (13-60) H 02/23/24 16:23 Urine Color Yellow (Yellow) 02/23/24 16:45 Urine Appearance Clear (CLEAR) 02/23/24 16:45 Urine pH 6.5 (5-7) 02/23/24 16:45 Ur Specific [place] 1.006 (1.005-1.030) 02/23/24 16:45 Urine Protein Negative (Negative) 02/23/24 16:45 Urine Glucose (UA) Negative (Normal) 02/23/24 16:45 Urine Ketones Negative (Negative) 02/23/24 16:45 Urine Blood Negative (Negative) 02/23/24 16:45 Urine Nitrate Negative (Negative) 02/23/24 16:45 Urine Bilirubin Negative (Negative) 02/23/24 16:45 Urine Urobilinogen 0.2 mg/dL (Negative) 02/23/24 16:45 Ur Leukocyte Esterase Trace (Negative) A 02/23/24 16:45 Urine RBC 0-2 /hpf (0-2) 02/23/24 16:45 Urine WBC 0-5 /hpf (0-5) 02/23/24 16:45 Ur Squamous Epith Cells 0-5 /hpf (0-5) 02/23/24 16:45 Amorphous Sediment Not Reportable 02/23/24 16:45 Urine Bacteria None seen /hpf (NONE) 02/23/24 16:45 Hyaline Casts 0-4 /lpf H 02/23/24 16:45 All radiology interpretation(s) finalized by discharge Discharge Plan Discharge Patient Disposition: Home Clinical Impression: Enteritis Condition: Stable Prescriptions: New dicyclomine 10 mg capsule 10 mg PO QID PRN (Reason: abdominal pain) Qty: 20 0RF No Action alendronate 70 mg tablet 70 mg PO Q7D Rx Instructions: on Tuesdays fluticasone propionate 50 mcg/actuation spray,suspension 1 spray INTRANASAL BID PRN (Reason: Allergy Symptoms) metoprolol succinate 100 mg tablet extended release 24 hr 50 mg PO BID nitroglycerin [Nitrostat] 0.4 mg Tablet, Sublingual 0.4 mg SUBLINGUAL Q5M PRN (Reason: Chest Pain) Rx Instructions: do not exceed 3 doses per episode albuterol sulfate 90 mcg/actuation HFA aerosol inhaler 2 inh INHALATION Q4H PRN (Reason: shortness of breath or wheezing) Qty: 18 0RF pravastatin 10 mg tablet 5 mg PO QAM Miralax 17 gram powder in packet 17 g PO DAILY PRN (Reason: constipation) Qty: 14 0RF lisinopril 20 mg tablet 10 mg PO QAM gabapentin 100 mg capsule 100 mg PO TID Discharge Orders: Discharge ED (Routine); Ordered 02/23/24 Ordered By: José Miguel Sol Referrals: Michael Phillips MD [Primary Care Provider] - Discharge Diet: Usual diet Discharge Activity: Increase activity as tolerated Patient Instructions: Enteritis (ED) Activity Restrictions/Additional Instructions: Drink plenty of water and fluids. Use dicyclomine as needed for abdominal pain or diarrhea stools. Use an electrolyte solution to help maintain electrolytes while having diarrhea. Follow-up with primary care in 3 to 5 days for recheck. Return to ED for worsening symptoms such as fever greater than 100.4, blood in vomit or stool, or new concerns. Thank you for choosing [facility] for your healthcare needs today. Please realize that you were seen in the emergency department and that we are providing you with an emergency medical screening exam and this may not be a complete and all exclusive of all testing and/or medical workup we may need to determine your element or severity of your illness. It is very important that you follow-up as instructed with your primary care provider or specialist for the additional evaluation and to discuss your medical treatment plan. You may return to the emergency department should you have concerns or if your condition changes or worsens in any way. Coding Level of Care Code ED Slasher Machine Operator for Julian Andrews
[2024-02-23 16:37] LABS: Basophils % 0.5 %; Eosinophils # 0.1 10^3/uL (0.0-0.8); Eosinophils % 1.4 %; Hematocrit 43.4 % (36-47); Lymphocytes # 1.8 10^3/uL (0.8-4.8); Lymphocytes % 30.8 %; Mean Corpuscular HGB Conc 32.7 g/dL (30-55); Mean Corpuscular Hemoglobin 28.7 pg (27-33); Mean Corpuscular Volume 87.7 fl (85-98); Mean Platelet Volume 10.2 fL (7.4-10.4); Monocytes # 0.6 10^3/uL (0.2-0.9); Monocytes % 10.4 %; Neutrophils # 3.27 10^3/uL (1.8-7.7); Neutrophils % 56.7 %; Nucleated Red Blood Cells % 0 %; Platelet Count 177 10^3/cmm (157-399); Red Blood Count 4.95 10^6/uL (3.85-5.65); Red Cell Distribution Width 13.2 % (12.1-15.1); White Blood Count 5.77 10^3/uL (3.29-11.43)
[2024-02-23] MEDS: ondansetron 2 mg/ML SDV 2 mL 4 MG IVP (16:37)
[2024-02-23] MEDS: lactated ringers 500 ML 999 ML IV (16:43)
[2024-02-23 16:45] VITALS: BP 165/71; PULSE 58; RESP 16; O2SAT 100
[2024-02-23 16:49] LABS: Charge for UA Resulting for Rev
[2024-02-23 16:53] VITALS: RESP 19; O2SAT 99
[2024-02-23] MEDS: morphine 4 mg/mL SDV 1 mL 1 MG IVP (16:53)
[2024-02-23 16:55] LABS: Alanine Aminotransferase 17 U/L (0-33); Albumin Level 4.6 g/dL (3.5-5.2); Alkaline Phosphatase 67 U/L (35-105); Anion Gap 12.9 (5-19); Aspartate Amino Transferase 21 U/L (0-32); Blood Urea Nitrogen 8 mg/dL (8-23); Calcium 10.7 mg/dL (8.5-10.5); Carbon Dioxide 28 mmol/L (22-29); Chloride 103 mmol/L (98-107); Creatinine Clr Calc Pharmacy 55.0813; Globulin 2.5 g/dL (1.3-4.6); Glucose 116 mg/dL (65-115); Lipase 117 U/L (13-60); Osmolality Calculated 287 mOsm/kg (285-295); Potassium 4.9 mmol/L (3.5-5.1); Sodium 139 mmol/L (136-145); Total Bilirubin 0.5 mg/dL (0.15-1.2); Total Protein 7.1 g/dL (6.6-8.7)
[2024-02-23 17:01] LABS: Bilirubin Urine Negative (Negative); Blood Urine Negative (Negative); Glucose Urine UA Negative (Normal); Ketones Urine Negative (Negative); Leukocyte Esterase Urine Trace (Negative); Nitrate Urine Negative (Negative); Protein Urine Negative (Negative); Specific Gravity, Urine 1.006 (1.005-1.030); Urine Appearance Clear (CLEAR); Urine Color Yellow (Yellow); Urobilinogen Urine 0.2 mg/dL (Negative); pH Urine 6.5 (5-7)
[2024-02-23] MEDS: iohexol 350 mg/mL 500 mL Btl (per mL) IV (17:04)
[2024-02-23 17:06] LABS: Bacteria Urine None Seen /hpf; Hyaline Casts Urine 0-4 /lpf; RBC Urine 0-2 /hpf (0-2); Squamous Epithelial Cell Urine 0-5 /hpf (0-5); WBC Urine 0-5 /hpf (0-5)
[2024-02-23 17:14] LABS: Add Urine Culture? No
[2024-02-23 17:30] VITALS: BP 163/87; PULSE 59; O2SAT 99
[2024-02-23 18:13] VITALS: BP 147/63; PULSE 62; O2SAT 98
== END 2024-02-23 18:15 | disposition home or self-care (01) ==
PROVIDERS: Emergency Provider Nurse Practitioner Family; PCP Family Medicine
DX: K52.9 Noninfective gastroenteritis and colitis, unspecified (principal); I25.2 Old myocardial infarction
CPT/HCPCS: 36415; 74177; 80053; 81003; 81015; 83690; 85025; 86140; 96361; 96374; 96375; 99285; J2270; J2405; J7120; Q9967

== ENCOUNTER 2024-08-27 10:49 | Emergency (ER) | payer MEDICARE, MEDICAID, SELFPAY ==
[2024-08-27] VITALS (7 sets, daily range): BP systolic 102–178; BP diastolic 58–78; PULSE 57–68; RESP 16–18; TEMP 36.4; O2SAT 94–99; BMI 19.7
--- NOTE | 2024-08-27 11:37 | CT_ITS ---
WS: [id number] CT ABDOMEN AND PELVIS WITH CONTRAST HISTORY: rlq pain TECHNIQUE: Imaging performed of the abdomen and pelvis with IV contrast. Single phase imaging of the abdomen. Coronal and sagittal reformats are submitted. All CT scans at [facility] use at least one of these dose optimization techniques: automated exposure control; mA and/or kV adjustment per patient size (includes targeted exams where dose is matched to clinical indication); or iterative reconstruction. IV CONTRAST: Omnipaque 350; 100 mL IV. Oral contrast: No DLP: 338.63 mGy.cm COMPARISON: 02/23/2024 Lower thorax: Deformity of the lower thorax secondary to scoliosis. Heart is shifted to the LEFT. Small hiatal hernia. Liver/biliary system: Liver is slightly elongated. There is mild central intrahepatic duct dilatation which may be related to the cholecystectomy state. Common bile duct is mildly dilated to 7 mm. Very similar to the prior study. No obstructing lesion is noted in the common bile duct. Gallbladder: Prior cholecystectomy. Pancreas: Atrophy. Pancreatic duct is prominent to 2.9 mm which is similar to the prior study. Spleen: Normal size spleen. No mass or infarct. Adrenal glands: Normal. Right kidney: Normal size kidney with scattered hypodensities. These are too small to characterize. No obstruction. Left kidney: Normal size kidney with scattered hypodensities which are too small to characterize. No solid mass or obstruction. Aorta: Moderate calcification. Increased calcific burden at the origin of the SMA and celiac axis. Component of stenosis is likely especially involving the origin of the SMA. Lymphadenopathy: None. Free fluid: None. GI tract: Nondistended stomach. No small bowel obstruction. No enteritis. Normal appendix. The cecum is distended with fecal material and cyst very low in the RIGHT pelvis. The appendix is in the RIGHT lower quadrant extending into the adnexa. Abdominal wall: Unremarkable abdominal wall. No hernia. Pelvis: No free fluid or adenopathy within the pelvis. Prior hysterectomy. Bones: Unremarkable. CT/CT abdomen pelvis w con* [id number] IMPRESSION: 1. Normal appendix. 2. No acute abdominal or pelvic abnormalities. 3. The cecum is dilated with fecal material and sits very deep within the RIGH T pelvis. This may be causing some of the patient's symptoms. 4. No GI tract obstruction. 5. Moderate atherosclerosis abdominal aorta with calcifications in the mesente judy arteries. Component of stenosis at the origin of the SMA. No ischemic forbes es. 6. Mild intrahepatic and extrahepatic duct dilatation is probably on the basis of the cholecystectomy. The intrahepatic duct dilatation has progressed since 02/23/2024. The common bile duct is dilated to 7 mm. May be helpful to correlate with liver function studies.
--- NOTE | 2024-08-27 11:38 | W.ED.ABDPA2 ---
HPI - Abdominal Pain General: Chief Complaint: Abdominal Pain Stated Complaint: lower abd pain Time Seen by Provider: 08/27/24 11:01 Source: patient Mode of arrival: ambulatory Limitations: no limitations History of Present Illness: 69-year-old female states has been having right lower quadrant abdominal pain over the last 2 days. States that pains been sharp seems to be worse with walking pain where she points is really more in her groin region. She denies any dysuria denies any diarrhea or vomiting. She denies any injuries to her groin. Associated Symptoms: Denies chills, diarrhea, dysuria, fever(s), nausea and vomiting Related Data Home Medications ?Medication ?Instructions ?Recorded ?Confirmed alendronate 70 mg tablet 70 mg PO Q7D 01/06/20 08/27/24 fluticasone propionate 50 1 spray intranasal BID PRN Allergy 01/06/20 08/27/24 mcg/actuation nasal Symptoms spray,suspension metoprolol succinate 100 mg 50 mg PO BID 11/18/20 08/27/24 tablet,extended release 24 hr gabapentin 100 mg capsule 100 mg PO TID 05/21/22 08/27/24 lisinopril 20 mg tablet 10 mg PO QAM 05/21/22 08/27/24 nitroglycerin 0.4 mg sublingual 0.4 mg sublingual Q5M PRN Chest 06/03/22 08/27/24 tablet (Nitrostat) Pain pravastatin 10 mg tablet 5 mg PO QAM 04/22/23 08/27/24 Previous Rx's ?Medication ?Instructions ?Recorded albuterol sulfate 90 mcg/actuation 2 inh inhalation Q4H PRN shortness 06/03/22 aerosol inhaler of breath or wheezing #18 grams ondansetron 4 mg disintegrating 4 mg PO Q6H PRN nausea and 08/27/24 tablet vomiting #14 tabs Allergies Allergy/AdvReac Type Severity Reaction Status Date / Time doxycycline Allergy Unknown Unknown Verified 08/27/24 11:07 Review of Systems Const: Denies: fever(s), chills, body aches or change in appetite ENMT: Denies: throat pain or dental pain Card: Denies: chest pain Resp: Denies: dyspnea GI: Reports: abdominal pain; Denies: nausea, vomiting or diarrhea : Denies: dysuria Musc: Denies: neck pain or back pain Skin/Breast: Denies: rash Neuro: Denies: headache(s) PFSH ED PFSH: Medical History Choledocholithiasis Chronic cholecystitis with calculus Irritable bowel syndrome Myocardial infarction Chronic bronchitis Surgical History History of tonsillectomy H/O: hysterectomy History of lung surgery History of tracheostomy Family History Father CAD (coronary artery disease) Mother CAD (coronary artery disease) Social History Smoking and tobacco/nicotine status: never used tobacco/nicotine Alcohol intake: never Substance/Drug Use: never Physical Exam Const: COMMON NORMALS: no acute distress, patient oriented x3 and healthy appearing HENMT: COMMON NORMALS: normocephalic and atraumatic HEAD & SCALP: normocephalic and atraumatic Neck/C-Spine: COMMON NORMALS: full ROM and supple Chest: COMMONS NORMALS: normal inspection of the chest Resp: COMMON NORMALS: normal respiratory effort Cardio: COMMON NORMALS: regular rate, regular rhythm and No murmurs present (Cardio) RATE: regular rate RHYTHM: regular rhythm GI: COMMON NORMALS: Normal to inspection, nondistended, normoactive bowel sounds present, Soft to palpation and no masses PALPATION: Yes Soft to palpation and Yes Tenderness to palpation present (GI) (tenderness in right groing) Extremity: COMMON NORMALS: normal to inspection and full ROM Neuro: COMMON NORMALS: patient oriented x3, moves all extremities and no focal motor deficits Psych: COMMON NORMALS: mental status grossly normal, Normal thought process present and cooperative THOUGHT PROCESS: Normal thought process present Skin: COMMON NORMALS: no rashes or lesions noted and no wounds GENERAL SKIN EXAM: no rashes or lesions noted Course Vital Signs: Vital signs: Vital Signs Temperature 97.5 F L 08/27/24 11:02 Pulse Rate 68 08/27/24 11:41 Respiratory Rate 18 08/27/24 11:57 Blood Pressure 145/65 08/27/24 13:36 Pulse Oximetry 94 08/27/24 13:36 Oxygen Delivery Me thod Room Air 03/03/25 11:02 MDM - Abdominal Pain Medical Decision Making Patient presents here with abdominal pain CT scan blood work here is all normal her pains improved she stable for discharge she is follow-up with PCP and return if worsening she understands agrees to plan Medical Records I reviewed the patient's medical records. Lab Data I reviewed the patient's lab results. 08/27/24 12:50 08/27/24 12:50 Labs/Radiology: Radiology Impressions Abdomen/Pelvis CT 08/27/24 11:37 IMPRESSION: 1. Normal appendix. 2. No acute abdominal or pelvic abnormalities. 3. The cecum is dilated with fecal material and sits very deep within the RIGHT pelvis. This may be causing some of the patient's symptoms. 4. No GI tract obstruction. 5. Moderate atherosclerosis abdominal aorta with calcifications in the mesenteric arteries. Component of stenosis at the origin of the SMA. No ischemic changes. 6. Mild intrahepatic and extrahepatic duct dilatation is probably on the basis of the cholecystectomy. The intrahepatic duct dilatation has progressed since 02/23/2024. The common bile duct is dilated to 7 mm. May be helpful to correlate with liver function studies. Laboratory Results WBC 7.39 10^3/uL (3.29-11.43) 08/27/24 12:50 RBC 5.21 10^6/uL (3.85-5.65) 08/27/24 12:50 Hgb 15.00 g/dL (11.27-16.99) 08/27/24 12:50 Hct 44.8 % (36-47) 08/27/24 12:50 MCV 86.0 fl (85-98) 08/27/24 12:50 MCH 28.8 pg (27-33) 08/27/24 12:50 MCHC 33.5 g/dL (30-55) 08/27/24 12:50 RDW 13.2 % (12.1-15.1) 08/27/24 12:50 Plt Count 195 10^3/cmm (157-399) 08/27/24 12:50 MPV 10.1 fL (7.4-10.4) 08/27/24 12:50 Neut % (Auto) 69.5 % 08/27/24 12:50 Lymph % (Auto) 21.0 % 08/27/24 12:50 [place] % (Auto) 8.0 % 08/27/24 12:50 Eos % (Auto) 0.5 % 08/27/24 12:50 Baso % (Auto) 0.7 % 08/27/24 12:50 Neut # (Auto) 5.14 10^3/uL (1.8-7.7) 08/27/24 12:50 Lymph # (Auto) 1.6 10^3/uL (0.8-4.8) 08/27/24 12:50 [place] # (Auto) 0.6 10^3/uL (0.2-0.9) 08/27/24 12:50 Eos # (Auto) 0.0 10^3/uL (0.0-0.8) 08/27/24 12:50 Baso # (Auto) 0.1 10^3/uL (0.0-0.1) 08/27/24 12:50 Nucleated RBC % (auto) 0 % 08/27/24 12:50 Nucleated RBCs # 0.0 /100WBC 08/27/24 12:50 Sodium 136 mmol/L (136-145) 08/27/24 12:50 Potassium 4.3 mmol/L (3.5-5.1) 08/27/24 12:50 Chloride 102 mmol/L (98-107) 08/27/24 12:50 Carbon Dioxide 26 mmol/L (22-29) 08/27/24 12:50 Anion Gap 12.3 (5-19) 08/27/24 12:50 BUN 6 mg/dL (8-23) L 08/27/24 12:50 Creatinine 0.6 mg/dL (0.5-0.9) 08/27/24 12:50 GFR Calculation Not Reportable 08/27/24 12:50 Glucose 99 mg/dL (65-115) 08/27/24 12:50 Calculated Osmolality 280 mOsm/kg (285-295) L 08/27/24 12:50 Calcium 10.9 mg/dL (8.5-10.5) H 08/27/24 12:50 Total Bilirubin 0.6 mg/dL (0.15-1.2) 08/27/24 12:50 AST 34 U/L (0-32) H 08/27/24 12:50 ALT 18 U/L (0-33) 08/27/24 12:50 Alkaline Phosphatase 81 U/L (35-105) 08/27/24 12:50 Total Protein 7.4 g/dL (6.6-8.7) 08/27/24 12:50 Albumin 4.3 g/dL (3.5-5.2) 08/27/24 12:50 Globulin 3.1 g/dL (1.3-4.6) 08/27/24 12:50 Lipase 218 U/L (13-60) H 08/27/24 12:50 Urine Color Yellow (Yellow) 08/27/24 11:39 Urine Appearance Clear (CLEAR) 08/27/24 11:39 Urine pH 7.0 (5-7) 08/27/24 11:39 Ur Specific [place] 1.003 (1.005-1.030) L 08/27/24 11:39 Urine Protein Negative (Negative) 08/27/24 11:39 Urine Glucose (UA) Negative (Normal) 08/27/24 11:39 Urine Ketones Negative (Negative) 08/27/24 11:39 Urine Blood Negative (Negative) 08/27/24 11:39 Urine Nitrate Negative (Negative) 08/27/24 11:39 Urine Bilirubin Negative (Negative) 08/27/24 11:39 Urine Urobilinogen 0.2 mg/dL (Negative) 08/27/24 11:39 Ur Leukocyte Esterase Negative (Negative) 08/27/24 11:39 Amorphous Sediment Not Reportable 08/27/24 11:39 All radiology interpretation(s) finalized by discharge Discharge Plan Discharge Patient Disposition: Home Clinical Impression: Abdominal pain Condition: Stable Prescriptions: New ondansetron 4 mg tablet,disintegrating 4 mg PO Q6H PRN (Reason: nausea and vomiting) Qty: 14 0RF No Action alendronate 70 mg tablet 70 mg PO Q7D Rx Instructions: on Tuesdays fluticasone propionate 50 mcg/actuation spray,suspension 1 spray INTRANASAL BID PRN (Reason: Allergy Symptoms) metoprolol succinate 100 mg tablet extended release 24 hr 50 mg PO BID nitroglycerin [Nitrostat] 0.4 mg Tablet, Sublingual 0.4 mg SUBLINGUAL Q5M PRN (Reason: Chest Pain) Rx Instructions: do not exceed 3 doses per episode albuterol sulfate 90 mcg/actuation HFA aerosol inhaler 2 inh INHALATION Q4H PRN (Reason: shortness of breath or wheezing) Qty: 18 0RF pravastatin 10 mg tablet 5 mg PO QAM lisinopril 20 mg tablet 10 mg PO QAM gabapentin 100 mg capsule 100 mg PO TID Discharge Orders: Discharge ED (Routine); Ordered 08/27/24 Ordered By: Godwin Fitch Referrals: Michael Phillips MD [Primary Care Provider] - 4-7 days Discharge Diet: Advance as tolerated Discharge Activity: Resume usual activity Patient Instructions: Abdominal Pain (ED) Print Language: Filipino Coding Level of Care Code ED Telecommunication Lines Repairer for Julian Andrews
[2024-08-27 11:46] LABS: Add Urine Microscopic? NO
[2024-08-27 11:49] LABS: Bilirubin Urine Negative (Negative); Blood Urine Negative (Negative); Glucose Urine UA Negative (Normal); Ketones Urine Negative (Negative); Leukocyte Esterase Urine Negative (Negative); Nitrate Urine Negative (Negative); Protein Urine Negative (Negative); Specific Gravity, Urine 1.003 (1.005-1.030); Urine Appearance Clear (CLEAR); Urine Color Yellow (Yellow); Urobilinogen Urine 0.2 mg/dL (Negative)
[2024-08-27 11:56] LABS: Add Urine Culture? No; Charge for UA Resulting for Rev
[2024-08-27] MEDS: ondansetron 2 mg/ML SDV 2 mL 4 MG IVP (11:57)
[2024-08-27] MEDS: morphine 4 mg/mL SDV 1 mL IVP (11:57)
[2024-08-27 13:06] LABS: Basophils # 0.1 10^3/uL (0.0-0.1); Basophils % 0.7 %; Eosinophils % 0.5 %; Hematocrit 44.8 % (36-47); Lymphocytes # 1.6 10^3/uL (0.8-4.8); Mean Corpuscular HGB Conc 33.5 g/dL (30-55); Mean Corpuscular Hemoglobin 28.8 pg (27-33); Mean Platelet Volume 10.1 fL (7.4-10.4); Monocytes # 0.6 10^3/uL (0.2-0.9); Neutrophils # 5.14 10^3/uL (1.8-7.7); Neutrophils % 69.5 %; Nucleated Red Blood Cells % 0 %; Platelet Count 195 10^3/cmm (157-399); Red Blood Count 5.21 10^6/uL (3.85-5.65); Red Cell Distribution Width 13.2 % (12.1-15.1); White Blood Count 7.39 10^3/uL (3.29-11.43)
[2024-08-27] MEDS: HYDROMORPHONE HCL 0.5 MG/0.5 ML INJ IVP (13:24)
[2024-08-27 13:39] LABS: Alanine Aminotransferase 18 U/L (0-33); Albumin Level 4.3 g/dL (3.5-5.2); Alkaline Phosphatase 81 U/L (35-105); Anion Gap 12.3 (5-19); Aspartate Amino Transferase 34 U/L (0-32); Blood Urea Nitrogen 6 mg/dL (8-23); Calcium 10.9 mg/dL (8.5-10.5); Carbon Dioxide 26 mmol/L (22-29); Chloride 102 mmol/L (98-107); Creatinine Clr Calc Pharmacy 54.6638; Globulin 3.1 g/dL (1.3-4.6); Glucose 99 mg/dL (65-115); Lipase 218 U/L (13-60); Osmolality Calculated 280 mOsm/kg (285-295); Potassium 4.3 mmol/L (3.5-5.1); Sodium 136 mmol/L (136-145); Total Bilirubin 0.6 mg/dL (0.15-1.2); Total Protein 7.4 g/dL (6.6-8.7)
[2024-08-27] MEDS: iohexol 350 mg/mL 500 mL Btl (per mL) IV (14:07)
== END 2024-08-27 15:21 | disposition home or self-care (01) ==
PROVIDERS: Emergency Provider Emergency Medicine; PCP Family Medicine
DX: R10.31 Right lower quadrant pain (principal)
CPT/HCPCS: 36415; 74177; 80053; 81003; 83690; 85025; 96374; 96375; 99285; J1171; J2270; J2405

== ENCOUNTER 2024-10-16 13:49 | Emergency (ER) | payer MEDICARE, MEDICAID, SELFPAY ==
[2024-10-16] VITALS (7 sets, daily range): BP systolic 136–165; BP diastolic 56–74; PULSE 48–60; RESP 14; TEMP 36.3; O2SAT 96–100
--- NOTE | 2024-10-16 13:54 | ECG_ITS ---
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 Measurements Intervals [place] Rate: 57 P: 67 FL: 138 QRS: 88 QRSD: 84 T: 67 QT: 410 QTc: 400 Interpretive Statements SINUS BRADYCARDIA MINIMAL ST DEPRESSION [0.025+ mV ST DEPRESSION] Compared to ECG 04/22/2023 10:32:52 ST (T wave) deviation now present Sinus rhythm no longer present Electronically Signed On 10-16-2024 21:19:40 CDT by Kyaw Del Cid M.D. [email or web address] [id number]
[2024-10-16 14:53] LABS: Basophils # 0.1 10^3/uL (0.0-0.1); Basophils % 0.7 %; Eosinophils # 0.1 10^3/uL (0.0-0.8); Eosinophils % 1.2 %; Hematocrit 44.9 % (36-47); Lymphocytes # 1.7 10^3/uL (0.8-4.8); Lymphocytes % 23.6 %; Mean Corpuscular HGB Conc 32.7 g/dL (30-55); Mean Corpuscular Hemoglobin 28.4 pg (27-33); Mean Corpuscular Volume 86.8 fl (85-98); Mean Platelet Volume 10.6 fL (7.4-10.4); Monocytes # 0.5 10^3/uL (0.2-0.9); Monocytes % 7.2 %; Neutrophils # 4.94 10^3/uL (1.8-7.7); Nucleated Red Blood Cells % 0 %; Platelet Count 193 10^3/cmm (157-399); Red Blood Count 5.17 10^6/uL (3.85-5.65); Red Cell Distribution Width 13.2 % (12.1-15.1); White Blood Count 7.37 10^3/uL (3.29-11.43)
[2024-10-16 15:12] LABS: Alanine Aminotransferase 13 U/L (0-33); Albumin Level 4.7 g/dL (3.5-5.2); Alkaline Phosphatase 82 U/L (35-105); Anion Gap 16.2 (5-19); Aspartate Amino Transferase 21 U/L (0-32); Blood Urea Nitrogen 6 mg/dL (8-23); Calcium 9.9 mg/dL (8.5-10.5); Carbon Dioxide 25 mmol/L (22-29); Chloride 102 mmol/L (98-107); Creatinine Clr Calc Pharmacy 54.1095; Globulin 2.5 g/dL (1.3-4.6); Glucose 89 mg/dL (65-115); Osmolality Calculated 285 mOsm/kg (285-295); Potassium 4.2 mmol/L (3.5-5.1); Sodium 139 mmol/L (136-145); Total Bilirubin 0.5 mg/dL (0.15-1.2); Total Protein 7.2 g/dL (6.6-8.7)
[2024-10-16 15:19] LABS: Troponin(5th) Baseline < 6 ng/L (0-10)
--- NOTE | 2024-10-16 16:41 | XRR_ITS ---
PROCEDURE INFORMATION: Exam: XR Chest Exam date and time: 10/16/2024 4:46 PM Age: 69 years old Clinical indication: Pain; Angina pectoris; Additional info: Cp TECHNIQUE: Imaging protocol: Radiologic exam of the chest. Views: 1 view. COMPARISON: CR XR chest 1V portable [id number] 04/22/2023 10:44 AM FINDINGS: Lungs: Hyperinflated lungs. No consolidation. Pleural spaces: Unremarkable. No pleural effusion. No pneumothorax. Heart/Mediastinum: Unremarkable. No cardiomegaly. Bones/joints: [id number] dextroscoliosis of the thoracic spine. Visualized osseous structures are intact. XR/XR chest 1V portable [id number] IMPRESSION: No acute findings.
--- NOTE | 2024-10-16 16:44 | ECG_ITS ---
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 Measurements Intervals [place] Rate: 52 P: 72 CT: 160 QRS: 86 QRSD: 82 T: 71 QT: 425 QTc: 396 Interpretive Statements SINUS BRADYCARDIA Compared to ECG 10/16/2024 13:54:47 ST (T wave) deviation no longer present Electronically Signed On 10-17-2024 08:43:37 CDT by Kyaw Del Cid M.D. [id number] [id number]
--- NOTE | 2024-10-16 16:52 | W.ED.CHESTPA ---
HPI - Chest Pain General: Chief Complaint: Chest Pain Stated Complaint: chest pain Time Seen by Provider: 10/16/24 16:40 Source: patient Mode of arrival: ambulatory Limitations: no limitations History of Present Illness: 69-year-old female states she started having some chest pain this morning. States it was sharp pain in her left chest states she is also been having a productive cough as well. She states she had taken a nitro at home triage had no relief but patient tells me she has not had any pain over the last hour. She is currently pain-free she denies any shortness of breath denies any nausea denies any abdominal pain. Associated symptoms: Deny abdominal pain, dyspnea, fever(s), nausea or vomiting Related Data Home Medications ?Medication ?Instructions ?Recorded ?Confirmed alendronate 70 mg tablet 70 mg PO Q7D 01/06/20 08/27/24 fluticasone propionate 50 1 spray intranasal BID PRN Allergy 01/06/20 08/27/24 mcg/actuation nasal Symptoms spray,suspension metoprolol succinate 100 mg 50 mg PO BID 11/18/20 08/27/24 tablet,extended release 24 hr gabapentin 100 mg capsule 100 mg PO TID 05/21/22 08/27/24 lisinopril 20 mg tablet 10 mg PO QAM 05/21/22 08/27/24 nitroglycerin 0.4 mg sublingual 0.4 mg sublingual Q5M PRN Chest 06/03/22 08/27/24 tablet (Nitrostat) Pain pravastatin 10 mg tablet 5 mg PO QAM 04/22/23 08/27/24 Previous Rx's ?Medication ?Instructions ?Recorded albuterol sulfate 90 mcg/actuation 2 inh inhalation Q4H PRN shortness 06/03/22 aerosol inhaler of breath or wheezing #18 grams ondansetron 4 mg disintegrating 4 mg PO Q6H PRN nausea and 08/27/24 tablet vomiting #14 tabs Allergies Allergy/AdvReac Type Severity Reaction Status Date / Time doxycycline Allergy Unknown Unknown Verified 08/27/24 11:07 Review of Systems Const: Denies: fever(s), chills, body aches or change in appetite ENMT: Denies: throat pain or dental pain Card: Reports: chest pain Resp: Denies: dyspnea GI: Denies: abdominal pain, nausea, vomiting or diarrhea Musc: Denies: neck pain or back pain Skin/Breast: Denies: rash Neuro: Denies: headache(s) PFSH ED PFSH: Medical History Choledocholithiasis Chronic cholecystitis with calculus Irritable bowel syndrome Myocardial infarction Chronic bronchitis Surgical History History of tonsillectomy H/O: hysterectomy History of lung surgery History of tracheostomy Family History Father CAD (coronary artery disease) Mother CAD (coronary artery disease) Social History Smoking and tobacco/nicotine status: never used tobacco/nicotine Alcohol intake: never Substance/Drug Use: never Physical Exam Const: COMMON NORMALS: no acute distress, patient oriented x3 and healthy appearing HENMT: COMMON NORMALS: normocephalic and atraumatic HEAD & SCALP: normocephalic and atraumatic Eye: COMMON NORMALS: conjunctivae normal CONJUNCTIVA: Yes conjunctivae normal Neck/C-Spine: COMMON NORMALS: full ROM and supple Chest: COMMONS NORMALS: normal inspection of the chest and normal palpation of entire chest wall Resp: COMMON NORMALS: normal respiratory effort, No retractions, No use of accessory muscles and clear to auscultation bilaterally AUSCULTATION: clear to auscultation bilaterally Cardio: COMMON NORMALS: regular rate, regular rhythm and No murmurs present (Cardio) RATE: regular rate RHYTHM: regular rhythm GI: COMMON NORMALS: Normal to inspection, nondistended, normoactive bowel sounds present, Soft to palpation, non-tender and no masses PALPATION: Yes Soft to palpation Extremity: COMMON NORMALS: normal to inspection and full ROM Neuro: COMMON NORMALS: patient oriented x3, moves all extremities and no focal motor deficits Psych: COMMON NORMALS: mental status grossly normal, Normal thought process present and cooperative THOUGHT PROCESS: Normal thought process present Skin: COMMON NORMALS: no rashes or lesions noted and no wounds GENERAL SKIN EXAM: no rashes or lesions noted Course Vital Signs: Vital signs: Vital Signs Temperature 97.3 F L 10/16/24 13:56 Pulse Rate 60 10/16/24 13:56 Respiratory Rate 14 10/16/24 13:56 Blood Pressure 158/66 10/16/24 13:56 Pulse Oximetry 99 10/16/24 13:56 MDM - Chest Pain Medical Decision Making Patient presents for chest pain atypical in nature she has been pain-free here initial repeat troponins are negative x-ray shows no pneumonia she is stable for discharge follow-up PCP return if worsening she understands agrees to plan. Medical Records I reviewed the patient's medical records. Lab Data I reviewed the patient's lab results. 10/16/24 14:46 10/16/24 14:46 Radiology Impressions Chest X-Ray 10/16/24 16:41 IMPRESSION: No acute findings. Laboratory Results WBC 7.37 10^3/uL (3.29-11.43) 10/16/24 14:46 RBC 5.17 10^6/uL (3.85-5.65) 10/16/24 14:46 Hgb 14.70 g/dL (11.27-16.99) 10/16/24 14:46 Hct 44.9 % (36-47) 10/16/24 14:46 MCV 86.8 fl (85-98) 10/16/24 14:46 MCH 28.4 pg (27-33) 10/16/24 14:46 MCHC 32.7 g/dL (30-55) 10/16/24 14:46 RDW 13.2 % (12.1-15.1) 10/16/24 14:46 Plt Count 193 10^3/cmm (157-399) 10/16/24 14:46 MPV 10.6 fL (7.4-10.4) H 10/16/24 14:46 Neut % (Auto) 67.0 % 10/16/24 14:46 Lymph % (Auto) 23.6 % 10/16/24 14:46 [place] % (Auto) 7.2 % 10/16/24 14:46 Eos % (Auto) 1.2 % 10/16/24 14:46 Baso % (Auto) 0.7 % 10/16/24 14:46 Neut # (Auto) 4.94 10^3/uL (1.8-7.7) 10/16/24 14:46 Lymph # (Auto) 1.7 10^3/uL (0.8-4.8) 10/16/24 14:46 [place]eller # (Auto) 0.5 10^3/uL (0.2-0.9) 10/16/24 14:46 Eos # (Auto) 0.1 10^3/uL (0.0-0.8) 10/16/24 14:46 Baso # (Auto) 0.1 10^3/uL (0.0-0.1) 10/16/24 14:46 Nucleated RBC % (auto) 0 % 10/16/24 14:46 Nucleated RBCs # 0.0 /100WBC 10/16/24 14:46 Sodium 139 mmol/L (136-145) 10/16/24 14:46 Potassium 4.2 mmol/L (3.5-5.1) 10/16/24 14:46 Chloride 102 mmol/L (98-107) 10/16/24 14:46 Carbon Dioxide 25 mmol/L (22-29) 10/16/24 14:46 Anion Gap 16.2 (5-19) 10/16/24 14:46 BUN 6 mg/dL (8-23) L 10/16/24 14:46 Creatinine 0.5 mg/dL (0.5-0.9) 10/16/24 14:46 GFR Calculation Not Reportable 10/16/24 14:46 Glucose 89 mg/dL (65-115) 10/16/24 14:46 Calculated Osmolality 285 mOsm/kg (285-295) 10/16/24 14:46 Calcium 9.9 mg/dL (8.5-10.5) 10/16/24 14:46 Total Bilirubin 0.5 mg/dL (0.15-1.2) 10/16/24 14:46 AST 21 U/L (0-32) 10/16/24 14:46 ALT 13 U/L (0-33) 10/16/24 14:46 Alkaline Phosphatase 82 U/L (35-105) 10/16/24 14:46 Troponin T Baseline < 6 ng/L (0-10) 10/16/24 14:46 Troponin T 120 Minute 6.00 ng/L (0-10) 10/16/24 16:55 Delta Troponin T 0.88937 ABS# (0-10) 10/16/24 16:55 Total Protein 7.2 g/dL (6.6-8.7) 10/16/24 14:46 Albumin 4.7 g/dL (3.5-5.2) 10/16/24 14:46 Globulin 2.5 g/dL (1.3-4.6) 10/16/24 14:46 All radiology interpretation(s) finalized by discharge EKG Data EKG 1: I personally reviewed and interpreted this EKG as follows: EKG interpretation date: 10/16/24 EKG interpretation time: 16:44 Interpretation: sinus amanda hr [address] elevation qrs 82 qtc 404 Discharge Plan Discharge Patient Disposition: Home Clinical Impression: Chest pain Condition: Stable Prescriptions: No Action alendronate 70 mg tablet 70 mg PO Q7D Rx Instructions: on Tuesdays fluticasone propionate 50 mcg/actuation spray,suspension 1 spray INTRANASAL BID PRN (Reason: Allergy Symptoms) metoprolol succinate 100 mg tablet extended release 24 hr 50 mg PO BID nitroglycerin [Nitrostat] 0.4 mg Tablet, Sublingual 0.4 mg SUBLINGUAL Q5M PRN (Reason: Chest Pain) Rx Instructions: do not exceed 3 doses per episode albuterol sulfate 90 mcg/actuation HFA aerosol inhaler 2 inh INHALATION Q4H PRN (Reason: shortness of breath or wheezing) Qty: 18 0RF pravastatin 10 mg tablet 5 mg PO QAM lisinopril 20 mg tablet 10 mg PO QAM gabapentin 100 mg capsule 100 mg PO TID ondansetron 4 mg tablet,disintegrating 4 mg PO Q6H PRN (Reason: nausea and vomiting) Qty: 14 0RF Discharge Orders: Discharge ED (Routine); Ordered 10/16/24 Ordered By: Godwin Fitch Referrals: Michael Phillips MD [Primary Care Provider] - 4-7 days Discharge Diet: Advance as tolerated Discharge Activity: Resume usual activity Patient Instructions: Chest Pain (ED) Print Language: Kinyarwanda Coding Level of Care Code ED Elderly Caregiver for Julian Andrews
[2024-10-16 17:41] LABS: Troponin 5 2HR Delta 0.00001 ABS# (0-10)
== END 2024-10-16 17:56 | disposition home or self-care (01) ==
PROVIDERS: Family Medicine; Emergency Provider Emergency Medicine; PCP Family Medicine
DX: R07.9 Chest pain, unspecified (principal)
CPT/HCPCS: 36415; 71045; 80053; 84484; 85025; 93005; 99285

== ENCOUNTER 2025-03-18 07:57 | Emergency (ER) | payer MEDICARE, MEDICAID, SELFPAY ==
[2025-03-18 08:04] VITALS: BP 182/78; PULSE 56; RESP 18; TEMP 36.4; O2SAT 99
--- OUTSIDE RECORDS SUMMARY | 2025-03-18 08:21 | XMS_ITS | Clinical Summary ---
Author Organization [facility] Address [address] [place] [address] Phone Care Team Providers Care Protocol Manager Name Role Phone Michael Phillips MD Primary Care Provider [phone] Allergies Active Allergy Reactions Criticality Noted Date Comments Doxycycline Abdominal Pain,Hypertension Medium 09/22/2021 Patient says she has a racing heart beat Medications HYDROcodone-chauncey taminophen (NORCO) 5-325 mg tablet Take 1 Tablet by mouth every 4 hours as needed for Pain, Moderate. Active ibuprofen (MOTRIN) 200 mg tablet Take 200 mg by mouth every 6 hours as needed for Pain, Mild. Active nitroglycerin (NITROSTAT) 0.4 mg Tablet, Sublingual Place 0.4 mg under tongue every 5 minutes as needed for Chest Pain. Active albuterol sulfate 90 mcg/Actuation inhaler Take 2 Puffs by inhalation every 6 hours as needed for Shortness of Breath. Active fluticasone propionate (FLONASE) 50 mcg/spray [place], Suspension nasal inhaler Administer 2 Sprays in each nostril daily. Active CALCIUM CARBONATE-VITAM IN D3 ORAL Take by mouth. Acti ve alendronate (FOSAMAX) 70 mg tablet TAKE 1 TAB ONCE WEEKLY TAKE 1 HR PRIOR TO BREAKFAST W/ FULL GLASS OF WATER, STAY UP UNTIL AFTER MEAL 2 Active lisinopriL (PRINIVIL) 20 mg tablet TAKE 1/2 TABLET BY MOUTH DAILY 2 Active metoprolol succinate (TOPROL XL) 100 mg Extended Release 24 hour tablet Take 100 mg by mouth daily. 2 Active montelukast (SINGULAIR) 10 mg tablet TAKE 1 TABLET BY MOUTH EVERY DAY NEEDED 2 Active ondansetron (ZOFRAN) 4 mg Tablet TAKE 1 TABLET BY MOUTH THREE TIMES A DAY NEEDED FOR NAUSEA AND VOMITING 2 Active celecoxib (CeleBREX) 50 mg capsule Take 100 mg by mouth daily. Active Active Problems Problem Noted Date Diagnosed Date HTN (hypertension), benign 09/22/2021 Hyperlipidemia 09/22/2021 Dilated cbd, acquired 09/22/2021 History of lung surgery 09/22/2021 Atypical chest pain 09/22/2021 History of pericarditis 09/22/2021 History of tonsillectomy 09/22/2021 History of tracheostomy 09/22/2021 History of hysterectomy 09/22/2021 Hx laparoscopic cholecystectomy 09/22/2021 Choledocholithiasis Elevated liver function tests Hyperbilirubinemia Family History Medical History Relation Name Comments Colon Cancer Neg Hx Social History Tobacco Use Types Packs/Day Years Used Date Smoking Tobacco: Never Smokeless Tobacco: Never Alcohol Use Standard Drinks/Week Comments Never 0 (1 standard drink = 0.6 oz pur e alcohol) Comments No Sex and Gender Information Value Date Recorded Sex Assigned at Not on file Legal Sex Female 7:37 PM CDT Gender Identity Not on file Sexual Orientation Not on file Occupation Industry Job Start Date Job End Date Retired Not on file Not on file Not on file Last Filed Vital Signs Vital Sign Reading Time Taken Comments Blood Pressure 136/64 12/02/2021 8:49 AM CDT Pulse 51 12/02/2021 8:49 AM CDT Temperature 36.5 C (97.7 F) 12/02/2021 8:38 AM CDT Respiratory Rate 18 12/02/2021 8:49 AM CDT Oxygen Saturation 99% 12/02/2021 8:49 AM CDT Inhaled Oxygen Concentration - - Weight 48.5 kg (107 lb) 11/26/2021 10:57 AM CDT Height 167.6 cm (5' 6 ) 11/26/2021 10:57 AM CDT Body Mass Index 17.27 11/26/2021 10:57 AM CDT Plan of Treatment Health Maintenance Due Date Last Done Comments DTAP/TDAP/TD VACCINES (1 - Tdap) 02/25/1972 BREAST CANCER SCREENING 1993 COLORECTAL SCREENING 1998 Colorectal Cancer Screening 1998 FIT-DNA Q 3 years 1998 FIT/FOBT Q 1 year 1998 Flex Sig/CT Colonography Q 5 years 1998 PNEUMOCOCCAL VACCINE 50+ YEARS (1 of 1 - PCV) 02/25/20 03 ZOSTER VACCINE (1 of 2) 2003 OSTEOPOROSIS SCREENING 2018 INFLUENZA VACCINE (#1) 2025 RSV VACCINE (60+ or ) (1 - 1-dose 75+ series) 02/25/2028 Medical Devices Implanted Type Area White [employer] Buffer Device Identifier Shelf Expiration Date Model / Serial / Lot Stent Bili Plastic Duodenal Bend 7fr 7cm [id number] - [id number] Implanted:Qty: 1 on 09/22/2021 by Rick Singh MD at [facility] [employer] [id number] 01/07/2022 [id number] / / [id number] Insurance MEDICAID [place] MEDICARE PART B Advance Directives For more information, please contact: [phone] * Full Code (Latest Code Status on File) Date Activated Date Inactivated Comments 12/02/2021 7:44 AM 12/02/2021 11:03 AM * Full Code Date Activated Date Inactivated Comments 09/22/2021 2:25 AM 09/24/2021 8:37 PM Care Teams Protocol Manager Relationship Specialty Start Date End Date Michael Phillips MD [address] [id number] PCP - General Family Practice 09/23/21
[2025-03-18 08:28] LABS: Hematocrit 44.7 % (36-47); Hemoglobin 14.90 g/dL (11.27-16.99); Mean Corpuscular HGB Conc 33.3 g/dL (30-55); Mean Corpuscular Hemoglobin 28.7 pg (27-33); Mean Corpuscular Volume 86.0 fl (85-98); Nucleated Red Blood Cells % 0 %; Platelet Count 215 10^3/cmm (157-399); Red Blood Count 5.20 10^6/uL (3.85-5.65); White Blood Count 7.00 10^3/uL (3.29-11.43)
--- NOTE | 2025-03-18 08:28 | W.ED.ABDPA2 ---
HPI - Abdominal Pain General: Chief Complaint: Abdominal Pain Stated Complaint: lower back pain Time Seen by Provider: 03/18/25 08:11 History of Present Illness: 68-year-old female presents emergency room complaining of lower back and pelvis pain wraps around into the groin area. This began a few days ago. She has had some loose stool which she relates to being caused by her previous cholecystectomy. She denies any dysuria urgency or frequency. She denies any flank pain no hematuria. No fever sweats or chills no vomiting. Associated Symptoms: Denies chills, dysuria and fever(s) Related Data Home Medications ?Medication ?Instructions ?Recorded ?Confirmed alendronate 70 mg tablet 70 mg PO Q7D 01/06/20 03/18/25 fluticasone propionate 50 1 spray intranasal BID PRN Allergy 01/06/20 03/18/25 mcg/actuation nasal Symptoms spray,suspension metoprolol succinate 100 mg 50 mg PO BID 11/18/20 03/18/25 tablet,extended release 24 hr gabapentin 100 mg capsule 100 mg PO TID 05/21/22 03/18/25 lisinopril 20 mg tablet 10 mg PO QAM 05/21/22 03/18/25 nitroglycerin 0.4 mg sublingual 0.4 mg sublingual Q5M PRN Chest 06/03/22 03/18/25 tablet (Nitrostat) Pain pravastatin 10 mg tablet 5 mg PO QAM 04/22/23 03/18/25 Previous Rx's ?Medication ?Instructions ?Recorded albuterol sulfate 90 mcg/actuation 2 inh inhalation Q4H PRN shortness 06/03/22 aerosol inhaler of breath or wheezing #18 grams ondansetron HCl 4 mg tablet 4 mg PO Q6H PRN nausea and 03/18/25 vomiting #20 tabs Allergies Allergy/AdvReac Type Severity Reaction Status Date / Time doxycycline Allergy Unknown Unknown Verified 08/27/24 11:07 Review of Systems Const: Denies: fever(s) or chills Card: Denies: chest pain Resp: Denies: dyspnea GI: Denies: abdominal pain : Denies: dysuria, urinary frequency or urinary urgency Musc: Denies: neck pain or back pain Skin/Breast: Denies: rash PFSH ED PFSH: Medical History Choledocholithiasis Chronic cholecystitis with calculus Irritable bowel syndrome Myocardial infarction Chronic bronchitis Surgical History History of tonsillectomy H/O: hysterectomy History of lung surgery History of tracheostomy Family History Father CAD (coronary artery disease) Mother CAD (coronary artery disease) Social History Smoking and tobacco/nicotine status: never used tobacco/nicotine Alcohol intake: never Substance/Drug Use: never Physical Exam Const: COMMON NORMALS: no acute distress GENERAL APPEARANCE: cooperative and comfortable ORIENTATION/CONSCIOUSNESS: Yes awake, Yes oriented to person, Yes oriented to place and Yes oriented to time HENMT: COMMON NORMALS: normocephalic, atraumatic and hearing grossly normal bilaterally HEAD & SCALP: normocephalic and atraumatic Resp: COMMON NORMALS: normal respiratory effort, No retractions, No use of accessory muscles and clear to auscultation bilaterally AUSCULTATION: clear to auscultation bilaterally Cardio: COMMON NORMALS: regular rate, regular rhythm and No murmurs present (Cardio) RATE: regular rate RHYTHM: regular rhythm GI: COMMON NORMALS: Soft to palpation and No hepatosplenomegaly present AUSCULTATION: Yes normoactive bowel sounds PALPATION: Yes Soft to palpation, No Tenderness to palpation present (GI), No Guarding due to palpation present (GI) and Yes No hepatosplenomegaly present Extremity: COMMON NORMALS: normal to inspection, capillary refill normal, no clubbing, cyanosis or edema, no calf tenderness and no pedal edema Neuro: SENSORIUM/ORIENTATION: Yes oriented to person, Yes oriented to place and Yes oriented to time Skin: COMMON NORMALS: no rashes or lesions noted GENERAL SKIN EXAM: no rashes or lesions noted Course Vital Signs: Vital signs: Vital Signs Temperature 97.6 F 03/18/25 08:04 Pulse Rate 58 L 03/18/25 11:34 Respiratory Rate 18 03/18/25 08:04 Blood Pressure 168/72 03/18/25 11:34 Pulse Oximetry 99 03/18/25 11:34 Oxygen Delivery Me thod Room Air 03/18/25 08:04 MDM - Abdominal Pain Medical Decision Making CT and labs unremarkable. Patient states she is feeling better she may have a little gastroenteritis. Will go ahead and discharge her home have her follow-up with her primary care doctor fluid could have 24 to 48 hours return if has further problems Medical Records I reviewed the patient's medical records. Lab Data I reviewed the patient's lab results. 03/18/25 08:22 03/18/25 08:22 Labs/Radiology: Radiology Impressions Abdomen/Pelvis CT 03/18/25 09:08 IMPRESSION: 1. No mass, lymphadenopathy or acute process in the abdomen or pelvis. 2. Minor chronic changes, postoperative changes. Laboratory Results WBC 7.00 10^3/uL (3.29-11.43) 03/18/25 08:22 RBC 5.20 10^6/uL (3.85-5.65) 03/18/25 08:22 Hgb 14.90 g/dL (11.27-16.99) 03/18/25 08:22 Hct 44.7 % (36-47) 03/18/25 08:22 MCV 86.0 fl (85-98) 03/18/25 08:22 MCH 28.7 pg (27-33) 03/18/25 08:22 MCHC 33.3 g/dL (30-55) 03/18/25 08:22 RDW 13.2 % (12.1-15.1) 03/18/25 08:22 Plt Count 215 10^3/cmm (157-399) 03/18/25 08:22 MPV 10.3 fL (7.4-10.4) 03/18/25 08:22 Neut % (Auto) 60.1 % 03/18/25 08:22 Lymph % (Auto) 27.9 % 03/18/25 08:22 [place] % (Auto) 9.4 % 03/18/25 08:22 Eos % (Auto) 1.6 % 03/18/25 08:22 Baso % (Auto) 0.9 % 03/18/25 08:22 Neut # (Auto) 4.21 10^3/uL (1.8-7.7) 03/18/25 08:22 Lymph # (Auto) 2.0 10^3/uL (0.8-4.8) 03/18/25 08:22 [place] # (Auto) 0.7 10^3/uL (0.2-0.9) 03/18/25 08:22 Eos # (Auto) 0.1 10^3/uL (0.0-0.8) 03/18/25 08:22 Baso # (Auto) 0.1 10^3/uL (0.0-0.1) 03/18/25 08:22 Nucleated RBC % (auto) 0 % 03/18/25 08:22 Nucleated RBCs # 0.0 /100WBC 03/18/25 08:22 Sodium 138 mmol/L (136-145) 03/18/25 08:22 Potassium 3.9 mmol/L (3.5-5.1) 03/18/25 08:22 Chloride 101 mmol/L (98-107) 03/18/25 08:22 Carbon Dioxide 25 mmol/L (22-29) 03/18/25 08:22 Anion Gap 15.9 (5-19) 03/18/25 08:22 BUN 5 mg/dL (8-23) L 03/18/25 08:22 Creatinine 0.6 mg/dL (0.5-0.9) 03/18/25 08:22 GFR Calculation Not Reportable 03/18/25 08:22 Glucose 92 mg/dL (65-115) 03/18/25 08:22 Calculated Osmolality 283 mOsm/kg (285-295) L 03/18/25 08:22 Calcium 10.5 mg/dL (8.5-10.5) 03/18/25 08:22 Total Bilirubin 0.9 mg/dL (0.15-1.2) 03/18/25 08:22 AST 23 U/L (0-32) 03/18/25 08:22 ALT 16 U/L (0-33) 03/18/25 08:22 Alkaline Phosphatase 71 U/L (35-105) 03/18/25 08:22 Total Protein 7.6 g/dL (6.6-8.7) 03/18/25 08:22 Albumin 4.6 g/dL (3.5-5.2) 03/18/25 08:22 Globulin 3.0 g/dL (1.3-4.6) 03/18/25 08:22 Urine Color Yellow (Yellow) 03/18/25 08:05 Urine Appearance Clear (CLEAR) 03/18/25 08:05 Urine pH 7.0 (5-7) 03/18/25 08:05 Ur Specific [place] 1.004 (1.005-1.030) L 03/18/25 08:05 Urine Protein Negative (Negative) 03/18/25 08:05 Urine Glucose (UA) Negative (Normal) 03/18/25 08:05 Urine Ketones Negative (Negative) 03/18/25 08:05 Urine Blood Negative (Negative) 03/18/25 08:05 Urine Nitrate Negative (Negative) 03/18/25 08:05 Urine Bilirubin Negative (Negative) 03/18/25 08:05 Urine Urobilinogen 0.2 mg/dL (Negative) 03/18/25 08:05 Ur Leukocyte Esterase 1+ (Negative) A 03/18/25 08:05 Urine RBC 0-2 /hpf (0-2) 03/18/25 08:05 Urine WBC 0-5 /hpf (0-5) 03/18/25 08:05 Ur Squamous Epith Cells 0-5 /hpf (0-5) 03/18/25 08:05 Amorphous Sediment Not Reportable 03/18/25 08:05 Urine Bacteria None seen /hpf (NONE) 03/18/25 08:05 Hyaline Casts 0.40 /lpf 03/18/25 08:05 All radiology interpretation(s) finalized by discharge Discharge Plan Discharge Patient Disposition: Home Clinical Impression: Gastroenteritis Condition: Stable Prescriptions: New ondansetron HCl 4 mg tablet 4 mg PO Q6H PRN (Reason: nausea and vomiting) Qty: 20 0RF No Action alendronate 70 mg tablet 70 mg PO Q7D Rx Instructions: on Tuesdays fluticasone propionate 50 mcg/actuation spray,suspension 1 spray INTRANASAL BID PRN (Reason: Allergy Symptoms) metoprolol succinate 100 mg tablet extended release 24 hr 50 mg PO BID nitroglycerin [Nitrostat] 0.4 mg Tablet, Sublingual 0.4 mg SUBLINGUAL Q5M PRN (Reason: Chest Pain) Rx Instructions: do not exceed 3 doses per episode albuterol sulfate 90 mcg/actuation HFA aerosol inhaler 2 inh INHALATION Q4H PRN (Reason: shortness of breath or wheezing) Qty: 18 0RF pravastatin 10 mg tablet 5 mg PO QAM lisinopril 20 mg tablet 10 mg PO QAM gabapentin 100 mg capsule 100 mg PO TID Discharge Orders: Discharge ED (Routine); Ordered 03/18/25 Ordered By: Aman Stevenson Referrals: Michael Phillips MD [Primary Care Provider, Family Practice] Discharge Diet: Clear Liquid Discharge Activity: Increase activity as tolerated Patient Instructions: Opioid Safety, Pain Management, Patient Portal & [facility] Instructions Activity Restrictions/Additional Instructions: Thank you for choosing [facility] for your healthcare needs today. It is very important that you follow up as instructed or that you return to the Emergency Department should you have concerns or if your condition changes or worsens in any way. Emergency department visits are focused on emergent conditions, in some cases you may require further evaluation on an outpatient basis. You are seen in the emergency room with complaints of abdominal discomfort and some diarrhea. CT of your abdomen your laboratory work did not show any acute abnormalities. No emergent condition found. Suspect you have a viral gastroenteritis. Recommend clear liquid diet for 24 to 48 hours and advance as tolerated. (Please note that included in your discharge packet is information concerning opioid safety and pain management. This information is given to all patients were discharged from the ER regardless of their discharge diagnosis or the medicines they usually take or are prescribed.) Print Language: Uzbek Coding Level of Care Code ED [employer] for Julian Andrews
[2025-03-18 08:46] LABS: Glucose Urine UA Negative (Normal); Nitrate Urine Negative (Negative); Specific Gravity, Urine 1.004 (1.005-1.030)
[2025-03-18 08:48] LABS: Alanine Aminotransferase 16 U/L (0-33); Albumin Level 4.6 g/dL (3.5-5.2); Alkaline Phosphatase 71 U/L (35-105); Anion Gap 15.9 (5-19); Aspartate Amino Transferase 23 U/L (0-32); Blood Urea Nitrogen 5 mg/dL (8-23); Calcium 10.5 mg/dL (8.5-10.5); Carbon Dioxide 25 mmol/L (22-29); Chloride 101 mmol/L (98-107); Creatinine Clr Calc Pharmacy 54.7820; Globulin 3.0 g/dL (1.3-4.6); Glucose 92 mg/dL (65-115); Osmolality Calculated 283 mOsm/kg (285-295); Potassium 3.9 mmol/L (3.5-5.1); Sodium 138 mmol/L (136-145); Total Protein 7.6 g/dL (6.6-8.7)
[2025-03-18 08:51] LABS: Add Urine Microscopic? YES
--- NOTE | 2025-03-18 09:08 | CT_ITS ---
WS: [id number] Exam: CT abdomen pelvis w con* [id number] Date/Time of Exam: 03/18/2025 9:09 AM Reason For Exam: abd pain DLP: 321.[address] scans at [facility] use at least one of these dose optimization techniques: automated exposure control; mA and/or kV adjustment per patient size (includes targeted exams where dose is matched to clinical indication); or iterative reconstruction. Comparison 08/27/2024 and 02/23/2024. Lower lung zones are free of infiltrate. Chronic changes in the lung bases. The liver, spleen, stomach, and pancreas appear normal. The gallbladder is surgically absent. No significant biliary dilatation. Negative adrenal glands. The kidneys function and drain normally. Subcentimeter LEFT renal cyst. No renal obstruction. The aorta and IVC are patent. No lymphadenopathy or free air. Small bowel loops are normal in caliber. Extensive atherosclerosis of the abdominal aorta and iliac bifurcation. No ascites. No significant large bowel abnormality. No sign of acute appendix. Appendix is visualized in the RIGHT pelvis. No mass or adenopathy in the pelvis. Unremarkable urinary bladder. Status post hyster ectomy. No abdominal wall defect. Levoscoliosis of the lumbar spine. CT/CT abdomen pelvis w con* [id number] IMPRESSION: 1. No mass, lymphadenopathy or acute process in the abdomen or pelvis. 2. Minor chronic changes, postoperative changes.
[2025-03-18] MEDS: iohexol 350 mg/mL 500 mL Btl (per mL) IV (09:22)
[2025-03-18 11:34] VITALS: BP 168/72; PULSE 58; O2SAT 99
== END 2025-03-18 11:36 | disposition home or self-care (01) ==
PROVIDERS: Emergency Provider Family Medicine; PCP Family Medicine
DX: K52.9 Noninfective gastroenteritis and colitis, unspecified (principal)
CPT/HCPCS: 36415; 74177; 80053; 81001; 85025; 99285